=== PATIENT | female | born 1950 | race Caucasian/White ===

== ENCOUNTER → 2016-08-04 | Outpatient (CLI) | payer BC, MEDICARE ==
[~2016-08-04] MED LIST: AMIT100T2 PO; ASPI-808 PO; CLON0.1T PO; CLONIDINE; DILT240C9 PO; FURO40TA4 PO; GLYB5TAB6 PO; HYDR-3820 PO; INSU100I10 SC; LEVEMIR; LISI-552 PO; LOVA20TA2 PO; METF500T4 PO; METFORMIN; METO100T2 PO; METOPROLOL; PANT40SU PO; POTA10TA6 PO; RANI150T15 PO; TRIA10.8 NS
--- NOTE | 2016-08-04 09:30 | Diagnostic Imaging Report ---
CLINICAL INDICATION: Patient with right upper quadrant pain. Patient has unintentional weight loss. EXAM: Abdominal ultrasound. COMPARISON: None. FINDINGS: Pancreas has normal echogenicity and appearance with no significant abnormality. There is diffuse hyperechogenicity seen throughout the liver. There is no liver mass seen. The liver surface is smooth. The main portal vein demonstrates hepatopetal flow. The liver measures 17.0 cm. Both kidneys demonstrate normal echogenicity, size, shape and cortical thickness. No mass or hydronephrosis is seen. The right and left kidney measures 9.8 cm and 9.4 cm in craniocaudal dimensions, respectively. Common bile duct measures 4.8 mm with no stones or gross abnormality seen. The gallbladder is surgically resected. The area of the aorta and IVC is obscured by overlying bowel gas and patient body habitus. The spleen has normal echogenicity, configuration with no significant abnormality seen. The spleen measures 11.2 cm in craniocaudal dimension. There is no abdominal ascites. IMPRESSION: 1: There is no evidence of acute abdominal process seen on this exam. 2: Mild hepatomegaly and diffuse hyperechogenicity seen throughout the liver which may be related to diffuse fatty infiltration and/or chronic hepatocellular disease. 3: Gallbladder is surgically absent. 4: The aorta and IVC is obscured on this exam. Dictated by: Dictated on workstation # [id number]
== END ==
LOC: RAD 08:07
PROVIDERS: ATTEND Nurse Practitioner Family
DX: R10.11 Right upper quadrant pain (principal); R10.12 Left upper quadrant pain; R63.5 Abnormal weight gain; R06.02 Shortness of breath; R16.0 Hepatomegaly, not elsewhere classified
CPT/HCPCS: 76700

== ENCOUNTER → 2016-08-06 | Outpatient (CLI) | payer BC, MEDICARE ==
--- NOTE | 2016-08-06 15:30 | Diagnostic Imaging Report ---
PROCEDURE: CT abdomen and pelvis without contrast. TECHNIQUE: Multiple contiguous axial images were obtained through the abdomen and pelvis without the use of intravenous contrast. INDICATION: Right upper quadrant pain. FINDINGS: Liver is homogeneous in appearance. No evidence of hepatomegaly. The gallbladder is absent. Bile ducts are not dilated. The pancreas and spleen are normal. Adrenal glands are not enlarged. The kidneys show no evidence of obstruction or calculi. Renal outlines are smooth. Aorta and abdominal vessels appear normal with minimal atherosclerotic disease. The stomach and small bowel appear normal with no distention. The colon shows normal stool and gas pattern. There is diverticulosis of the sigmoid colon without evidence of diverticulitis. No intra-abdominal adenopathy. There is no free air or free fluid. IMPRESSION: 1. Liver appears normal with no bile duct dilatation. 2. The remainder of the abdomen appears normal. Dictated by: Dictated on workstation # [id number]
== END ==
LOC: RAD 13:41
DX: R10.11 Right upper quadrant pain (principal); R14.0 Abdominal distension (gaseous)
CPT/HCPCS: 74176

== ENCOUNTER 2016-08-10 11:46 | Observation (INO) | payer BC, MEDICARE ==
[~2016-08-10] VITALS: Ht 165.1 cm; Wt 90.7 kg
[2016-08-10] MEDS ORDERED: NS IV 1000 ML 1,000 ML IV ONE ×4 (11:59→16:14)
[2016-08-10] MEDS ORDERED: ASPIRIN 81 MG CHEW (CHILDREN'S ASA) PO ONE (12:00)
[2016-08-10] MEDS: RX-NITROGLYCERIN 0.4 MG TAB BTL 25'S SL PRN ×2 (12:05→12:19)
[2016-08-10] MEDS ORDERED: ACETAMINOPHEN 500 MG TAB (TYLENOL) PO ONE (12:15)
[2016-08-10] MEDS ORDERED: IBUPROFEN 800 MG (MOTRIN) TAB PO ONE (12:15)
--- NOTE | 2016-08-10 12:18 | ED Cardiac General ---
History of Present Illness General Chief Complaint: Chest Pain Stated Complaint: CHEST HEAVINESS/UPPER ABD PAIN Nursing Triage Note: AMBULATED TO ROOM 08 WITHOUT DIFFICULTY. STATES URGENT CARE SENT HER HERE. COMPLAINS OF CHEST HEAVINESS ET UPPER ABD PAIN X3 WEEKS THAT FEELS LIKE ACID REFLUX ET FEVER OF 101 STARTING TODAY. Source: patient History of Present Illness Time seen by provider: 11:55 Initial Comments PT ARRIVES VIA POV C/O CHEST PAIN /HEAVINESS SINCE WAKING THIS AM AT 0930 C/O SHORTNESS OF BREATH AND DISCOMFORT IN CHEST WITH BREATHING SINCE WAKING C/O HEART RACING THIS AM C/O NON-PRODUCTIVE COUGH SINCE THIS AM--STATES SHE HAS HAD COUGH OFF AND ON SINCE APRIL, STARTED AGAIN THIS AM ON WAKING C/O UPPER ABDOMINAL PAIN SINCE THIS AM--STATES SHE HAS HAD THIS OFF AND ON SINCE APRIL WELL. STARTED AGAIN THIS AM ON WAKING NO NAUSEA, BUT STATES IT FEELS LIKE ACID REFLUX NO SWELLING IN LEGS/FEET OR PAIN IN CALVES PT HAS TEMP OF 101 HERE--PT WAS UNAWARE THAT SHE HAD FEVER NO SWEATS NO DIZZINESS STATES SHE FELT FINE WHEN SHE WENT TO BED PT DENIES ANY HISTORY OF CARDIAC OR LUNG PROBLEMS PT IS HERE VISITING HER MOTHER, PT LIVES IN [place] Allergies and Home Medications Allergies Coded Allergies: No Known Drug Allergies (Unverified , 06/11/15) Home Medications Amitriptyline HCl 100 Mg Tablet 200 MG PO HS (Reported) TAKES 2 (100MG) TABLETS Clonidine HCl 0.1 Mg Tablet 0.1 MG PO HS (Reported) Diltiazem HCl 240 Mg Cap.er.deg 240 MG PO DAILY (Reported) Furosemide 40 Mg Tablet 40 MG PO DAILY (Reported) Glyburide 5 Mg Tablet 5 MG PO TID (Reported) Hydrocodone/Acetaminophen 1 Each Tablet 1 TAB PO TID (Reported) Insulin Glargine,Hum.rec.anlog 100 Unit/1 Ml Insuln.pen 20 UNITS SC DAILY ( Reported) Lisinopril 20 Mg Tablet 20 MG PO HS (Reported) Lovastatin 20 Mg Tablet 20 MG PO DAILY (Reported) Metoprolol Tartrate 100 Mg Tablet 100 MG PO BID (Reported) Pantoprazole Sodium 40 Mg #90 40 MG PO DAILY Prescribed by: DANYA GREEN on 06/12/15 1634 Potassium Chloride 10 Meq Tablet.er 10 MEQ PO DAILY (Reported) Ranitidine HCl 150 Mg Tablet 150 MG PO BID (Reported) Triamcinolone Acetonide 10.8 Ml [place] 2 SPRAYS NS DAILY PRN PRN CONGESTION ( Reported) Review of Systems Constitutional: see HPI EENTM: No Symptoms Reported Respiratory: See HPI Cough Shortness of Air Cardiovascular: See HPI Chest PainDenies Edema, Irregular Heart RateDenies Lightheadedness, PalpitationsDenies Syncope Gastrointestinal: See HPI Abdominal PainDenies Nausea, Denies Vomiting Genitourinary: No Symptoms Reported Musculoskeletal: no symptoms reported Skin: no symptoms reported Psychiatric/Neurological: No Symptoms Reported Endocrine: No Symptoms Reported Hematologic/Lymphatic: No Symptoms Reported Past Ioukpdq-Bzoymr-Hzsbwf Hx Patient Social History Alcohol Use: Past History (MODERATE USE IN PAST) Recreational Drug Use: No (DENIES) Smoking Status: Former Smoker (SMOKED 1 PPD QUIT 2003) Recent Foreign Travel: No Contact w/Someone Who Travel: No Recent Infectious Disease Expo: No Recent Hopitalizations: No Immunizations Up To Date Tetanus Booster (TDap): Unknown PED Vaccines UTD: No Date of Pneumonia Vaccine: Aug 31, 2012 Surgeries HX Surgeries: Yes (R wrist, L thumb; 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; HYST/ BSO) Surgeries: Appendectomy, Gallbladder, Hysterectomy, Oophorectomy, Orthopedic Respiratory Hx Respiratory Disorders: No Cardiovascular Hx Cardiac Disorders: Yes (RAPID HEART RATE; edema L leg) Cardiac Disorders: Hypertension Neurological Hx Neurological Disorders: Yes Neurological Disorders: Headaches /Migraines Reproductive System Hx 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, 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 Genitourinary Hx Genitourinary Disorders: Yes Genitourinary Disorders: Kidney Infection Gastrointestinal Hx Gastrointestinal Disorders: Yes Gastrointestinal Disorders: Gastroesophageal Reflux Musculoskeletal Hx Musculoskeletal Disorders: Yes (L thumb, R wrist, R Collar bone; 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) Musculoskeletal Disorders: Fractures Endocrine Hx Endocrine Disorders: Yes (LANTUS 20 UNITS DAILY) Endocrine Disorders: Diabetes, Insulin dep HEENT HX ENT Disorders: Yes HEENT Disorders: Glaucoma Loss of Vision: Denies Hearing Impairment: Denies Cancer Hx Cancer: No Psychosocial Hx Psychiatric Problems: No Integumentary HX Skin/Integumentary Disorder: No Family Medical History Family Medial History: Arthritis G8 BROTHER G8 BROTHER Cardiovascular disease 19 FATHER 19 MOTHER Dementia 19 FATHER Diabetes mellitus 19 FATHER 19 MOTHER G8 BROTHER FH: COPD (chronic obstructive pulmonary disease) G8 BROTHER FH: CVA (cerebrovascular accident) 19 FATHER FH: CVA (cerebrovascular accident) 19 FATHER FH: neuropathy G8 BROTHER Glaucoma 19 FATHER Hypertension G8 BROTHER Kidney disease G8 BROTHER Psychosocial problem G8 BROTHER TIAs 19 FATHER Vertigo G8 BROTHER Physical Exam Vital Signs Vital Sign - Last 12Hours 08/10/16 08/10/16 11:53 12:22 Temp 101.2 Pulse 143 Resp 16 B/P 140/64 Pulse Ox 95 O2 Delivery Nasal Cannula O2 Flow Rate 2 Capillary Refill : Less Than 3 Seconds General Appearance: No Apparent Distress WD/WN Other (CONSTANT MOVEMENTS) HEENT: PERRL/EOMI Other (EDENTULOUS) Neck: Full Range of Motion Normal Inspection Non Tender SuppleNo Carotid Bruit , No JVD Respiratory: Chest Non Tender Normal Breath Sounds No Accessory Muscle Use No Respiratory Distress Cardiovascular: No Edema No JVD No Murmur Normal Peripheral Pulses Tachycardia Gastrointestinal: Normal Bowel Sounds No Organomegaly No Pulsatile Mass Soft Tenderness (MODERATE EPIGASTRIC TENDERNESS) Extremity: Normal Capillary Refill Normal Inspection Normal Range of Motion Non Tender No Calf Tenderness No Pedal Edema Neurologic/Psychiatric: Alert Oriented x3 No Motor/Sensory Deficits Normal 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 Norm as Tested Skin: Normal Color Warm/DryNo Rash Progress/Results/Core Measures Results/Orders Lab Results Laboratory Tests Test 08/10/16 12:05 08/10/16 15:34 Range/Units Activated Partial Thromboplast Time 25 24-35 SEC Alanine Aminotransferase (ALT/SGPT) 19 0-55 U/L Albumin 4.1 3.2-4.5 G/DL Alkaline Phosphatase 79 40-136 U/L Amylase Level 94 25-125 U/L Anion Gap 13 5-14 MMOL/L Aspartate Amino Transf (AST/SGOT) 18 5-34 U/L B-Type Natriuretic Peptide < 10.0 <100.0 PG/ML BUN/Creatinine Ratio 24 Basophils # (Auto) 0.0 0.0-0.1 10^3/uL Basophils (%) (Auto) 0 0-10 % Blood Morphology Comment NORMAL Blood Urea Nitrogen 26 H 7-18 MG/DL Calcium Level 8.6 8.5-10.1 MG/DL Carbon Dioxide Level 21 21-32 MMOL/L Chloride Level 102 98-107 MMOL/L Creatine Kinase MB 0.3 <6.6 NG/ML Creatinine 1.10 0.60-1.30 MG/DL Eosinophils # (Auto) 0.1 0.0-0.3 10^3/uL Eosinophils (%) (Auto) 1 0-10 % Estimat Glomerular Filtration Rate 49 Free Thyroxine 1.00 0.70-1.48 NG/DL Glucose Level 198 H 70-105 MG/DL Hematocrit 36 35-52 % Hemoglobin 11.8 11.5-16.0 G/DL INR Comment 1.0 0.8-1.4 Lactic Acid Level 1.9 0.5-2.0 MMOL/L Lipase 36 8-78 U/L Lymphocytes # (Auto) 0.4 L 1.0-4.0 X 10^3 Lymphocytes % (Manual) 3 % Lymphocytes (%) (Auto) 4 L 12-44 % Magnesium Level 1.4 L 1.8-2.4 MG/DL Mean Corpuscular Hemoglobin 29 25-34 PG Mean Corpuscular Hemoglobin Concent 33 32-36 G/DL Mean Corpuscular Volume 89 80-99 FL Mean Platelet Volume 10.7 H 7.4-10.4 FL Monocytes # (Auto) 0.6 0.0-1.0 X 10^3 Monocytes % (Manual) 7 % Monocytes (%) (Auto) 6 0-12 % Neutrophils # (Auto) 8.3 H 1.8-7.8 X 10^3 Neutrophils % (Manual) 90 % Neutrophils (%) (Auto) 89 H 42-75 % Platelet Count 200 130-400 10^3/uL Potassium Level 4.4 3.6-5.0 MMOL/L Prothrombin Time 12.6 12.2-14.7 SEC Red Blood Count 4.06 L 4.35-5.85 10^6/uL Red Cell Distribution Width 14.2 10.0-14.5 % Sodium Level 136 135-145 MMOL/L TSH [place] Testing 0.27 L 0.35-4.94 UIU/ML Total Bilirubin 0.6 0.1-1.0 MG/DL Total Creatine Kinase 14 L 29-168 U/L Total Protein 6.7 6.4-8.2 G/DL Troponin I < 0.30 <0.30 NG/ML White Blood Count 9.3 4.3-11.0 10^3/uL Urine Bacteria NEGATIVE /HPF Urine Bilirubin NEGATIVE NEGATIVE Urine Casts NONE /LPF Urine Clarity CLEAR Urine Color YELLOW Urine Crystals NONE /LPF Urine Culture Indicated NO Urine Glucose (UA) NEGATIVE NEGATIVE Urine Ketones NEGATIVE NEGATIVE Urine Leukocyte Esterase 1+ H NEGATIVE Urine Mucus NEGATIVE /LPF Urine Nitrite NEGATIVE NEGATIVE Urine Protein 1+ H NEGATIVE Urine RBC NONE /HPF Urine RBC (Auto) NEGATIVE NEGATIVE Urine Specific [place] 1.010 L 1.016-1.022 Urine Squamous Epithelial Cells 0-2 /HPF Urine Urobilinogen NORMAL NORMAL MG/DL Urine WBC 2-5 /HPF Urine pH 5 5-9 Micro Results Microbiology 08/10/16 Influenza Types A,B Antigen (KEVAN) - Final, Complete My Orders Orders-VINNY LANDIS DO Amylase (08/10/16 11:56) Cbc With Automated Diff (08/10/16 11:56) Comprehensive Metabolic Panel (08/10/16 11:56) Creatine Kinase (08/10/16 11:56) Creatine Kinase Mb (08/10/16 11:56) Lipase (08/10/16 11:56) Partial Thromboplastin Time (08/10/16 11:56) Protime With Inr (08/10/16 11:56) Troponin I (08/10/16 11:56) Chest 1 View, Ap/Pa Only (08/10/16 11:56) O2 (08/10/16 11:56) Ekg Tracing (08/10/16 11:56) Aspirin Chewable Tablet (Baby Aspirin Ch (08/10/16 12:00) Rx-Nitroglycerin Sl Tabs (Rx-Nitrostat S (08/10/16 12:00) BNP (08/10/16 11:56) Monitor-Rhythm Ecg Trace Only (08/10/16 11:56) Saline Lock/Iv-Start (08/10/16 11:56) Magnesium (08/10/16 11:56) Lactic Acid Analyzer (08/10/16 11:59) Thyroid Analyzer (08/10/16 11:59) Blood Culture (08/10/16 11:59) Influenza A And B Antigens (08/10/16 11:59) Saline Lock/Iv-Start (08/10/16 11:59) Ns Iv 1000 Ml (Sodium Chloride 0.9%) (08/10/16 11:59) Acetaminophen Tablet (Tylenol Tablet) (08/10/16 12:15) Ibuprofen Tablet (Motrin Tablet) (08/10/16 12:15) Manual Differential (08/10/16 12:05) Saline Lock/Iv-Start (08/10/16 12:58) Ns Iv 1000 Ml (Sodium Chloride 0.9%) (08/10/16 12:58) Free T4 (Free Thyroxine) (08/10/16 12:05) Ct Angio Chest W (08/10/16 13:54) Saline Lock/Iv-Start (08/10/16 13:55) Ns Iv 1000 Ml (Sodium Chloride 0.9%) (08/10/16 13:55) Iohexol Injection (Omnipaque 350 Mg/Ml 1 (08/10/16 14:00) Sodium Chloride Flush (Catheter Flush Sy (08/10/16 14:00) Ns (Ivpb) (Sodium Chloride 0.9% Ivpb Bag (08/10/16 14:00) Saline Lock/Iv-Start (08/10/16 16:14) Saline Lock/Iv-Start (08/10/16 16:14) Ns Iv 1000 Ml (Sodium Chloride 0.9%) (08/10/16 16:14) Ua Culture If Indicated (08/10/16 16:18) Medications Given in ED Current Medications Medications Dose Ordered Sig/Love Route Start Time Stop Time Status Last Admin Dose Admin Acetaminophen 1,000 mg ONCE ONCE PO 08/10/16 12:15 08/10/16 12:16 DC 08/10/16 12:16 1,000 MG Aspirin 324 mg ONCE ONCE PO 08/10/16 12:00 08/10/16 12:01 DC 08/10/16 12:04 324 MG Ceftriaxone Sodium/Sodium Chloride 50 ml @ 100 mls/hr ONCE ONCE IV 08/10/16 16:30 08/10/16 16:59 DC 08/10/16 16:45 100 MLS/HR Ibuprofen 800 mg 800 mg ONCE ONCE PO 08/10/16 12:15 08/10/16 12:16 DC 08/10/16 12:16 800 MG Iohexol 150 ml ONCE ONCE IV 08/10/16 14:00 08/10/16 14:11 DC 08/10/16 14:48 125 ML Nitroglycerin 0.4 mg 0.4 mg UD PRN SL 08/10/16 12:00 08/10/16 12:19 0.4 MG Sodium Chloride 1,000 ml @ 0 mls/hr Q0M ONCE IV 08/10/16 11:59 08/10/16 12:00 DC 08/10/16 12:17 1,000 MLS/HR Sodium Chloride 1,000 ml @ 0 mls/hr Q0M ONCE IV 08/10/16 12:58 08/10/16 12:59 DC 08/10/16 13:00 1,000 MLS/HR Sodium Chloride 1,000 ml @ 0 mls/hr Q0M ONCE IV 08/10/16 13:55 08/10/16 13:56 DC 08/10/16 14:25 1,000 MLS/HR Sodium Chloride 1,000 ml @ 0 mls/hr Q0M ONCE IV 08/10/16 16:14 08/10/16 16:17 DC 08/10/16 16:44 1,000 MLS/HR Sodium Chloride 100 ml 100 ml ONCE ONCE IV 08/10/16 14:00 08/10/16 14:11 DC 08/10/16 14:48 80 ML Vital Signs/I&O Vital Sign - Last 12Hours 08/10/16 08/10/16 08/10/16 11:53 12:22 13:37 Temp 101.2 100.1 Pulse 143 114 Resp 16 B/P 140/64 Pulse Ox 95 O2 Delivery Nasal Cannula O2 Flow Rate 2 Blood Pressure Mean: 89 Progress Note : Progress Note PT HAD SEVERAL EPISODES OF HYPOTENSION WITH BP DROPS TO 70'S / 40'S BUT NO CHANGE IN HEART RATE AND PT COMPLETELY ASYMPTOMATIC. TEMPORARY IMPROVED WITH FLUID BOLUSES HEART RATE DOWN TO 110'S WITH FLUIDS AND TREATING FEVER. TEMP DOWN TO 99 AT TIME OF ADMIT. 1640--PT NOW STATES THAT SHE WAS TREATED 2 WEEKS AGO AT URGENT CARE FOR BRONCHITIS WITH UNKNOWN ANTIBIOTIC--WAS RUNNING FEVER OF 101-102 AT THAT TIME AND HAD A COUGH. THOSE SYMPTOMS GOT BETTER, THEN RETURNED AGAIN TODAY. ECG Initial ECG Impression Time: 11:55 Initial ECG Rate: 143 Initial ECG Rhythm: S.Tach Initial ECG Comparisson: No Previous ECG Available Diagnostic Imaging Comments CXR--NO ACUTE PROCESS, PER RADIOLOGIST REPORT CT CHEST ANGIOGRAM--NO P.E. OR OTHER ACUTE PROCESS--PER RADIOLOGIST REPORTS Reviewed: Reviewed by Me Departure Communication Progress Notes 1615--ATTEMPTING TO CONTACT DR. PEPPER VIA CELL PHONE AND HOSPITALIST OFFICE NUMBERS [id number]--SPOKE WITH DR. PEPPER ACCEPTS PT FOR ADMIT. Impression Impression: Primary Impression: Sepsis associated hypotension Additional Impressions: Bronchitis POSSIBLE PNEUMONIA Chest pain Dyspnea Dehydration IDDM (insulin dependent diabetes mellitus) Disposition: ADMITTED INPATIENT Condition: Stable Decision to Admit Reason: Admit from ER (General) Decision to Admit/Date: Aug 10, 2016 Time/Decision to Admit Time: 16:30 Departure-Patient Inst. Referrals: NO,LOCAL PHYSICIAN (PCP/Family) Primary Care Physician VINNY LANDIS DO Aug 10, 2016 12:18
[2016-08-10 12:29] LABS: BASOPHILS % (AUTO) 0 % (0-10); EOSINOPHILS # (AUTO) 0.1 10^3/uL (0.0-0.3); EOSINOPHILS % (AUTO) 1 % (0-10); LYMPHOCYTES # (AUTO) 0.4 X 10^3 (1.0-4.0); LYMPHOCYTES % (AUTO) 4 % (12-44); MEAN CORPUSCULAR HEMOGLOBIN 29 PG (25-34); MEAN CORPUSCULAR HGB CONC 33 G/DL (32-36); MEAN CORPUSCULAR VOLUME 89 FL (80-99); MEAN PLATELET VOLUME 10.7 FL (7.4-10.4); MONOCYTES # (AUTO) 0.6 X 10^3 (0.0-1.0); MONOCYTES % (AUTO) 6 % (0-12); NEUTROPHILS # (AUTO) 8.3 X 10^3 (1.8-7.8); NEUTROPHILS % (AUTO) 89 % (42-75); PLATELET COUNT 200 10^3/uL (130-400); RED BLOOD COUNT 4.06 10^6/uL (4.35-5.85); RED CELL DISTRIBUTION WIDTH 14.2 % (10.0-14.5); WHITE BLOOD COUNT 9.3 10^3/uL (4.3-11.0)
[2016-08-10 12:41] LABS: PROTHROMBIN TIME PATIENT 12.6 SEC (12.2-14.7)
--- NOTE | 2016-08-10 12:43 | Diagnostic Imaging Report ---
INDICATION: Chest heaviness and abdominal pain. Fever. COMPARISON: Comparison made with prior examination from 06/11/2015. FINDINGS: The heart size, mediastinal configuration, and pulmonary vascularity are within normal limits. There is no pleural effusion, pneumothorax, or pneumonia. The osseous structures are unremarkable. IMPRESSION: No acute cardiopulmonary abnormality. Dictated by: Dictated on workstation # [id number]
[2016-08-10 12:51] LABS: ALANINE AMINOTRANSFERASE 19 U/L (0-55); ALBUMIN 4.1 G/DL (3.2-4.5); AMYLASE 94 U/L (25-125); ANION GAP 13 MMOL/L (5-14); ASPARTATE AMINO TRANSFERASE 18 U/L (5-34); BILIRUBIN,TOTAL 0.6 MG/DL (0.1-1.0); BLOOD UREA NITROGEN 26 MG/DL (7-18); BUN/CREATININE RATIO 24; CALCIUM 8.6 MG/DL (8.5-10.1); CARBON DIOXIDE 21 MMOL/L (21-32); CHLORIDE 102 MMOL/L (98-107); CREATINE KINASE 14 U/L (29-168); GFR ESTIMATED 49; GLUCOSE 198 MG/DL (70-105); LIPASE 36 U/L (8-78); MAGNESIUM 1.4 MG/DL (1.8-2.4); POTASSIUM 4.4 MMOL/L (3.6-5.0); SODIUM 136 MMOL/L (135-145); TOTAL PROTEIN 6.7 G/DL (6.4-8.2)
[2016-08-10 13:10] LABS: TROPONIN I < 0.30 NG/ML (<0.30)
[2016-08-10 13:35] LABS: LYMPHOCYTES % (MANUAL) 3 %; NEUTROPHILS % (MANUAL) 90 %
[2016-08-10] MEDS ORDERED: CATHETER FLUSH 10 ML SYR IV PRN (14:00)
[2016-08-10] MEDS ORDERED: NS 100 ML (IVPB) BAG IV ONE (14:00)
[2016-08-10] MEDS ORDERED: IOHEXOL 350 MG/ML 150 ML (OMNIPAQUE 350) VIAL IV ONE (14:00)
--- NOTE | 2016-08-10 15:08 | Diagnostic Imaging Report ---
PROCEDURE: CT angiography of the chest with contrast. TECHNIQUE: Multiple contiguous axial images were obtained through the chest after uneventful bolus administration of intravenous contrast. Reconstructed CTA MIP acquisitions were also performed. INDICATION: Chest heaviness, tachycardia and pain with dizziness. FINDINGS: The thoracic aorta is normal in caliber and without evidence of dissection. There are no filling defects seen within the pulmonary arteries to suggest pulmonary embolism. There is minimal dependent atelectasis in the lung bases. There are a few benign calcified granulomas. No pneumothorax. There is no pathologically enlarged adenopathy in the chest. There are degenerative changes in the spine. The visualized intra-abdominal structures are unremarkable. IMPRESSION: 1. No evidence of pulmonary embolism or aortic dissection. 2. Dependent atelectasis in lung bases bilaterally as well as a few benign calcified granulomas. Dictated by: Dictated on workstation # [id number]
[2016-08-10 16:25] LABS: BILIRUBIN,URINE NEGATIVE (NEGATIVE); KETONES,URINE NEGATIVE (NEGATIVE); LEUKOCYTE ESTERASE ,URINE 1+ (NEGATIVE); NITRITE,URINE NEGATIVE (NEGATIVE); PH,URINE 5 (5-9); PROTEIN,URINE 1+ (NEGATIVE); UROBILINOGEN,URINE NORMAL (NORMAL)
[2016-08-10] MEDS ORDERED: cefTRIAXone INJECTION 1,000 MG in NS (IVPB) 50 ML IV ONE (16:30)
[2016-08-10 16:48] LABS: SQUAMOUS EPITHELIAL CELL,UR 0-2 /HPF
[2016-08-10 18:15] VITALS: BP 104/49
[2016-08-10] MEDS ORDERED: D5 1/2 NS 1000 ML IV SOLUTION 1,000 ML IV ONE (18:16)
[2016-08-10] MEDS ORDERED: LEVOFLOXACIN 750 MG/D5W 150 ML (PRE-MIX) IV SCH (18:30)
[2016-08-10] MEDS ORDERED: IBUPROFEN 800 MG (MOTRIN) TAB PO PRN (18:45)
[2016-08-10 19:00] VITALS: BP 104/49
[2016-08-10] MEDS: D5 1/2 NS 1000 ML IV SOLUTION 1,000 ML IV SCH (19:03)
[2016-08-10 20:00] VITALS: BP 101/55
[2016-08-10] MEDS: inSUlin (REGULAR) HUMAN 1 UNIT/0.01 ML (CHARGE PER UNIT) SC SCH (20:28)
[2016-08-10 21:00] VITALS: BP 101/60
[2016-08-10 22:00] VITALS: BP 118/50
[2016-08-10] MEDS ORDERED: RT-ALBUTEROL/IPRATROPIUM 3 ML (DUONEB) VIAL INH PRN (22:00)
[2016-08-10 23:00] VITALS: BP 120/66
[2016-08-11] VITALS (11 sets, daily range): BP systolic 100–151; BP diastolic 53–86
[2016-08-11] MEDS: ACETAMINOPHEN 500 MG TAB (TYLENOL) PO PRN ×2 (00:11→13:21)
[2016-08-11] MEDS: D5 1/2 NS 1000 ML IV SOLUTION 1,000 ML IV SCH (02:55)
[2016-08-11 04:30] LABS: BASOPHILS % (AUTO) 0 % (0-10); EOSINOPHILS # (AUTO) 0.1 10^3/uL (0.0-0.3); EOSINOPHILS % (AUTO) 3 % (0-10); LYMPHOCYTES # (AUTO) 0.6 X 10^3 (1.0-4.0); LYMPHOCYTES % (AUTO) 18 % (12-44); MEAN CORPUSCULAR HEMOGLOBIN 29 PG (25-34); MEAN CORPUSCULAR HGB CONC 32 G/DL (32-36); MEAN CORPUSCULAR VOLUME 91 FL (80-99); MONOCYTES # (AUTO) 0.3 X 10^3 (0.0-1.0); MONOCYTES % (AUTO) 11 % (0-12); NEUTROPHILS % (AUTO) 67 % (42-75); PLATELET COUNT 121 10^3/uL (130-400); RED BLOOD COUNT 3.13 10^6/uL (4.35-5.85); RED CELL DISTRIBUTION WIDTH 14.3 % (10.0-14.5)
[2016-08-11 05:01] LABS: ANION GAP 10 MMOL/L (5-14); BLOOD UREA NITROGEN 17 MG/DL (7-18); BUN/CREATININE RATIO 21; CALCIUM 7.2 MG/DL (8.5-10.1); CARBON DIOXIDE 18 MMOL/L (21-32); CHLORIDE 111 MMOL/L (98-107); GFR ESTIMATED > 60; GLUCOSE 119 MG/DL (70-105); MAGNESIUM 1.3 MG/DL (1.8-2.4); PHOSPHORUS 1.7 MG/DL (2.3-4.7); POTASSIUM 3.7 MMOL/L (3.6-5.0); SODIUM 139 MMOL/L (135-145)
[2016-08-11] MEDS ORDERED: POTASSIUM CL 10MEQ/50ML IVPB 50 ML IV SCH (06:00)
[2016-08-11] MEDS ORDERED: KCL 20 MEQ TAB (K-DUR) PO SCH (06:00)
[2016-08-11] MEDS: inSUlin (REGULAR) HUMAN 1 UNIT/0.01 ML (CHARGE PER UNIT) SC SCH (06:00)
[2016-08-11] MEDS ORDERED: MAGNESIUM 1 GM/100 ML IVPB 100 ML IV SCH ×2 (06:00→08:15)
[2016-08-11] MEDS: MAGNESIUM 1 GM/100 ML IVPB 100 ML IV SCH ×4 (06:26→11:19)
--- NOTE | 2016-08-11 08:08 | Consultation-Cardiology ---
HPI-Cardiology Cardiology Consultation Date of Consultation 08/11/16 Date of Admission Indication: Chest pain HPI 66-year-old lady with history of hypertension, diabetes mellitus, has been having wheezing dyspnea and cough. Reported episode of chest discomfort described as dull achiness in the retrosternal area, had abdominal pain and right upper quadrant pain. She was seen in the urgent care for the past few times. Came into the emergency room, has been having episodes of dizziness and lightheadedness. Orthostatic. No full syncope was reported. Patient was noted to be hypotensive. Diagnosed with bronchitis. Home Medications & Allergies Allergies: Coded Allergies: No Known Drug Allergies (Unverified , 06/11/15) Home Medication List Reviewed: Yes [id number]-Kqcicq Hx Patient Social History Alcohol Use: Past History Recreational Drug Use: No (DENIES) Smoking Status: Former Smoker Recent Foreign Travel: No Recent Infectious Disease Expo: No Recent Hopitalizations: No Physical Abuse Screen: No Sexual Abuse: No Immunizations Up To Date Tetanus Booster (TDap): Unknown Date of Pneumonia Vaccine: May 05, 2015 Past Medical History past medical history as discussed below Family Medical History Family History: 19 FATHER Diabetes mellitus Cardiovascular disease Dementia Glaucoma FH: CVA (cerebrovascular accident) TIAs 19 MOTHER Diabetes mellitus Cardiovascular disease G8 BROTHER Diabetes mellitus Arthritis FH: COPD (chronic obstructive pulmonary disease) FH: neuropathy Vertigo Hypertension Kidney disease Psychosocial problem G8 BROTHER Arthritis Relation not specified for: FH: CVA (cerebrovascular accident) Constitutional: see HPI fever weakness EENTM: no symptoms reported see HPI Respiratory: see HPI cough dyspnea on exertion short of breath Cardiovascular: see HPI chest pain Gastrointestinal: RUQ see HPI Genitourinary: no symptoms reported see HPI Musculoskeletal: no symptoms reported see HPI Skin: see HPI Psychiatric/Neurological: No Symptoms Reported See HPI Reviewed Test Results Reviewed Test Results Lab Laboratory Tests Test 08/10/16 12:05 08/10/16 15:34 08/10/16 20:25 08/11/16 03:25 Range/Units Activated Partial Thromboplast Time 25 24-35 SEC Alanine Aminotransferase (ALT/SGPT) 19 0-55 U/L Albumin 4.1 3.2-4.5 G/DL Alkaline Phosphatase 79 40-136 U/L Amylase Level 94 25-125 U/L Anion Gap 13 10 5-14 MMOL/L Aspartate Amino Transf (AST/SGOT) 18 5-34 U/L B-Type Natriuretic Peptide < 10.0 <100.0 PG/ML BUN/Creatinine Ratio 24 21 Basophils # (Auto) 0.0 0.0 0.0-0.1 10^3/uL Basophils (%) (Auto) 0 0 0-10 % Blood Morphology Comment NORMAL Blood Urea Nitrogen 26 H 17 7-18 MG/DL Calcium Level 8.6 7.2 L 8.5-10.1 MG/DL Carbon Dioxide Level 21 18 L 21-32 MMOL/L Chloride Level 102 111 H 98-107 MMOL/L Creatine Kinase MB 0.3 <6.6 NG/ML Creatinine 1.10 0.80 0.60-1.30 MG/DL Eosinophils # (Auto) 0.1 0.1 0.0-0.3 10^3/uL Eosinophils (%) (Auto) 1 3 0-10 % Estimat Glomerular Filtration Rate 49 > 60 Free Thyroxine 1.00 0.70-1.48 NG/DL Glucose Level 198 H 119 H 70-105 MG/DL Hematocrit 36 29 L 35-52 % Hemoglobin 11.8 9.1 #L 11.5-16.0 G/DL INR Comment 1.0 0.8-1.4 Lactic Acid Level 1.9 0.5-2.0 MMOL/L Lipase 36 8-78 U/L Lymphocytes # (Auto) 0.4 L 0.6 L 1.0-4.0 X 10^3 Lymphocytes % (Manual) 3 % Lymphocytes (%) (Auto) 4 L 18 12-44 % Magnesium Level 1.4 L 1.3 L 1.8-2.4 MG/DL Mean Corpuscular Hemoglobin 29 29 25-34 PG Mean Corpuscular Hemoglobin Concent 33 32 32-36 G/DL Mean Corpuscular Volume 89 91 80-99 FL Mean Platelet Volume 10.7 H 11.0 H 7.4-10.4 FL Monocytes # (Auto) 0.6 0.3 0.0-1.0 X 10^3 Monocytes % (Manual) 7 % Monocytes (%) (Auto) 6 11 0-12 % Neutrophils # (Auto) 8.3 H 2.0 1.8-7.8 X 10^3 Neutrophils % (Manual) 90 % Neutrophils (%) (Auto) 89 H 67 42-75 % Platelet Count 200 121 L 130-400 10^3/uL Potassium Level 4.4 3.7 3.6-5.0 MMOL/L Prothrombin Time 12.6 12.2-14.7 SEC Red Blood Count 4.06 L 3.13 L 4.35-5.85 10^6/uL Red Cell Distribution Width 14.2 14.3 10.0-14.5 % Sodium Level 136 139 135-145 MMOL/L TSH [place] Testing 0.27 L 0.35-4.94 UIU/ML Total Bilirubin 0.6 0.1-1.0 MG/DL Total Creatine Kinase 14 L 29-168 U/L Total Protein 6.7 6.4-8.2 G/DL Troponin I < 0.30 <0.30 NG/ML White Blood Count 9.3 3.0 L 4.3-11.0 10^3/uL Urine Bacteria NEGATIVE /HPF Urine Bilirubin NEGATIVE NEGATIVE Urine Casts NONE /LPF Urine Clarity CLEAR Urine Color YELLOW Urine Crystals NONE /LPF Urine Culture Indicated NO Urine Glucose (UA) NEGATIVE NEGATIVE Urine Ketones NEGATIVE NEGATIVE Urine Leukocyte Esterase 1+ H NEGATIVE Urine Mucus NEGATIVE /LPF Urine Nitrite NEGATIVE NEGATIVE Urine Protein 1+ H NEGATIVE Urine RBC NONE /HPF Urine RBC (Auto) NEGATIVE NEGATIVE Urine Specific [place] 1.010 L 1.016-1.022 Urine Squamous Epithelial Cells 0-2 /HPF Urine Urobilinogen NORMAL NORMAL MG/DL Urine WBC 2-5 /HPF Urine pH 5 5-9 Glucometer 168 H 70-110 MG/DL Phosphorus Level 1.7 L 2.3-4.7 MG/DL Physical Exam Vital Signs Vital Sign - Last 12Hours 08/10/16 08/10/16 11:53 12:22 Temp 101.2 Pulse 143 Resp 16 B/P 140/64 Pulse Ox 95 O2 Delivery Nasal Cannula O2 Flow Rate 2 Capillary Refill : Less Than 3 Seconds General Appearance: No Apparent Distress WD/WN Eyes: Bilateral Eye EOMI, Bilateral Eye Normal Inspection, Bilateral Eye PERRL HEENT: PERRL/EOMI TMs Normal Normal ENT Inspection Pharynx Normal Neck: Full Range of Motion Normal Inspection Non Tender Supple Carotid Bruit Respiratory: Chest Non Tender Lungs Clear Normal Breath Sounds No Accessory Muscle Use No Respiratory Distress Cardiovascular: Regular Rate, Rhythm No Edema No Gallop No JVD No Murmur Normal Peripheral Pulses Gastrointestinal: Normal Bowel Sounds No Organomegaly No Pulsatile Mass Non Tender Soft Back: Normal Inspection No CVA Tenderness No Vertebral Tenderness Extremity: Normal Capillary Refill Normal Inspection Normal Range of Motion Non Tender No Calf Tenderness No Pedal Edema Neurologic/Psychiatric: Alert Oriented x3 No Motor/Sensory Deficits Normal Mood/Affect Skin: Normal Color Warm/Dry Lymphatic: No Adenopathy A/P-Cardiology Admission Diagnosis Chest pain nonspecific etiology Hypotension Acute bronchitis Diabetes mellitus Assessment/Plan Chest pain nonspecific etiology, atypical in presentation, patient was in sinus tachycardia. She has been on Cardizem as an outpatient, currently on hold due to hypotension. Cardiac enzymes are normal. Patient had a stress test done in May 2015, had esophageal dilations done. I will continue monitoring at this time. Acute bronchitis. Receiving antibiotics, WBC are normal. Anemia, worse, monitor H&H Thrombocytopenia, no signs of bleeding, probably dilutional. Receiving antibiotic which could be the cause of her thrombocytopenia. Continue to monitor. Hypomagnesemia, continue to replace. Monitor. Hypotension, could be secondary to overaggressive medication, I am concerned about rebound hypertension especially that the patient has been on clonidine in addition to Cardizem, lisinopril and diuretics. I will restart Cardizem, add lisinopril if needed and try to wean her off clonidine if possible. Sinus tachycardia, has been on Cardizem and clonidine, probably rebound tachycardia in addition to bronchitis. Restarted on Cardizem and I will monitor her tolerance and response. Diabetes mellitus, followed and managed by primary care physician Hyperlipidemia, maintained on lovastatin Esophageal stricture, history of dilation Clinical Quality Measures AMI/AHF: ASA po Prior to arrival: No DVT/VTE Risk/Contraindication: Risk Factor Score Per Nursin RFS Level Per Nursing on Admit: 4+=Very High DANYA GREEN MD Aug 11, 2016 08:08
--- NOTE | 2016-08-11 08:10 | Diagnostic Imaging Report ---
Clinical indication: Patient with severe sepsis. Followup exam. Exam: Portable chest x-ray upright view. Comparisons: Chest x-ray dated 08/10/2016. CT angiogram of the chest dated 08/10/2016. Findings: Lungs/pleura: Small nodular areas throughout both lungs seen which may represent calcified granulomas. Otherwise, lungs are clear. There is no pneumothorax. There is no pleural effusion. Mediastinum: Unremarkable. Pulmonary vasculature: Unremarkable. Heart: Unremarkable. Bones/extrathoracic soft tissue: Unremarkable. Impression: Stable chest x-ray exam with no interval radiographic evidence of acute cardiopulmonary process. Dictated by: Dictated on workstation # [id number]
[2016-08-11] MEDS ORDERED: SODIUM PHOSPHATE INJ 30 MM in NS (IVPB) 250 ML IV NR (08:15)
--- NOTE | 2016-08-11 08:16 | Pulmonary Consultation ---
History of Present Illness History of Present Illness Date of Consultation 08/11/16 08:11 Date of Admission Reason for Visit: Chest pain History of Present Illness 66yo presented secondary to progressive wheezing, dyspnea, and coughing. Pt was initially hypotensive on admission however she responded IVF. Pt is feeling much improved now. No complications noted currently. Allergies and Home Medications Allergies Coded Allergies: No Known Drug Allergies (Unverified , 06/11/15) Home Medications Amitriptyline HCl 100 Mg Tablet 200 MG PO HS (Reported) TAKES 2 (100MG) TABLETS Clonidine HCl 0.1 Mg Tablet 0.1 MG PO HS (Reported) Diltiazem HCl 240 Mg Cap.er.deg 240 MG PO DAILY (Reported) Furosemide 40 Mg Tablet 40 MG PO DAILY (Reported) Glyburide 5 Mg Tablet 5 MG PO TID (Reported) Hydrocodone/Acetaminophen 1 Each Tablet 1 TAB PO TID (Reported) Insulin Glargine,Hum.rec.anlog 100 Unit/1 Ml Insuln.pen 20 UNITS SC DAILY ( Reported) Lisinopril 20 Mg Tablet 20 MG PO HS (Reported) Lovastatin 20 Mg Tablet 20 MG PO DAILY (Reported) Metoprolol Tartrate 100 Mg Tablet 100 MG PO BID (Reported) Pantoprazole Sodium 40 Mg #90 40 MG PO DAILY Prescribed by: DANYA GREEN on 06/12/15 1634 Potassium Chloride 10 Meq Tablet.er 10 MEQ PO DAILY (Reported) Ranitidine HCl 150 Mg Tablet 150 MG PO BID (Reported) Triamcinolone Acetonide 10.8 Ml Rover 2 SPRAYS NS DAILY PRN PRN CONGESTION ( Reported) Past Puvrvre-Mwowgw-Mumusl Hx Patient Social History Alcohol Use: Past History Recreational Drug Use: No (DENIES) Smoking Status: Former Smoker Recent Foreign Travel: No Contact w/Someone Who Travel: No Recent Infectious Disease Expo: No Recent Hopitalizations: No Physical Abuse Screen: No Sexual Abuse: No Immunizations Up To Date Tetanus Booster (TDap): Unknown PED Vaccines UTD: No Date of Pneumonia Vaccine: May 05, 2015 Seasonal Allergies Seasonal Allergies: No Surgeries HX Surgeries: Yes (R wrist, L thumb; 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; HYST/ BSO) Surgeries: Appendectomy, Gallbladder, Hysterectomy, Oophorectomy, Orthopedic Respiratory Hx Respiratory Disorders: No Cardiovascular Hx Cardiac Disorders: Yes (RAPID HEART RATE; edema L leg) Cardiac Disorders: Hypertension Neurological Hx Neurological Disorders: Yes Neurological Disorders: Headaches /Migraines Reproductive System Hx Reproductive Disorders: No 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, Menopausal Genitourinary Hx Genitourinary Disorders: Yes Genitourinary Disorders: Kidney Infection, UTI-Chronic Gastrointestinal Hx Gastrointestinal Disorders: Yes Gastrointestinal Disorders: Gastroesophageal Reflux, Gall Bladder Disease Musculoskeletal Hx Musculoskeletal Disorders: Yes (L thumb, R wrist, R Collar bone; 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) Musculoskeletal Disorders: Fractures Endocrine Hx Endocrine Disorders: Yes (LANTUS 20 UNITS DAILY) Endocrine Disorders: Diabetes, Insulin dep HEENT HX ENT Disorders: Yes HEENT Disorders: Glaucoma Loss of Vision: Denies Hearing Impairment: Denies Cancer Hx Cancer: No Psychosocial Hx Psychiatric Problems: No Integumentary HX Skin/Integumentary Disorder: No Family Medical History Family Medial History: Arthritis G8 BROTHER G8 BROTHER Cardiovascular disease 19 FATHER 19 MOTHER Dementia 19 FATHER Diabetes mellitus 19 FATHER 19 MOTHER G8 BROTHER FH: COPD (chronic obstructive pulmonary disease) G8 BROTHER FH: CVA (cerebrovascular accident) 19 FATHER FH: CVA (cerebrovascular accident) 19 FATHER FH: neuropathy G8 BROTHER Glaucoma 19 FATHER Hypertension G8 BROTHER Kidney disease G8 BROTHER Psychosocial problem G8 BROTHER TIAs 19 FATHER Vertigo G8 BROTHER Review of Systems Constitutional: : Chills: Fever: Malaise: Weakness Eyes: No: Conjunctivae inflammation, Eyelid inflammation, Other, Pain, Redness , Vision change Respiratory: : Cough: SOB with excertion: Shortness of breath: Wheezing Neurological: : Weakness Exam Exam Vital Signs Date Time Temp Pulse Resp B/P Pulse Ox O2 Delivery O2 Flow Rate FiO2 08/11/16 08:00 103 18 120/71 98 Room Air 08/11/16 07:16 98 08/11/16 07:00 98 08/11/16 07:00 103 16 100/77 97 Room Air 08/11/16 06:00 93 17 103/57 95 Room Air 08/11/16 05:00 95 12 143/56 93 Room Air 08/11/16 04:00 98.1 93 10 129/62 95 Room Air 08/11/16 04:00 100 08/11/16 03:00 100 17 107/53 97 Room Air 08/11/16 02:00 97 18 117/65 96 Room Air 08/11/16 01:00 101 17 116/65 96 Room Air 08/11/16 01:00 101 08/11/16 00:00 100 08/11/16 00:00 96.8 105 16 124/68 96 Room Air 08/10/16 23:00 104 17 120/66 Room Air 08/10/16 22:00 114 17 118/50 95 Room Air 08/10/16 21:46 98 08/10/16 21:42 98 08/10/16 21:00 101 16 101/60 98 Room Air 08/10/16 20:00 98.3 98 14 101/55 97 Room Air 08/10/16 20:00 100 08/10/16 19:00 100 16 104/49 97 Room Air 08/10/16 19:00 100 08/10/16 18:15 98.1 101 12 104/49 95 Room Air 08/10/16 18:10 99.0 104 16 98 2 08/10/16 16:32 99.0 08/10/16 13:37 100.1 114 08/10/16 12:22 Nasal Cannula 2 08/10/16 11:53 101.2 143 16 140/64 95 I & O 08/11/16 07:00 Intake Total 5550 ml Output Total 1250 ml Balance 4300 ml General Appearance: No Apparent Distress WD/WN HEENT: PERRL/EOMI TMs Normal Normal ENT Inspection Pharynx Normal Neck: Full Range of Motion Normal Inspection Non Tender Supple Carotid Bruit Respiratory: Chest Non Tender Lungs Clear Normal Breath Sounds No Accessory Muscle Use No Respiratory Distress Cardiovascular: Regular Rate, Rhythm No Edema No Gallop No JVD No Murmur Normal Peripheral Pulses Capillary Refill: Less Than 3 Seconds Extremity: Normal Capillary Refill Normal Inspection Normal Range of Motion Non Tender No Calf Tenderness No Pedal Edema Neurologic/Psychiatric: Alert Oriented x3 No Motor/Sensory Deficits Normal Mood/Affect Skin: Normal Color Warm/Dry Lymphatic: No Adenopathy Results Lab Laboratory Tests 08/10/16 12:05 08/11/16 03:25 Assessment/Plan Assessment/Plan CP probably secondary to acute bronchitis and probably viral -IVF, SVNS -Continue Abx for now Dehydration causing hypotension -resolved. Hx of tobacco use Pt is doing better and is on RA. Pt is ok for discharge from pulmonary standpoint with rescue INH and PO abx. Clinical Quality Measures AMI/AHF: ASA po Prior to arrival: No DVT/VTE Risk/Contraindication: Risk Factor Score Per Nursin RFS Level Per Nursing on Admit: 4+=Very High ARMAAN LIZARRAGA DO Aug 11, 2016 08:16
[2016-08-11] MEDS ORDERED: NS IV 1000 ML 1,000 ML ONE (08:52)
[2016-08-11] MEDS ORDERED: DILTIAZEM 240 MG (CARDIZEM CD) CAP PO SCH (09:00)
[2016-08-11] MEDS ORDERED: NS IV 1000 ML 1,000 ML IV ONE (09:10)
[2016-08-11] MEDS ORDERED: FLU TRIvalent (5 YOA+) 2016-17 (AFLURIA) 0.5 ML IM ONE (11:15)
[2016-08-11] MEDS ORDERED: LISI-552 PO (14:20)
--- NOTE | 2016-08-11 15:30 | Short Stay Summary-Hospitalist ---
HPI History of Present Illness: HPI/Chief Complaint Mrs. Escobar is a 66-year-old white female initially present to urgent care reporting epigastric and lower precordial chest discomfort that had been going on for the past day or 2. She became febrile this morning and felt quite weak. she is on multiple blood pressure medications which continued to take. Her temperature was 101 and she had a rather extensive orkup in the miky room includiing CT angiography of the chest which revealed no evidence for pulmonary embolism or pneumonia. Cardiac isoenzymes were negative. She did jose eduardo elevated white count but there was a mild left shift. She was admitted for observation and to rule out an acute coronary syndrome. She is a poor historian and it is difficult to keep her on task at answering question at hand. She is alert and there is no evidence for Inattention. She denies any current chest pain. She is concerned that her heart rate was in the low 100 range as that is unusual for her. She is on multiple blood pressure and heart rate lowering medications including diltiazem and clonidine and metoprolol which are being held. She reports a history of reflux and past need for esophageal dilatation several years ago. She has had intermittent mild dysphagia to solids the past several months.. She denies weight loss melena or bright red per rectum. She has not heard of Richey's esophagus and reports no family history of esophageal cancer or GI malignancies. She had a cardiac catheterization 5 years ago for chest pain and was told it was normal in [place] where she lives currently. She has been visiting her sister. She has been out of protonix. Date Seen 08/11/16 Attending Physician Wade Handley MD PCP No,Local Physician Referring Physician Date of Admission Aug 10, 2016 at 16:30 Home Medications & Allergies Home Medications Reviewed patient Home Medication Reconciliation Form Allergies Coded Allergies: No Known Drug Allergies (Unverified , 06/11/15) Past Sqnazqv-Jfymxg-Tdifuo Hx Patient Social History Alcohol Use: Past History Recreational Drug Use: No (DENIES) Smoking Status: Former Smoker Physical Abuse Screen: No Sexual Abuse: No Recent Foreign Travel: No Contact w/other who traveled: No Recent Hopitalizations: No Recent Infectious Disease Expo: No Immunizations Up To Date Tetanus Booster (TDap): Unknown Date of Pneumonia Vaccine: May 05, 2015 Seasonal Allergies Seasonal Allergies: No Surgeries HX Surgeries: Yes (R wrist, L thumb; 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; HYST/ BSO) Surgeries: Appendectomy, Gallbladder, Hysterectomy, Oophorectomy, Orthopedic Respiratory Hx Respiratory Disorders: No Cardiovascular Hx Cardiovascular Disorders: Yes (RAPID HEART RATE; edema L leg) Cardiac Disorders: Hypertension Neurological Hx Neurological Disorders: Yes Neurological Disorders: Headaches /Migraines Reproductive System Hx Reproductive Disorders: No Genitourinary Hx Genitourinary Disorders: Yes Genitourinary Disorders: Kidney Infection, UTI-Chronic Gastrointestinal Hx Gastrointestinal Disorders: Yes Gastrointestinal Disorders: Gastroesophageal Reflux, Gall Bladder Disease Musculoskeletal Hx Musculoskeletal Disorders: Yes (L thumb, R wrist, R Collar bone; 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) Musculoskeletal Disorders: Fractures Endocrine Hx Endocrine Disorders: Yes (LANTUS 20 UNITS DAILY) Endocrine Disorders: Diabetes, Insulin dep HEENT HX ENT Disorders: Yes HEENT Disorders: Glaucoma Loss of Vision: Denies Hearing Impairment: Denies Cancer Hx Cancer: No Psychosocial Hx Psychiatric Problems: No Integumentary HX Skin/Integumentary Disorder: No Family Medical History Family Hx: Arthritis G8 BROTHER G8 BROTHER Cardiovascular disease 19 FATHER 19 MOTHER Dementia 19 FATHER Diabetes mellitus 19 FATHER 19 MOTHER G8 BROTHER FH: COPD (chronic obstructive pulmonary disease) G8 BROTHER FH: CVA (cerebrovascular accident) 19 FATHER FH: CVA (cerebrovascular accident) 19 FATHER FH: neuropathy G8 BROTHER Glaucoma 19 FATHER Hypertension G8 BROTHER Kidney disease G8 BROTHER Psychosocial problem G8 BROTHER TIAs 19 FATHER Vertigo G8 BROTHER Review of Systems Constitutional: chills dizziness fever weakness Respiratory: cough short of breath Cardiovascular: see HPI chest painNo edema, Hx of InterventionNo palpitations , No syncope, No vascular heart diseas, No other Gastrointestinal: No see HPI, dysphagia heartburn Physical Exam Physical Exam Vital Signs Vital Sign - Last 12Hours 08/10/16 08/10/16 11:53 12:22 Temp 101.2 Pulse 143 Resp 16 B/P 140/64 Pulse Ox 95 O2 Delivery Nasal Cannula O2 Flow Rate 2 Capillary Refill : Less Than 3 Seconds General Appearance: Anxious Obese HEENT: Pharynx Normal Respiratory: Chest Non Tender Lungs Clear Normal Breath Sounds No Accessory Muscle Use No Respiratory Distress Cardiovascular: Regular Rate, Rhythm No Edema No Gallop No JVD No Murmur Normal Peripheral Pulses Gastrointestinal: Normal Bowel Sounds No Organomegaly No Pulsatile Mass Non Tender Soft Extremity: Normal Inspection Normal Range of Motion Non Tender No Pedal Edema Neurologic/Psychiatric: Alert Oriented x3 Skin: Normal Color Warm/Dry Results Results/Procedures Lab Laboratory Tests 08/10/16 12:05 08/11/16 03:25 Radiology Laboratory Tests 08/11/16 03:25 Short Stay Diagnosis Discharge Diagnosis-Short Stay Admission Diagnosis as per below Final Discharge Diagnosis 1. Febrile illness secondary to viral infection. 2. Hypotension secondary to combination of dehydration from viral illness and multiple blood pressure medications 3. Hypertension 4. Type II diabetes mellitus insulin requiring 5. Gastroesophageal reflux disease. Conclusion Plan patient was admitted and started on IV Her blood pressure medication was initially held. Diltiazem was reinitiated due to elevated heart rate. While her white count and platelet count did fall she was feeling much better and tolerating liquids and solids without nausea or dysphasia. She was to resume Protonix and will onlke furosemide if she develops fluid retention. She will hold clonidine and metoprolol.she will call my office in the morning to obtain an appointment for follow-up at which time we will repeat a CBC and BMP to ensure that her white count and platelet count have returned to normal. We will also discussed reflux issues further. Depending on her return to [facility] we will discuss follow-up endoscopy recommendations. Clinical Quality Measures AMI/AHF: ASA po Prior to arrival: No DVT/VTE Risk/Contraindication: Risk Factor Score Per Nursin RFS Level Per Nursing on Admit: 4+=Very High CONNIE MULLER MD Aug 11, 2016 15:30
[2016-08-11] MEDS ORDERED: MAGNESIUM OXIDE (MAG-OX)400 MG TAB PO SCH (18:00)
--- NOTE | 2016-08-12 09:59 | ECHOCARDIOGRAPHY REPORT ---
PROCEDURE PHYSICIAN: DANYA GREEN DATE OF PROCEDURE: 08/11/2016 TWO DIMENSIONAL ECHOCARDIOGRAM REPORT PRIMARY PHYSICIAN: OTHER PHYSICIAN: REFERRING PHYSICIAN: Dr. Handley ORDERING PHYSICIAN: INDICATION FOR THE PROCEDURE: Chest pain. MEASUREMENTS DERIVED VALUES LV DIAMETER (LAX) NORMALS NORMALS Diastolic 4.2 (3.6-5.2) Eject. Fract. 60% (60%+/-6%) Systolic (2.3-3.9) Diastolic Vol. % Shortening (0.22-0.42) Systolic Vol. Aortic Root IVS THICKNESS Diastolic 0.8 (0.6-1.1) LVPW THICKNESS Diastolic 0.9 (0.6-1.1) LA DIAMETER Systolic 2.9 (2.1-3.7) FINDINGS: 1. Technical quality is good. 2. The left ventricle is normal in size with normal contractility. Systolic function appeared to be normal. Estimated ejection fraction 60%. 3. The left atrium is normal in size. No clot or thrombus were seen within the left atrium. 4. The right atrium and right ventricle are normal in size. No clot or thrombus were seen within the right side. 5. Mitral valve is normal in morphology with mild mitral regurgitation noted by color Doppler flow. No mitral valve prolapse. No mitral valve stenosis. 6. Aortic valve is trileaflet with normal opening and closing pattern. No significant aortic stenosis or regurgitation was seen. 7. Tricuspid valve is normal in morphology with mild tricuspid regurgitation noted by color Doppler flow. Doppler across tricuspid valve estimated pulmonary artery pressure of 14+ right atrial pressure. 8. Pulmonic valve is functioning normally. 9. No pericardial effusion. CONCLUSION: 1. Normal left ventricular size and systolic function. Estimated ejection fraction 60%. 2. Mild mitral and tricuspid regurgitation. 3. Estimated pulmonary artery pressure of 20 mmHg. Job ID: [id number] Dictated Date: 08/12/2016 08:14:03 Supply Chain Design Manager Date: 08/12/2016 09:55:43 / ikra
== END 2016-08-11 14:12 | disposition home or self-care (01) ==
LOC: EDUNIT# 11:46 → ER 11:48 → ICU 16:30 → UNDOADMOB 16:30 → ICU 18:15 → UNDODISOB 08-11 15:05
PROVIDERS: ADMIT Internal Medicine; ATTEND Internal Medicine
DX: J20.8 Acute bronchitis due to other specified organisms (principal); E86.0 Dehydration; E83.42 Hypomagnesemia; D64.9 Anemia, unspecified; I10 Essential (primary) hypertension; E11.9 Type 2 diabetes mellitus without complications; K21.9 Gastro-esophageal reflux disease without esophagitis; Z79.4 Long term (current) use of insulin; Z79.899 Other long term (current) drug therapy; Z87.891 Personal history of nicotine dependence
CPT/HCPCS: 36415; 71010; 71275; 80048; 80053; 81000; 82150; 82550; 82553; 82962; 83605; 83690; 83735; 83880; 84100; 84439; 84443; 84484; 85007; 85025; 85027; 85610; 85730; 87040; 87081; 87804; 93005; 93041; 93306; 96360; 96361; G0378

== ENCOUNTER → 2017-03-01 | Outpatient (CLI) | payer MEDICARE ==
--- NOTE | 2017-03-01 13:44 | Diagnostic Imaging Report ---
INDICATION: Chest pain, diabetes, hypertension. Swelling in the left lower leg. TECHNIQUE: Multiple real-time grayscale sonographic images, color and duplex Doppler images were obtained of the urinary system. FINDINGS: The aortic velocity is 58.5 cm/sec. The RIGHT kidney measures 9.8 x 4.1 x 5.5 cm. No hydronephrosis or nephrolithiasis is identified. No tardus parvus wave forms are identified. Only the proximal aspect of the right renal artery is able to be visualized. The only visualized area demonstrates the right renal artery velocity is 37.8 cm/sec, renal artery/aortic ratio 0.65. The LEFT kidney measures 10.2 x 4.4 x 3.9 cm. No hydronephrosis or nephrolithiasis is identified. No tardus parvus wave forms are identified. The maximum left renal artery velocity is distally at 60.1 cm/sec, renal artery/aortic ratio 1.0. The urinary bladder is unremarkable. IMPRESSION: 1. The right renal artery is fairly limited in visualization with only the proximal aspect demonstrated. Given limitations, no significant velocity changes to suggest focal renal artery stenosis. Renal size and parenchyma appearing unremarkable. Dictated by: Dictated on workstation # [id number]
== END ==
LOC: RAD 07:57
PROVIDERS: ATTEND Physician Assistant
DX: R22.42 Localized swelling, mass and lump, left lower limb (principal); R07.9 Chest pain, unspecified; I10 Essential (primary) hypertension; E11.9 Type 2 diabetes mellitus without complications; E66.9 Obesity, unspecified
CPT/HCPCS: 93975

== ENCOUNTER 2017-10-02 15:20 | Inpatient (IN) | payer MEDICARE ==
[~2017-10-02] VITALS: Ht 167.6 cm; Wt 85.0 kg
[~2017-10-02 15:20] MED LIST changes: -INSU100I10 SC; +INSU100I10 SQ; -METF500T4 PO; +METF500T5 PO; +METO100T12 PO; -METO100T2 PO; -RANI150T15 PO; +RANI150T46 PO
[2017-10-02] MEDS ORDERED: ONDANSETRON 4 MG/2 ML (SDV) Z0FRAN ONE (15:25)
[2017-10-02 15:43] LABS: BASOPHILS # (AUTO) 0.1 10^3/uL (0.0-0.1); BASOPHILS % (AUTO) 0 % (0-10); EOSINOPHILS # (AUTO) 0.2 10^3/uL (0.0-0.3); EOSINOPHILS % (AUTO) 1 % (0-10); HEMATOCRIT 42 % (35-52); HEMOGLOBIN 13.4 G/DL (11.5-16.0); LYMPHOCYTES # (AUTO) 3.3 X 10^3 (1.0-4.0); LYMPHOCYTES % (AUTO) 17 % (12-44); MEAN CORPUSCULAR HEMOGLOBIN 28 PG (25-34); MEAN CORPUSCULAR HGB CONC 32 G/DL (32-36); MEAN CORPUSCULAR VOLUME 87 FL (80-99); MEAN PLATELET VOLUME 11.6 FL (7.4-10.4); MONOCYTES # (AUTO) 1.1 X 10^3 (0.0-1.0); MONOCYTES % (AUTO) 6 % (0-12); NEUTROPHILS # (AUTO) 14.8 X 10^3 (1.8-7.8); NEUTROPHILS % (AUTO) 76 % (42-75); PLATELET COUNT 378 10^3/uL (130-400); RED BLOOD COUNT 4.79 10^6/uL (4.35-5.85); RED CELL DISTRIBUTION WIDTH 15.6 % (10.0-14.5); WHITE BLOOD COUNT 19.4 10^3/uL (4.3-11.0)
[2017-10-02] MEDS ORDERED: diphenhydrAMINE 50 MG/ML INJ (BENADRYL) IVP ONE (15:45)
[2017-10-02] MEDS ORDERED: ONDANSETRON 4 MG/2 ML (SDV) Z0FRAN IVP ONE (15:45)
[2017-10-02] MEDS ORDERED: LACTATED RINGERS 1,000 ML IV SCH (15:45)
[2017-10-02 15:55] LABS: BILIRUBIN,URINE NEGATIVE (NEGATIVE); CLARITY,URINE CLEAR; COLOR,URINE YELLOW; GLUCOSE, URINE (UA) NEGATIVE (NEGATIVE); KETONES,URINE NEGATIVE (NEGATIVE); LEUKOCYTE ESTERASE ,URINE NEGATIVE (NEGATIVE); NITRITE,URINE NEGATIVE (NEGATIVE); PH,URINE 5 (5-9); PROTEIN,URINE NEGATIVE (NEGATIVE); UROBILINOGEN,URINE NORMAL (NORMAL)
--- NOTE | 2017-10-02 15:58 | ED Abdominal Pain ---
General Stated Complaint: N/V/D Source of Information: Patient, EMS Exam Limitations: No Limitations History of Present Illness Date Seen by Provider: Oct 02, 2017 Time Seen by Provider: 15:56 Initial Comments To ER per [facility] from her mother's house in [facility] with reports of abdominal pain nausea vomiting and diarrhea since this morning. Patient is visiting her mother who lives in [place], the patient herself lives in [place]. Patient states that she takes hydrocodone 10/325 3 times a day but completely ran out of these on Wednesday09/27/17. On arrival to ER blood pressure is 85/47. Timing/Duration: 4-6 Hours Severity/Quality: Moderate Location: Other (she complains of left-sided abdominal pain) Radiation: No Radiation Activities at Onset: None Associated Symptoms: Denies Symptoms Allergies and Home Medications Allergies Coded Allergies: No Known Drug Allergies (Unverified , 06/11/15) Home Medications Diltiazem HCl 240 Mg Cap.er.deg, 240 MG PO DAILY, (Reported) Furosemide 40 Mg Tablet, 40 MG PO DAILY, (Reported) Glyburide 5 Mg Tablet, 5 MG PO TID, (Reported) Hydrocodone/Acetaminophen 1 Each Tablet, 1 TAB PO TID, (Reported) Insulin Glargine,Hum.rec.anlog 100 Unit/1 Ml Insuln.pen, 20 UNITS SC DAILY, ( Reported) Lisinopril 20 Mg Tablet, 20 MG PO DAILY PRN for BLOOD PRESSURE Prescribed by: MIRA CUELLAR on 08/11/16 1420 Lovastatin 20 Mg Tablet, 20 MG PO DAILY, (Reported) Pantoprazole Sodium 40 Mg Granpkt.dr, 40 MG PO DAILY Prescribed by: DANYA GREEN on 06/12/15 1634 Potassium Chloride 10 Meq Tablet.er, 10 MEQ PO DAILY, (Reported) Ranitidine HCl 150 Mg Tablet, 150 MG PO BID, (Reported) Triamcinolone Acetonide 10.8 Ml [place], 2 SPRAYS NS DAILY PRN for CONGESTION, ( Reported) Patient Home Medication List Home Medication List Reviewed: Yes Review of Systems Constitutional: see HPI EENTM: No Symptoms Reported Respiratory: No Symptoms Reported Cardiovascular: No Symptoms Reported Gastrointestinal: See HPI, Diarrhea, Nausea, Vomiting Genitourinary: No Symptoms Reported Musculoskeletal: no symptoms reported Skin: no symptoms reported Psychiatric/Neurological: No Symptoms Reported Endocrine: No Symptoms Reported Past Ammehwt-Hwptol-Bbjpfw Hx Patient Social History Recent Hopitalizations: No Immunizations Up To Date Tetanus Booster (TDap): Unknown PED Vaccines UTD: No Date of Pneumonia Vaccine: May 05, 2015 Seasonal Allergies Seasonal Allergies: No Past Medical History Surgeries: Yes (R wrist with screw placement, L thumb; 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) Appendectomy, Gallbladder, Hysterectomy, Oophorectomy, Orthopedic Respiratory: No Currently Using CPAP: No Currently Using BIPAP: No Cardiac: Yes (RAPID HEART RATE; edema L leg) Hypertension Neurological: Yes Headaches /Migraines Reproductive Disorders: No 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, 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 Genitourinary: Yes (kidney disease) Kidney Infection, UTI-Chronic Gastrointestinal: Yes (Esophageal streching) Gastroesophageal Reflux, Gall Bladder Disease Musculoskeletal: Yes (L thumb, R wrist, R Collar bone; 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) Fractures Endocrine: Yes Diabetes, Insulin dep HEENT: Yes Glaucoma Loss of Vision: Denies Hearing Impairment: Denies Cancer: No Psychosocial: No Integumentary: No Family Medical History Arthritis G8 BROTHER G8 BROTHER Cardiovascular disease 19 FATHER 19 MOTHER Dementia 19 FATHER Diabetes mellitus 19 FATHER 19 MOTHER G8 BROTHER FH: COPD (chronic obstructive pulmonary disease) G8 BROTHER FH: CVA (cerebrovascular accident) 19 FATHER FH: CVA (cerebrovascular accident) 19 FATHER FH: neuropathy G8 BROTHER Glaucoma 19 FATHER Hypertension G8 BROTHER Kidney disease G8 BROTHER Psychosocial problem G8 BROTHER TIAs 19 FATHER Vertigo G8 BROTHER Physical Exam Vital Signs Vital Signs - First Documented 10/02/17 15:20 Temp 96.0 Pulse 106 Resp 16 B/P (MAP) 83/51 (62) Pulse Ox 97 Capillary Refill : General Appearance: WD/WN, no apparent distress HEENT: PERRL/EOMI, normal ENT inspection Neck: non-tender, full range of motion Respiratory: no respiratory distress, no accessory muscle use Cardiovascular: regular rate, rhythm, no murmur Gastrointestinal: normal bowel sounds, soft, tenderness (Left-sided tenderness to palpation, hypoactive bowel sounds, firm) Extremities: normal range of motion, non-tender Neurologic/Psychiatric: alert, normal mood/affect, oriented x 3 Skin: normal color, warm/dry Focused Exam Lactate Level 10/02/17 16:14: Lactic Acid Level 2.28*H Lactic Acid Level Laboratory Tests Test 10/02/17 16:14 Lactic Acid Level 2.28 MMOL/L (0.50-2.00) *H Progress/Results/Core Measures Lab Results Laboratory Tests Test 10/02/17 15:30 10/02/17 15:45 10/02/17 16:14 Range/Units White Blood Count 19.4 H 4.3-11.0 10^3/uL Red Blood Count 4.79 4.35-5.85 10^6/uL Hemoglobin 13.4 11.5-16.0 G/DL Hematocrit 42 35-52 % Mean Corpuscular Volume 87 80-99 FL Mean Corpuscular Hemoglobin 28 25-34 PG Mean Corpuscular Hemoglobin Concent 32 32-36 G/DL Red Cell Distribution Width 15.6 H 10.0-14.5 % Platelet Count 378 130-400 10^3/uL Mean Platelet Volume 11.6 H 7.4-10.4 FL Neutrophils (%) (Auto) 76 H 42-75 % Lymphocytes (%) (Auto) 17 12-44 % Monocytes (%) (Auto) 6 0-12 % Eosinophils (%) (Auto) 1 0-10 % Basophils (%) (Auto) 0 0-10 % Neutrophils # (Auto) 14.8 H 1.8-7.8 X 10^3 Lymphocytes # (Auto) 3.3 1.0-4.0 X 10^3 Monocytes # (Auto) 1.1 H 0.0-1.0 X 10^3 Eosinophils # (Auto) 0.2 0.0-0.3 10^3/uL Basophils # (Auto) 0.1 0.0-0.1 10^3/uL Neutrophils % (Manual) 66 % Lymphocytes % (Manual) 26 % Monocytes % (Manual) 3 % Eosinophils % (Manual) 0 % Basophils % (Manual) 0 % Band Neutrophils 5 % Blood Morphology Comment NORMAL Sodium Level 138 135-145 MMOL/L Potassium Level 5.2 H 3.6-5.0 MMOL/L Chloride Level 103 98-107 MMOL/L Carbon Dioxide Level 18 L 21-32 MMOL/L Anion Gap 17 H 5-14 MMOL/L Blood Urea Nitrogen 41 H 7-18 MG/DL Creatinine 2.03 H 0.60-1.30 MG/DL Estimat Glomerular Filtration Rate 24 BUN/Creatinine Ratio 20 Glucose Level 218 H 70-105 MG/DL Calcium Level 10.4 H 8.5-10.1 MG/DL Total Bilirubin 0.6 0.1-1.0 MG/DL Aspartate Amino Transf (AST/SGOT) 48 H 5-34 U/L Alanine Aminotransferase (ALT/SGPT) 28 0-55 U/L Alkaline Phosphatase 97 40-136 U/L Total Protein 8.7 H 6.4-8.2 GM/DL Albumin 5.0 H 3.2-4.5 GM/DL Lipase 23 8-78 U/L Urine Color YELLOW Urine Clarity CLEAR Urine pH 5 5-9 Urine Specific Strawberry 1.020 1.016-1.022 Urine Protein NEGATIVE NEGATIVE Urine Glucose (UA) NEGATIVE NEGATIVE Urine Ketones NEGATIVE NEGATIVE Urine Nitrite NEGATIVE NEGATIVE Urine Bilirubin NEGATIVE NEGATIVE Urine Urobilinogen NORMAL NORMAL MG/DL Urine Leukocyte Esterase NEGATIVE NEGATIVE Urine RBC (Auto) NEGATIVE NEGATIVE Urine RBC NONE /HPF Urine WBC NONE /HPF Urine Squamous Epithelial Cells NONE /HPF Urine Crystals NONE /LPF Urine Bacteria NEGATIVE /HPF Urine Casts NONE /LPF Urine Mucus NEGATIVE /LPF Urine Culture Indicated NO Lactic Acid Level 2.28 *H 0.50-2.00 MMOL/L My Orders Orders - SHAYE COOPER FACILITY ENGINEER Cbc With Automated Diff (10/02/17 15:32) Comprehensive Metabolic Panel (10/02/17 15:32) Ua Culture If Indicated (10/02/17 15:32) Lipase (10/02/17 15:32) Saline Lock/Iv-Start (10/02/17 15:32) Lactated Ringers (Lr 1000 Ml Iv Solution (10/02/17 15:45) Ondansetron Injection (Zofran Injectio (10/02/17 15:45) Diphenhydramine Injection (Benadryl Inje (10/02/17 15:45) Ct Abdomen/Pelvis Wo (10/02/17 15:32) Fentanyl Injection (Sublimaze Injection (10/02/17 16:00) Blood Culture (10/02/17 15:47) Lactic Acid Analyzer (10/02/17 15:47) Manual Differential (10/02/17 15:30) Ondansetron Injection (Zofran Injectio (10/02/17 15:25) Ns Iv 1000 Ml (Sodium Chloride 0.9%) (10/02/17 17:15) Piperacillin Sodium/Tazobactam (Zosyn Vi (10/02/17 17:15) Medications Given in ED Current Medications Medications Dose Ordered Sig/Love Route Start Time Stop Time Status Last Admin Dose Admin Diphenhydramine HCl 25 mg ONCE ONCE IVP 10/02/17 15:45 10/02/17 15:46 DC 10/02/17 16:17 25 MG Fentanyl Citrate 50 mcg ONCE ONCE IVP 10/02/17 16:00 10/02/17 16:01 DC 10/02/17 16:17 50 MCG Ondansetron HCl 8 mg ONCE ONCE IVP 10/02/17 15:45 10/02/17 15:46 DC 10/02/17 15:45 8 MG Vital Signs/I&O 10/02/17 15:20 Temp 96.0 Pulse 106 Resp 16 B/P (MAP) 83/51 (62) Pulse Ox 97 Diagonstic Imaging: CT Comments NAME: DAVIDSON FLOOD [facility] REC#: [id number] PT STATUS: REG ER : 1950 PHYSICIAN: SHAYE COOPER APRN ADMIT DATE: 10/02/17/ER Draft Date of Exam:10/02/17 CT ABDOMEN/PELVIS WO PROCEDURE: CT abdomen and pelvis without contrast. TECHNIQUE: Multiple contiguous axial images were obtained through the abdomen and pelvis without the use of intravenous contrast. INDICATION: Nausea, vomiting, diarrhea and abdominal pain. FINDINGS: Lung bases are clear. Liver appears normal. The gallbladder is surgically absent. Spleen is not enlarged. Pancreas appears normal. The adrenal glands are normal. Kidneys appear normal. There is a large volume of stool present throughout the colon. There are a few diverticula but no evidence of diverticulitis. Small bowel is not dilated. There is no intraperitoneal free air or free fluid. Urinary bladder is decompressed with Gallegos catheter. IMPRESSION: Fecal stasis in the colon. No other significant abnormalities. Dictated on workstation # [id number] Dict: 10/02/17 1714 Trans: 10/02/17 1722 KB [id number] Interpreted by: SHARRON FERGUSON MD Electronically signed by: Departure Communication (Admissions) Time/Spoke to Admitting Phy: 17:42 Discussed the case with Dr. Handley who agrees to admit the patient, IV fluids, nausea medication, soap suds enemas until clear, Zosyn until infectious causes of leukocytosis and meeting severe sepsis criteria have been disproven 1604-she has 2 L of IV fluids being infused currently. 1730- her initial blood pressure was 85/47. That corresponds with MAP of 59. Lactic 2.28. Meets severe sepsis criteria so she got 30ml/kg bolus. 1 liter of IV fluids from EMS, 2 liters from us. After 3 liters of crystalloid resuscitation BP now 110/72 with HR 79 sinus. BUN/cr elevated, WBC elevated. No fever for us. Impression Primary Impression: Severe sepsis Additional Impressions: Fecal retention Acute renal failure Disposition: ADMITTED INPATIENT Condition: Improved Admissions Decision to Admit Reason: Admit from ER (General) Decision to Admit/Date: Oct 02, 2017 Time/Decision to Admit Time: 17:36 Departure-Patient Inst. Referrals: NO,LOCAL PHYSICIAN (PCP/Family) Primary Care Physician SHAYE COOPER APRN Oct 02, 2017 15:58
[2017-10-02] MEDS ORDERED: fentaNYL INJECTION 100 MCG/2 ML AMP IVP ONE ×2 (16:00→17:45)
[2017-10-02 16:03] LABS: BILIRUBIN,TOTAL 0.6 MG/DL (0.1-1.0); CALCIUM 10.4 MG/DL (8.5-10.1); CREATININE SERUM 2.03 MG/DL (0.60-1.30); POTASSIUM 5.2 MMOL/L (3.6-5.0); TOTAL PROTEIN 8.7 GM/DL (6.4-8.2)
[2017-10-02 16:17] LABS: BACTERIA,URINE NEGATIVE /HPF
[2017-10-02 16:22] LABS: BAND NEUTROPHILS 5 %; BASOPHILS % (MANUAL) 0 %; EOSINOPHILS % (MANUAL) 0 %; LYMPHOCYTES % (MANUAL) 26 %; MONOCYTES % (MANUAL) 3 %; NEUTROPHILS % (MANUAL) 66 %; RBC MORPH NORMAL
[2017-10-02] MEDS ORDERED: PIPERACILLIN SODIUM/TAZOBACTAM 4.5 GM in NS (IVPB) 100 ML IV ONE (17:15)
[2017-10-02] MEDS ORDERED: NS IV 1000 ML 1,000 ML IV SCH ×3 (17:15→22:45)
--- NOTE | 2017-10-02 17:23 | Diagnostic Imaging Report ---
PROCEDURE: CT abdomen and pelvis without contrast. TECHNIQUE: Multiple contiguous axial images were obtained through the abdomen and pelvis without the use of intravenous contrast. INDICATION: Nausea, vomiting, diarrhea and abdominal pain. FINDINGS: Lung bases are clear. Liver appears normal. The gallbladder is surgically absent. Spleen is not enlarged. Pancreas appears normal. The adrenal glands are normal. Kidneys appear normal. There is a large volume of stool present throughout the colon. There are a few diverticula but no evidence of diverticulitis. Small bowel is not dilated. There is no intraperitoneal free air or free fluid. Urinary bladder is decompressed with Gallegos catheter. IMPRESSION: Fecal stasis in the colon. No other significant abnormalities. Dictated by: Dictated on workstation # [id number]
[2017-10-02 20:12] VITALS: BP 99/58
[2017-10-02] MEDS ORDERED: ONDANSETRON 4 MG/2 ML (SDV) Z0FRAN IV PRN (21:00)
[2017-10-02] MEDS ORDERED: CATHETER FLUSH 10 ML SYR IV PRN (21:00)
[2017-10-02] MEDS: CATHETER FLUSH 10 ML SYR IV SCH (22:00)
[2017-10-02] MEDS: NS IV 1000 ML 1,000 ML IV SCH (22:22)
[2017-10-02] MEDS: inSUlin (REGULAR) HUMAN 1 UNIT/0.01 ML (CHARGE PER UNIT) SC SCH (22:26)
[2017-10-02 22:30] VITALS: BP 141/76
[2017-10-02 23:14] VITALS: BP 144/84
[2017-10-03] MEDS: PIPERACILLIN SODIUM/TAZOBACTAM 4.5 GM in NS (IVPB) 100 ML IV SCH ×4 (01:17→23:24)
[2017-10-03] MEDS: NS IV 1000 ML 1,000 ML IV SCH ×4 (02:37→23:24)
[2017-10-03] MEDS: fentaNYL INJECTION 100 MCG/2 ML AMP IV PRN ×4 (03:04→22:15)
[2017-10-03 03:45] VITALS: BP 122/73
[2017-10-03] MEDS: CATHETER FLUSH 10 ML SYR IV SCH ×3 (04:15→21:51)
[2017-10-03 04:50] LABS: BASOPHILS % (AUTO) 0 % (0-10); EOSINOPHILS % (AUTO) 0 % (0-10); HEMATOCRIT 33 % (35-52); HEMOGLOBIN 10.6 G/DL (11.5-16.0); LYMPHOCYTES # (AUTO) 1.2 X 10^3 (1.0-4.0); LYMPHOCYTES % (AUTO) 8 % (12-44); MEAN CORPUSCULAR HEMOGLOBIN 28 PG (25-34); MEAN CORPUSCULAR HGB CONC 32 G/DL (32-36); MEAN CORPUSCULAR VOLUME 88 FL (80-99); MEAN PLATELET VOLUME 11.4 FL (7.4-10.4); MONOCYTES # (AUTO) 1.1 X 10^3 (0.0-1.0); MONOCYTES % (AUTO) 8 % (0-12); NEUTROPHILS # (AUTO) 12.1 X 10^3 (1.8-7.8); NEUTROPHILS % (AUTO) 84 % (42-75); PLATELET COUNT 207 10^3/uL (130-400); RED BLOOD COUNT 3.73 10^6/uL (4.35-5.85); RED CELL DISTRIBUTION WIDTH 15.2 % (10.0-14.5); WHITE BLOOD COUNT 14.3 10^3/uL (4.3-11.0)
[2017-10-03 05:01] LABS: ALBUMIN 3.6 GM/DL (3.2-4.5); BILIRUBIN,TOTAL 0.6 MG/DL (0.1-1.0); CALCIUM 7.9 MG/DL (8.5-10.1); CREATININE SERUM 1.61 MG/DL (0.60-1.30); POTASSIUM 5.2 MMOL/L (3.6-5.0); TOTAL PROTEIN 5.7 GM/DL (6.4-8.2)
[2017-10-03] MEDS: inSUlin (REGULAR) HUMAN 1 UNIT/0.01 ML (CHARGE PER UNIT) SC SCH ×4 (05:40→21:50)
[2017-10-03 08:00] VITALS: BP 139/64
--- OUTSIDE RECORDS SUMMARY | 2017-10-03 10:03 | XMS REPORT ---
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 Active 93503125 Problem Diabetic polyneuropathy associated with type 2 diabetes mellitus E11.42 Active 02749913 ALLERGIES No Known Allergies SOCIAL HISTORY Never Assessed PLAN OF CARE VITAL SIGNS Height 65 in 2016-10-30 Weight 196.4 lbs 2016-10-30 Temperature 98.5 degrees Fahrenheit 2016-10-30 Heart Rate 108 bpm 2016-10-30 Respiratory Rate 24 2016-10-30 BMI 32.68 kg/m2 2016-10-30 Blood pressure systolic 170 mmHg 2016-10-30 Blood pressure diastolic 97 mmHg 2016-10-30 MEDICATIONS Medication Instructions Dosage Frequency Start Date End Date Duration Status PredniSONE 20 MG Orally Once a day 2 tablets 24h October, October, 05 days Active Allopurinol 100 mg Orally 2 times a day 1 tablet 12h October, Dec, 30 day(s) Active [place] 10-325 MG Orally 3 times a day 1 tablet as needed 8h 30 Aug, 2016 Active RESULTS No Results PROCEDURES Procedure Date Ordered Result Body Site [facility] VISIT ESTABLISHED PATIENT October 30, 2016 THER/PROPH/DIAG INJ, SC/IM October 30, 2016 TORADOL (IM) 60 MG/2ML (UP TO 15 MG) October 30, 2016 IMMUNIZATIONS Vaccine Route Administration Date Status TORADOL (IM) 60 MG/2ML (UP TO 15 MG) IM Intramuscular October 30, 2016 Administered MEDICAL (GENERAL) HISTORY Type Description Date Medical History type II diabetes Medical History gout Medical History hypertension Medical History hyperlipidemia Surgical History esophagus stretch 2015 Surgical History right ring finger removed 1987 Surgical History two screws in right wrist 1992 Surgical History hysterectomy (complete) 1989 Surgical History right and left knee scope Surgical History gallbladder removed 1976 Surgical History left thumb, repair nerves Surgical History right big toe joint removed Hospitalization History surgeries Hospitalization History HR up and BP down at [facility]
--- OUTSIDE RECORDS SUMMARY | 2017-10-03 10:03 | XMS REPORT ---
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 Active 66382374 Problem Diabetic polyneuropathy associated with type 2 diabetes mellitus E11.42 Active 65165928 ALLERGIES No Information ENCOUNTERS Encounter Location Date Diagnosis [address] [address] Jul, [address] [address] Jul, Diabetic polyneuropathy associated with type 2 diabetes mellitus E11.42 and Primary insomnia F51.[address] [address] Jul, Diabetic polyneuropathy associated with type 2 diabetes mellitus E11.42 ; Viral URI J06.9 and Encounter for immunization Z23 [address] [address] Feb, SOB (shortness of breath) R06.02 and Diabetic polyneuropathy associated with type 2 diabetes mellitus E11.[address] [address] Jan, 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 [place] [address] [address] Jan, [place] [address] [address] [address] Jan, [place] [address] [address] [place] [id number] [place] [address] Jan, Diabetic polyneuropathy associated with type 2 diabetes mellitus E11.42 ; 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 ; Renal insufficiency N28.9 and Anemia due to other cause, not classified D64.89 [place] [address] [address] [place] [id number] [place] [address] Dec, SOB (shortness of breath) R06.02 ; Localized edema R60.0 and Controlled type 2 diabetes mellitus without complication, without long-term current use of insulin E11.9 [place] [address] [address] [place] [id number] [place] [address] Dec, SOB (shortness of breath) R06.02 ; Localized edema R60.0 and Controlled type 2 diabetes mellitus without complication, without long-term current use of insulin E11.9 [place] [address] [address] [place] [id number] [place] [address] Nov, Diabetic polyneuropathy associated with type 2 diabetes mellitus E11.42 [place] [address] [address] [place] [id number] [place] [address] Nov, 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 [place] [address] [address] [place] [id number] [place] [address] Nov, 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 [place] [id number] [place] [address] October, 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 [place] [address] [address] [place] [id number] [place] [address] Aug, Diabetic polyneuropathy associated with type 2 diabetes mellitus E11.42 IMMUNIZATIONS No Known Immunizations SOCIAL HISTORY Never Assessed REASON FOR VISIT Controlled Med Refill PLAN OF CARE VITAL SIGNS MEDICATIONS Medication Instructions Dosage Frequency Start Date End Date Duration Status [place] 10-325 MG Orally 3 times a day 1 tablet as needed 8h Nov, 28 days Active RESULTS No Results PROCEDURES No Known procedures INSTRUCTIONS MEDICATIONS ADMINISTERED No Known Medications MEDICAL (GENERAL) HISTORY Type Description Date Medical [...]
--- OUTSIDE RECORDS SUMMARY | 2017-10-03 10:04 | XMS REPORT ---
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 Active 64361422 Problem Diabetic polyneuropathy associated with type 2 diabetes mellitus E11.42 Active 30638981 ALLERGIES No Information ENCOUNTERS Encounter Location Date Diagnosis [address] [address] Jul, [address] [address] Jul, Diabetic polyneuropathy associated with type 2 diabetes mellitus E11.42 and Primary insomnia F51.[address] [address] Jul, Diabetic polyneuropathy associated with type 2 diabetes mellitus E11.42 ; Viral URI J06.9 and Encounter for immunization Z23 [address] [address] Feb, SOB (shortness of breath) R06.02 and Diabetic polyneuropathy associated with type 2 diabetes mellitus E11.[address] [address] Jan, 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 [place] [address] [address] Jan, [place] [address], [place] [address] Jan, [place] [address] [address] [place] [id number] [place] [address] Jan, Diabetic polyneuropathy associated with type 2 diabetes mellitus E11.42 ; 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 ; Renal insufficiency N28.9 and Anemia due to other cause, not classified D64.89 [place] [address] [place] [id number] [place] [address] Dec, SOB (shortness of breath) R06.02 ; Localized edema R60.0 and Controlled type 2 diabetes mellitus without complication, without long-term current use of insulin E11.9 [place] [address] [place] [id number] [place] [address] Dec, SOB (shortness of breath) R06.02 ; Localized edema R60.0 and Controlled type 2 diabetes mellitus without complication, without long-term current use of insulin E11.9 [place] [address] [place] [id number] [place] [address] Nov, Diabetic polyneuropathy associated with type 2 diabetes mellitus E11.42 [place] [address] [place] [id number] [place] [address] Nov, 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 [place] [address] [place] [id number] [place] [address] Nov, 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 [place] [id number] [place] [address] October, 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 [place] [address] [place] [id number] [place] [address] Aug, Diabetic polyneuropathy associated with type 2 diabetes mellitus E11.42 IMMUNIZATIONS Vaccine Route Administration Date Status TORADOL (IM) 60 MG/2ML (UP TO 15 MG) IM Intramuscular November 27, 2016 Administered SOCIAL HISTORY Never Assessed REASON FOR VISIT Injection CBrumbackRN PLAN OF CARE VITAL SIGNS MEDICATIONS Unknown Medications RESULTS No Results PROCEDURES Procedure Date Ordered Result Body Site TORADOL (IM) 60 MG/2ML (UP TO 15 MG) November 27, 2016 THER/PROPH/DIAG INJ, SC/IM November 27, 2016 INSTRUCTIONS MEDICATIONS ADMINISTERED No Known Medications MEDICAL [...]
--- OUTSIDE RECORDS SUMMARY | 2017-10-03 10:04 | XMS REPORT ---
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 51338272 Problem Diabetic polyneuropathy associated with type 2 diabetes mellitus E11.42 Active 57610535 ALLERGIES No Known Allergies ENCOUNTERS Encounter Location Date Diagnosis [address] [address] Jul, [address] [address] Jul, Diabetic polyneuropathy associated with type 2 diabetes mellitus E11.42 and Primary insomnia F51.[address] [address] Jul, Diabetic polyneuropathy associated with type 2 diabetes mellitus E11.42 ; Viral URI J06.9 and Encounter for immunization Z23 [address] [address] Feb, SOB (shortness of breath) R06.02 and Diabetic polyneuropathy associated with type 2 diabetes mellitus E11.[address] [address] Jan, 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 [address] Jan, [place] [id number] [address] Jan, [place] [address] [place] [id number] [place] [address] Jan, Diabetic polyneuropathy associated with type 2 diabetes mellitus E11.42 ; 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 ; Renal insufficiency N28.9 and Anemia due to other cause, not classified D64.89 [place] [address] [place] [id number] [place] [address] Dec, SOB (shortness of breath) R06.02 ; Localized edema R60.0 and Controlled type 2 diabetes mellitus without complication, without long-term current use of insulin E11.9 [place] [address] [place] [id number] [place] [address] Dec, SOB (shortness of breath) R06.02 ; Localized edema R60.0 and Controlled type 2 diabetes mellitus without complication, without long-term current use of insulin E11.9 [place] [id number] [place] [address] Nov, Diabetic polyneuropathy associated with type 2 diabetes mellitus E11.42 [place] [id number] [place] [address] Nov, 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 [place] [address] [place] [id number] [place] [address] Nov, 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 [place] [id number] [place] [address] October, 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 [place] [id number] [place] [address] Aug, Diabetic polyneuropathy associated with type 2 diabetes mellitus E11.42 IMMUNIZATIONS Vaccine Route Administration Date Status TORADOL (IM) 60 MG/2ML (UP TO 15 MG) IM Intramuscular December 24, 2016 Administered SOCIAL HISTORY Never Assessed REASON FOR VISIT left leg swelling/pain for 4-5 days- Bipin JJ PLAN OF CARE VITAL SIGNS Height 65 in 2016-12-24 Weight 199.4 lbs 2016-12-24 Temperature 98.0 degrees Fahrenheit 2016-12-24 Heart Rate 92 bpm 2016-12-24 Respiratory Rate 24 2016-12-24 BMI 33.18 kg/m2 2016-12-24 Blood pressure systolic 154 mmHg 2016-12-24 Blood pressure diastolic 82 mmHg 2016-12-24 MEDICATIONS Medication Instructions Dosage Frequency Start Date End Date Duration Status Klor-Con 20 MEQ Orally once in the AM 1/2 packet with food Active Peetz 10-325 MG Orally 3 times a day 1 tablet as needed 8h Nov, 28 days Active Allopurinol 100 MG Orally 2 times a day 1 tablet 12h October, 30 day(s) Active Lovastatin 20 MG Orally at bedtime 1 tablet Active glyburide 5 mg Oral 3 times a day 1 tablet 8h Active Lantus 20 24h Active CloNIDine HCl ER 0.1 MG Orally at bedtime 1 tablet Active Furosemide 40 MG Orally Once a day 1 tablet 24h Active Metoprolol Succinate 100 MG Orally 2 times a day 1 tablet 12h Active Amitriptyline HCl 100 MG Orally at bedtime 2 tablets Active Diltiazem HCl 240 MG Orally Once a day 1 capsule on an empty stomach in the morning 24h Active Furosemide 40 mg Orally Once a day 1 tablet 24h Dec, 30 day(s) Active Metformin HCl 500 MG Orally 3 times a day 1 tablet 8h Active Lisinopril 20 MG Orally at bedtime 1 tablet Active RESULTS No Results PROCEDURES Procedure Date Ordered Result Body Site [facility] VISIT ESTABLISHED PATIENT December 24, 2016 THER/PROPH/DIAG INJ, SC/IM December 24, 2016 TORADOL (IM) 60 MG/2ML (UP TO 15 MG) December 24, 2016 INSTRUCTIONS MEDICATIONS ADMINISTERED No Known Medications [...]
--- OUTSIDE RECORDS SUMMARY | 2017-10-03 10:04 | XMS REPORT | Continuity of Care Document ---
Author Author [facility] Organization [facility] Address Unknown Phone Unavailable Allergies Active Description Code Type Severity Reaction Onset Reported/Identified Relationship to Patient Clinical Status Yes No Known Drug Allergies [id number] Drug Allergy Unknown N/A 06/11/2015 Medications There is no data. Problems Date Dx Coded Attending Type Code Diagnosis Diagnosed By 06/12/2015 YAEL PEPPER MD, Ot E11.9 TYPE 2 DIABETES MELLITUS WITHOUT COMPLIC 06/12/2015 YAEL PEPPER MD Ot E66.9 OBESITY, UNSPECIFIED 06/12/2015 YAEL PEPPER MD Ot E78.5 HYPERLIPIDEMIA, UNSPECIFIED 06/12/2015 YAEL PEPPER MD Ot E83.42 HYPOMAGNESEMIA 06/12/2015 YAEL PEPPER MD Ot G89.0 CENTRAL PAIN SYNDROME 06/12/2015 YAEL PEPPER MD Ot I10 ESSENTIAL (PRIMARY) HYPERTENSION 06/12/2015 YAEL PEPPER MD Ot K21.9 GASTRO-ESOPHAGEAL REFLUX DISEASE WITHOUT 06/12/2015 YAEL PEPPER MD Ot Z23 ENCOUNTER FOR IMMUNIZATION 06/12/2015 YAEL PEPPER MD Ot Z68.32 BODY MASS INDEX (BMI) 32.0-32.9, ADULT 06/12/2015 YAEL PEPPER MD Ot Z79.4 PLASTICS AND COMPOSITES INSPECTOR (CURRENT) USE OF INSULIN 06/12/2015 YAEL PEPPER MD Ot Z87.891 PERSONAL HISTORY OF NICOTINE DEPENDENCE 08/10/2016 SYD SUAREZ APRN Ot R10.11 RIGHT UPPER QUADRANT PAIN 08/10/2016 SYD SUAREZ APRN Ot R14.0 ABDOMINAL DISTENSION (GASEOUS) 08/10/2016 MARK LUO APRN Ot R06.02 SHORTNESS OF BREATH 08/10/2016 MARK LUO APRN Ot R10.11 RIGHT UPPER QUADRANT PAIN 08/10/2016 MARK LUO APRN Ot R10.12 LEFT UPPER QUADRANT PAIN 08/10/2016 MARK LUO SENIOR GL ACCOUNTANT Ot R16.0 HEPATOMEGALY, NOT ELSEWHERE CLASSIFIED 08/10/2016 MARK LUO SENIOR GL ACCOUNTANT Ot R63.5 ABNORMAL WEIGHT GAIN 08/10/2016 EDUARDO SUAREZI L SENIOR GL ACCOUNTANT Ot R10.11 RIGHT UPPER QUADRANT PAIN 08/10/2016 SUAREZ, SYD L SENIOR GL ACCOUNTANT Ot R14.0 ABDOMINAL DISTENSION (GASEOUS) 08/10/2016 MARK LUO SENIOR GL ACCOUNTANT Ot R06.02 SHORTNESS OF BREATH 08/10/2016 MARK LUO SENIOR GL ACCOUNTANT Ot R10.11 RIGHT UPPER QUADRANT PAIN 08/10/2016 MARK LUO SENIOR GL ACCOUNTANT Ot R10.12 LEFT UPPER QUADRANT PAIN 08/10/2016 MARK LUO SENIOR GL ACCOUNTANT Ot R16.0 HEPATOMEGALY, NOT ELSEWHERE CLASSIFIED 08/10/2016 MARK LUO SENIOR GL ACCOUNTANT Ot R63.5 ABNORMAL WEIGHT GAIN 08/10/2016 SUAREZEDUARDO MARCELOI L SENIOR GL ACCOUNTANT Ot R10.11 RIGHT UPPER QUADRANT PAIN 08/10/2016 SUAREZ, SYD L SENIOR GL ACCOUNTANT Ot R14.0 ABDOMINAL DISTENSION (GASEOUS) 08/11/2016 YAEL PEPPER MD Ot D64.9 ANEMIA, UNSPECIFIED 08/11/2016 YAEL PEPPER MD Ot E11.9 TYPE 2 DIABETES MELLITUS WITHOUT COMPLIC 08/11/2016 YAEL PEPPER MD Ot E83.42 HYPOMAGNESEMIA 08/11/2016 YAEL PEPPER MD Ot E86.0 DEHYDRATION 08/11/2016 YAEL PEPPER MD Ot I10 ESSENTIAL (PRIMARY) HYPERTENSION 08/11/2016 YAEL PEPPER MD Ot J20.8 ACUTE BRONCHITIS DUE TO OTHER SPECIFIED 08/11/2016 YAEL PEPPER MD Ot K21.9 GASTRO-ESOPHAGEAL REFLUX DISEASE WITHOUT 08/11/2016 YAEL PEPPER MD Ot Z79.4 DETENTION (CURRENT) USE OF INSULIN 08/11/2016 YAEL PEPPER MD Ot Z79.899 OTHER PLASTICS AND COMPOSITES INSPECTOR (CURRENT) DRUG THERAPY 08/11/2016 YAEL PEPPER MD Ot Z87.891 PERSONAL HISTORY OF NICOTINE DEPENDENCE 08/11/2016 YAEL PEPPER MD Ot D64.9 ANEMIA, UNSPECIFIED 08/11/2016 YAEL PEPPER MD Ot E11.9 TYPE 2 DIABETES MELLITUS WITHOUT COMPLIC 08/11/2016 YAEL PEPPER MD Ot E83.42 HYPOMAGNESEMIA 08/11/2016 YAEL PEPPER MD Ot E86.0 DEHYDRATION 08/11/2016 YAEL PEPPER MD Ot I10 ESSENTIAL (PRIMARY) HYPERTENSION 08/11/2016 YAEL PEPPER MD Ot J20.8 ACUTE BRONCHITIS DUE TO OTHER SPECIFIED 08/11/2016 YAEL PEPPER MD Ot K21.9 GASTRO-ESOPHAGEAL REFLUX DISEASE WITHOUT 08/11/2016 YAEL PEPPER MD Ot Z79.4 DETENTION (CURRENT) USE OF INSULIN 08/11/2016 YAEL PEPPER MD Ot Z79.899 OTHER DETENTION (CURRENT) DRUG THERAPY 08/11/2016 YAEL PEPPER MD Ot Z87.891 PERSONAL HISTORY OF NICOTINE DEPENDENCE 08/11/2016 YAEL PEPPER MD Ot D64.9 ANEMIA, UNSPECIFIED 08/11/2016 YAEL PEPPER MD Ot E11.9 TYPE 2 DIABETES MELLITUS WITHOUT COMPLIC 08/11/2016 YAEL PEPPER MD Ot E83.42 HYPOMAGNESEMIA 08/11/2016 YAEL PEPPER MD Ot E86.0 DEHYDRATION 08/11/2016 YAEL PEPPER MD Ot I10 ESSENTIAL (PRIMARY) HYPERTENSION 08/11/2016 YAEL PEPPER MD Ot J20.8 ACUTE BRONCHITIS DUE TO OTHER SPECIFIED 08/11/2016 YAEL PEPPER MD Ot K21.9 GASTRO-ESOPHAGEAL REFLUX DISEASE WITHOUT 08/11/2016 YAEL PEPPER MD Ot Z79.4 PLASTICS AND COMPOSITES INSPECTOR (CURRENT) USE OF INSULIN 08/11/2016 YAEL PEPPER MD Ot Z79.899 OTHER DETENTION (CURRENT) DRUG THERAPY 08/11/2016 YAEL PEPPER MD Ot Z87.891 PERSONAL HISTORY OF NICOTINE DEPENDENCE 08/21/2016 MARK LUO SENIOR GL ACCOUNTANT Ot R06.02 SHORTNESS OF BREATH 08/21/2016 MARK LUO SENIOR GL ACCOUNTANT Ot R10.11 RIGHT UPPER QUADRANT PAIN 08/21/2016 MARK LUO SENIOR GL ACCOUNTANT Ot R10.12 LEFT UPPER QUADRANT PAIN 08/21/2016 MARK LUO SENIOR GL ACCOUNTANT Ot R16.0 HEPATOMEGALY, NOT ELSEWHERE CLASSIFIED 08/21/2016 MARK LUO M SENIOR GL ACCOUNTANT Ot R63.5 ABNORMAL WEIGHT GAIN 08/26/2016 SUAREZ, SYD L SENIOR GL ACCOUNTANT Ot R10.11 RIGHT UPPER QUADRANT PAIN 08/26/2016 SUAREZ, SYD L SENIOR GL ACCOUNTANT Ot R14.0 ABDOMINAL DISTENSION (GASEOUS) 09/07/2016 SUAREZ, SYD L SENIOR GL ACCOUNTANT Ot R10.11 RIGHT UPPER QUADRANT PAIN 09/07/2016 SUAREZ, SYD L SENIOR GL ACCOUNTANT Ot R14.0 ABDOMINAL DISTENSION (GASEOUS) 09/07/2016 PUJA MARK M SENIOR GL ACCOUNTANT Ot R06.02 SHORTNESS OF BREATH 09/07/2016 GUSTABO LUOA M SENIOR GL ACCOUNTANT Ot R10.11 RIGHT UPPER QUADRANT PAIN 09/07/2016 PUJA MARK M SENIOR GL ACCOUNTANT Ot R10.12 LEFT UPPER QUADRANT PAIN 09/07/2016 GUSTABO LUOA M SENIOR GL ACCOUNTANT Ot R16.0 HEPATOMEGALY, NOT ELSEWHERE CLASSIFIED 09/07/2016 PUJA MARK M SENIOR GL ACCOUNTANT Ot R63.5 ABNORMAL WEIGHT GAIN 09/07/2016 SUAREZ, SYD L SENIOR GL ACCOUNTANT Ot R10.11 RIGHT UPPER QUADRANT PAIN 09/07/2016 SUAREZ, SYD L SENIOR GL ACCOUNTANT Ot R14.0 ABDOMINAL DISTENSION (GASEOUS) 09/07/2016 PUJA MARK M SENIOR GL ACCOUNTANT Ot R06.02 SHORTNESS OF BREATH 09/07/2016 PUJA MARK M SENIOR GL ACCOUNTANT Ot R10.11 RIGHT UPPER QUADRANT PAIN 09/07/2016 GUSTABO LUOA M SENIOR GL ACCOUNTANT Ot R10.12 LEFT UPPER QUADRANT PAIN 09/07/2016 GUSTABO LUOA M SENIOR GL ACCOUNTANT Ot R16.0 HEPATOMEGALY, NOT ELSEWHERE CLASSIFIED 09/07/2016 GUSTABO LUOA M SENIOR GL ACCOUNTANT Ot R63.5 ABNORMAL WEIGHT GAIN 09/11/2016 GUSTABO LUOA M SENIOR GL ACCOUNTANT Ot R06.02 SHORTNESS OF BREATH 09/11/2016 GUSTABO LUOA M SENIOR GL ACCOUNTANT Ot R10.11 RIGHT UPPER QUADRANT PAIN 09/11/2016 PUJAGUSTABOA M SENIOR GL ACCOUNTANT Ot R10.12 LEFT UPPER QUADRANT PAIN 09/11/2016 GUSTABO LUOA M SENIOR GL ACCOUNTANT Ot R16.0 HEPATOMEGALY, NOT ELSEWHERE CLASSIFIED 09/11/2016 MARK LUO M SENIOR GL ACCOUNTANT Ot R63.5 ABNORMAL WEIGHT GAIN 09/11/2016 GUSTABO LUOA M SENIOR GL ACCOUNTANT Ot R06.02 SHORTNESS OF BREATH 09/11/2016 PUJA, MARK M SENIOR GL ACCOUNTANT Ot R10.11 RIGHT UPPER QUADRANT PAIN 09/11/2016 GUSTABO LUOA M SENIOR GL ACCOUNTANT Ot R10.12 LEFT UPPER QUADRANT PAIN 09/11/2016 MARK LUO M SENIOR GL ACCOUNTANT Ot R16.0 HEPATOMEGALY, NOT ELSEWHERE CLASSIFIED 09/11/2016 MARK LUO M SENIOR GL ACCOUNTANT Ot R63.5 ABNORMAL WEIGHT GAIN 09/11/2016 SUAREZ, SYD L SENIOR GL ACCOUNTANT Ot R10.11 RIGHT UPPER QUADRANT PAIN 09/11/2016 SUAREZ, SYD L SENIOR GL ACCOUNTANT Ot R14.0 ABDOMINAL DISTENSION (GASEOUS) 09/22/2016 MARK LUO M SENIOR GL ACCOUNTANT Ot R06.02 SHORTNESS OF BREATH 09/22/2016 MARK LUO M SENIOR GL ACCOUNTANT Ot R10.11 RIGHT UPPER QUADRANT PAIN 09/22/2016 MARK LUO M SENIOR GL ACCOUNTANT Ot R10.12 LEFT UPPER QUADRANT PAIN 09/22/2016 MARK LUO M SENIOR GL ACCOUNTANT Ot R16.0 HEPATOMEGALY, NOT ELSEWHERE CLASSIFIED 09/22/2016 MARK LUO M SENIOR GL ACCOUNTANT Ot R63.5 ABNORMAL WEIGHT GAIN 09/22/2016 SUAREZ, SYD L SENIOR GL ACCOUNTANT Ot R10.11 RIGHT UPPER QUADRANT PAIN 09/22/2016 SUAREZ, SYD L SENIOR GL ACCOUNTANT Ot R14.0 ABDOMINAL DISTENSION (GASEOUS) 01/12/2017 MARK LUO M SENIOR GL ACCOUNTANT Ot R06.02 SHORTNESS OF BREATH 01/12/2017 MARK LUO M SENIOR GL ACCOUNTANT Ot R10.11 RIGHT UPPER QUADRANT PAIN 01/12/2017 MARK LUO M SENIOR GL ACCOUNTANT Ot R10.12 LEFT UPPER QUADRANT PAIN 01/12/2017 MARK LUO M SENIOR GL ACCOUNTANT Ot R16.0 HEPATOMEGALY, NOT ELSEWHERE CLASSIFIED 01/12/2017 MARK LUO M SENIOR GL ACCOUNTANT Ot R63.5 ABNORMAL WEIGHT GAIN 01/12/2017 SUAREZ, SYD L SENIOR GL ACCOUNTANT Ot R10.11 RIGHT UPPER QUADRANT PAIN 01/12/2017 SUAREZ, SYD L SENIOR GL ACCOUNTANT Ot R14.0 ABDOMINAL DISTENSION (GASEOUS) 03/01/2017 NIKITA LEGGETT Ot I10 ESSENTIAL (PRIMARY) HYPERTENSION 03/01/2017 GUSTABO LUOLeanna Martinez SENIOR GL ACCOUNTANT Ot R06.02 SHORTNESS OF BREATH 03/01/2017 PUJA MARK M SENIOR GL ACCOUNTANT Ot R10.11 RIGHT UPPER QUADRANT PAIN 03/01/2017 PUJA, MARK M SENIOR GL ACCOUNTANT Ot R10.12 LEFT UPPER QUADRANT PAIN 03/01/2017 MARK LUO SENIOR GL ACCOUNTANT Ot R16.0 HEPATOMEGALY, NOT ELSEWHERE CLASSIFIED 03/01/2017 MARK LOU SENIOR GL ACCOUNTANT Ot R63.5 ABNORMAL WEIGHT GAIN 03/01/2017 SYD SUAREZ SENIOR GL ACCOUNTANT Ot R10.11 RIGHT UPPER QUADRANT PAIN 03/01/2017 SYD SUAREZ SENIOR GL ACCOUNTANT Ot R14.0 ABDOMINAL DISTENSION (GASEOUS) 03/01/2017 ROBERTO GARY, NIKITA K Ot I10 ESSENTIAL (PRIMARY) HYPERTENSION 03/02/2017 ROBERTO PA, NIKITA K Ot E11.9 TYPE 2 DIABETES MELLITUS WITHOUT COMPLIC 03/02/2017 ROBERTO GARY, NIKITA K Ot E66.9 OBESITY, UNSPECIFIED 03/02/2017 ROBERTO PA, NIKITA K Ot I10 ESSENTIAL (PRIMARY) HYPERTENSION 03/02/2017 ZHEN LEGGETTDITH K Ot R07.9 CHEST PAIN, UNSPECIFIED 03/02/2017 ROBERTO PA NIKITA K Ot R22.42 LOCALIZED SWELLING, MASS AND LUMP, LEFT 03/30/2017 ROBERTO PA, NIKITA K Ot E11.9 TYPE 2 DIABETES MELLITUS WITHOUT COMPLIC 03/30/2017 ROBERTO GARY, NIKITA K Ot E66.9 OBESITY, UNSPECIFIED 03/30/2017 ROBERTO PA, NIKITA K Ot I10 ESSENTIAL (PRIMARY) HYPERTENSION 03/30/2017 ROBERTO GARY, NIKITA K Ot R07.9 CHEST PAIN, UNSPECIFIED 03/30/2017 ROBERTO GARY NIKITA K Ot R22.42 LOCALIZED SWELLING, MASS AND LUMP, LEFT 04/20/2017 ROBERTO PA, NIKITA K Ot E11.9 TYPE 2 DIABETES MELLITUS WITHOUT COMPLIC 04/20/2017 ROBERTO GARY NIKITA K Ot E66.9 OBESITY, UNSPECIFIED 04/20/2017 ROBERTO PA, NIKITA K Ot I10 ESSENTIAL (PRIMARY) HYPERTENSION 04/20/2017 ROBERTO PA, NIKITA K Ot R07.9 CHEST PAIN, UNSPECIFIED 04/20/2017 ROBERTO PA, NIKITA K Ot R22.42 LOCALIZED SWELLING, MASS AND LUMP, LEFT 06/07/2017 MARK LUO SENIOR GL ACCOUNTANT Ot R06.02 SHORTNESS OF BREATH 06/07/2017 MARK LUO SENIOR GL ACCOUNTANT Ot R10.11 RIGHT UPPER QUADRANT PAIN 06/07/2017 MARK LUO SENIOR GL ACCOUNTANT Ot R10.12 LEFT UPPER QUADRANT PAIN 06/07/2017 MARK LUO SENIOR GL ACCOUNTANT Ot R16.0 HEPATOMEGALY, NOT ELSEWHERE CLASSIFIED 06/07/2017 MARK LUO SENIOR GL ACCOUNTANT Ot R63.5 ABNORMAL WEIGHT GAIN 06/07/2017 SYD SUAREZ SENIOR GL ACCOUNTANT Ot R10.11 RIGHT UPPER QUADRANT PAIN 06/07/2017 SYD SUAREZ SENIOR GL ACCOUNTANT Ot R14.0 ABDOMINAL DISTENSION (GASEOUS) 06/07/2017 NIKITA LEGGETT K Ot E11.9 TYPE 2 DIABETES MELLITUS WITHOUT COMPLIC 06/07/2017 NIKITA LEGGETT K Ot E66.9 OBESITY, UNSPECIFIED 06/07/2017 NIKITA LEGGETT K Ot I10 ESSENTIAL (PRIMARY) HYPERTENSION 06/07/2017 NIKITA LEGGETT K Ot R07.9 CHEST PAIN, UNSPECIFIED 06/07/2017 NIKITA LEGGETT K Ot R22.42 LOCALIZED SWELLING, MASS AND LUMP, LEFT 06/07/2017 NIKITA LEGGETT K Ot E11.9 TYPE 2 DIABETES MELLITUS WITHOUT COMPLIC 06/07/2017 NIKITA LEGGETT K Ot E66.9 OBESITY, UNSPECIFIED 06/07/2017 NIKITA LEGGETT K Ot I10 ESSENTIAL (PRIMARY) HYPERTENSION 06/07/2017 NIKITA LEGGETT K Ot R07.9 CHEST PAIN, UNSPECIFIED 06/07/2017 NIKITA LEGGETT K Ot R22.42 LOCALIZED SWELLING, MASS AND LUMP, LEFT Procedures There is no data. Results Test Result Range Complete blood count (CBC) with automated white blood cell (WBC) differential - 08/10/16 12:05 Blood leukocytes automated count (number/volume) 9.3 10*3/uL 4.3-11.0 Blood erythrocytes automated count (number/volume) 4.06 10*6/uL 4.35-5.85 Venous blood hemoglobin measurement (mass/volume) 11.8 g/dL 11.5-16.0 Blood hematocrit (volume fraction) 36 % 35-52 Automated erythrocyte mean corpuscular volume 89 [foz_us] 80-99 Automated erythrocyte mean corpuscular hemoglobin (mass per erythrocyte) 29 pg 25-34 Automated erythrocyte mean corpuscular hemoglobin concentration measurement ( mass/volume) 33 g/dL 32-36 Automated erythrocyte distribution width ratio 14.2 % 10.0-14.5 Automated blood platelet count (count/volume) 200 10*3/uL 130-400 Automated blood platelet mean volume measurement 10.7 [foz_us] 7.4-10.4 Automated blood neutrophils/100 leukocytes 89 % 42-75 Automated blood lymphocytes/100 leukocytes 4 % 12-44 Blood monocytes/100 leukocytes 6 % 0-12 Automated blood eosinophils/100 leukocytes 1 % 0-10 Automated blood basophils/100 leukocytes 0 % 0-10 Blood neutrophils automated count (number/volume) 8.3 10*3 1.8-7.8 Blood lymphocytes automated count (number/volume) 0.4 10*3 1.0-4.0 Blood monocytes automated count (number/volume) 0.6 10*3 0.0-1.0 Automated eosinophil count 0.1 10*3/uL 0.0-0.3 Automated blood basophil count (count/volume) 0.0 10*3/uL 0.0-0.1 Influenza virus A and B antigen detection - 08/10/16 12:05 FLU RESULT NEGATIVE FOR INFLUENZA A AND B ANTIGENS BY [facility] PT panel in platelet poor plasma by coagulation assay - 08/10/16 12:05 Prothrombin time (PT) in platelet poor plasma by coagulation assay 12.6 s 12.2-14.7 INR in platelet poor plasma or blood by coagulation assay 1.0 0.8-1.4 Activated partial thromboplastin time (aPTT) in platelet poor plasma bycoagulation assay - 08/10/16 12:05 Activated partial thromboplastin time (aPTT) in platelet poor plasma bycoagulation assay 25 s 24-35 Blood lactic acid measurement (moles/volume) - 08/10/16 12:05 Blood lactic acid measurement (moles/volume) 1.9 mmol/L 0.5-2.0 Comprehensive metabolic panel - 08/10/16 12:05 Serum or plasma sodium measurement (moles/volume) 136 mmol/L 135-145 Serum or plasma potassium measurement (moles/volume) 4.4 mmol/L 3.6-5.0 Serum or plasma chloride measurement (moles/volume) 102 mmol/L 98-107 Carbon dioxide 21 mmol/L 21-32 Serum or plasma anion gap determination (moles/volume) 13 mmol/L 5-14 Serum or plasma urea nitrogen measurement (mass/volume) 26 mg/dL 7-18 Serum or plasma creatinine measurement (mass/volume) 1.10 mg/dL 0.60-1.30 Serum or plasma urea nitrogen/creatinine mass ratio 24 NRG Serum or plasma creatinine measurement with calculation of estimated glomerular filtration rate 49 NRG Serum or plasma glucose measurement (mass/volume) 198 mg/dL 70-105 Serum or plasma calcium measurement (mass/volume) 8.6 mg/dL 8.5-10.1 Serum or plasma total bilirubin measurement (mass/volume) 0.6 mg/dL 0.1-1.0 Serum or plasma alkaline phosphatase measurement (enzymatic activity/volume) 79 U/L 40-136 Serum or plasma aspartate aminotransferase measurement (enzymatic activity/ volume) 18 U/L 5-34 Serum or plasma alanine aminotransferase measurement (enzymatic activity/volume ) 19 U/L 0-55 Serum or plasma protein measurement (mass/volume) 6.7 g/dL 6.4-8.2 Serum or plasma albumin measurement (mass/volume) 4.1 g/dL 3.2-4.5 Magnesium - 08/10/16 12:05 Magnesium 1.4 mg/dL 1.8-2.4 Serum or plasma creatine kinase measurement (enzymatic activity/volume) - 08/10 12:05 Serum or plasma creatine kinase measurement (enzymatic activity/volume) 14 U/L 29-168 Serum or plasma creatine kinase MB measurement (enzymatic activity/volume) - 12:05 Serum or plasma creatine kinase MB measurement (enzymatic activity/volume) 0.3 ng/mL <6.6 Serum or plasma troponin i.cardiac measurement (mass/volume) - 08/10/16 12:05 Serum or plasma troponin i.cardiac measurement (mass/volume) < ng/ mL <0.30 Serum or plasma lithium measurement (moles/volume) - 08/10/16 12:05 BNP level < pg/mL <100.0 Serum or plasma amylase measurement (enzymatic activity/volume) - 08/10/16 12: 05 Serum or plasma amylase measurement (enzymatic activity/volume) 94 U /L 25-125 Lipase - 08/10/16 12:05 Lipase 36 U/L 8-78 Serum or plasma thyroxine (T4) free measurement (mass/volume) - 08/10/16 12:05 Serum or plasma thyroxine (T4) free measurement (mass/volume) 1.00 ng/dL 0.70-1.48 Blood manual differential performed detection - 08/10/16 12:05 Blood monocytes/100 leukocytes 7 % NRG Manual blood segmented neutrophils/100 leukocytes 90 % NRG Manual blood lymphocytes/100 leukocytes 3 % NRG Blood erythrocyte morphology finding identification NORMAL NRG Serum or plasma thyrotropin measurement by detection limit <=0.05 miu/l (units/ volume) - 08/10/16 12:05 Serum or plasma thyrotropin measurement by detection limit <=0.05 miu/l (units/ volume) 0.27 u[iU]/mL 0.35-4.94 Bacterial blood culture - 08/10/16 12:05 Bacterial blood culture NG NRG Bacterial blood culture - 08/10/16 12:40 Bacterial blood culture NG NRG Complete urinalysis with reflex to culture - 08/10/16 15:34 Urine color determination YELLOW NRG Urine clarity determination CLEAR NRG Urine pH measurement by test strip 5 5-9 Specific gravity of urine by test strip 1.010 1.016- 1.022 Urine protein assay by test strip, semi-quantitative 1+ NEGATIVE Urine glucose detection by automated test strip NEGATIVE NEGATIVE Erythrocytes detection in urine sediment by light microscopy NEGATIVE NEGATIVE Urine ketones detection by automated test strip NEGATIVE NEGATIVE Urine nitrite detection by test strip NEGATIVE NEGATIVE Urine total bilirubin detection by test strip NEGATIVE NEGATIVE Urine urobilinogen measurement by automated test strip (mass/volume) NORMAL NORMAL Urine leukocyte esterase detection by dipstick 1+ NEGATIVE Automated urine sediment erythrocyte count by microscopy (number/high power field) NONE NRG Automated urine sediment leukocyte count by microscopy (number/high power field ) [HPF] NRG Bacteria detection in urine sediment by light microscopy NEGATIVE NRG Squamous epithelial cells detection in urine sediment by light microscopy 0-2 NRG Crystals detection in urine sediment by light microscopy NONE NRG Casts detection in urine sediment by light microscopy NONE NRG Mucus detection in urine sediment by light microscopy NEGATIVE NRG Complete urinalysis with reflex to culture NO NRG Methicillin resistant Staphylococcus aureus (MRSA) screening culture - 18:34 Methicillin resistant Staphylococcus aureus (MRSA) screening culture NEG NRG Capillary blood glucose measurement by glucometer (mass/volume) - 08/10/16 20: 25 Capillary blood glucose measurement by glucometer (mass/volume) 168 mg/dL 70-110 Complete blood count (CBC) with automated white blood cell (WBC) differential - 08/11/16 03:25 Blood leukocytes automated count (number/volume) 3.0 10*3/uL 4.3-11.0 Blood erythrocytes automated count (number/volume) 3.13 10*6/uL 4.35-5.85 Venous blood hemoglobin measurement (mass/volume) 9.1 g/dL 11.5-16.0 Blood hematocrit (volume fraction) 29 % 35-52 Automated erythrocyte mean corpuscular volume 91 [foz_us] 80-99 Automated erythrocyte mean corpuscular hemoglobin (mass per erythrocyte) 29 pg 25-34 Automated erythrocyte mean corpuscular hemoglobin concentration measurement ( mass/volume) 32 g/dL 32-36 Automated erythrocyte distribution width ratio 14.3 % 10.0-14.5 Automated blood platelet count (count/volume) 121 10*3/uL 130-400 Automated blood platelet mean volume measurement 11.0 [foz_us] 7.4-10.4 Automated blood neutrophils/100 leukocytes 67 % 42-75 Automated blood lymphocytes/100 leukocytes 18 % 12-44 Blood monocytes/100 leukocytes 11 % 0-12 Automated blood eosinophils/100 leukocytes 3 % 0-10 Automated blood basophils/100 leukocytes 0 % 0-10 Blood neutrophils automated count (number/volume) 2.0 10*3 1.8-7.8 Blood lymphocytes automated count (number/volume) 0.6 10*3 1.0-4.0 Blood monocytes automated count (number/volume) 0.3 10*3 0.0-1.0 Automated eosinophil count 0.1 10*3/uL 0.0-0.3 Automated blood basophil count (count/volume) 0.0 10*3/uL 0.0-0.1 Whole blood basic metabolic panel - 08/11/16 03:25 Serum or plasma sodium measurement (moles/volume) 139 mmol/L 135-145 Serum or plasma potassium measurement (moles/volume) 3.7 mmol/L 3.6-5.0 Serum or plasma chloride measurement (moles/volume) 111 mmol/L 98-107 Carbon dioxide 18 mmol/L 21-32 Serum or plasma anion gap determination (moles/volume) 10 mmol/L 5-14 Serum or plasma urea nitrogen measurement (mass/volume) 17 mg/dL 7-18 Serum or plasma creatinine measurement (mass/volume) 0.80 mg/dL 0.60-1.30 Serum or plasma urea nitrogen/creatinine mass ratio 21 NRG Serum or plasma creatinine measurement with calculation of estimated glomerular filtration rate > NRG Serum or plasma glucose measurement (mass/volume) 119 mg/dL 70-105 Serum or plasma calcium measurement (mass/volume) 7.2 mg/dL 8.5-10.1 Serum or plasma phosphate measurement (mass/volume) - 08/11/16 03:25 Serum or plasma phosphate measurement (mass/volume) 1.7 mg/dL 2.3-4.7 Magnesium - 08/11/16 03:25 Magnesium 1.3 mg/dL 1.8-2.4 CBC With Differential/Platelet - 12/25/16 08:06 WBC 7.2 x10E3/uL 3.4-10.8 RBC 3.84 x10E6/uL 3.77-5.28 Hemoglobin 10.5 g/dL 11.1-15.9 Hematocrit 33.4 % 34.0-46.6 MCV 87 fL 79-97 MCH 27.3 pg 26.6-33.0 MCHC 31.4 g/dL 31.5-35.7 RDW 15.2 % 12.3-15.4 Platelets 256 x10E3/uL 150-379 Neutrophils 52 % Lymphs 38 % Monocytes 8 % Eos 2 % Basos 0 % Neutrophils (Absolute) 3.8 x10E3/uL 1.4-7.0 Lymphs (Absolute) 2.8 x10E3/uL 0.7-3.1 Monocytes(Absolute) 0.5 x10E3/uL 0.1-0.9 Eos (Absolute) 0.1 x10E3/uL 0.0-0.4 Baso (Absolute) 0.0 x10E3/uL 0.0-0.2 Immature Granulocytes 0 % Immature Grans (Abs) 0.0 x10E3/uL 0.0-0.1 Comp. Metabolic Panel (14) - 12/25/16 08:06 Glucose, Serum 122 mg/dL 65-99 BUN 20 mg/dL 8-27 Creatinine, Serum 1.17 mg/dL 0.57-1.00 eGFR If NonAfricn Am 48 mL/min/1.73 >59 eGFR If Africn Am 55 mL/min/1.73 >59 BUN/Creatinine Ratio 17 12-28 Sodium, Serum 142 mmol/L 134-144 Potassium, Serum 4.4 mmol/L 3.5-5.2 Chloride, Serum 102 mmol/L 96-106 Carbon Dioxide, Total 22 mmol/L 18-29 Calcium, Serum 9.0 mg/dL 8.7-10.3 Protein, Total, Serum 6.4 g/dL 6.0-8.5 Albumin, Serum 4.2 g/dL 3.6-4.8 Globulin, Total 2.2 g/dL 1.5-4.5 A/G Ratio 1.9 1.2-2.2 Bilirubin, Total 0.2 mg/dL 0.0-1.2 Alkaline Phosphatase, S 91 IU/L 39-117 AST (SGOT) 13 IU/L 0-40 ALT (SGPT) 17 IU/L 0-32 Lipid Panel - 12/25/16 08:06 Cholesterol, Total 147 mg/dL 100-199 Triglycerides 200 mg/dL 0-149 HDL Cholesterol 39 mg/dL >39 VLDL Cholesterol Seun 40 mg/dL 5-40 LDL Cholesterol Calc 68 mg/dL 0-99 TSH - 12/25/16 08:06 TSH 1.440 uIU/mL 0.450-4.500 D-Dimer - 12/25/16 08:06 D-Dimer 2.31 mg/L FEU 0.00-0.49 B-Type Natriuretic Peptide - 12/25/16 08:06 B-Type Natriuretic Peptide 25.1 pg/mL 0.0-100.0 Basic Metabolic Panel (8) - 01/28/17 12:22 Glucose, Serum 286 mg/dL 65-99 BUN 23 mg/dL 8-27 Creatinine, Serum 0.97 mg/dL 0.57-1.00 eGFR If NonAfricn Am 60 mL/min/1.73 >59 eGFR If Africn Am 69 mL/min/1.73 >59 BUN/Creatinine Ratio 24 12-28 Sodium, Serum 139 mmol/L 134-144 Potassium, Serum 4.2 mmol/L 3.5-5.2 Chloride, Serum 97 mmol/L 96-106 Carbon Dioxide, Total 24 mmol/L 18-29 Calcium, Serum 9.7 mg/dL 8.7-10.3 MICROALBUMIN/CREATININE RATIO, URINE - 07/26/17 10:28 CREATININE, RANDOM URINE 287 mg/dL 20-320 MICROALBUMIN 3.7 mg/dL See Note: MICROALBUMIN/CREATININE RATIO, RANDOM URINE 13 mcg/mg creat <30 Encounters ACCT No. Visit Date/Time Discharge Status Pt. Type Provider Facility Loc./Unit Complaint [id number] 03/01/2017 07:57:00 03/01/2017 23:59:59 CLS Outpatient NIKITA LEGGETT [facility] RAD I10 [id number] 08/10/2016 16:30:00 08/11/2016 15:05:00 DIS Inpatient YAEL PEPPER MD [facility] ICU SEVERE SEPSIS,BRONCHITIS- POSSIBLE PNEUMONIA,CHEST [id number] 08/06/2016 13:41:00 08/06/2016 23:59:59 CLS Outpatient SYD SUAREZ APRN [facility] RAD RUQ PAIN,LIVER TENDERNESS ,ABD DISTENTION,BLOATING [id number] 08/04/2016 08:07:00 08/04/2016 23:59:59 CLS Outpatient MARK LUO APRN [facility] RAD SEVERE RUQ/LUQ PAIN, SOB,WEIGHT LOSS UNINTENTIONAL [id number] 06/11/2015 20:08:00 06/12/2015 17:41:00 DIS Inpatient YAEL PEPPER MD [facility] 4TH CHEST PAIN [id number] 01/29/2017 09:11:00 Document Registration [id number] 09/21/2017 13:30:00 09/21/2017 23:59:59 CLS Outpatient ARNEL MILES APRN [facility] [place] [id number] 07/26/2017 09:20:00 Document Registration [id number] 12/26/2016 08:36:00 Document Registration [id number] 12/26/2016 14:08:00 Document Registration
--- OUTSIDE RECORDS SUMMARY | 2017-10-03 10:04 | XMS REPORT ---
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 77321726 Problem Diabetic polyneuropathy associated with type 2 diabetes mellitus E11.42 Active [id number] ALLERGIES No Information ENCOUNTERS Encounter Location Date Diagnosis [address] [address] Jul, [address] [address] Jul, Diabetic polyneuropathy associated with type 2 diabetes mellitus E11.42 and Primary insomnia F51.[address] [address] Jul, Diabetic polyneuropathy associated with type 2 diabetes mellitus E11.42 ; Viral URI J06.9 and Encounter for immunization Z23 [address] [address] Feb, SOB (shortness of breath) R06.02 and Diabetic polyneuropathy associated with type 2 diabetes mellitus E11.[address] [address] Jan, 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 [place] [address] [address] Jan, [place] [address] [address] [address] Jan, [place] [address] [address] [place] [id number] [place] [address] Jan, Diabetic polyneuropathy associated with type 2 diabetes mellitus E11.42 ; 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 ; Renal insufficiency N28.9 and Anemia due to other cause, not classified D64.89 [place] [address] [address] [place] [id number] [place] [address] Dec, SOB (shortness of breath) R06.02 ; Localized edema R60.0 and Controlled type 2 diabetes mellitus without complication, without long-term current use of insulin E11.9 [place] [address] [address] [place] [id number] [place] [address] Dec, SOB (shortness of breath) R06.02 ; Localized edema R60.0 and Controlled type 2 diabetes mellitus without complication, without long-term current use of insulin E11.9 [place] [address] [place] [address] Nov, Diabetic polyneuropathy associated with type 2 diabetes mellitus E11.42 [place] [id number] [place] [address] Nov, 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 [place] [address] [place] [address] Nov, 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 [place] [address] [place] [address] October, 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 [place] [address] [place] [address] Aug, Diabetic polyneuropathy associated with type 2 diabetes mellitus E11.42 IMMUNIZATIONS No Known Immunizations SOCIAL HISTORY Never Assessed REASON FOR VISIT gout PLAN OF CARE VITAL SIGNS MEDICATIONS Medication Instructions Dosage Frequency Start Date End Date Duration Status Allopurinol 100 MG Orally 2 times a day 1 tablet 12h 12 Oct, 2016 30 day(s) Active RESULTS No Results PROCEDURES No Known [...]
--- OUTSIDE RECORDS SUMMARY | 2017-10-03 10:34 | XMS REPORT | Continuity of Care Document ---
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 06/12/2015 YAEL PEPPER [...] LEFT UPPER QUADRANT PAIN 08/10/2016 MARK LUO FLEXIBLE NANNY Ot R16.0 HEPATOMEGALY, NOT ELSEWHERE CLASSIFIED 08/10/2016 MARK LUO FLEXIBLE NANNY Ot R63.5 ABNORMAL WEIGHT GAIN 08/10/2016 EDUARDO SUAREZI L FLEXIBLE NANNY Ot R10.11 RIGHT UPPER QUADRANT PAIN 08/10/2016 SUAREZ, SYD L FLEXIBLE NANNY Ot R14.0 ABDOMINAL DISTENSION (GASEOUS) 08/10/2016 MARK LUO FLEXIBLE NANNY Ot R06.02 SHORTNESS OF BREATH 08/10/2016 MARK LUO FLEXIBLE NANNY Ot R10.11 RIGHT UPPER QUADRANT PAIN 08/10/2016 MARK LUO FLEXIBLE NANNY Ot R10.12 LEFT UPPER QUADRANT PAIN 08/10/2016 MARK LUO FLEXIBLE NANNY Ot R16.0 HEPATOMEGALY, NOT ELSEWHERE CLASSIFIED 08/10/2016 MARK LUO FLEXIBLE NANNY Ot R63.5 ABNORMAL WEIGHT GAIN 08/10/2016 SUAREZEDUARDO MARCELOI L FLEXIBLE NANNY Ot R10.11 RIGHT UPPER QUADRANT PAIN 08/10/2016 SUAREZ, SYD L FLEXIBLE NANNY Ot R14.0 ABDOMINAL DISTENSION (GASEOUS) 08/11/2016 YAEL [...] WITHOUT 08/11/2016 YAEL PEPPER MD Ot Z79.4 CUSTODIAL (CURRENT) USE OF INSULIN 08/11/2016 YAEL PEPPER MD Ot Z79.899 OTHER 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 (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) DRUG THERAPY 08/11/2016 YAEL PEPPER MD [...] WITHOUT 08/11/2016 YAEL PEPPER MD Ot Z79.4 CUSTODIAL (CURRENT) USE OF INSULIN 08/11/2016 YAEL PEPPER MD Ot Z79.899 OTHER CUSTODIAL (CURRENT) DRUG THERAPY 08/11/2016 YAEL PEPPER MD [...] WITHOUT 08/11/2016 YAEL PEPPER MD Ot 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 08/11/2016 YAEL PEPPER MD Ot Z79.899 OTHER CUSTODIAL (CURRENT) DRUG THERAPY 08/11/2016 YAEL PEPPER MD Ot Z87.891 PERSONAL HISTORY OF NICOTINE DEPENDENCE 08/21/2016 MARK LUO FLEXIBLE NANNY Ot R06.02 SHORTNESS OF BREATH 08/21/2016 MARK LUO FLEXIBLE NANNY Ot R10.11 RIGHT UPPER QUADRANT PAIN 08/21/2016 MARK LUO FLEXIBLE NANNY Ot R10.12 LEFT UPPER QUADRANT PAIN 08/21/2016 MARK LUO FLEXIBLE NANNY Ot R16.0 HEPATOMEGALY, NOT ELSEWHERE CLASSIFIED 08/21/2016 MARK LUO M FLEXIBLE NANNY Ot R63.5 ABNORMAL WEIGHT GAIN 08/26/2016 SUAREZ, SYD L FLEXIBLE NANNY Ot R10.11 RIGHT UPPER QUADRANT PAIN 08/26/2016 SUAREZ, SYD L FLEXIBLE NANNY Ot R14.0 ABDOMINAL DISTENSION (GASEOUS) 09/07/2016 SUAREZ, SYD L FLEXIBLE NANNY Ot R10.11 RIGHT UPPER QUADRANT PAIN 09/07/2016 SUAREZ, SYD L FLEXIBLE NANNY Ot R14.0 ABDOMINAL DISTENSION (GASEOUS) 09/07/2016 PUJA MARK M FLEXIBLE NANNY Ot R06.02 SHORTNESS OF BREATH 09/07/2016 GUSTABO LUOA M FLEXIBLE NANNY Ot R10.11 RIGHT UPPER QUADRANT PAIN 09/07/2016 PUJA MARK M FLEXIBLE NANNY Ot R10.12 LEFT UPPER QUADRANT PAIN 09/07/2016 GUSTABO LUOA M FLEXIBLE NANNY Ot R16.0 HEPATOMEGALY, NOT ELSEWHERE CLASSIFIED 09/07/2016 PUJA MARK M FLEXIBLE NANNY Ot R63.5 ABNORMAL WEIGHT GAIN 09/07/2016 SUAREZ, SYD L FLEXIBLE NANNY Ot R10.11 RIGHT UPPER QUADRANT PAIN 09/07/2016 SUAREZ, SYD L FLEXIBLE NANNY Ot R14.0 ABDOMINAL DISTENSION (GASEOUS) 09/07/2016 PUJA MARK M FLEXIBLE NANNY Ot R06.02 SHORTNESS OF BREATH 09/07/2016 PUJA MARK M FLEXIBLE NANNY Ot R10.11 RIGHT UPPER QUADRANT PAIN 09/07/2016 GUSTABO ULOA M FLEXIBLE NANNY Ot R10.12 LEFT UPPER QUADRANT PAIN 09/07/2016 GUSTABO LUOA M FLEXIBLE NANNY Ot R16.0 HEPATOMEGALY, NOT ELSEWHERE CLASSIFIED 09/07/2016 GUSTABO LUOA M FLEXIBLE NANNY Ot R63.5 ABNORMAL WEIGHT GAIN 09/11/2016 GUSTABO LUOA M FLEXIBLE NANNY Ot R06.02 SHORTNESS OF BREATH 09/11/2016 GUSTABO LUOA M FLEXIBLE NANNY Ot R10.11 RIGHT UPPER QUADRANT PAIN 09/11/2016 PUJAGUSTABOA M FLEXIBLE NANNY Ot R10.12 LEFT UPPER QUADRANT PAIN 09/11/2016 GUSTABO LUOA M FLEXIBLE NANNY Ot R16.0 HEPATOMEGALY, NOT ELSEWHERE CLASSIFIED 09/11/2016 MARK LUO M FLEXIBLE NANNY Ot R63.5 ABNORMAL WEIGHT GAIN 09/11/2016 GUSTABO LUOA M FLEXIBLE NANNY Ot R06.02 SHORTNESS OF BREATH 09/11/2016 PUJA, MARK M FLEXIBLE NANNY Ot R10.11 RIGHT UPPER QUADRANT PAIN 09/11/2016 GUSTABO LUOA M FLEXIBLE NANNY Ot R10.12 LEFT UPPER QUADRANT PAIN 09/11/2016 MARK LUO M FLEXIBLE NANNY Ot R16.0 HEPATOMEGALY, NOT ELSEWHERE CLASSIFIED 09/11/2016 MARK LUO M FLEXIBLE NANNY Ot R63.5 ABNORMAL WEIGHT GAIN 09/11/2016 SUAREZ, SYD L FLEXIBLE NANNY Ot R10.11 RIGHT UPPER QUADRANT PAIN 09/11/2016 SUAREZ, SYD L FLEXIBLE NANNY Ot R14.0 ABDOMINAL DISTENSION (GASEOUS) 09/22/2016 MARK LUO M FLEXIBLE NANNY Ot R06.02 SHORTNESS OF BREATH 09/22/2016 MARK LUO M FLEXIBLE NANNY Ot R10.11 RIGHT UPPER QUADRANT PAIN 09/22/2016 MARK LUO M FLEXIBLE NANNY Ot R10.12 LEFT UPPER QUADRANT PAIN 09/22/2016 MARK LUO M FLEXIBLE NANNY Ot R16.0 HEPATOMEGALY, NOT ELSEWHERE CLASSIFIED 09/22/2016 MARK LUO M FLEXIBLE NANNY Ot R63.5 ABNORMAL WEIGHT GAIN 09/22/2016 SUAREZ, SYD L FLEXIBLE NANNY Ot R10.11 RIGHT UPPER QUADRANT PAIN 09/22/2016 SUAREZ, SYD L FLEXIBLE NANNY Ot R14.0 ABDOMINAL DISTENSION (GASEOUS) 01/12/2017 MARK ULO M FLEXIBLE NANNY Ot R06.02 SHORTNESS OF BREATH 01/12/2017 MARK LUO M FLEXIBLE NANNY Ot R10.11 RIGHT UPPER QUADRANT PAIN 01/12/2017 MARK LUO M FLEXIBLE NANNY Ot R10.12 LEFT UPPER QUADRANT PAIN 01/12/2017 MARK LUO M FLEXIBLE NANNY Ot R16.0 HEPATOMEGALY, NOT ELSEWHERE CLASSIFIED 01/12/2017 MARK LUO M FLEXIBLE NANNY Ot R63.5 ABNORMAL WEIGHT GAIN 01/12/2017 SUAREZ, SYD L FLEXIBLE NANNY Ot R10.11 RIGHT UPPER QUADRANT PAIN 01/12/2017 SUAREZ, SYD L FLEXIBLE NANNY Ot R14.0 ABDOMINAL DISTENSION (GASEOUS) 03/01/2017 NIKITA LEGGETT Ot I10 ESSENTIAL (PRIMARY) HYPERTENSION 03/01/2017 GUSTABO LUOLeanna Martinez FLEXIBLE NANNY Ot R06.02 SHORTNESS OF BREATH 03/01/2017 PUJA MARK M FLEXIBLE NANNY Ot R10.11 RIGHT UPPER QUADRANT PAIN 03/01/2017 PUJA, MARK M FLEXIBLE NANNY Ot R10.12 LEFT UPPER QUADRANT PAIN 03/01/2017 MARK LUO FLEXIBLE NANNY Ot R16.0 HEPATOMEGALY, NOT ELSEWHERE CLASSIFIED 03/01/2017 MARK LUO FLEXIBLE NANNY Ot R63.5 ABNORMAL WEIGHT GAIN 03/01/2017 SYD SUAREZ FLEXIBLE NANNY Ot R10.11 RIGHT UPPER QUADRANT PAIN 03/01/2017 SYD SUAREZ FLEXIBLE NANNY Ot R14.0 ABDOMINAL DISTENSION (GASEOUS) 03/01/2017 ROBERTO [...] MASS AND LUMP, LEFT 06/07/2017 MARK LUO FLEXIBLE NANNY Ot R06.02 SHORTNESS OF BREATH 06/07/2017 MARK LUO FLEXIBLE NANNY Ot R10.11 RIGHT UPPER QUADRANT PAIN 06/07/2017 MARK LUO FLEXIBLE NANNY Ot R10.12 LEFT UPPER QUADRANT PAIN 06/07/2017 MARK LUO FLEXIBLE NANNY Ot R16.0 HEPATOMEGALY, NOT ELSEWHERE CLASSIFIED 06/07/2017 MARK LUO FLEXIBLE NANNY Ot R63.5 ABNORMAL WEIGHT GAIN 06/07/2017 SYD SUAREZ FLEXIBLE NANNY Ot R10.11 RIGHT UPPER QUADRANT PAIN 06/07/2017 SYD SUAREZ FLEXIBLE NANNY Ot R14.0 ABDOMINAL DISTENSION (GASEOUS) 06/07/2017 NIKITA [...] FOR INFLUENZA A AND B ANTIGENS BY [facility] PT panel in platelet poor plasma by [...] Status Pt. Type Provider Facility Loc./Unit Complaint [id number] 03/01/2017 07:57:00 03/01/2017 23:59:59 CLS Outpatient NIKITA LEGGETT [facility] RAD I10 [id number] 08/10/2016 16:30:00 08/11/2016 15:05:00 DIS Inpatient YAEL PEPPER MD [facility] ICU SEVERE SEPSIS,BRONCHITIS- POSSIBLE PNEUMONIA,CHEST [id number] 08/06/2016 13:41:00 08/06/2016 23:59:59 CLS Outpatient SYD SUAREZ APRN [facility] RAD RUQ PAIN,LIVER TENDERNESS ,ABD DISTENTION,BLOATING [id number] 08/04/2016 08:07:00 08/04/2016 23:59:59 CLS Outpatient MARK LUO APRN [facility] RAD SEVERE RUQ/LUQ PAIN, SOB,WEIGHT LOSS UNINTENTIONAL [id number] 06/11/2015 20:08:00 06/12/2015 17:41:00 DIS Inpatient YAEL PEPPER MD [facility] 4TH CHEST PAIN [id number] 01/29/2017 09:11:00 Document Registration [id number] 09/21/2017 13:30:00 09/21/2017 23:59:59 CLS Outpatient ARNEL MILES APRN [facility] [id number] 07/26/2017 09:20:00 Document Registration [id number] 12/26/2016 08:36:00 Document Registration [id number] 12/26/2016 14:08:00 Document Registration
[2017-10-03 12:00] VITALS: BP 140/63
[2017-10-03] MEDS ORDERED: ALLO100T PO (12:21)
[2017-10-03] MEDS ORDERED: CLON0.1T PO (12:21)
[2017-10-03] MEDS ORDERED: ASPI-983 PO (12:21)
[2017-10-03] MEDS ORDERED: METO-333 PO (12:21)
--- NOTE | 2017-10-03 12:42 | Progress Note-Hospitalist ---
Progress Note Progress Notes/Assess & Plan Date Seen 10/03/17 Time Seen by Provider: 12:33 Assessment & Plan The patient is a 67-year-old white female who was admitted from the emergency room yesterday after having a syncopal episode in the bathroom at her mother's home in [place]. 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 She takes hydrocodone for peripheral neuropathy (feet). She ran out on Wednesday. Workup in the emergency room showed an elevated the lactic acid in the 2 range. An elevated white count without fever. And also an amazing stool collection in the colon by CT scan. In addition to hydration efforts were focused at relieving her constipation. She reports that she had a very busy night and was amazed at how much show stool she produced. She feels much better today. It Is also revealed that she has been seeing [facility] and saw Frederick Romero nurse practitioner in August. Physical exam: We had a white female who appeared her stated age she was alert and oriented. Lungs were clear to auscultation. CV is regular without murmur. Abdomen was modestly tender to palpation. Extremities show no pedal edema. Impression: Sirs. 2.severe constipation likely due to narcotic use. 3.narcotic withdrawal. 4.peripheral neuropathy Plan: Continue Zyvox until final culture reports are available. 2.offer solid food. 3.discussed with Dr. Marrero from [facility] and she will assume care tomorrow. Focused Exam Lactate Level 10/02/17 20:10: Lactic Acid Level 3.41*H 10/02/17 22:02: Lactic Acid Level 2.83*H 10/03/17 00:20: Lactic Acid Level 2.38*H YAEL PEPPER MD Oct 03, 2017 12:42
[2017-10-03 15:58] VITALS: BP 146/69
[2017-10-03 16:16] LABS: HEMOGLOBIN 10.6 G/DL (11.5-16.0); MEAN PLATELET VOLUME 10.9 FL (7.4-10.4); RED BLOOD COUNT 3.74 10^6/uL (4.35-5.85); RED CELL DISTRIBUTION WIDTH 15.4 % (10.0-14.5); WHITE BLOOD COUNT 10.2 10^3/uL (4.3-11.0)
[2017-10-03 19:19] VITALS: BP 131/62
[2017-10-04] VITALS: BP 144/66
[2017-10-04] MEDS: fentaNYL INJECTION 100 MCG/2 ML AMP IV PRN ×3 (02:17→20:11)
[2017-10-04 04:00] VITALS: BP 139/67
[2017-10-04] MEDS: CATHETER FLUSH 10 ML SYR IV SCH ×3 (04:54→20:56)
[2017-10-04] MEDS: inSUlin (REGULAR) HUMAN 1 UNIT/0.01 ML (CHARGE PER UNIT) SC SCH ×4 (05:43→20:56)
[2017-10-04 06:00] LABS: BASOPHILS % (AUTO) 0 % (0-10); EOSINOPHILS # (AUTO) 0.1 10^3/uL (0.0-0.3); EOSINOPHILS % (AUTO) 1 % (0-10); HEMATOCRIT 28 % (35-52); HEMOGLOBIN 8.8 G/DL (11.5-16.0); LYMPHOCYTES # (AUTO) 1.7 X 10^3 (1.0-4.0); LYMPHOCYTES % (AUTO) 20 % (12-44); MEAN CORPUSCULAR HEMOGLOBIN 28 PG (25-34); MEAN CORPUSCULAR HGB CONC 32 G/DL (32-36); MEAN CORPUSCULAR VOLUME 88 FL (80-99); MEAN PLATELET VOLUME 10.8 FL (7.4-10.4); MONOCYTES # (AUTO) 0.6 X 10^3 (0.0-1.0); MONOCYTES % (AUTO) 7 % (0-12); NEUTROPHILS # (AUTO) 5.8 X 10^3 (1.8-7.8); NEUTROPHILS % (AUTO) 72 % (42-75); PLATELET COUNT 145 10^3/uL (130-400); RED BLOOD COUNT 3.12 10^6/uL (4.35-5.85); RED CELL DISTRIBUTION WIDTH 15.1 % (10.0-14.5); WHITE BLOOD COUNT 8.1 10^3/uL (4.3-11.0)
[2017-10-04 06:17] LABS: ALANINE AMINOTRANSFERASE 15 U/L (0-55); ALBUMIN 3.3 GM/DL (3.2-4.5); ALKALINE PHOSPHATASE 63 U/L (40-136); BILIRUBIN,TOTAL 0.5 MG/DL (0.1-1.0); BUN/CREATININE RATIO 15; CALCIUM 8.5 MG/DL (8.5-10.1); CARBON DIOXIDE 18 MMOL/L (21-32); CHLORIDE 113 MMOL/L (98-107); CREATININE SERUM 0.78 MG/DL (0.60-1.30); GFR ESTIMATED > 60; GLUCOSE 130 MG/DL (70-105); POTASSIUM 4.3 MMOL/L (3.6-5.0); SODIUM 137 MMOL/L (135-145); TOTAL PROTEIN 5.2 GM/DL (6.4-8.2)
[2017-10-04] MEDS: PIPERACILLIN SODIUM/TAZOBACTAM 4.5 GM in NS (IVPB) 100 ML IV SCH (06:46)
[2017-10-04] MEDS: NS IV 1000 ML 1,000 ML IV SCH ×3 (06:47→20:12)
[2017-10-04 08:00] VITALS: BP 138/62
--- NOTE | 2017-10-04 09:38 | History & Physicial (CHS) ---
HPI History of Present Illness: 67 yo female admitted after she had a syncopal episode at home- she states she went to go to the bathroom, felt like things were going black, she was clammy and she fell to the ground and believes she was unconscious briefly. She denies chest pain or palpitations prior. She did vomit afterwards a few times. She had no fever or illness before this. She does state she has peripheral neuropathy from diabetes and takes hydrocodone for it, tries to only take it if she has to and has been out for a few days. She doesn't always take it every day or more than once per day. She has not been on any other meds for neuropathy. She is still having abdominal pain, but she is hungry. Since admission, she has been receiving zosyn and her WBC has normalized and her blood pressure is improved, but she remains tachycardic. She was noted on CT of abdomen to have a large amount of stool and she has had good results with treatments so far. She has not been out of bed farther than to the bedside commode yet. Source: patient Date seen by provider: Oct 04, 2017 Time Seen by Provider: 09:38 Attending Physician Candelaria Marrero MD PCP No,Local Physician Consult Date of Admission Oct 02, 2017 at 17:40 Home Medications Home Medications Reviewed patient Home Medication Reconciliation performed by pharmacy medication reconciliations manufacturing maintenance technician and/or nursing. Patients Allergies have been reviewed. Allergies Coded Allergies: No Known Drug Allergies (Unverified , 06/11/15) [id number] Hx Patient Social History Alcohol Use: Denies Use Recreational Drug Use: No Smoking Status: Never a Smoker Recent Foreign Travel: No Contact w/other who traveled: No Recent Hopitalizations: No Recent Infectious Disease Expo: No Physical Abuse Screen: No Sexual Abuse: No Immunizations Up To Date Tetanus Booster (TDap): Unknown Date of Pneumonia Vaccine: May 05, 2015 Past Medical History PMHx: DMII Diabetic peripheral neuropathy HTN Family Medical History Significant Family History: Heart Disease, Diabetes, Hypertension, Renal Disease, Vascular Disease Family History: Arthritis G8 BROTHER G8 BROTHER Cardiovascular disease 19 FATHER 19 MOTHER Dementia 19 FATHER Diabetes mellitus 19 FATHER 19 MOTHER G8 BROTHER FH: COPD (chronic obstructive pulmonary disease) G8 BROTHER FH: CVA (cerebrovascular accident) 19 FATHER FH: CVA (cerebrovascular accident) 19 FATHER FH: neuropathy G8 BROTHER Glaucoma 19 FATHER Hypertension G8 BROTHER Kidney disease G8 BROTHER Psychosocial problem G8 BROTHER TIAs 19 FATHER Vertigo G8 BROTHER Review of Systems ([facility]C) Constitutional: No fever EENTM: no symptoms reported Respiratory: No cough, No short of breath Cardiovascular: No chest pain, No palpitations Gastrointestinal: abdominal pain, constipation, nausea, vomiting (prior to admission) Genitourinary: no symptoms reported Musculoskeletal: other (pins and needles in feet/legs) Skin: no symptoms reported Psychiatric/Neurological: No Symptoms Reported Reviewed Test Results Reviewed Test Results Lab Laboratory Tests Test 10/02/17 15:30 10/02/17 15:45 10/02/17 16:14 10/02/17 20:10 Range/Units White Blood Count 19.4 H 4.3-11.0 10^3/uL Red Blood Count 4.79 4.35-5.85 10^6/uL Hemoglobin 13.4 11.5-16.0 G/DL Hematocrit 42 35-52 % Mean Corpuscular Volume 87 80-99 FL Mean Corpuscular Hemoglobin 28 25-34 PG Mean Corpuscular Hemoglobin Concent 32 32-36 G/DL Red Cell Distribution Width 15.6 H 10.0-14.5 % Platelet Count 378 130-400 10^3/uL Mean Platelet Volume 11.6 H 7.4-10.4 FL Neutrophils (%) (Auto) 76 H 42-75 % Lymphocytes (%) (Auto) 17 12-44 % Monocytes (%) (Auto) 6 0-12 % Eosinophils (%) (Auto) 1 0-10 % Basophils (%) (Auto) 0 0-10 % Neutrophils # (Auto) 14.8 H 1.8-7.8 X 10^3 Lymphocytes # (Auto) 3.3 1.0-4.0 X 10^3 Monocytes # (Auto) 1.1 H 0.0-1.0 X 10^3 Eosinophils # (Auto) 0.2 0.0-0.3 10^3/uL Basophils # (Auto) 0.1 0.0-0.1 10^3/uL Neutrophils % (Manual) 66 % Lymphocytes % (Manual) 26 % Monocytes % (Manual) 3 % Eosinophils % (Manual) 0 % Basophils % (Manual) 0 % Band Neutrophils 5 % Blood Morphology Comment NORMAL Sodium Level 138 135-145 MMOL/L Potassium Level 5.2 H 3.6-5.0 MMOL/L Chloride Level 103 98-107 MMOL/L Carbon Dioxide Level 18 L 21-32 MMOL/L Anion Gap 17 H 5-14 MMOL/L Blood Urea Nitrogen 41 H 7-18 MG/DL Creatinine 2.03 H 0.60-1.30 MG/DL Estimat Glomerular Filtration Rate 24 BUN/Creatinine Ratio 20 Glucose Level 218 H 70-105 MG/DL Calcium Level 10.4 H 8.5-10.1 MG/DL Total Bilirubin 0.6 0.1-1.0 MG/DL Aspartate Amino Transf (AST/SGOT) 48 H 5-34 U/L Alanine Aminotransferase (ALT/SGPT) 28 0-55 U/L Alkaline Phosphatase 97 40-136 U/L Total Protein 8.7 H 6.4-8.2 GM/DL Albumin 5.0 H 3.2-4.5 GM/DL Lipase 23 8-78 U/L Urine Color YELLOW Urine Clarity CLEAR Urine pH 5 5-9 Urine Specific [place] 1.020 1.016-1.022 Urine Protein NEGATIVE NEGATIVE Urine Glucose (UA) NEGATIVE NEGATIVE Urine Ketones NEGATIVE NEGATIVE Urine Nitrite NEGATIVE NEGATIVE Urine Bilirubin NEGATIVE NEGATIVE Urine Urobilinogen NORMAL NORMAL MG/DL Urine Leukocyte Esterase NEGATIVE NEGATIVE Urine RBC (Auto) NEGATIVE NEGATIVE Urine RBC NONE /HPF Urine WBC NONE /HPF Urine Squamous Epithelial Cells NONE /HPF Urine Crystals NONE /LPF Urine Bacteria NEGATIVE /HPF Urine Casts NONE /LPF Urine Mucus NEGATIVE /LPF Urine Culture Indicated NO Lactic Acid Level 2.28 *H 3.41 *H 0.50-2.00 MMOL/L Test 10/02/17 21:40 10/02/17 22:02 10/03/17 00:20 10/03/17 04:15 Range/Units Glucometer 266 H 70-110 MG/DL Lactic Acid Level 2.83 *H 2.38 *H 0.50-2.00 MMOL/L White Blood Count 14.3 H 4.3-11.0 10^3/uL Red Blood Count 3.73 L 4.35-5.85 10^6/uL Hemoglobin 10.6 #L 11.5-16.0 G/DL Hematocrit 33 L 35-52 % Mean Corpuscular Volume 88 80-99 FL Mean Corpuscular Hemoglobin 28 25-34 PG Mean Corpuscular Hemoglobin Concent 32 32-36 G/DL Red Cell Distribution Width 15.2 H 10.0-14.5 % Platelet Count 207 130-400 10^3/uL Mean Platelet Volume 11.4 H 7.4-10.4 FL Neutrophils (%) (Auto) 84 H 42-75 % Lymphocytes (%) (Auto) 8 L 12-44 % Monocytes (%) (Auto) 8 0-12 % Eosinophils (%) (Auto) 0 0-10 % Basophils (%) (Auto) 0 0-10 % Neutrophils # (Auto) 12.1 H 1.8-7.8 X 10^3 Lymphocytes # (Auto) 1.2 1.0-4.0 X 10^3 Monocytes # (Auto) 1.1 H 0.0-1.0 X 10^3 Eosinophils # (Auto) 0.0 0.0-0.3 10^3/uL Basophils # (Auto) 0.0 0.0-0.1 10^3/uL Sodium Level 136 135-145 MMOL/L Potassium Level 5.2 H 3.6-5.0 MMOL/L Chloride Level 109 H 98-107 MMOL/L Carbon Dioxide Level 16 L 21-32 MMOL/L Anion Gap 11 5-14 MMOL/L Blood Urea Nitrogen 40 H 7-18 MG/DL Creatinine 1.61 H 0.60-1.30 MG/DL Estimat Glomerular Filtration Rate 32 BUN/Creatinine Ratio 25 Glucose Level 202 H 70-105 MG/DL Calcium Level 7.9 L 8.5-10.1 MG/DL Total Bilirubin 0.6 0.1-1.0 MG/DL Aspartate Amino Transf (AST/SGOT) 26 5-34 U/L Alanine Aminotransferase (ALT/SGPT) 18 0-55 U/L Alkaline Phosphatase 71 40-136 U/L Total Protein 5.7 L 6.4-8.2 GM/DL Albumin 3.6 3.2-4.5 GM/DL Test 10/03/17 05:19 10/03/17 10:58 10/03/17 16:01 10/03/17 16:08 Range/Units Glucometer 174 H 143 H 155 H 70-110 MG/DL White Blood Count 10.2 4.3-11.0 10^3/uL Red Blood Count 3.74 L 4.35-5.85 10^6/uL Hemoglobin 10.6 L 11.5-16.0 G/DL Hematocrit 33 L 35-52 % Mean Corpuscular Volume 88 80-99 FL Mean Corpuscular Hemoglobin 28 25-34 PG Mean Corpuscular Hemoglobin Concent 32 32-36 G/DL Red Cell Distribution Width 15.4 H 10.0-14.5 % Platelet Count 168 130-400 10^3/uL Mean Platelet Volume 10.9 H 7.4-10.4 FL Test 10/03/17 20:27 10/04/17 05:40 10/04/17 05:41 Range/Units Glucometer 161 H 126 H 70-110 MG/DL White Blood Count 8.1 4.3-11.0 10^3/uL Red Blood Count 3.12 L 4.35-5.85 10^6/uL Hemoglobin 8.8 L 11.5-16.0 G/DL Hematocrit 28 L 35-52 % Mean Corpuscular Volume 88 80-99 FL Mean Corpuscular Hemoglobin 28 25-34 PG Mean Corpuscular Hemoglobin Concent 32 32-36 G/DL Red Cell Distribution Width 15.1 H 10.0-14.5 % Platelet Count 145 130-400 10^3/uL Mean Platelet Volume 10.8 H 7.4-10.4 FL Neutrophils (%) (Auto) 72 42-75 % Lymphocytes (%) (Auto) 20 12-44 % Monocytes (%) (Auto) 7 0-12 % Eosinophils (%) (Auto) 1 0-10 % Basophils (%) (Auto) 0 0-10 % Neutrophils # (Auto) 5.8 1.8-7.8 X 10^3 Lymphocytes # (Auto) 1.7 1.0-4.0 X 10^3 Monocytes # (Auto) 0.6 0.0-1.0 X 10^3 Eosinophils # (Auto) 0.1 0.0-0.3 10^3/uL Basophils # (Auto) 0.0 0.0-0.1 10^3/uL Sodium Level 137 135-145 MMOL/L Potassium Level 4.3 3.6-5.0 MMOL/L Chloride Level 113 H 98-107 MMOL/L Carbon Dioxide Level 18 L 21-32 MMOL/L Anion Gap 6 5-14 MMOL/L Blood Urea Nitrogen 12 7-18 MG/DL Creatinine 0.78 0.60-1.30 MG/DL Estimat Glomerular Filtration Rate > 60 BUN/Creatinine Ratio 15 Glucose Level 130 H 70-105 MG/DL Calcium Level 8.5 8.5-10.1 MG/DL Total Bilirubin 0.5 0.1-1.0 MG/DL Aspartate Amino Transf (AST/SGOT) 21 5-34 U/L Alanine Aminotransferase (ALT/SGPT) 15 0-55 U/L Alkaline Phosphatase 63 40-136 U/L Total Protein 5.2 L 6.4-8.2 GM/DL Albumin 3.3 3.2-4.5 GM/DL Physical Exam-([facility]) Physical Exam Vital Signs VS - Last 72 Hours, by Label 10/02/17 10/02/17 10/02/17 10/02/17 15:20 18:36 20:00 20:12 Temp 96.0 99.4 Pulse 106 101 114 Resp 16 16 18 B/P (MAP) 83/51 (62) 106/55 (62) 99/58 (72) Pulse Ox 97 92 97 95 O2 Delivery Room Air Room Air 10/02/17 10/02/17 10/02/17 10/03/17 22:06 22:30 23:14 01:00 Temp 99.1 99.2 Pulse 108 108 118 118 Resp 20 20 B/P (MAP) 141/76 (97) 144/84 (104) Pulse Ox 97 98 O2 Delivery Room Air Room Air 10/03/17 10/03/17 10/03/17 10/03/17 03:45 07:00 08:00 09:00 Temp 99.0 97.1 Pulse 119 124 119 Resp 20 18 B/P (MAP) 122/73 (89) 139/64 (89) Pulse Ox 97 98 O2 Delivery Room Air Room Air Room Air 10/03/17 10/03/17 10/03/17 10/03/17 12:00 13:00 15:58 19:00 Temp 98.0 98.4 Pulse 111 114 114 118 Resp 22 22 B/P (MAP) 140/63 (88) 146/69 (94) Pulse Ox 97 99 O2 Delivery Room Air Room Air 10/03/17 10/03/17 10/04/1716/18 19:19 21:00 00:00 01:00 Temp 98.4 98.7 Pulse 114 115 118 Resp 20 18 B/P (MAP) 131/62 (85) 144/66 (92) Pulse Ox 99 99 O2 Delivery Room Air Room Air Room Air 10/04/17 10/04/17 10/04/17 04:00 07:00 08:00 Temp 99.3 98.9 Pulse 114 110 109 Resp 18 18 B/P (MAP) 139/67 (91) 138/62 (87) Pulse Ox 99 96 O2 Delivery Room Air Room Air Capillary Refill : Less Than 3 Seconds General Appearance: WD/WN, no apparent distress Respiratory: lungs clear, normal breath sounds Cardiovascular: regular rate, rhythm, no murmur Gastrointestinal: normal bowel sounds, soft; No distended; tenderness (diffuse , with small amount of involuntary guarding) Neurologic/Psychiatric: alert, normal mood/affect Skin: normal color, warm/dry Assessment/Plan Assessment/Plan Admission Dx Severe Sepsis with JASMINA Admission Status: Inpatient Order (span 2 midnights) Reason for Inpatient Admission: Admitted with sepsis with underlying diabetes at high risk for serious complications. (1) Severe sepsis Status: Acute Assessment & Plan: On admission had leukocytosis, tachycardia and acute renal insufficiency. Unclear source of infection however, with unremarkable UA and CT abdomen/pelvis only significant for stool throughout. No respiratory symptoms. 10/04 Leukocytosis resolved, JASMINA resolved, remains slightly tachycardic, but is normally on clonidine and metoprolol at home, will resume. Hypotension on admission resolved with IVF. Unclear etiology, treated with Zosyn since admission, will d/c with negative blood cultures and no clear source and monitor closely. (2) JASMINA (acute kidney injury) Status: Resolved Assessment & Plan: Secondary to sepsis vs vomiting, resolved with IVF (3) Nausea & vomiting Status: Resolved Assessment & Plan: Resolved, advance diet to ADA diet (4) Constipation Status: Chronic Assessment & Plan: Markedly improved with treatments already received, will minimize opiates- decrease fentanyl to 25 mcg q2 prn and start neuropathic pain medication Qualifiers: Qualified Codes: K59.03 - Drug induced constipation (5) IDDM (insulin dependent diabetes mellitus) Status: Chronic Assessment & Plan: Resume home long-acting insulin, continue sliding scale (6) Hypertension Status: Chronic (7) Diabetic neuropathy Status: Chronic Assessment & Plan: Will start Lyrica today and try to wean off of opiate therapy Qualifiers: Qualified Codes: E11.42 - Type 2 diabetes mellitus with diabetic polyneuropathy (8) Opiate use Status: Chronic Assessment & Plan: Wean as noted above (9) Syncope Status: Acute Assessment & Plan: Patient reports prior presyncope but no true syncope. Sinus tachycardia on telemetry. No episodes inpatient. Try walking today. Suggest further cardiac work-up outpatient given underlying medical conditions. Qualifiers: Qualified Codes: R55 - Syncope and collapse (10) DVT prophylaxis Status: Acute Assessment & Plan: Enoxaparin Clinical Quality Measures DVT/VTE Risk/Contraindication: Risk Factor Score Per Nursin RFS Level Per Nursing on Admit: 2=Moderate SITA GOMEZ MD Oct 04, 2017 9:38 am
[2017-10-04] MEDS: ENOXAPARIN 40 MG/0.4 ML (LOVENOX) SYR SC SCH (10:10)
[2017-10-04] MEDS: PREGABALIN 50 MG (LYRICA) CAP PO SCH ×3 (10:10→20:11)
[2017-10-04 12:00] VITALS: BP 136/58
--- NOTE | 2017-10-04 13:26 | Physical Therapy Progress Note ---
Therapy Progress Note Patient is up independently in room and reports she ambulates independently in hallway. This PT did observe patient up independently and navigating IV pole in and out of restroom. No skilled PT indicated. KRIS WILSON PT Oct 04, 2017 13:26
[2017-10-04 16:25] VITALS: BP 141/65
[2017-10-04] MEDS: cloNIDine 0.1 MG (CATAPRES) TAB PO SCH (20:11)
[2017-10-04] MEDS: inSUlin DETERMIR 1 UNIT/0.01 ML (LEVEMIR) CHARGE PER UNIT SQ SCH (20:11)
[2017-10-04] MEDS: ALLOPURINOL 100 MG (ZYLOPRIM) TAB PO SCH (20:11)
[2017-10-04] MEDS: meTOprolol TARTRATE 25 MG (LOPRESSOR) TABLET PO SCH (20:12)
[2017-10-04 20:40] VITALS: BP 154/84
[2017-10-05 00:20] VITALS: BP 135/64
[2017-10-05] MEDS: NS IV 1000 ML 1,000 ML IV SCH ×4 (02:47→20:16)
[2017-10-05] MEDS: fentaNYL INJECTION 100 MCG/2 ML AMP IV PRN ×2 (02:51→08:39)
[2017-10-05 04:00] VITALS: BP 132/62
[2017-10-05] MEDS: inSUlin (REGULAR) HUMAN 1 UNIT/0.01 ML (CHARGE PER UNIT) SC SCH ×4 (05:47→21:20)
[2017-10-05] MEDS: CATHETER FLUSH 10 ML SYR IV SCH ×3 (05:47→20:16)
[2017-10-05 06:49] LABS: HEMOGLOBIN 8.7 G/DL (11.5-16.0); MEAN PLATELET VOLUME 11.3 FL (7.4-10.4); RED BLOOD COUNT 3.11 10^6/uL (4.35-5.85); RED CELL DISTRIBUTION WIDTH 14.9 % (10.0-14.5); WHITE BLOOD COUNT 8.7 10^3/uL (4.3-11.0)
[2017-10-05 07:30] LABS: BUN/CREATININE RATIO 13; CALCIUM 8.3 MG/DL (8.5-10.1); CARBON DIOXIDE 17 MMOL/L (21-32); CHLORIDE 113 MMOL/L (98-107); CREATININE SERUM 0.72 MG/DL (0.60-1.30); GFR ESTIMATED > 60; GLUCOSE 75 MG/DL (70-105); POTASSIUM 4.2 MMOL/L (3.6-5.0); SODIUM 137 MMOL/L (135-145)
[2017-10-05 08:00] VITALS: BP 152/68
[2017-10-05] MEDS: ASPIRIN E.C. 81 MG (ECOTRIN) TAB PO SCH (08:38)
[2017-10-05] MEDS: ALLOPURINOL 100 MG (ZYLOPRIM) TAB PO SCH ×2 (08:38→20:15)
[2017-10-05] MEDS: PREGABALIN 50 MG (LYRICA) CAP PO SCH ×3 (08:38→20:15)
[2017-10-05] MEDS: meTOprolol TARTRATE 25 MG (LOPRESSOR) TABLET PO SCH ×2 (08:38→20:15)
[2017-10-05] MEDS: FUROSEMIDE 40 MG (LASIX) TAB PO SCH (08:38)
[2017-10-05] MEDS: ENOXAPARIN 40 MG/0.4 ML (LOVENOX) SYR SC SCH (08:39)
--- NOTE | 2017-10-05 09:55 | Progress Note (SOAP) ---
Subjective Subjective/Events-last exam Febrile to 100.8 around midnight. She states she continues to have good bowel movements, but also has persistent abdominal pain. She feels like her legs up to her knees are very swollen. She has been up and walking more now and is getting around independently. Review of Systems Date Seen by Provider: Oct 05, 2017 Time Seen by Provider: 09:33 Focused Exam Lactate Level 10/02/17 20:10: Lactic Acid Level 3.41*H 10/02/17 22:02: Lactic Acid Level 2.83*H 10/03/17 00:20: Lactic Acid Level 2.38*H Objective Exam Last Set of Vital Signs Vital Signs Date Time Temp Pulse Resp B/P (MAP) Pulse Ox O2 Delivery O2 Flow Rate FiO2 10/05/17 08:00 97.5 94 20 152/68 (96) 96 Room Air Capillary Refill : Less Than 3 Seconds I&O Intake and Output 10/04/17 23:59 Intake Total 3070 ml Output Total 1450 ml Balance 1620 ml Intake Oral 1770 ml IV Total 1300 ml Output Urine Total 1450 ml # Voids 5 # Bowel Movements 3 General: Alert, No Acute Distress Lungs: Clear to Auscultation, Normal Air Movement Heart: Regular Rate, No Murmurs Abdomen: Normal Bowel Sounds, Soft, Other (diffuse mild ttp) Extremities: Other (small amount of pitting edema to calves) Psych/Mental Status: Mental Status NL Results/Procedures Lab Laboratory Tests 10/04/17 10:12: Glucometer 118H 10/04/17 11:42: Glucometer 199H 10/04/17 16:27: Glucometer 141H 10/04/17 20:50: Glucometer 122H 10/05/17 05:22: Glucometer 87 10/05/17 06:00: White Blood Count 8.7, Red Blood Count 3.11L, Hemoglobin 8.7L, Hematocrit 28L, Mean Corpuscular Volume 88, Mean Corpuscular Hemoglobin 28, Mean Corpuscular Hemoglobin Concent 32, Red Cell Distribution Width 14.9H, Platelet Count 153, Mean Platelet Volume 11.3H, Sodium Level 137, Potassium Level 4.2, Chloride Level 113H, Carbon Dioxide Level 17L, Anion Gap 7, Blood Urea Nitrogen 9, Creatinine 0.72, Estimat Glomerular Filtration Rate > 60, BUN/Creatinine Ratio 13, Glucose Level 75, Calcium Level 8.3L Microbiology 10/02/17 Blood Culture - Preliminary, Resulted No growth Assessment/Plan Assessment/Plan (1) Severe sepsis Status: Acute Assessment & Plan: On admission had leukocytosis, tachycardia and acute renal insufficiency. Unclear source of infection however, with unremarkable UA and CT abdomen/pelvis only significant for stool throughout. No respiratory symptoms. 10/04 Leukocytosis resolved, JASMINA resolved, remains slightly tachycardic, but is normally on clonidine and metoprolol at home, will resume. Hypotension on admission resolved with IVF. Unclear etiology, treated with Zosyn since admission, will d/c with negative blood cultures and no clear source and monitor closely. 10/05 Febrile to 100.8 overnight after stopping Zosyn, will start cipro for possible abdominal infection, check chest x-ray (2) JASMINA (acute kidney injury) Status: Resolved Assessment & Plan: Secondary to sepsis vs vomiting, resolved with IVF (3) Nausea & vomiting Status: Resolved Assessment & Plan: Resolved, advance diet to ADA diet (4) Constipation Status: Chronic Assessment & Plan: Markedly improved with treatments already received, will minimize opiates- decrease fentanyl to 25 mcg q2 prn and start neuropathic pain medication 10/05 d/c fentanyl Qualifiers: Qualified Codes: K59.03 - Drug induced constipation (5) IDDM (insulin dependent diabetes mellitus) Status: Chronic Assessment & Plan: Resume home long-acting insulin, continue sliding scale (6) Hypertension Status: Chronic Assessment & Plan: Resume home meds Qualifiers: Qualified Codes: I10 - Essential (primary) hypertension (7) Diabetic neuropathy Status: Chronic Assessment & Plan: 10/04 started Lyrica and she does state she does not want to resume hydrocodone Qualifiers: Qualified Codes: E11.42 - Type 2 diabetes mellitus with diabetic polyneuropathy (8) Opiate use Status: Chronic Assessment & Plan: Wean as noted above (9) Syncope Status: Acute Assessment & Plan: Patient reports prior presyncope but no true syncope. Sinus tachycardia on telemetry. No episodes inpatient. Try walking today. Suggest further cardiac work-up outpatient given underlying medical conditions. Qualifiers: Qualified Codes: R55 - Syncope and collapse (10) DVT prophylaxis Status: Acute Assessment & Plan: Enoxaparin Clinical Quality Measures DVT/VTE Risk/Contraindication: Risk Factor Score Per Nursin RFS Level Per Nursing on Admit: 2=Moderate SITA GOMEZ MD Oct 05, 2017 9:55 am
[2017-10-05] MEDS: CIPROFLOXACIN 500 MG (CIPRO) TABLET PO SCH ×2 (10:10→20:15)
--- NOTE | 2017-10-05 10:10 | Diagnostic Imaging Report ---
INDICATION: Fever. TECHNIQUE: Two view chest 9:20 AM CORRELATION STUDY: 08/11/2016 FINDINGS: Heart size, mediastinum and vasculature stable. Minimal discoid atelectasis left costophrenic angle. Old healed displaced right mid clavicle fracture. Presumably cholecystectomy clips in the right upper quadrant. IMPRESSION: 1. Minimal left basilar atelectasis. No significant consolidating infiltrate. Dictated by: Dictated on workstation # [id number]
[2017-10-05 16:18] VITALS: BP 127/60
[2017-10-05] MEDS: cloNIDine 0.1 MG (CATAPRES) TAB PO SCH (20:15)
[2017-10-05] MEDS: inSUlin DETERMIR 1 UNIT/0.01 ML (LEVEMIR) CHARGE PER UNIT SQ SCH (20:15)
[2017-10-06] VITALS: BP 135/66
[2017-10-06] MEDS: NS IV 1000 ML 1,000 ML IV SCH (05:03)
[2017-10-06 06:11] LABS: HEMOGLOBIN 8.7 G/DL (11.5-16.0); RED BLOOD COUNT 3.13 10^6/uL (4.35-5.85); RED CELL DISTRIBUTION WIDTH 14.8 % (10.0-14.5); WHITE BLOOD COUNT 5.6 10^3/uL (4.3-11.0)
[2017-10-06] MEDS: CATHETER FLUSH 10 ML SYR IV SCH ×2 (06:22→14:33)
[2017-10-06] MEDS: inSUlin (REGULAR) HUMAN 1 UNIT/0.01 ML (CHARGE PER UNIT) SC SCH ×2 (06:22→11:56)
[2017-10-06 06:34] LABS: BUN/CREATININE RATIO 14; CALCIUM 8.9 MG/DL (8.5-10.1); CARBON DIOXIDE 21 MMOL/L (21-32); CHLORIDE 111 MMOL/L (98-107); CREATININE SERUM 0.73 MG/DL (0.60-1.30); GFR ESTIMATED > 60; GLUCOSE 104 MG/DL (70-105); SODIUM 139 MMOL/L (135-145)
[2017-10-06 07:54] VITALS: BP 145/67
[2017-10-06] MEDS: meTOprolol TARTRATE 25 MG (LOPRESSOR) TABLET PO SCH (09:24)
[2017-10-06] MEDS: ALLOPURINOL 100 MG (ZYLOPRIM) TAB PO SCH (09:24)
[2017-10-06] MEDS: ASPIRIN E.C. 81 MG (ECOTRIN) TAB PO SCH (09:24)
[2017-10-06] MEDS: ENOXAPARIN 40 MG/0.4 ML (LOVENOX) SYR SC SCH (09:24)
[2017-10-06] MEDS: CIPROFLOXACIN 500 MG (CIPRO) TABLET PO SCH (09:24)
[2017-10-06] MEDS: FUROSEMIDE 40 MG (LASIX) TAB PO SCH (09:24)
[2017-10-06] MEDS: PREGABALIN 50 MG (LYRICA) CAP PO SCH ×2 (09:24→14:33)
[2017-10-06] MEDS ORDERED: AMIT100T2 PO (11:38)
[2017-10-06] MEDS ORDERED: ALBU2.5V4 NEB (11:38)
[2017-10-06] MEDS ORDERED: POTA20TA15 PO (11:41)
[2017-10-06] MEDS ORDERED: METF500T5 PO (12:09)
[2017-10-06] MEDS ORDERED: GLYB5TAB6 PO (12:09)
[2017-10-06] MEDS ORDERED: LOVA20TA2 PO (12:09)
[2017-10-06] MEDS ORDERED: LISI-552 PO (12:09)
[2017-10-06] MEDS ORDERED: DILT240C PO (12:09)
[2017-10-06] MEDS ORDERED: HYDR-3820 PO (12:09)
[2017-10-06] MEDS ORDERED: CIPR500T4 PO (13:14)
[2017-10-06] MEDS ORDERED: PREG50CA2 PO (13:14)
--- NOTE | 2017-10-06 13:17 | Discharge Instructions ---
Discharge [facility] Discharge Medications New, Converted or Re-Newed RX: Other (Cipro transmitted, Lyrica needs called) New Medications: Ciprofloxacin HCl (Ciprofloxacin HCl) 500 Mg Tablet 500 MG PO BID for 5 Days, #10 TAB 0 Refills Pregabalin (Lyrica) 50 Mg Capsule 50 MG PO TID, #90 CAP 0 Refills Continued Medications: Albuterol Sulfate (Albuterol Sulfate) 2.5 Mg/3 Ml Vial.neb 2.5 MG NEB Q4H PRN for SHORTNESS OF BREATH, EA Allopurinol (Allopurinol) 100 Mg Tablet 100 MG PO BID Aspirin (Aspirin EC) 81 Mg Tablet.dr 81 MG PO DAILY, TAB Clonidine HCl (Clonidine HCl) 0.1 Mg Tablet 0.1 MG PO BID, TAB LAST FILLED #180 06-10-17 Diltiazem HCl (Diltiazem 24Hr ER) 240 Mg Cap.er.24h 240 MG PO HS, CAP UNKNOWN LAST FILL DATE Furosemide (Furosemide) 40 Mg Tablet 40 MG PO DAILY Insulin Glargine,Hum.rec.anlog (Lantus Solostar) 100 Unit/1 Ml Insuln.pen 20 UNITS SQ HS LAST FILLED 06/03/17 #15ML FOR A 75 DAY SUPPLY Lisinopril (Lisinopril) 20 Mg Tablet 20 MG PO HS, TAB UNKNOWN LAST FILL DATE Lovastatin (Lovastatin) 20 Mg Tablet 20 MG PO HS, TAB UNKNOWN LAST FILL DATE Metformin HCl (Metformin HCl) 500 Mg Tablet 500 MG PO TID, TAB UNKNOWN LAST FILL DATE Metoprolol Tartrate (Metoprolol Tartrate) 25 Mg Tablet 25 MG PO BID Potassium Chloride (Potassium Chloride) 20 Meq Tab.er.prt 20 MEQ PO DAILY, TAB LAST FILLED #30 06-10-17 Discontinued Medications: Amitriptyline HCl (Amitriptyline HCl) 100 Mg Tablet 200 MG PO HS, TAB LAST FILLED #60 08-17-17 TAKES 2 (100MG) TABLETS Glyburide (Glyburide) 5 Mg Tablet 5 MG PO TID, TAB UNKNOWN LAST FILL DATE Hydrocodone/Acetaminophen (Hydrocodon-Acetaminophn 10-325) 1 Each Tablet 1 TAB PO BID PRN for PAIN-MODERATE, TAB LAST FILLED #56 07-26-17 Patient Instructions Goal/Follow Up Appt: Follow up with Frederick Romero on 10/11 at 1240 pm. Return to The [facility] For: Fever, inability to keep down medications Activity & Diet Discharge Diet: ADA Diet Activity as Tolerated: Yes Copy Copies To 1: SHASTA Spivey BETHANY N MD Oct 06, 2017 1:17 pm
--- NOTE | 2017-10-06 13:27 | Discharge Summary ---
Diagnosis/Chief Complaint Date of Admission Oct 02, 2017 at 5:40 pm Date of Discharge October 06, 2017 Admission Diagnosis Admission Diagnosis (1) Severe sepsis (2) JASMINA (acute kidney injury) (3) Nausea & vomiting (4) Constipation (5) IDDM (insulin dependent diabetes mellitus) (6) Hypertension (7) Diabetic neuropathy Qualifiers: Qualified Codes: E11.42 - Type 2 diabetes mellitus with diabetic polyneuropathy (8) Opiate use (9) Syncope Qualifiers: Qualified Codes: R55 - Syncope and collapse Discharge Diagnosis (1) Severe sepsis Assessment & Plan: On admission had leukocytosis, tachycardia and acute renal insufficiency. Unclear source of infection however, with unremarkable UA and CT abdomen/pelvis only significant for stool throughout. No respiratory symptoms. 10/04 Leukocytosis resolved, JASMINA resolved, remains slightly tachycardic, but is normally on clonidine and metoprolol at home, will resume. Hypotension on admission resolved with IVF. Unclear etiology, treated with Zosyn since admission, will d/c with negative blood cultures and no clear source and monitor closely. 10/05 Febrile to 100.8 overnight after stopping Zosyn, will start cipro for possible abdominal infection, check chest x-ray 10/06 Afebrile last 24 hours, will continue cipro outpatient for 5 day course, unclear etiology. (2) JASMINA (acute kidney injury) Assessment & Plan: Secondary to sepsis vs vomiting, resolved with IVF (3) Nausea & vomiting Status: Resolved Assessment & Plan: Resolved, advance diet to ADA diet (4) Constipation Assessment & Plan: Markedly improved with treatments already received, will minimize opiates- decrease fentanyl to 25 mcg q2 prn and start neuropathic pain medication 10/05 d/c fentanyl (5) IDDM (insulin dependent diabetes mellitus) Assessment & Plan: Resume home long-acting insulin, continue sliding scale 10/06- on d/c, patient brought written med list, doctor of pharmacy called pharmacies and patient stated she had not [place] meds out of state (lives in [place]) in over a year, so in spite of reporting she was on several medications ( glyburide, metformin, lisinopril, diltiazem and lovastatin) it does not seem that she would have any of these meds. So, while d/c notes to continue metformin , she may need a script, will notify her PCP. Discontinue glyburide as she is already on insulin and metformin. (6) Hypertension Assessment & Plan: Resumed home clonidine and metoprolol, but on d/c noted med discrepancies as above- patient written list reports additional BP meds- lisinopril and diltiazem, but she should not have them based on pharmacy fill dates- recommended continue on discharge, but she may need scripts, PCP notified. (7) Diabetic neuropathy Assessment & Plan: 10/04 started Lyrica and she does state she does not want to resume hydrocodone. On discharge, patient noted she was taking amitriptyline which was not initially reported. She filled one month supply more than a month ago. Discontinue on discharge and script sent for Lyrica. (8) Opiate use Assessment & Plan: did not continue on d/c given she was doing okay with Lyrica and without hydrocodone and she also wanted to avoid restarting which is very reasonable. (9) Syncope Assessment & Plan: Patient reports prior presyncope but no true syncope. Sinus tachycardia on telemetry. No episodes inpatient. Ambulated with no difficulty. Suggest further cardiac work-up outpatient given underlying medical conditions. Chief Complaint/HPI Chief Complaint/HPI 67 yo female admitted after she had a syncopal episode at home- she states she went to go to the bathroom, felt like things were going black, she was clammy and she fell to the ground and believes she was unconscious briefly. She denies chest pain or palpitations prior. She did vomit afterwards a few times. She had no fever or illness before this. She does state she has peripheral neuropathy from diabetes and takes hydrocodone for it, tries to only take it if she has to and has been out for a few days. She doesn't always take it every day or more than once per day. She has not been on any other meds for neuropathy. She is still having abdominal pain, but she is hungry. Since admission, she has been receiving zosyn and her WBC has normalized and her blood pressure is improved, but she remains tachycardic. She was noted on CT of abdomen to have a large amount of stool and she has had good results with treatments so far. She has not been out of bed farther than to the bedside commode yet. Discharge Summary-Simple/Stand Consultations Discharge Physical Examination Allergies: Coded Allergies: No Known Drug Allergies (Unverified , 06/11/15) Vitals & I&Os Vital Sign - Last 12Hours Date Time Temp Pulse Resp B/P (MAP) Pulse Ox O2 Delivery O2 Flow Rate FiO2 10/06/17 07:54 97.4 86 20 145/67 (93) 97 Room Air Intake and Output 10/06/17 00:00 Intake Total 1900 ml Balance 1900 ml General Appearance: Alert, No Acute Distress Respiratory: Clear to Auscultation, Normal Air Movement Cardiovascular: Regular Rate, No Murmurs Abdominal: Normal Bowel Sounds, Soft, No Tenderness Psych/Mental Status: Mental Status NL Hospital Course See final discharge diagnosis. Labs Laboratory Tests Test 10/04/17 16:27 10/04/17 20:50 10/05/17 05:22 10/05/17 06:00 Range/Units Glucometer 141 H 122 H 87 70-110 MG/DL White Blood Count 8.7 4.3-11.0 10^3/uL Red Blood Count 3.11 L 4.35-5.85 10^6/uL Hemoglobin 8.7 L 11.5-16.0 G/DL Hematocrit 28 L 35-52 % Mean Corpuscular Volume 88 80-99 FL Mean Corpuscular Hemoglobin 28 25-34 PG Mean Corpuscular Hemoglobin Concent 32 32-36 G/DL Red Cell Distribution Width 14.9 H 10.0-14.5 % Platelet Count 153 130-400 10^3/uL Mean Platelet Volume 11.3 H 7.4-10.4 FL Sodium Level 137 135-145 MMOL/L Potassium Level 4.2 3.6-5.0 MMOL/L Chloride Level 113 H 98-107 MMOL/L Carbon Dioxide Level 17 L 21-32 MMOL/L Anion Gap 7 5-14 MMOL/L Blood Urea Nitrogen 9 7-18 MG/DL Creatinine 0.72 0.60-1.30 MG/DL Estimat Glomerular Filtration Rate > 60 BUN/Creatinine Ratio 13 Glucose Level 75 70-105 MG/DL Calcium Level 8.3 L 8.5-10.1 MG/DL Test 10/05/17 10:57 10/05/17 16:20 10/05/17 20:56 10/06/17 05:28 Range/Units Glucometer 124 H 149 H 184 H 70-110 MG/DL White Blood Count 5.6 4.3-11.0 10^3/uL Red Blood Count 3.13 L 4.35-5.85 10^6/uL Hemoglobin 8.7 L 11.5-16.0 G/DL Hematocrit 28 L 35-52 % Mean Corpuscular Volume 88 80-99 FL Mean Corpuscular Hemoglobin 28 25-34 PG Mean Corpuscular Hemoglobin Concent 32 32-36 G/DL Red Cell Distribution Width 14.8 H 10.0-14.5 % Platelet Count 159 130-400 10^3/uL Mean Platelet Volume 11.0 H 7.4-10.4 FL Sodium Level 139 135-145 MMOL/L Potassium Level 4.0 3.6-5.0 MMOL/L Chloride Level 111 H 98-107 MMOL/L Carbon Dioxide Level 21 21-32 MMOL/L Anion Gap 7 5-14 MMOL/L Blood Urea Nitrogen 10 7-18 MG/DL Creatinine 0.73 0.60-1.30 MG/DL Estimat Glomerular Filtration Rate > 60 BUN/Creatinine Ratio 14 Glucose Level 104 70-105 MG/DL Calcium Level 8.9 8.5-10.1 MG/DL Test 10/06/17 05:55 10/06/17 10:58 Range/Units Glucometer 98 176 H 70-110 MG/DL Discharge Instructions to patient/family Please see electronic discharge instructions given to patient. Discharge Medications Reviewed and agree with Discharge Medication list on patient's Discharge Instruction sheet Clinical Quality Measures DVT/VTE Risk/Contraindication: Risk Factor Score Per Nursin RFS Level Per Nursing on Admit: 2=Moderate Copy Copies To 1: SHASTA Spivey BETHANY N MD Oct 06, 2017 1:27 pm
[2017-10-06 15:10] VITALS: BP 145/67
== END 2017-10-06 15:10 | disposition home or self-care (01) | DRG 872 ==
LOC: EDUNIT# 15:20 → ER 15:21 → 4TH 17:40
PROVIDERS: ADMIT Family Medicine; ATTEND Family Medicine
DX: A41.9 Sepsis, unspecified organism (principal); R65.20 Severe sepsis without septic shock; N17.9 Acute kidney failure, unspecified; F11.23 Opioid dependence with withdrawal; K59.03 Drug induced constipation; R11.2 Nausea with vomiting, unspecified; E11.42 Type 2 diabetes mellitus with diabetic polyneuropathy; I10 Essential (primary) hypertension; R55 Syncope and collapse; G43.909 Migraine, unspecified, not intractable, without status migrainosus; K21.9 Gastro-esophageal reflux disease without esophagitis; H40.9 Unspecified glaucoma; Z79.4 Long term (current) use of insulin; Z89.021 Acquired absence of right finger(s)
CPT/HCPCS: 36415; 51702; 71046; 74176; 80048; 80053; 81000; 82962; 83605; 83690; 85007; 85025; 85027; 87040; 96361; 96365; 96375; 96376

== ENCOUNTER 2018-04-24 08:22 | Emergency (ER) | payer MEDICARE, OTHER ==
[~2018-04-24] VITALS: Ht 160 cm; Wt 74.8 kg
[~2018-04-24 08:22] MED LIST changes: +ALBU2.5V4 NEB; +ALLO100T PO; +ASPI-983 PO; +CIPR500T4 PO; +DILT240C PO; +METF-397 PO; -METF500T5 PO; +METO-333 PO; +POTA20TA15 PO; +PREG50CA2 PO
--- OUTSIDE RECORDS SUMMARY | 2018-04-24 08:26 | XMS REPORT ---
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 Active 35587345 Problem Diabetic polyneuropathy associated with type 2 diabetes mellitus E11.42 Active 20901066 Problem Uncontrolled type 2 diabetes mellitus with hyperglycemia E11.65 Active 213349439 Problem Seasonal allergic rhinitis due to other allergic trigger J30.89 Active 861325044 Problem Primary insomnia F51.01 Active 9154136 Problem Controlled type 2 diabetes mellitus without complication, without long -term current use of insulin E11.9 Active 473700344 Problem Hypertension, benign I10 Active 43033053 Problem Type 2 diabetes mellitus with diabetic neuropathy, without long-term current use of insulin E11.40 Active 64032262 ALLERGIES No Information ENCOUNTERS Encounter Location Date Diagnosis [place] [address] [place] [id number] [place] [address] 83061- 2539 Mar, Uncontrolled type 2 diabetes mellitus with hyperglycemia E11.65 [place] [address] [place] [id number] [place] [address] 18701- 0361 Mar, SOB (shortness of breath) R06.02 [place] [address] [place] [id number] [place] [address] 59692- 3109 Mar, [place] [address] [address] Feb, Type 2 diabetes mellitus with diabetic neuropathy, without long-term current use of insulin E11.40 and Diabetic polyneuropathy associated with type 2 diabetes mellitus E11.42 [place] [address] [place] [id number] [place] [address] 98761- 6255 Feb, Seborrheic keratoses L82.1 [place] [address] [place] [id number] [place] [address] 37229- 6006 Jan, Dysuria R30.0 [place] [address] [place] [id number] [place] [address] 72832- 0992 Jan, Bilious vomiting with nausea R11.14 [place] [address] [address]- [address]80 Jan, [place] [address] [place] [id number] [place] [address] 24351- 8180 Jan, Bilious vomiting with nausea R11.14 ; Chronic pruritic rash in adult L29.8 and Seborrheic keratoses L82.1 [place] [address] [place] [id number] [place] [address] 33266- 5895 Nov, Type 2 diabetes mellitus with diabetic neuropathy, without long-term current use of insulin E11.40 [place] [address] [place] [id number] [place] [address] 71740- 2718 Nov, 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 [place] [address] 77[address]- [address]27 October, Type 2 diabetes mellitus with diabetic neuropathy, without long-term current use of insulin E11.40 ; Seasonal allergic rhinitis due to other allergic trigger J30.89 and Hypertension, benign I10 [place] [address] [place] [id number] [place] [address] 00912- 2013 October, Diabetic polyneuropathy associated with type 2 diabetes mellitus E11.42 [place] [address] [place] [id number] [place] [address] 95306- 0811 October, Diabetic polyneuropathy associated with type 2 diabetes mellitus E11.42 [place] [address] [place] [id number] [place] [address] 75115- 8467 Sep, Type 2 diabetes mellitus with diabetic neuropathy, without long-term current use of insulin E11.40 [place] [address] [place] [address] [place] [address] Sep, [place] [address] [place] [id number] [place] [address] 08885- 2335 Sep, [place] [address] [place] [id number] [place] [address] 35918- 4517 Sep, 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 [place] [address] 89494- 4703 Jul, [place] [address] [place] [id number] [place] [address] 19597- 1204 Jul, Diabetic polyneuropathy associated with type 2 diabetes mellitus E11.42 and Primary insomnia F51.01 [place] [address] 65186- 9468 Jul, Diabetic polyneuropathy associated with type 2 diabetes mellitus E11.42 ; Viral URI J06.9 and Encounter for immunization Z23 [place] [address] [place] [id number] [place] [address] 28409- 7144 Feb, SOB (shortness of breath) R06.02 and Diabetic polyneuropathy associated with type 2 diabetes mellitus E11.42 [place] [address] [place] [id number] [place] [address] 61703- 9040 Jan, 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 [place] [address] [place] [id number] [place] [address] 88971- 9237 Jan, [place] [address] [place] [id number] [place] [address] 56795- 4091 Jan, [place] [address] 14745- 9881 Jan, Diabetic polyneuropathy associated with type 2 diabetes mellitus E11.42 ; 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 ; Renal insufficiency N28.9 and Anemia due to other cause, not classified D64.89 [place] [address] [place] [id number] [place] [address] 85877709- 9181 Dec, SOB (shortness of breath) R06.02 ; Localized edema R60.0 and Controlled type 2 diabetes mellitus without complication, without long-term current use of insulin E11.9 [place] [address] [place] [address] 25916218- 9401 Dec, SOB (shortness of breath) R06.02 ; Localized edema R60.0 and Controlled type 2 diabetes mellitus without complication, without long-term current use of insulin E11.9 [place] [address] [place] [address] 99092- 1577 Nov, Diabetic polyneuropathy associated with type 2 diabetes mellitus E11.42 [place] [address] [place] [id number] [place] [address] 08017- 4972 Nov, 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 [place] [address] [place] [id number] [place] [address] 58792- 4546 Nov, 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 [place] [address] [place] [id number] [place] [address] 76925- 2990 October, 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 [place] [address] [place] [id number] [place] [address] 93202- 0129 Aug, Diabetic polyneuropathy associated with type 2 diabetes mellitus E11.42 IMMUNIZATIONS No Known Immunizations SOCIAL HISTORY Never Assessed REASON FOR VISIT Refill request PLAN OF CARE VITAL SIGNS MEDICATIONS Medication Instructions Dosage Frequency Start Date End Date Duration Status Flovent HFA 44 MCG/ACT Inhalation Twice a day 1 puff 12h Mar, 30 days Active RESULTS No Results PROCEDURES No Known procedures INSTRUCTIONS MEDICATIONS ADMINISTERED No Known Medications MEDICAL (GENERAL) HISTORY Type Description Date Medical History type II diabetes Medical History gout Medical History hypertension Medical History hyperlipidemia Surgical History esophagus stretch 2016 Surgical History right ring finger removed 1987 Surgical History two screws in right wrist 1992 Surgical History hysterectomy (complete) 1989 Surgical History right and left knee scope Surgical History gallbladder removed 1976 Surgical History left thumb, repair nerves Surgical History right big toe joint removed Hospitalization History surgeries Hospitalization History HR up and BP down at [facility] Hospitalization History sepsis 10/02/2017
--- OUTSIDE RECORDS SUMMARY | 2018-04-24 08:27 | XMS REPORT ---
Author Author ARNEL MILES Organization [facility] Address [address] [place] [address] Care Team Providers Care Taste Tester Name Role Phone ARNEL MILES Unavailable PROBLEMS Type Condition ICD9-CM Code HDF91-PV Code Onset Dates Condition Status SNOMED Code Problem Diabetic polyneuropathy associated with type 2 diabetes mellitus E11.42 Active 02266701 Problem Hypertension, benign I10 Active 82012585 Problem Seasonal allergic rhinitis due to other allergic trigger J30.89 Active 240239278 Problem Controlled type 2 diabetes mellitus without complication, without long -term current use of insulin E11.9 Active 303798209 Problem 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 Active 92852145 Problem Type 2 diabetes mellitus with diabetic neuropathy, without long-term current use of insulin E11.40 Active 81518794 Problem Primary insomnia F51.01 Active 6418395 ALLERGIES No Known Allergies ENCOUNTERS Encounter Location Date Diagnosis [place] [address] [address]305 Mar, [address] [address]- [address] 13 Feb, 2018 Type 2 diabetes mellitus with diabetic neuropathy, without long-term current use of insulin E11.40 and Diabetic polyneuropathy associated with type 2 diabetes mellitus E11.42 [place] [address] [place] [id number] [place] [address] 48616- 8633 Feb, Seborrheic keratoses L82.1 [place] [address] 43860- 9551 Jan, Dysuria R30.0 [place] [address] 6[address]16- 0421 Jan, Bilious vomiting with nausea R11.14 [place] [address] [place] [address] [place] [address]- 3[address] Jan, [facility] [address] [place] [id number] [place] [address] 37285- 8404 Jan, Bilious vomiting with nausea R11.14 ; Chronic pruritic rash in adult L29.8 and Seborrheic keratoses L82.1 [facility] [address] [place] [id number] [place] [address] 84702- 9329 Nov, Type 2 diabetes mellitus with diabetic neuropathy, without long-term current use of insulin E11.40 [facility] [address] [place] [id number] [place] [address] 57920- 3088 Nov, 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 [facility] [address] [place] [id number] [place] [address] 08403- 4280 October, Type 2 diabetes mellitus with diabetic neuropathy, without long-term current use of insulin E11.40 ; Seasonal allergic rhinitis due to other allergic trigger J30.89 and Hypertension, benign I10 [facility] [address] [place] [id number] [place] [address] 06649- 0511 October, Diabetic polyneuropathy associated with type 2 diabetes mellitus E11.42 [facility] [address] [place] [address] 41851- 4350 October, Diabetic polyneuropathy associated with type 2 diabetes mellitus E11.42 [place] [address] [place] [id number] [place] [address] 49559- 3188 Sep, Type 2 diabetes mellitus with diabetic neuropathy, without long-term current use of insulin E11.40 [facility] [address] [place] [id number] [place] [address] 87830- 3754 Sep, [facility] [address] [place] [id number] [place] [address] 49098- 0753 Sep, [facility] [address] [place] [address] 50588- 5827 Sep, 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 [place] [address] [address]- 6261 Jul, [place] [address] [place] [id number] [place] [address] 58691- 0094 Jul, Diabetic polyneuropathy associated with type 2 diabetes mellitus E11.42 and Primary insomnia F51.01 [place] [address] [place] [id number] [place] [address] 85149- 3132 Jul, Diabetic polyneuropathy associated with type 2 diabetes mellitus E11.42 ; Viral URI J06.9 and Encounter for immunization Z23 [place] [address] [place] [id number] [place] [address] 72871- 8722 Feb, SOB (shortness of breath) R06.02 and Diabetic polyneuropathy associated with type 2 diabetes mellitus E11.42 [place] [address] [place] [id number] [place] [address] 04648- 1789 Jan, 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 [place] [address] [place] [id number] [place] [address] 20882- 4033 Jan, [place] [address] [place] [id number] [place] [address] 36005- 0911 Jan, [place] [address] [place] [id number] [place] [address] 24124- 9115 Jan, Diabetic polyneuropathy associated with type 2 diabetes mellitus E11.42 ; 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 ; Renal insufficiency N28.9 and Anemia due to other cause, not classified D64.89 [place] [address] [address]- 2667 Dec, SOB (shortness of breath) R06.02 ; Localized edema R60.0 and Controlled type 2 diabetes mellitus without complication, without long-term current use of insulin E11.9 [place] [address] [address]- 4169 Dec, SOB (shortness of breath) R06.02 ; Localized edema R60.0 and Controlled type 2 diabetes mellitus without complication, without long-term current use of insulin E11.9 [place] [address] [place] [address] 22508- 1133 Nov, Diabetic polyneuropathy associated with type 2 diabetes mellitus E11.42 [place] [address] [address]- 3403 Nov, 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 [place] [address] [place] [id number] [place] [address] 22233- 6348 Nov, 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 [place] [address] [place] [id number] [place] [address] October, 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 [place] [address] [place] [address] 82563- 5111 Aug, Diabetic polyneuropathy associated with type 2 diabetes mellitus E11.42 IMMUNIZATIONS No Known Immunizations SOCIAL HISTORY Never Assessed REASON FOR VISIT Diabetes -Ricardo JJ , PT needs cream for her rash under her breasts-Ricardo JJ PLAN OF CARE Activity Details Follow Up 4 Weeks Reason:dm2 uncontrolled VITAL SIGNS Height 65 in 2018-03-03 Weight 184.5 lbs 2018-03-03 Temperature 99.2 degrees Fahrenheit 2018-03-03 Heart Rate 61 bpm 2018-03-03 Respiratory Rate 20 2018-03-03 Oximetry 97 % 2018-03-03 BMI 30.70 kg/m2 2018-03-03 Blood pressure systolic 140 mmHg 2018-03-03 Blood pressure diastolic 78 mmHg 2018-03-03 MEDICATIONS Medication Instructions Dosage Frequency Start Date End Date Duration Status Metformin HCl 850 MG Orally 2 times a day 1 tablet 12h Active CloNIDine HCl ER 0.1 MG Orally 2 times a day 1 tablet 12h Active Nystatin 056699 UNIT/GM Externally Once a day 1 application to affected area 24h Feb, Active Aspirin EC 81 MG Orally Once a day 1 tablet 24h Active Lovastatin 20 mg Orally Once a day, at bed time 1 tablet Active Allopurinol 100 mg Orally 2 times a day 1 tablet 12h October, 30 day(s) Active Tessalon Perles 100 mg Orally Three times a day 1 capsule as needed 8h 24 Oct, 2017 Active Qvar 40 MCG/ACT Inhalation Twice a day 1 puff 12h October, Active Furosemide 40 mg 1 tablet 24h 30 Active Lisinopril 20 mg Orally at bedtime 1 tablet Active Diltiazem HCl 240 mg/24 hours Orally Once a day 1 capsule 24h Active Metoprolol Tartrate 25 MG Orally Twice a day 1 tablet with food 12h Active Albuterol Sulfate (2.5 MG/3ML) 0.083% Inhalation every 4 hrs 3 ml as needed 4h Active Levemir 100 UNIT/ML Subcutaneous 2 times a day Inject 45 units 12h 13 Feb, 2018 Active Dicyclomine HCl 20 mg Orally Four times a day 1 tablet 6h Feb, May, 30 day(s) Active Klor-Con M20 20 meq Orally Once a day 1 tablet with food 24h Active Lyrica 150 MG Orally 3 times a day 1 capsule 8h Active BD Insulin Syringe 31G X 5/16 as directed Jan, Active RESULTS No Results PROCEDURES Procedure Date Ordered Result Body Site GLYCATED HEMOGLOBIN TEST Mar 03, 2018 09 PANEL (PROFILE 1) Mar 03, 2018 INSTRUCTIONS MEDICATIONS ADMINISTERED No Known Medications MEDICAL [...]
--- OUTSIDE RECORDS SUMMARY | 2018-04-24 08:27 | XMS REPORT ---
Author Author ARNEL MILES Organization [facility] Address [address] [place] [address] Care Team Providers Care Research Kennel Supervisor Name Role Phone ARNEL MILES Unavailable PROBLEMS Type Condition ICD9-CM Code AAC50-EE Code Onset Dates Condition Status SNOMED Code Problem Diabetic polyneuropathy associated with type 2 diabetes mellitus E11.42 Active 66095119 Problem Hypertension, benign I10 Active 38749419 Problem Seasonal allergic rhinitis due to other allergic trigger J30.89 Active 980215336 Problem Controlled type 2 diabetes mellitus without complication, without long -term current use of insulin E11.9 Active 430352694 Problem 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 Active 80406322 Problem Type 2 diabetes mellitus with diabetic neuropathy, without long-term current use of insulin E11.40 Active 05103445 Problem Primary insomnia F51.01 Active 3094235 ALLERGIES No Information ENCOUNTERS Encounter Location Date Diagnosis [place] [address] [address] Jan, [address] [address] Jan, Bilious vomiting with nausea R11.14 ; Chronic pruritic rash in adult L29.8 and Seborrheic keratoses L82.1 [place] [id number] [place] [address]47- [address]64 Nov, Type 2 diabetes mellitus with diabetic neuropathy, without long-term current use of insulin E11.40 [place] [address] [address] Nov, 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 [place] [address] [place] [id number] [place] [address] 08292- 9854 October, Type 2 diabetes mellitus with diabetic neuropathy, without long-term current use of insulin E11.40 ; Seasonal allergic rhinitis due to other allergic trigger J30.89 and Hypertension, benign I10 [place] [address] [address]- [address] October, Diabetic polyneuropathy associated with type 2 diabetes mellitus E11.42 [place] [address] [address]- [address] October, Diabetic polyneuropathy associated with type 2 diabetes mellitus E11.42 [place] [address] [address]- [address] Sep, Type 2 diabetes mellitus with diabetic neuropathy, without long-term current use of insulin E11.40 [place] [address] [address] Sep, [place] [address] 250[address] Sep, [place] [address] [address]45- 5778 Sep, 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 [place] [address] [address] Jul, [place] [address] 0[address] 3[address] Jul, Diabetic polyneuropathy associated with type 2 diabetes mellitus E11.42 and Primary insomnia F51.01 [place] [address] [address]- [address] Jul, Diabetic polyneuropathy associated with type 2 diabetes mellitus E11.42 ; Viral URI J06.9 and Encounter for immunization Z23 [address] [address] Feb, SOB (shortness of breath) R06.02 and Diabetic polyneuropathy associated with type 2 diabetes mellitus E11.[address] [address]- [address] Jan, 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 [place] [address] [place] [address]8086- [address] Jan, [place] [address] [place] [id number] [place] [address] 82493- 4169 Jan, [place] [address] [place] [id number] [place] [address] 16998- 2573 Jan, Diabetic polyneuropathy associated with type 2 diabetes mellitus E11.42 ; 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 ; Renal insufficiency N28.9 and Anemia due to other cause, not classified D64.89 [place] [address] [place] [id number] [place] [address] 33073- 8997 Dec, SOB (shortness of breath) R06.02 ; Localized edema R60.0 and Controlled type 2 diabetes mellitus without complication, without long-term current use of insulin E11.9 [place] [address] [place] [address] 22170- 3519 Dec, SOB (shortness of breath) R06.02 ; Localized edema R60.0 and Controlled type 2 diabetes mellitus without complication, without long-term current use of insulin E11.9 [place] [address] [place] [address] 56409- 5672 Nov, Diabetic polyneuropathy associated with type 2 diabetes mellitus E11.42 [place] [address] [address] Nov, 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 [place] [address] [address] Nov, 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 [place] [address] [place] [address] 37566- 5105 October, 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 [place] [address] [place] [id number] [place] [address] 62861- 3727 Aug, Diabetic polyneuropathy associated with type 2 diabetes mellitus E11.42 IMMUNIZATIONS Vaccine Route Administration Date Status TORADOL (IM) 60 MG/2ML (UP TO 15 MG) IM Intramuscular December 07, 2017 Administered SOCIAL HISTORY Never Assessed REASON FOR VISIT Injection WB-MA PLAN OF CARE Activity Details Follow Up prn Reason:Injection VITAL SIGNS MEDICATIONS Unknown Medications RESULTS No Results PROCEDURES Procedure Date Ordered Result Body Site TORADOL (IM) 60 MG/2ML (UP TO 15 MG) December 07, 2017 THER/PROPH/DIAG INJ, SC/IM December 07, 2017 INSTRUCTIONS MEDICATIONS ADMINISTERED No Known Medications MEDICAL [...]
--- OUTSIDE RECORDS SUMMARY | 2018-04-24 08:27 | XMS REPORT ---
Author Author ARNEL MILES Organization [facility] Address [address] [place] [address] Care Team Providers Care Coil Winder Hand Name Role Phone ARNEL MILES Unavailable PROBLEMS Type Condition ICD9-CM Code IIP45-XI Code Onset Dates Condition Status SNOMED Code Problem Diabetic polyneuropathy associated with type 2 diabetes mellitus E11.42 Active 03434583 Problem Hypertension, benign I10 Active 54573575 Problem Seasonal allergic rhinitis due to other allergic trigger J30.89 Active 678983431 Problem Controlled type 2 diabetes mellitus without complication, without long -term current use of insulin E11.9 Active 111727231 Problem 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 Active 33736251 Problem Type 2 diabetes mellitus with diabetic neuropathy, without long-term current use of insulin E11.40 Active 44627981 Problem Primary insomnia F51.01 Active 3989289 ALLERGIES No Information ENCOUNTERS Encounter Location Date Diagnosis [place] [address] [address] Mar, [place] [address] [address]- [address] 13 Feb, 2018 Type 2 diabetes mellitus with diabetic neuropathy, without long-term current use of insulin E11.40 and Diabetic polyneuropathy associated with type 2 diabetes mellitus E11.42 [place] [address] [address] [place] [id number] [place] [address]75- [address] 11 Feb, 2018 Seborrheic keratoses L82.1 [place] [address] [address]- [address] Jan, Dysuria R30.0 [place] [address] [address]- 8259 Jan, Bilious vomiting with nausea R11.14 [place] [address] [place] [address] Jan, [facility] [address] [place] [id number] [place] [address] 46656- 4018 Jan, Bilious vomiting with nausea R11.14 ; Chronic pruritic rash in adult L29.8 and Seborrheic keratoses L82.1 [facility] [address] [place] [id number] [place] [address] 34665- 2826 Nov, Type 2 diabetes mellitus with diabetic neuropathy, without long-term current use of insulin E11.40 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 [address] [place] [id number] [place] [address] 24127- 2360 October, Type 2 diabetes mellitus with diabetic neuropathy, without long-term current use of insulin E11.40 ; Seasonal allergic rhinitis due to other allergic trigger J30.89 and Hypertension, benign I10 [facility] [address] [place] [id number] [place] [address] 60470- 4880 October, Diabetic polyneuropathy associated with type [address] [facility] [address] [place] [id number] [place] [address] 92795- 7453 October, Diabetic polyneuropathy associated with type [address] [facility] [address] [place] [id number] [place] [address] 37873- 4505 Sep, Type 2 diabetes mellitus with diabetic neuropathy, without long-term current use of insulin E11.40 [facility] [address] [place] [id number] [place] [address] 30118- 4657 Sep, [facility] [address] [place] [id number] [place] [address] 48385- [address]139 Sep, 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 [place] [address] [place] [address] Jul, [place] [address] [place] [id number] [place] [address] 85567- 4905 Jul, Diabetic polyneuropathy associated with type 2 diabetes mellitus E11.42 and Primary insomnia F51.01 [place] [address] [place] [id number] [place] [address] 58720- 9923 Jul, Diabetic polyneuropathy associated with type 2 diabetes mellitus E11.42 ; Viral URI J06.9 and Encounter for immunization Z23 [place] [address] [place] [id number] [place] [address] 62486- 2634 Feb, SOB (shortness of breath) R06.02 and Diabetic polyneuropathy associated with type 2 diabetes mellitus E11.42 [place] [address] [place] [id number] [place] [address] 88368- 4769 Jan, 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 [place] [address] [place] [id number] [place] [address] 16972- 0692 Jan, [place] [address] [place] [id number] [place] [address] 81244- 2129 Jan, [place] [address] [place] [id number] [place] [address] 54453- 6016 Jan, Diabetic polyneuropathy associated with type 2 diabetes mellitus E11.42 ; 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 [address] [place] [address]- 8999 Nov, Diabetic polyneuropathy associated with type [address] 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
--- OUTSIDE RECORDS SUMMARY | 2018-04-24 08:27 | XMS REPORT ---
Author Author ARNEL MILES Organization [facility] Address [address] [place] [address] Care Team Providers Care Pig Handler Name Role Phone ARNEL MILES Unavailable PROBLEMS Type Condition ICD9-CM Code YRE45-XH Code Onset Dates Condition Status SNOMED Code Problem Diabetic polyneuropathy associated with type 2 diabetes mellitus E11.42 Active 80825610 Problem Hypertension, benign I10 Active 28485762 Problem Seasonal allergic rhinitis due to other allergic trigger J30.89 Active 859957141 Problem Controlled type 2 diabetes mellitus without complication, without long -term current use of insulin E11.9 Active 950048342 Problem 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 Active 73737846 Problem Type 2 diabetes mellitus with diabetic neuropathy, without long-term current use of insulin E11.40 Active 29569084 Problem Primary insomnia F51.01 Active 7555749 ALLERGIES No Known Allergies ENCOUNTERS Encounter Location Date Diagnosis [place] [address] [address] Mar, [address] [address] 13 Feb, 2018 Type 2 diabetes mellitus with diabetic neuropathy, without long-term current use of insulin E11.40 and Diabetic polyneuropathy associated with type 2 diabetes mellitus E11.42 [place] [address] [place] [id number] [place] [address] 15369- 5093 Feb, Seborrheic keratoses L82.1 [place] [address] 35175- 8633 Jan, Dysuria R30.0 [place] [address] 6[address]11- 6454 Jan, Bilious vomiting with nausea R11.14 [place] [address] [place] [address] [place] [address]- 48[address] Jan, [facility] [address] [place] [id number] [place] [address] 93984- 2128 Jan, Bilious vomiting with nausea R11.14 ; Chronic pruritic rash in adult L29.8 and Seborrheic keratoses L82.1 [facility] [address] [place] [id number] [place] [address] 60752- 8333 Nov, Type 2 diabetes mellitus with diabetic neuropathy, without long-term current use of insulin E11.40 [facility] [address] [place] [id number] [place] [address] 67747- 3989 Nov, 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 [facility] [address] [place] [id number] [place] [address] 36434- 9892 October, Type 2 diabetes mellitus with diabetic neuropathy, without long-term current use of insulin E11.40 ; Seasonal allergic rhinitis due to other allergic trigger J30.89 and Hypertension, benign I10 [facility] [address] [place] [id number] [place] [address] 98644- 5545 October, Diabetic polyneuropathy associated with type 2 diabetes mellitus E11.42 [facility] [address] [place] [address] 87177- 6388 October, Diabetic polyneuropathy associated with type 2 diabetes mellitus E11.42 [place] [address] [place] [id number] [place] [address] 54810- 1370 Sep, Type 2 diabetes mellitus with diabetic neuropathy, without long-term current use of insulin E11.40 [facility] [address] [place] [id number] [place] [address] 60532- 6581 Sep, [facility] [address] [place] [id number] [place] [address] 39762- 0374 Sep, [facility] [address] [place] [address] 87186- 6029 Sep, 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 [place] [address] [address]- 4586 Jul, [place] [address] [place] [id number] [place] [address] 58724- 9430 Jul, Diabetic polyneuropathy associated with type 2 diabetes mellitus E11.42 and Primary insomnia F51.01 [place] [address] [place] [id number] [place] [address] 64199- 7227 Jul, Diabetic polyneuropathy associated with type 2 diabetes mellitus E11.42 ; Viral URI J06.9 and Encounter for immunization Z23 [place] [address] [place] [address] [place] [address] 80727- 1698 Feb, SOB (shortness of breath) R06.02 and Diabetic polyneuropathy associated with type 2 diabetes mellitus E11.42 [place] [address] [place] [address] [place] [address] 06698- 6193 Jan, 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 [place] [address] [place] [id number] [place] [address] 68777- 6963 Jan, [place] [address] [place] [id number] [place] [address] 15861- 1273 Jan, [place] [address] [place] [id number] [place] [address] 26509- 5561 Jan, Diabetic polyneuropathy associated with type 2 diabetes mellitus E11.42 ; 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 ; Renal insufficiency N28.9 and Anemia due to other cause, not classified D64.89 [place] [address] [address]- 4693 Dec, SOB (shortness of breath) R06.02 ; Localized edema R60.0 and Controlled type 2 diabetes mellitus without complication, without long-term current use of insulin E11.9 [place] [address] [address]- 3787 Dec, SOB (shortness of breath) R06.02 ; Localized edema R60.0 and Controlled type 2 diabetes mellitus without complication, without long-term current use of insulin E11.9 [place] [address] [place] [address] 27766- 9216 Nov, Diabetic polyneuropathy associated with type 2 diabetes mellitus E11.42 [place] [address] [place] [address] 17694- 3345 Nov, 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 Has had blood sugar over 300' s without eating. Currently on metformin and levemir insulin daily, Has a spot on her right arm that came up 2 weeks ago wants to have looked at. Also has spots on her legs.CBrumbackRN PLAN OF CARE VITAL SIGNS Height 65 in 2018-02-02 Weight 181.7 lbs 2018-02-02 Temperature 98.7 degrees Fahrenheit 2018-02-02 Heart Rate 92 bpm 2018-02-02 Respiratory Rate 18 2018-02-02 Oximetry on room air:95 % 2018-02-02 BMI 30.23 kg/m2 2018-02-02 Blood pressure systolic 172 mmHg 2018-02-02 Blood pressure diastolic 76 mmHg 2018-02-02 MEDICATIONS Medication Instructions Dosage Frequency Start Date End Date Duration Status Metoprolol Tartrate 25 MG Orally Twice a day 1 tablet with food 12h Active Aspirin EC 81 MG Orally Once a day 1 tablet 24h Active Albuterol Sulfate (2.5 MG/3ML) 0.083% Inhalation every 4 hrs 3 ml as needed 4h Active Qvar 40 MCG/ACT Inhalation Twice a day 1 puff 12h 24 October, 2018 Active Insulin Detemir 100 UNIT/ML Subcutaneous Once a day Inject 25 units 24h October, 30 days Active Lisinopril 20 mg Orally at bedtime 1 tablet Active Metformin HCl 850 MG Orally 2 times a day 1 tablet 12h Active Lyrica 100 MG Orally 3 times a day 1 capsule 8h Active Tessalon Perles 100 mg Orally Three times a day 1 capsule as needed 8h October, Active Allopurinol 100 mg Orally 2 times a day 1 tablet 12h October, 30 day(s) Active CloNIDine HCl ER 0.1 MG Orally 2 times a day 1 tablet 12h Active BD Insulin Syringe 31G X 5/16" 0.3 ML as directed Jan, Active Klor-Con M20 20 meq Orally Once a day 1 tablet with food 24h Active Furosemide 40 mg 1 tablet 24h 30 Active PredniSONE 20 mg Orally Once a day 2 tablets 24h Jan, Jan, 05 days Active Lovastatin 20 mg Orally Once a day, at bed time 1 tablet Active Diltiazem HCl 240 mg/24 hours Orally Once a day 1 capsule 24h Active RESULTS No Results PROCEDURES No Known [...]
--- OUTSIDE RECORDS SUMMARY | 2018-04-24 08:27 | XMS REPORT ---
Author Author ARNEL MILES Organization [facility] Address [address] [place] [address] Care Team Providers Care Beer Coil Cleaner Name Role Phone ARNEL MILES Unavailable PROBLEMS Type Condition ICD9-CM Code [id number] Code Onset Dates Condition Status SNOMED Code Problem Diabetic polyneuropathy associated with type 2 diabetes mellitus E11.42 Active 58024146 Problem Hypertension, benign I10 Active 29458840 Problem Seasonal allergic rhinitis due to other allergic trigger J30.89 Active 975160040 Problem Controlled type 2 diabetes mellitus without complication, without long -term current use of insulin E11.9 Active 223031708 Problem 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 Active 41543954 Problem Type 2 diabetes mellitus with diabetic neuropathy, without long-term current use of insulin E11.40 Active 68281523 Problem Primary insomnia F51.01 Active 5601633 ALLERGIES No Known Allergies ENCOUNTERS Encounter Location Date Diagnosis [place] [address] [address] Mar, [address] [address] 13 Feb, 2018 Type 2 diabetes mellitus with diabetic neuropathy, without long-term current use of insulin E11.40 and Diabetic polyneuropathy associated with type 2 diabetes mellitus E11.42 [place] [address] [place] [id number] [place] [address] 79773- 3356 Feb, Seborrheic keratoses L82.1 [place] [address] [address] Jan, Dysuria R30.0 [place] [address] [address]- [address] Jan, Bilious vomiting with nausea R11.14 [place] [address] [place] [address] [place] [address] Jan, [facility] [address] [place] [id number] [place] [address] 91857- 4638 Jan, Bilious vomiting with nausea R11.14 ; Chronic pruritic rash in adult L29.8 and Seborrheic keratoses L82.1 [facility] [address] [place] [id number] [place] [address] 03415- 9924 Nov, Type 2 diabetes mellitus with diabetic neuropathy, without long-term current use of insulin E11.40 [facility] [address] [place] [id number] [place] [address] 01247- 8081 Nov, 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 [facility] [address] [place] [id number] [place] [address] 16479- 1647 October, Type 2 diabetes mellitus with diabetic neuropathy, without long-term current use of insulin E11.40 ; Seasonal allergic rhinitis due to other allergic trigger J30.89 and Hypertension, benign I10 [facility] [address] [place] [id number] [place] [address] 66753- 1327 October, Diabetic polyneuropathy associated with type 2 diabetes mellitus E11.42 [facility] [address] [place] [address] 02719- 2734 October, Diabetic polyneuropathy associated with type 2 diabetes mellitus E11.42 [place] [address] [place] [id number] [place] [address] 12539- 1359 Sep, Type 2 diabetes mellitus with diabetic neuropathy, without long-term current use of insulin E11.40 [facility] [address] [place] [id number] [place] [address] 10506- 2169 Sep, [facility] [address] [place] [id number] [place] [address] 22264- 5453 Sep, [facility] [address] [place] [address] 91454- 4548 Sep, 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 [place] [address] [address] Jul, [place] [address] [place] [id number] [place] [address] 71151- 4145 Jul, Diabetic polyneuropathy associated with type 2 diabetes mellitus E11.42 and Primary insomnia F51.01 [place] [address] [place] [address] [place] [address] 74984- 7785 Jul, Diabetic polyneuropathy associated with type 2 diabetes mellitus E11.42 ; Viral URI J06.9 and Encounter for immunization Z23 [place] [address] [place] [id number] [place] [address] 91007- 3711 Feb, SOB (shortness of breath) R06.02 and Diabetic polyneuropathy associated with type 2 diabetes mellitus E11.42 [place] [address] [place] [address] [place] [address] 43621- 2848 Jan, 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 [place] [address] [place] [address] [place] [address] 54860- 5683 Jan, [place] [address] [place] [address] [place] [address] 71238- 4249 Jan, [place] [address] [place] [address] [place] [address] 85192- 7927 Jan, Diabetic polyneuropathy associated with type 2 diabetes mellitus E11.42 ; 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 ; Renal insufficiency N28.9 and Anemia due to other cause, not classified D64.89 [place] [address] [address] 0[address] Dec, SOB (shortness of breath) R06.02 ; Localized edema R60.0 and Controlled type 2 diabetes mellitus without complication, without long-term current use of insulin E11.9 [place] [address] [address] Dec, SOB (shortness of breath) R06.02 ; Localized edema R60.0 and Controlled type 2 diabetes mellitus without complication, without long-term current use of insulin E11.9 [place] [address] [address] Nov, Diabetic polyneuropathy associated with type 2 diabetes mellitus E11.42 [place] [address] [address] Nov, 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 [place] [address] [place] [address] 61250- 6698 Nov, 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 [place] [address] [place] [address] 26354- 2041 October, 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 [place] [address] [place] [address] 90210- 0309 Aug, Diabetic polyneuropathy associated with type 2 diabetes mellitus E11.42 IMMUNIZATIONS No Known Immunizations SOCIAL HISTORY Never Assessed REASON FOR VISIT medication request PLAN OF CARE VITAL SIGNS MEDICATIONS Medication Instructions Dosage Frequency Start Date End Date Duration Status Insulin Detemir 100 UNIT/ML Subcutaneous twice a day Inject 25 units 12h October, 30 days Active Bactrim DS 800-160 MG Orally Twice a day 1 tablet 12h Jan, Feb, 10 day(s) Active RESULTS No Results PROCEDURES No [...]
--- OUTSIDE RECORDS SUMMARY | 2018-04-24 08:27 | XMS REPORT ---
Author Author ARNEL MILES Organization [facility] Address [address] [place] [address] Care Team Providers Care Roll Mechanic Name Role Phone ARNEL MILES Unavailable PROBLEMS Type Condition ICD9-CM Code YVV27-VB Code Onset Dates Condition Status SNOMED Code Problem Diabetic polyneuropathy associated with type 2 diabetes mellitus E11.42 Active 78579002 Problem Hypertension, benign I10 Active 23594294 Problem Seasonal allergic rhinitis due to other allergic trigger J30.89 Active 294235635 Problem Controlled type 2 diabetes mellitus without complication, without long -term current use of insulin E11.9 Active 415485211 Problem 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 Active 79854872 Problem Type 2 diabetes mellitus with diabetic neuropathy, without long-term current use of insulin E11.40 Active 94841495 Problem Primary insomnia F51.01 Active 9411021 ALLERGIES No Information ENCOUNTERS Encounter Location Date Diagnosis [place] [address] [address] Feb, [place] [address] [address]- 7227 Feb, [place] [address] [place] [id number] [place] [address] 55952- 1523 Jan, Dysuria R30.0 [place] [address] [place] [id number] [place] [address] 12225- 3798 Jan, Bilious vomiting with nausea R11.14 [place] [address] [address]- 3428 Jan, [place] [address] [place] [id number] [place] [address] 78481- 7520 15 Jan, 2018 Bilious vomiting with nausea R11.14 ; Chronic pruritic rash in adult L29.8 and Seborrheic keratoses L82.1 [facility] [address] [place] [address] 40289- 6285 Nov, Type 2 diabetes mellitus with diabetic neuropathy, without long-term current use of insulin E11.40 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 [address] [place] [id number] [place] [address] 17091- 3207 October, Type 2 diabetes mellitus with diabetic neuropathy, without long-term current use of insulin E11.40 ; Seasonal allergic rhinitis due to other allergic trigger J30.89 and Hypertension, benign I10 [facility] [address] [place] [id number] [place] [address] 69597- 2516 October, Diabetic polyneuropathy associated with type [address] [facility] [address] [place] [id number] [place] [address] 62123- 8703 October, Diabetic polyneuropathy associated with type [address] [facility] [address] [place] [id number] [place] [address] 99250- 5783 Sep, Type 2 diabetes mellitus with diabetic neuropathy, without long-term current use of insulin E11.40 [facility] [address] [place] [id number] [place] [address] 20723- 4209 Sep, [facility] [address] [place] [id number] [place] [address] 75310- 8981 Sep, 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 [address] [place] [id number] [place] [address] 80167- 5424 Jul, [facility] [address] [place] [id number] [place] [address] 77245- 6578 Jul, Diabetic polyneuropathy associated with type 2 diabetes mellitus E11.42 and Primary insomnia F51.01 [place] [address] [place] [address] 20257- 3400 2017 Diabetic polyneuropathy associated with type 2 diabetes mellitus E11.42 ; Viral URI J06.9 and Encounter for immunization Z23 [place] [address] [place] [id number] [place] [address] 74713- 7290 18 Feb, 2017 SOB (shortness of breath) R06.02 and Diabetic polyneuropathy associated with type 2 diabetes mellitus E11.42 [place] [address] [place] [id number] [place] [address] 36399- 6963 Jan, 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02 ; Localized edema R60.0 and Controlled type 2 diabetes mellitus without complication, without long-term current use of insulin E11.9 [place] [address] [place] [address] 83913- 0626 Dec, SOB (shortness of breath) R06.02 ; Localized edema R60.0 and Controlled type 2 diabetes mellitus without complication, without long-term current use of insulin E11.9 [place] [address] [place] [address] 63986- 6258 Nov, Diabetic polyneuropathy associated with type 2 diabetes mellitus E11.42 [place] [address] [address]- 2546 Nov, 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 [address] 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 [id number] [address] 1616 Aug, Diabetic polyneuropathy associated with type 2 diabetes mellitus E11.42 IMMUNIZATIONS No Known Immunizations SOCIAL HISTORY Never Assessed REASON FOR VISIT Controlled Med Refill PLAN OF CARE VITAL SIGNS MEDICATIONS Medication Instructions Dosage Frequency Start Date End Date Duration Status Lyrica 100 MG Orally 3 times a day 1 capsule 8h Active RESULTS No Results PROCEDURES No Known [...] History HR up and BP down at Hospitalization History sepsis 10/02/2017
--- OUTSIDE RECORDS SUMMARY | 2018-04-24 08:27 | XMS REPORT ---
Author Author ARNEL MILES Organization [facility] Address [address] [place] [address] Care Team Providers Care Solution Analyst Name Role Phone ARNEL MILES Unavailable PROBLEMS Type Condition ICD9-CM Code TSH63-NZ Code Onset Dates Condition Status SNOMED Code Problem Diabetic polyneuropathy associated with type 2 diabetes mellitus E11.42 Active 19091706 Problem Hypertension, benign I10 Active 76077567 Problem Seasonal allergic rhinitis due to other allergic trigger J30.89 Active 175273269 Problem Controlled type 2 diabetes mellitus without complication, without long -term current use of insulin E11.9 Active 180195192 Problem 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 Active 49682709 Problem Type 2 diabetes mellitus with diabetic neuropathy, without long-term current use of insulin E11.40 Active 57842713 Problem Primary insomnia F51.01 Active 0021397 ALLERGIES No Known Allergies ENCOUNTERS Encounter Location Date Diagnosis [place] [address] [address]- 9054 Mar, [address] [address]- 5883 13 Feb, 2018 Type 2 diabetes mellitus with diabetic neuropathy, without long-term current use of insulin E11.40 and Diabetic polyneuropathy associated with type 2 diabetes mellitus E11.42 [place] [address] [place] [id number] [place] [address] 80118- 5933 Feb, Seborrheic keratoses L82.1 [place] [address] 15958- 3944 Jan, Dysuria R30.0 [place] [address] 66302- 2854 Jan, Bilious vomiting with nausea R11.14 [place] [address] [place] [address] [place] [address]- 4015 Jan, [facility] [address] [place] [id number] [place] [address] 32431- 5013 Jan, Bilious vomiting with nausea R11.14 ; Chronic pruritic rash in adult L29.8 and Seborrheic keratoses L82.1 [facility] [address] [place] [id number] [place] [address] 39744- 4307 Nov, Type 2 diabetes mellitus with diabetic neuropathy, without long-term current use of insulin E11.40 [facility] [address] [place] [id number] [place] [address] 25091- 7823 Nov, 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 [facility] [address] [place] [id number] [place] [address] 50511- 2651 October, Type 2 diabetes mellitus with diabetic neuropathy, without long-term current use of insulin E11.40 ; Seasonal allergic rhinitis due to other allergic trigger J30.89 and Hypertension, benign I10 [facility] [address] [place] [id number] [place] [address] 39154- 2254 October, Diabetic polyneuropathy associated with type 2 diabetes mellitus E11.42 [facility] [address] [place] [address] 25908- 6124 October, Diabetic polyneuropathy associated with type 2 diabetes mellitus E11.42 [place] [address] [place] [id number] [place] [address] 38330- 8544 Sep, Type 2 diabetes mellitus with diabetic neuropathy, without long-term current use of insulin E11.40 [facility] [address] [place] [id number] [place] [address] 69644- 0989 Sep, [facility] [address] [place] [id number] [place] [address] 46335- 2241 Sep, [facility] [address] [place] [address] 94628- 6310 Sep, 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 [place] [address], [place] [address]- 1658 Jul, [place] [address] [place] [id number] [place] [address] 37412- 9247 Jul, Diabetic polyneuropathy associated with type 2 diabetes mellitus E11.42 and Primary insomnia F51.01 [place] [address] [place] [id number] [place] [address] 01328- 7639 Jul, Diabetic polyneuropathy associated with type 2 diabetes mellitus E11.42 ; Viral URI J06.9 and Encounter for immunization Z23 [place] [address] [place] [id number] [place] [address] 55218- 9063 Feb, SOB (shortness of breath) R06.02 and Diabetic polyneuropathy associated with type 2 diabetes mellitus E11.42 [place] [address] [place] [id number] [place] [address] 33323- 6234 Jan, 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 [place] [address] [place] [id number] [place] [address] 47904- 9322 Jan, [place] [address] [place] [id number] [place] [address] 37313- 6410 Jan, [place] [address] [place] [id number] [place] [address] 61922- 0392 Jan, Diabetic polyneuropathy associated with type 2 diabetes mellitus E11.42 ; 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 ; Renal insufficiency N28.9 and Anemia due to other cause, not classified D64.89 [place] [address] [address]- 7613 Dec, SOB (shortness of breath) R06.02 ; Localized edema R60.0 and Controlled type 2 diabetes mellitus without complication, without long-term current use of insulin E11.9 [place] [address], [place] [address]- 8286 Dec, SOB (shortness of breath) R06.02 ; Localized edema R60.0 and Controlled type 2 diabetes mellitus without complication, without long-term current use of insulin E11.9 [facility] [address] [address]- 4429 Nov, Diabetic polyneuropathy associated with type 2 diabetes mellitus E11.42 [facility] [address] [address]- 6869 Nov, 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 BS have been 300-over 500 for last week. Thinks has UTI. CBrumbackRN PLAN OF CARE VITAL SIGNS MEDICATIONS Unknown Medications RESULTS Name Result Date Reference Range UA LONG DIP (IN HOUSE) 2018-02-14 Lot # [id number] Exp date 09/2018 Clarity clear Color yellow Odor mild GLU 2 HIRO negative KET negative SG 1.010 BLO 1 pH 5.5 Protein negative URO 0.2 NIT negative JULIANO 1 Lot # Exp date PROCEDURES Procedure Date Ordered Result Body Site URINALYSIS, AUTO, W/O SCOPE Feb 14, 2018 INSTRUCTIONS MEDICATIONS ADMINISTERED No Known Medications [...]
--- OUTSIDE RECORDS SUMMARY | 2018-04-24 08:27 | XMS REPORT ---
Author Author ARNEL MILES Organization [facility] Address [address] [place] [address] Care Team Providers Care Vb Developer Name Role Phone ARNEL MILES Unavailable PROBLEMS Type Condition ICD9-CM Code [id number] Code Onset Dates Condition Status SNOMED Code Problem Diabetic polyneuropathy associated with type 2 diabetes mellitus E11.42 Active 77526130 Problem Hypertension, benign I10 Active 62659903 Problem Seasonal allergic rhinitis due to other allergic trigger J30.89 Active 077143185 Problem Controlled type 2 diabetes mellitus without complication, without long -term current use of insulin E11.9 Active 248537407 Problem 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 Active 96423036 Problem Type 2 diabetes mellitus with diabetic neuropathy, without long-term current use of insulin E11.40 Active 50337273 Problem Primary insomnia F51.01 Active 6570529 ALLERGIES No Known Allergies ENCOUNTERS Encounter Location Date Diagnosis [place] [address] [address] Mar, [address] [address] 13 Feb, 2018 Type 2 diabetes mellitus with diabetic neuropathy, without long-term current use of insulin E11.40 and Diabetic polyneuropathy associated with type 2 diabetes mellitus E11.42 [place] [address] [place] [id number] [place] [address] 14044- 5996 Feb, Seborrheic keratoses L82.1 [place] [address] [address] Jan, Dysuria R30.0 [place] [address] [address]- 9[address] Jan, Bilious vomiting with nausea R11.14 [place] [address] [place] [address] [place] [address] Jan, [facility] [address] [place] [id number] [place] [address] 30372- 1363 Jan, Bilious vomiting with nausea R11.14 ; Chronic pruritic rash in adult L29.8 and Seborrheic keratoses L82.1 [facility] [address] [place] [id number] [place] [address] 56149- 3801 Nov, Type 2 diabetes mellitus with diabetic neuropathy, without long-term current use of insulin E11.40 [facility] [address] [place] [id number] [place] [address] 08735- 2066 Nov, 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 [facility] [address] [place] [id number] [place] [address] 57194- 9064 October, Type 2 diabetes mellitus with diabetic neuropathy, without long-term current use of insulin E11.40 ; Seasonal allergic rhinitis due to other allergic trigger J30.89 and Hypertension, benign I10 [facility] [address] [place] [id number] [place] [address] 62988- 4905 October, Diabetic polyneuropathy associated with type 2 diabetes mellitus E11.42 [facility] [address] [place] [address] 83128- 2752 October, Diabetic polyneuropathy associated with type 2 diabetes mellitus E11.42 [place] [address] [place] [id number] [place] [address] 07669- 3382 Sep, Type 2 diabetes mellitus with diabetic neuropathy, without long-term current use of insulin E11.40 [facility] [address] [place] [id number] [place] [address] 58417- 3481 Sep, [facility] [address] [place] [id number] [place] [address] 57817- 5984 Sep, [facility] [address] [place] [address] 20741- 6814 Sep, 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 [place] [address] [address] Jul, [place] [address] [place] [id number] [place] [address] 05123- 0326 Jul, Diabetic polyneuropathy associated with type 2 diabetes mellitus E11.42 and Primary insomnia F51.01 [place] [address] [place] [id number] [place] [address] 48801- 2543 Jul, Diabetic polyneuropathy associated with type 2 diabetes mellitus E11.42 ; Viral URI J06.9 and Encounter for immunization Z23 [place] [address] [place] [id number] [place] [address] 77013- 5702 Feb, SOB (shortness of breath) R06.02 and Diabetic polyneuropathy associated with type 2 diabetes mellitus E11.42 [place] [address] [place] [id number] [place] [address] 12217- 6429 Jan, 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02 ; Localized edema R60.0 and Controlled type 2 diabetes mellitus without complication, without long-term current use of insulin E11.9 [place] [address] [address] Dec, SOB (shortness of breath) R06.02 ; Localized edema R60.0 and Controlled type 2 diabetes mellitus without complication, without long-term current use of insulin E11.9 [place] [address] [place] [address] 10245- 2280 Nov, Diabetic polyneuropathy associated with type 2 diabetes mellitus E11.42 [place] [address] [address] Nov, 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 [place] [address] [place] [id number] [place] [address] 63985- 4901 Nov, 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 [place] [address] [place] [id number] [place] [address] 88419- 1461 October, 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 [place] [address] [place] [address] 02384- 2832 Aug, Diabetic polyneuropathy associated with type 2 diabetes mellitus E11.42 IMMUNIZATIONS No Known Immunizations SOCIAL HISTORY Never Assessed REASON FOR VISIT seborrheic keratosis/ cryo, on her right arm -Ricardo JJ PLAN OF CARE Activity Details Future/Pending Procedure CRYOTHERAPY OF SKIN VITAL SIGNS Height 65 in 2018-03-01 Weight 184.9 lbs 2018-03-01 Temperature 98.0 degrees Fahrenheit 2018-03-01 Heart Rate 87 bpm 2018-03-01 Respiratory Rate 20 2018-03-01 Oximetry 98 % 2018-03-01 BMI 30.77 kg/m2 2018-03-01 Blood pressure systolic 142 mmHg 2018-03-01 Blood pressure diastolic 72 mmHg 2018-03-01 MEDICATIONS Medication Instructions Dosage Frequency Start Date End Date Duration Status Lyrica 150 MG Orally 3 times a day 1 capsule 8h Active Lovastatin 20 mg Orally Once a day, at bed time 1 tablet Active BD Insulin Syringe 31G X 16 as directed Jan, Active Aspirin EC 81 MG Orally Once a day 1 tablet 24h Active Lisinopril 20 mg Orally at bedtime 1 tablet Active Klor-Con M20 20 meq Orally Once a day 1 tablet with food 24h Active Qvar 40 MCG/ACT Inhalation Twice a day 1 puff 12h October, Active Metformin HCl 850 MG Orally 2 times a day 1 tablet 12h Active Diltiazem HCl 240 mg/24 hours Orally Once a day 1 capsule 24h Active CloNIDine HCl ER 0.1 MG Orally 2 times a day 1 tablet 12h Active Metoprolol Tartrate 25 MG Orally Twice a day 1 tablet with food 12h Active Allopurinol 100 mg Orally 2 times a day 1 tablet 12h October, 30 day(s) Active Insulin Detemir 100 UNIT/ML Subcutaneous twice a day Inject 25 units 12h October, 30 days Active Dicyclomine HCl 20 mg Orally Four times a day 1 tablet 6h Feb, May, 30 day(s) Active Albuterol Sulfate (2.5 MG/3ML) 0.083% Inhalation every 4 hrs 3 ml as needed 4h Active Tessalon Perles 100 mg Orally Three times a day 1 capsule as needed 8h October, Active Furosemide 40 mg 1 tablet 24h 30 Active RESULTS No Results PROCEDURES Procedure Date Ordered Result Body Site CRYOTHERAPY OF SKIN Mar 01, 2018 INSTRUCTIONS MEDICATIONS ADMINISTERED No Known Medications [...]
--- OUTSIDE RECORDS SUMMARY | 2018-04-24 08:28 | XMS REPORT ---
Author Author ARNEL MILES Organization [facility] Address [address] [place] [address] Care Team Providers Care Superintendent Sales Name Role Phone ARNEL MILES Unavailable PROBLEMS Type Condition ICD9-CM Code SXE94-XP Code Onset Dates Condition Status SNOMED Code Problem Diabetic polyneuropathy associated with type 2 diabetes mellitus E11.42 Active 93498309 Problem Hypertension, benign I10 Active 85742864 Problem Seasonal allergic rhinitis due to other allergic trigger J30.89 Active 706319510 Problem Controlled type 2 diabetes mellitus without complication, without long -term current use of insulin E11.9 Active 930253964 Problem 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 Active 11712542 Problem Type 2 diabetes mellitus with diabetic neuropathy, without long-term current use of insulin E11.40 Active 52728236 Problem Primary insomnia F51.01 Active 7188196 ALLERGIES No Information ENCOUNTERS Encounter Location Date Diagnosis [place] [address] [address] Nov, Type 2 diabetes mellitus with diabetic neuropathy, without long-term current use of insulin E11.40 [facility] [address] [place] [id number] [place] [address] 84938- 2721 Nov, 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 [facility] [address] [address]- [address] October, Type 2 diabetes mellitus with diabetic neuropathy, without long-term current use of insulin E11.40 ; Seasonal allergic rhinitis due to other allergic trigger J30.89 and Hypertension, benign I10 [facility] [address] [place] [id number] [place] [address] 65640- 1606 October, Diabetic polyneuropathy associated with type 2 diabetes mellitus E11.42 [facility] [address] [address]- 6388 October, Diabetic polyneuropathy associated with type 2 diabetes mellitus E11.42 [place] [address] [place] [id number] [place] [address] 92423- 2007 Sep, Type 2 diabetes mellitus with diabetic neuropathy, without long-term current use of insulin E11.40 [facility] [address] [place] [id number] [place] [address] 69019- 3138 Sep, [facility] [address] [place] [id number] [place] [address] 45079- 3027 Sep, [facility] [address] [place] [id number] [place] [address] 00466- 4308 Sep, 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 [place] [address] [place] [id number] [place] [address] 32503- 0212 Jul, [place] [address] [place] [id number] [place] [address] 30421- 8131 Jul, Diabetic polyneuropathy associated with type 2 diabetes mellitus E11.42 and Primary insomnia F51.01 [place] [address] [place] [id number] [place] [address] 48545- 5604 Jul, Diabetic polyneuropathy associated with type 2 diabetes mellitus E11.42 ; Viral URI J06.9 and Encounter for immunization Z23 [place] [address] [place] [id number] [place] [address] 44112- 2090 Feb, SOB (shortness of breath) R06.02 and Diabetic polyneuropathy associated with type 2 diabetes mellitus E11.42 [facility] [address] [place] [id number] [place] [address] 91785- 1052 Jan, 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 [facility] [address] [place] [id number] [place] [address] 58337- 2463 Jan, [facility] [address] [place] [id number] [place] [address] 79096- 4348 Jan, [place] [address] [place] [address] 71727- 3983 Jan, Diabetic polyneuropathy associated with type 2 diabetes mellitus E11.42 ; 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 ; Renal insufficiency N28.9 and Anemia due to other cause, not classified D64.89 [place] [address] [place] [address] 76322- 9461 Dec, SOB (shortness of breath) R06.02 ; Localized edema R60.0 and Controlled type 2 diabetes mellitus without complication, without long-term current use of insulin E11.9 [place] [address] [place] [id number] [place] [address] 61505- 3389 Dec, SOB (shortness of breath) R06.02 ; Localized edema R60.0 and Controlled type 2 diabetes mellitus without complication, without long-term current use of insulin E11.9 [place] [address] [place] [address] 02737- 6631 Nov, Diabetic polyneuropathy associated with type 2 diabetes mellitus E11.42 [place] [address] [place] [id number] [place] [address] 20733- 8744 Nov, 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 [place] [address] [place] [id number] [place] [address] 05083- 3047 Nov, 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
--- OUTSIDE RECORDS SUMMARY | 2018-04-24 08:28 | XMS REPORT ---
Author Author ARNEL MILES Organization [facility] Address [address] [place] [address] Care Team Providers Care Industrial Technology Teacher Name Role Phone ARNEL MILES Unavailable PROBLEMS Type Condition ICD9-CM Code UDI48-KK Code Onset Dates Condition Status SNOMED Code Problem Diabetic polyneuropathy associated with type 2 diabetes mellitus E11.42 Active 00673706 Problem Hypertension, benign I10 Active 51961057 Problem Seasonal allergic rhinitis due to other allergic trigger J30.89 Active 827722137 Problem Controlled type 2 diabetes mellitus without complication, without long -term current use of insulin E11.9 Active 283987141 Problem 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 Active 35355688 Problem Type 2 diabetes mellitus with diabetic neuropathy, without long-term current use of insulin E11.40 Active 19872944 Problem Primary insomnia F51.01 Active 6074937 ALLERGIES No Information ENCOUNTERS Encounter Location Date Diagnosis [place] [address] [address] Nov, Type 2 diabetes mellitus with diabetic neuropathy, without long-term current use of insulin E11.40 [facility] [address] [place] [id number] [place] [address] 01135- 1828 Nov, 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 [facility] [address] 21951- 2080 October, Type 2 diabetes mellitus with diabetic neuropathy, without long-term current use of insulin E11.40 ; Seasonal allergic rhinitis due to other allergic trigger J30.89 and Hypertension, benign I10 [facility] [address] [place] [id number] [place] [address] 13049- 8358 October, Diabetic polyneuropathy associated with type 2 diabetes mellitus E11.42 [facility] [address] 34162- 3408 October, Diabetic polyneuropathy associated with type 2 diabetes mellitus E11.42 [place] [place] [id number] [place] [address] 23283- 7014 Sep, Type 2 diabetes mellitus with diabetic neuropathy, without long-term current use of insulin E11.40 [facility] [address] [place] [id number] [place] [address] 39553- 4943 Sep, [facility] [address] [place] [id number] [place] [address] 86071- 5786 Sep, [facility] [address] [place] [id number] [place] [address] 90769- 9399 Sep, 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 [place] [address] [place] [id number] [place] [address] 09130- 4306 Jul, [place] [address] [place] [id number] [place] [address] 68417- 6090 Jul, Diabetic polyneuropathy associated with type 2 diabetes mellitus E11.42 and Primary insomnia F51.01 [place] [address] [place] [id number] [place] [address] 04189- 8645 Jul, Diabetic polyneuropathy associated with type 2 diabetes mellitus E11.42 ; Viral URI J06.9 and Encounter for immunization Z23 [place] [address] [place] [id number] [place] [address] 12809- 8579 Feb, SOB (shortness of breath) R06.02 and Diabetic polyneuropathy associated with type 2 diabetes mellitus E11.42 [facility] [address] [place] [id number] [place] [address] 78495- 5477 Jan, 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 [facility] [address] [place] [id number] [place] [address] 38887- 4192 Jan, [facility] [address] [place] [id number] [place] [address] 10839- 7573 Jan, [place] [address] [place] [address] 55700- 5737 Jan, Diabetic polyneuropathy associated with type 2 diabetes mellitus E11.42 ; 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 ; Renal insufficiency N28.9 and Anemia due to other cause, not classified D64.89 [place] [address] [place] [address] 40553- 0745 Dec, SOB (shortness of breath) R06.02 ; Localized edema R60.0 and Controlled type 2 diabetes mellitus without complication, without long-term current use of insulin E11.9 [place] [address] [place] [id number] [place] [address] 19642- 9843 Dec, SOB (shortness of breath) R06.02 ; Localized edema R60.0 and Controlled type 2 diabetes mellitus without complication, without long-term current use of insulin E11.9 [place] [address] [place] [address] 16580- 6065 Nov, Diabetic polyneuropathy associated with type 2 diabetes mellitus E11.42 [place] [address] [place] [id number] [place] [address] 05431- 4549 Nov, 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 [place] [address] [place] [id number] [place] [address] 48893- 3267 Nov, 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 [place] [address] [place] [id number] [place] [address] 68816- 4351 October, 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
--- OUTSIDE RECORDS SUMMARY | 2018-04-24 08:28 | XMS REPORT ---
Author Author ARNEL MILES Organization [facility] Address [address] [place] [address] Care Team Providers Care Furnace Unloader Name Role Phone ARNEL MILES Unavailable PROBLEMS Type Condition ICD9-CM Code [id number] Code Onset Dates Condition Status SNOMED Code Problem Diabetic polyneuropathy associated with type 2 diabetes mellitus E11.42 Active 50357069 Problem Hypertension, benign I10 Active 52626693 Problem Seasonal allergic rhinitis due to other allergic trigger J30.89 Active 767653708 Problem Controlled type 2 diabetes mellitus without complication, without long -term current use of insulin E11.9 Active 792616580 Problem 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 Active 67492021 Problem Type 2 diabetes mellitus with diabetic neuropathy, without long-term current use of insulin E11.40 Active 60829429 Problem Primary insomnia F51.01 Active 2862743 ALLERGIES No Information ENCOUNTERS Encounter Location Date Diagnosis [place] [address] [address] Nov, Type 2 diabetes mellitus with diabetic neuropathy, without long-term current use of insulin E11.40 [facility] [address] [place] [id number] [place] [address] 93812- 7993 Nov, 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 [facility] [address] [address] October, Type 2 diabetes mellitus with diabetic neuropathy, without long-term current use of insulin E11.40 ; Seasonal allergic rhinitis due to other allergic trigger J30.89 and Hypertension, benign I10 [facility] [address] [place] [id number] [place] [address] 75788- 5375 October, Diabetic polyneuropathy associated with type 2 diabetes mellitus E11.42 [facility] [address] [address] October, Diabetic polyneuropathy associated with type 2 diabetes mellitus E11.42 [place] [address] [place] [id number] [place] [address] 27186- 4548 Sep, Type 2 diabetes mellitus with diabetic neuropathy, without long-term current use of insulin E11.40 [facility] [address] [place] [id number] [place] [address] 90827- 8151 Sep, [facility] [id number] [place] [address] 13386- 8973 Sep, [facility] [address] [place] [id number] [place] [address] 43743- 1432 Sep, 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 [place] [address] [place] [id number] [place] [address] 32360- 0635 Jul, [place] [address] [place] [id number] [place] [address] 30032- 7913 Jul, Diabetic polyneuropathy associated with type 2 diabetes mellitus E11.42 and Primary insomnia F51.01 [place] [address] [place] [id number] [place] [address] 32330- 8195 Jul, Diabetic polyneuropathy associated with type 2 diabetes mellitus E11.42 ; Viral URI J06.9 and Encounter for immunization Z23 [place] [address] [place] [id number] [place] [address] 97278- 2724 Feb, SOB (shortness of breath) R06.02 and Diabetic polyneuropathy associated with type 2 diabetes mellitus E11.42 [facility] [address] [place] [id number] [place] [address] 44365- 7825 Jan, 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 [facility] [address] [place] [id number] [place] [address] 03372- 6467 Jan, [facility] [address] [place] [id number] [place] [address] 23983- 4879 Jan, [place] [address] [place] [address] 34246- 7963 Jan, Diabetic polyneuropathy associated with type 2 diabetes mellitus E11.42 ; 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 ; Renal insufficiency N28.9 and Anemia due to other cause, not classified D64.89 [place] [address] [place] [address] 88044- 9027 Dec, SOB (shortness of breath) R06.02 ; Localized edema R60.0 and Controlled type 2 diabetes mellitus without complication, without long-term current use of insulin E11.9 [place] [address] [place] [id number] [place] [address] 21513- 9539 Dec, SOB (shortness of breath) R06.02 ; Localized edema R60.0 and Controlled type 2 diabetes mellitus without complication, without long-term current use of insulin E11.9 [place] [address] [place] [address] 70852- 3383 Nov, Diabetic polyneuropathy associated with type 2 diabetes mellitus E11.42 [place] [address] [place] [id number] [place] [address] 10601- 5950 Nov, 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 [place] [address] [place] [id number] [place] [address] 04089- 1749 Nov, 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 [place] [address] [place] [id number] [place] [address] 76027- 9189 October, 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
--- OUTSIDE RECORDS SUMMARY | 2018-04-24 08:28 | XMS REPORT ---
Author Author ARNEL MILES Organization [facility] Address [address] [place] [address] Care Team Providers Care Acid Tank Liner Name Role Phone ARNEL MILES Unavailable PROBLEMS Type Condition ICD9-CM Code TIB37-AV Code Onset Dates Condition Status SNOMED Code Problem Diabetic polyneuropathy associated with type 2 diabetes mellitus E11.42 Active 64770832 Problem Hypertension, benign I10 Active 43469226 Problem Seasonal allergic rhinitis due to other allergic trigger J30.89 Active 705869654 Problem Controlled type 2 diabetes mellitus without complication, without long -term current use of insulin E11.9 Active 991994691 Problem 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 Active 24198035 Problem Type 2 diabetes mellitus with diabetic neuropathy, without long-term current use of insulin E11.40 Active 11335310 Problem Primary insomnia F51.01 Active 8602689 ALLERGIES No Known Allergies ENCOUNTERS Encounter Location Date Diagnosis [place] [address] [address] Nov, Type 2 diabetes mellitus with diabetic neuropathy, without long-term current use of insulin E11.40 [facility] [address] [place] [id number] [place] [address] 66312- 8673 Nov, 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 [facility] [address] [place] [id number] [place] [address] 34246- 1499 October, Type 2 diabetes mellitus with diabetic neuropathy, without long-term current use of insulin E11.40 ; Seasonal allergic rhinitis due to other allergic trigger J30.89 and Hypertension, benign I10 [facility] [address] [place] [id number] [place] [address] 05009- 2011 October, Diabetic polyneuropathy associated with type 2 diabetes mellitus E11.42 [facility] [address] [place] [id number] [place] [address] 68965- 1599 October, Diabetic polyneuropathy associated with type 2 diabetes mellitus E11.42 [place] [address] [place] [id number] [place] [address] 55780- 3110 Sep, Type 2 diabetes mellitus with diabetic neuropathy, without long-term current use of insulin E11.40 [facility] [address] [place] [id number] [place] [address] 54061- 4949 Sep, [facility] [address] [place] [id number] [place] [address] 26110- 3674 Sep, [facility] [address] [place] [id number] [place] [address] 91501- 3866 Sep, 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 [place] [address] [place] [id number] [place] [address] 84300- 7408 Jul, [place] [address] [place] [id number] [place] [address] 43612- 9946 Jul, Diabetic polyneuropathy associated with type 2 diabetes mellitus E11.42 and Primary insomnia F51.01 [place] [address] [place] [id number] [place] [address] 63865- 2325 Jul, Diabetic polyneuropathy associated with type 2 diabetes mellitus E11.42 ; Viral URI J06.9 and Encounter for immunization Z23 [place] [address] [place] [id number] [place] [address] 55178- 4215 Feb, SOB (shortness of breath) R06.02 and Diabetic polyneuropathy associated with type 2 diabetes mellitus E11.42 [facility] [address] [place] [id number] [place] [address] 86659- 4278 Jan, 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 [facility] [address] [place] [id number] [place] [address] 87195- 2075 Jan, [facility] [address] [place] [id number] [place] [address] 80899- 8743 Jan, [place] [address] [place] [address] 28846- 3450 Jan, Diabetic polyneuropathy associated with type 2 diabetes mellitus E11.42 ; 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9 [place] [address] [place] [id number] [place] [address] 84255- 7084 Nov, Diabetic polyneuropathy associated with type 2 diabetes mellitus E11.42 [place] [address] [place] [id number] [place] [address] 88891- 6110 Nov, 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 [place] [address] [place] [id number] [place] [address] 49173- 6218 Nov, 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 [place] [address] [place] [id number] [place] [address] 30643- 5878 October, 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 [place] [address] [place] [address] 96373- 8917 Aug, Diabetic polyneuropathy associated with type 2 diabetes mellitus E11.42 IMMUNIZATIONS No Known Immunizations SOCIAL HISTORY Never Assessed REASON FOR VISIT [facility] follow up [facility] PLAN OF CARE Activity Details Follow Up 4 Weeks Reason:anemia VITAL SIGNS Height 65 in 2017-10-11 Weight 182 lbs 2017-10-11 Temperature 98 degrees Fahrenheit 2017-10-11 Heart Rate 90 bpm 2017-10-11 Respiratory Rate 20 2017-10-11 BMI 30.28 kg/m2 2017-10-11 Blood pressure systolic 130 mmHg 2017-10-11 Blood pressure diastolic 74 mmHg 2017-10-11 MEDICATIONS Medication Instructions Dosage Frequency Start Date End Date Duration Status Lisinopril 20 MG Orally at bedtime 1 tablet Active Ciprofloxacin HCl 500 mg Orally twice a day 2 tablets 12h 18 Sep, 2017 Sep, Active Lovastatin 20 MG Orally at bedtime 1 tablet Active CloNIDine HCl ER 0.1 MG Orally 2 times a day 1 tablet 12h Active Furosemide 40 mg 1 tablet 24h 30 Active Aspirin EC 81 MG Orally Once a day 1 tablet 24h Active Metoprolol Tartrate 25 MG Orally Twice a day 1 tablet with food 12h Active Lyrica 75 MG Orally 3 times a day 1 capsule 8h Active Allopurinol 100 mg Orally 2 times a day 1 tablet 12h October, 30 day(s) Active Klor-Con M20 20 meq Orally Once a day 1 tablet with food 24h Active Diltiazem HCl 240 mg Orally Once a day 1 capsule 24h Active Lantus 100 unit/ml 20 units 24h Active Metformin HCl 500 MG Orally 3 times a day 1 tablet 8h Active Albuterol Sulfate (2.5 MG/3ML) 0.083% Inhalation every 4 hrs 3 ml as needed 4h Active RESULTS No Results PROCEDURES No Known [...]
--- OUTSIDE RECORDS SUMMARY | 2018-04-24 08:28 | XMS REPORT ---
Author Author PATRICIASITA [facility] Address [address] [place] [address] Care Team Providers Care Animal Attendant Name Role Phone SITA GOMEZ Unavailable PROBLEMS Type Condition ICD9-CM Code CMA56-TK Code Onset Dates Condition Status SNOMED Code Problem Diabetic polyneuropathy associated with type 2 diabetes mellitus E11.42 Active 12343489 Problem Hypertension, benign I10 Active 18061109 Problem Seasonal allergic rhinitis due to other allergic trigger J30.89 Active 184542223 Problem Controlled type 2 diabetes mellitus without complication, without long -term current use of insulin E11.9 Active 667809807 Problem 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 Active 68035492 Problem Type 2 diabetes mellitus with diabetic neuropathy, without long-term current use of insulin E11.40 Active 83771383 Problem Primary insomnia F51.01 Active 1820399 ALLERGIES No Information ENCOUNTERS Encounter Location Date Diagnosis [place] [address] [address] Nov, Type 2 diabetes mellitus with diabetic neuropathy, without long-term current use of insulin E11.40 [facility] [address] [place] [id number] [place] [address] 02180- 8921 Nov, 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 [facility] [address] [place] [id number] [place] [address] 86500- 7990 October, Type 2 diabetes mellitus with diabetic neuropathy, without long-term current use of insulin E11.40 ; Seasonal allergic rhinitis due to other allergic trigger J30.89 and Hypertension, benign I10 [facility] [address] [place] [id number] [place] [address] 08152- 7502 October, Diabetic polyneuropathy associated with type 2 diabetes mellitus E11.42 [facility] [address] [place] [id number] [place] [address] 63135- 6649 October, Diabetic polyneuropathy associated with type 2 diabetes mellitus E11.42 [facility] [address] [place] [id number] [place] [address] 06659- 5098 Sep, Type 2 diabetes mellitus with diabetic neuropathy, without long-term current use of insulin E11.40 [facility] [address] [place] [id number] [place] [address] 31383- 8740 Sep, [facility] [address] 49963- 7320 Sep, [facility] [address] 84858- 1772 Sep, 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 [place] [address] 34498- 7821 Jul, [facility] [address] 11116- 7805 Jul, Diabetic polyneuropathy associated with type 2 diabetes mellitus E11.42 and Primary insomnia F51.01 [place] [address] 41982- 2311 Jul, Diabetic polyneuropathy associated with type 2 diabetes mellitus E11.42 ; Viral URI J06.9 and Encounter for immunization Z23 [place] [address] [place] [id number] [place] [address] 29609- 2394 Feb, SOB (shortness of breath) R06.02 and Diabetic polyneuropathy associated with type 2 diabetes mellitus E11.42 [facility] [address] [place] [id number] [place] [address] 33722- 5624 Jan, 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 [facility] [address] [place] [id number] [place] [address] 92553- 1943 Jan, [facility] [address] [place] [id number] [place] [address] 11517- 6314 Jan, [place] [address] [address] 59[address] Jan, Diabetic polyneuropathy associated with type 2 diabetes mellitus E11.42 ; 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 ; Renal insufficiency N28.9 and Anemia due to other cause, not classified D64.89 [place] [address] [place] [id number] [place] [address] 78253- 6844 Dec, SOB (shortness of breath) R06.02 ; Localized edema R60.0 and Controlled type 2 diabetes mellitus without complication, without long-term current use of insulin E11.9 [place] [address] [place] [id number] [place] [address] 57259- 4337 Dec, SOB (shortness of breath) R06.02 ; Localized edema R60.0 and Controlled type 2 diabetes mellitus without complication, without long-term current use of insulin E11.9 [place] [address] [place] [id number] [place] [address] 84010- 1471 Nov, Diabetic polyneuropathy associated with type 2 diabetes mellitus E11.42 [place] [address] [place] [id number] [place] [address] 02775- 2436 Nov, 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 [place] [address] [place] [id number] [place] [address] 72666- 8105 Nov, 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 [place] [address] [place] [id number] [place] [address] 02687- 3084 October, 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 [place] [address] [place] [id number] [place] [address] 75428- 7977 Aug, Diabetic polyneuropathy associated with type 2 diabetes mellitus E11.42 IMMUNIZATIONS No Known Immunizations SOCIAL HISTORY Never Assessed REASON FOR VISIT Hospital admit/DC PLAN OF CARE VITAL SIGNS MEDICATIONS Medication Instructions Dosage Frequency Start Date End Date Duration Status Lisinopril 20 MG Orally at bedtime 1 tablet Active Furosemide 40 mg 1 tablet 24h 30 Active Lovastatin 20 MG Orally at bedtime 1 tablet Active CloNIDine HCl ER 0.1 MG Orally 2 times a day 1 tablet 12h Active Allopurinol 100 mg Orally 2 times a day 1 tablet 12h October, 30 day(s) Active Lyrica 50 mg Orally Three times a day 1 capsule 8h Active Metoprolol Tartrate 25 MG Orally Twice a day 1 tablet with food 12h Active Klor-Con M20 20 meq Orally Once a day 1 tablet with food 24h Active Aspirin EC 81 MG Orally Once a day 1 tablet 24h Active Albuterol Sulfate (2.5 MG/3ML) 0.083% Inhalation every 4 hrs 3 ml as needed 4h Active Metformin HCl 500 MG Orally 3 times a day 1 tablet 8h Active Lantus 100 unit/ml 20 units 24h Active Ciprofloxacin HCl 500 mg Orally twice a day 2 tablets 12h Sep, Sep, Active Diltiazem HCl 240 MG Orally at bedtime 1 capsule Active RESULTS No Results PROCEDURES No Known [...]
--- OUTSIDE RECORDS SUMMARY | 2018-04-24 08:28 | XMS REPORT ---
Author Author ARNEL MILES Organization [facility] Address [address] [place] [address] Care Team Providers Care Online Content Editor Name Role Phone ARNEL MILES Unavailable PROBLEMS Type Condition ICD9-CM Code KKA43-IN Code Onset Dates Condition Status SNOMED Code Problem Diabetic polyneuropathy associated with type 2 diabetes mellitus E11.42 Active 00020096 Problem Hypertension, benign I10 Active 68375473 Problem Seasonal allergic rhinitis due to other allergic trigger J30.89 Active 896238605 Problem Controlled type 2 diabetes mellitus without complication, without long -term current use of insulin E11.9 Active 896120018 Problem 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 Active 99382565 Problem Type 2 diabetes mellitus with diabetic neuropathy, without long-term current use of insulin E11.40 Active 46083466 Problem Primary insomnia F51.01 Active 2301527 ALLERGIES No Known Allergies ENCOUNTERS Encounter Location Date Diagnosis [place] [id number] [place] [id number] [place] [address] 41341- 6872 Jan, Bilious vomiting with nausea R11.14 ; Chronic pruritic rash in adult L29.8 and Seborrheic keratoses L82.1 [place] [id number] [place] [address] 79884- 0830 Nov, Type 2 diabetes mellitus with diabetic neuropathy, without long-term current use of insulin E11.40 [facility] [address] [place] [address] 55647- 3240 Nov, 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 [facility] [address] [address] [id number] [place] [address] 54382- 7439 October, Type 2 diabetes mellitus with diabetic neuropathy, without long-term current use of insulin E11.40 ; Seasonal allergic rhinitis due to other allergic trigger J30.89 and Hypertension, benign I10 [place] [address] [place] [address] 50726- 2251 October, Diabetic polyneuropathy associated with type 2 diabetes mellitus E11.42 [facility] [id number] [place] [address] 96306- 8236 October, Diabetic polyneuropathy associated with type 2 diabetes mellitus E11.42 [facility] [address] [place] [address] [id number] [place] [address] 08383- 5606 Sep, Type 2 diabetes mellitus with diabetic neuropathy, without long-term current use of insulin E11.40 [facility] [id number] [place] [address] 63008- 9450 Sep, [facility] [id number] [place] [address] 90343- 1864 Sep, [facility] [address] [id number] [place] [address] 97814- 9678 Sep, 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 [facility] [id number] [place] [address] 29921- 0462 Jul, [facility] [address] [place] [address] [id number] [place] [address] 75642- 6797 Jul, Diabetic polyneuropathy associated with type 2 diabetes mellitus E11.42 and Primary insomnia F51.01 [facility] [id number] [place] [address] 06374- 9039 Jul, Diabetic polyneuropathy associated with type 2 diabetes mellitus E11.42 ; Viral URI J06.9 and Encounter for immunization Z23 [facility] [id number] [place] [address] 15221- 3749 Feb, SOB (shortness of breath) R06.02 and Diabetic polyneuropathy associated with type 2 diabetes mellitus E11.42 [facility] [id number] [place] [address] 59549- 8702 Jan, 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 [facility] [address] [address] 8[address] Jan, [place] [address] [place] [id number] [place] [address] 29577- 1789 Jan, [place] [address] [place] [id number] [place] [address] 33237- 4603 Jan, Diabetic polyneuropathy associated with type 2 diabetes mellitus E11.42 ; 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 ; Renal insufficiency N28.9 and Anemia due to other cause, not classified D64.89 [place] [address] [address] Dec, SOB (shortness of breath) R06.02 ; Localized edema R60.0 and Controlled type 2 diabetes mellitus without complication, without long-term current use of insulin E11.9 [place] [address] [place] [address] 79739- 1479 Dec, SOB (shortness of breath) R06.02 ; Localized edema R60.0 and Controlled type 2 diabetes mellitus without complication, without long-term current use of insulin E11.9 [place] [id number] [place] [address] 90649- 5013 Nov, Diabetic polyneuropathy associated with type 2 diabetes mellitus E11.42 [place] [address] [address] 6315 Nov, 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 [place] [address] [place] [address] 95413- 9926 Nov, 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 [place] [address] [place] [address] 45831- 8126 October, 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 [place] [address] [place] [address] 39920- 9602 Aug, Diabetic polyneuropathy associated with type 2 diabetes mellitus E11.42 IMMUNIZATIONS No Known Immunizations SOCIAL HISTORY Never Assessed REASON FOR VISIT anemia, PT says she is her due to a cough and lyrica no longer works-Bipin JJ PLAN OF CARE Activity Details Follow Up 2 Months Reason:dm2 VITAL SIGNS Height 65 in 2017-11-11 Weight 182.6 lbs 2017-11-11 Temperature 98.0 degrees Fahrenheit 2017-11-11 Heart Rate 80 bpm 2017-11-11 Respiratory Rate 18 2017-11-11 BMI 30.38 kg/m2 2017-11-11 Blood pressure systolic 116 mmHg 2017-11-11 Blood pressure diastolic 58 mmHg 2017-11-11 MEDICATIONS Medication Instructions Dosage Frequency Start Date End Date Duration Status Furosemide 40 mg 1 tablet 24h 30 Active Tessalon Perles 100 mg Orally Three times a day 1 capsule as needed 8h October, Active Diltiazem HCl 240 mg/24 hours Orally Once a day 1 capsule 24h Active CloNIDine HCl ER 0.1 MG Orally 2 times a day 1 tablet 12h Active Metoprolol Tartrate 25 MG Orally Twice a day 1 tablet with food 12h Active Metformin HCl 850 MG Orally 2 times a day 1 tablet 12h Active Lyrica 100 MG Orally 3 times a day 1 capsule 8h Active Albuterol Sulfate (2.5 MG/3ML) 0.083% Inhalation every 4 hrs 3 ml as needed 4h Active Qvar 40 MCG/ACT Inhalation Twice a day 1 puff 12h October, Active Klor-Con M20 20 meq Orally Once a day 1 tablet with food 24h Active Allopurinol 100 mg Orally 2 times a day 1 tablet 12h October, 30 day(s) Active Lisinopril 20 mg Orally at bedtime 1 tablet Active Lovastatin 20 mg Orally Once a day, at bed time 1 tablet Active Insulin Detemir 100 UNIT/ML Subcutaneous Once a day Inject 20 units 24h October, 30 days Active Aspirin EC 81 MG Orally Once a day 1 tablet 24h Active RESULTS Name Result Date Reference Range A1C (IN HOUSE) 2017-11-11 A1C IN HOUSE 6.9 4.3 - 5.6 % Previous A1c 7.3 Lot 856 Exp date 08/3029 PROCEDURES Procedure Date Ordered Result Body Site GLYCATED HEMOGLOBIN TEST November 11, 2017 INSTRUCTIONS MEDICATIONS ADMINISTERED No Known Medications [...]
--- OUTSIDE RECORDS SUMMARY | 2018-04-24 08:28 | XMS REPORT ---
Author Author ARNEL MILES Organization [facility] Address [address] [place] [address] Care Team Providers Care Braid Cutter Name Role Phone ARNEL MILES Unavailable PROBLEMS Type Condition ICD9-CM Code [id number]-[id number] Code Onset Dates Condition Status SNOMED Code Problem Diabetic polyneuropathy associated with type 2 diabetes mellitus E11.42 Active 41413471 Problem Hypertension, benign I10 Active 71823321 Problem Seasonal allergic rhinitis due to other allergic trigger J30.89 Active 750044357 Problem Controlled type 2 diabetes mellitus without complication, without long -term current use of insulin E11.9 Active 095953681 Problem 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 Active 50891456 Problem Type 2 diabetes mellitus with diabetic neuropathy, without long-term current use of insulin E11.40 Active 33623259 Problem Primary insomnia F51.01 Active 8232672 ALLERGIES No Information ENCOUNTERS Encounter Location Date Diagnosis [place] [id number] [address]- [address]248 Nov, Type 2 diabetes mellitus with diabetic neuropathy, without long-term current use of insulin E11.40 [facility] [address] [place] [id number] [place] [address] 07365- 8372 Nov, 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42 [place] [address] [place] [id number] [place] [address] 15315- 7652 Sep, Type 2 diabetes mellitus with diabetic neuropathy, without long-term current use of insulin E11.40 [facility] [address] [place] [id number] [place] [address] 73131- 5529 Sep, [facility] [address] [place] [id number] [place] [address] 37231- 4799 Sep, [facility] [address] [place] [id number] [place] [address] 92056- 3795 Sep, 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 [place] [address] [place] [id number] [place] [address] 62981- 8174 Jul, [place] [address] [place] [id number] [place] [address] 02628- 9906 Jul, Diabetic polyneuropathy associated with type 2 diabetes mellitus E11.42 and Primary insomnia F51.01 [place] [address] [place] [id number] [place] [address] 44264- 3223 Jul, Diabetic polyneuropathy associated with type 2 diabetes mellitus E11.42 ; Viral URI J06.9 and Encounter for immunization Z23 [place] [address] [place] [id number] [place] [address] 30811- 6500 Feb, SOB (shortness of breath) R06.02 and Diabetic polyneuropathy associated with type 2 diabetes mellitus E11.42 [facility] [address] [place] [id number] [place] [address] 52304- 4169 Jan, 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 [facility] [address] [place] [id number] [place] [address] 09774- 7092 Jan, [facility] [address] [place] [id number] [place] [address] 24184- 3355 Jan, [place] [address] [place] [address] 27845- 4136 Jan, Diabetic polyneuropathy associated with type 2 diabetes mellitus E11.42 ; 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 ; Renal insufficiency N28.9 and Anemia due to other cause, not classified D64.89 [place] [address] [place] [id number] [place] [address] 33679- 9000 Dec, SOB (shortness of breath) R06.02 ; Localized edema R60.0 and Controlled type 2 diabetes mellitus without complication, without long-term current use of insulin E11.9 [place] [address] [place] [id number] [place] [address] 95595- 4959 Dec, SOB (shortness of breath) R06.02 ; Localized edema R60.0 and Controlled type 2 diabetes mellitus without complication, without long-term current use of insulin E11.9 [place] [address] [place] [id number] [place] [address] 54132- 5171 Nov, Diabetic polyneuropathy associated with type 2 diabetes mellitus E11.42 [place] [address] [place] [id number] [place] [address] 78925- 1068 Nov, 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 [place] [address] [place] [id number] [place] [address] 88814- 1275 Nov, 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 [place] [address] [place] [id number] [place] [address] 05116- 4244 October, 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
--- OUTSIDE RECORDS SUMMARY | 2018-04-24 08:28 | XMS REPORT ---
Author Author ARNEL MILES Organization [facility] Address [address] [place] [address] Care Team Providers Care Traffic Signal Supervisor Maintenance Name Role Phone ARNEL MILES Unavailable PROBLEMS Type Condition ICD9-CM Code ZUD37-DB Code Onset Dates Condition Status SNOMED Code Problem Diabetic polyneuropathy associated with type 2 diabetes mellitus E11.42 Active 00499501 Problem Hypertension, benign I10 Active 81797879 Problem Seasonal allergic rhinitis due to other allergic trigger J30.89 Active 892970278 Problem Controlled type 2 diabetes mellitus without complication, without long -term current use of insulin E11.9 Active 996648241 Problem 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 Active 07749250 Problem Type 2 diabetes mellitus with diabetic neuropathy, without long-term current use of insulin E11.40 Active 17440853 Problem Primary insomnia F51.01 Active 2634759 ALLERGIES No Information ENCOUNTERS Encounter Location Date Diagnosis [place] [address] 6[address]- 9969 Nov, Type 2 diabetes mellitus with diabetic neuropathy, without long-term current use of insulin E11.40 [facility] [address] [place] [id number] [place] [address] 55194- 7345 Nov, 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 [facility] [address] 47310- 4620 October, Type 2 diabetes mellitus with diabetic neuropathy, without long-term current use of insulin E11.40 ; Seasonal allergic rhinitis due to other allergic trigger J30.89 and Hypertension, benign I10 [facility] [address] [place] [id number] [place] [address] 75279- 5553 October, Diabetic polyneuropathy associated with type 2 diabetes mellitus E11.42 [facility] [address] 72657- 3968 October, Diabetic polyneuropathy associated with type 2 diabetes mellitus E11.42 [place] [address] [place] [id number] [place] [address] 24432- 9563 Sep, Type 2 diabetes mellitus with diabetic neuropathy, without long-term current use of insulin E11.40 [facility] [address] [place] [id number] [place] [address] 51395- 5147 Sep, [facility] [address] [place] [id number] [place] [address] 66264- 9658 Sep, [facility] [address] [place] [id number] [place] [address] 65714- 3868 Sep, 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 [place] [address] [place] [id number] [place] [address] 46040- 7502 Jul, [place] [address] [place] [id number] [place] [address] 99855- 3828 Jul, Diabetic polyneuropathy associated with type 2 diabetes mellitus E11.42 and Primary insomnia F51.01 [place] [address] [place] [id number] [place] [address] 13636- 8280 Jul, Diabetic polyneuropathy associated with type 2 diabetes mellitus E11.42 ; Viral URI J06.9 and Encounter for immunization Z23 [place] [address] [place] [id number] [place] [address] 60467- 9686 Feb, SOB (shortness of breath) R06.02 and Diabetic polyneuropathy associated with type 2 diabetes mellitus E11.42 [facility] [address] [place] [id number] [place] [address] 53045- 1279 Jan, 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 [facility] [address] [place] [id number] [place] [address] 83272- 1526 Jan, [facility] [address] [place] [id number] [place] [address] 07044- 4283 Jan, [place] [address] [place] [address] 96116- 5634 Jan, Diabetic polyneuropathy associated with type 2 diabetes mellitus E11.42 ; 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 ; Renal insufficiency N28.9 and Anemia due to other cause, not classified D64.89 [place] [address] [place] [id number] [place] [address] 64025- 4640 Dec, SOB (shortness of breath) R06.02 ; Localized edema R60.0 and Controlled type 2 diabetes mellitus without complication, without long-term current use of insulin E11.9 [place] [address] [place] [id number] [place] [address] 33505- 0575 Dec, SOB (shortness of breath) R06.02 ; Localized edema R60.0 and Controlled type 2 diabetes mellitus without complication, without long-term current use of insulin E11.9 [place] [address] [place] [id number] [place] [address] 35635- 3957 Nov, Diabetic polyneuropathy associated with type 2 diabetes mellitus E11.42 [place] [address] [place] [id number] [place] [address] 00851- 5721 Nov, 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 [place] [address] [place] [id number] [place] [address] 57638- 0275 Nov, 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 [place] [address] [place] [id number] [place] [address] 14783- 1792 October, 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 [place] [address] [place] [id number] [place] [address] 24438- 9253 Aug, Diabetic polyneuropathy associated with type 2 diabetes mellitus E11.42 IMMUNIZATIONS Vaccine Route Administration Date Status TORADOL (IM) 60 MG/2ML (UP TO 15 MG) IM Intramuscular September 21, 2017 Administered SOCIAL HISTORY Never Assessed REASON FOR VISIT Injection- LINN Newsome, Requesting shot for her gout, Per Ralph - Toradol 60mg IM PLAN OF CARE Activity Details Follow Up prn Reason: VITAL SIGNS MEDICATIONS Unknown Medications RESULTS No Results PROCEDURES Procedure Date Ordered Result Body Site TORADOL (IM) 60 MG/2ML (UP TO 15 MG) September 21, 2017 THER/PROPH/DIAG INJ, SC/IM September 21, 2017 INSTRUCTIONS MEDICATIONS ADMINISTERED No Known Medications [...]
[2018-04-24] MEDS ORDERED: RT-ALBUTEROL/IPRATROPIUM 3 ML (DUONEB) VIAL ONE (08:29)
--- OUTSIDE RECORDS SUMMARY | 2018-04-24 08:29 | XMS REPORT ---
Author Author ARNEL MILES Organization [facility] Address [address] [place] [address] Care Team Providers Care Carpenter Railcar Name Role Phone ARNEL MILES Unavailable PROBLEMS Type Condition ICD9-CM Code AMK37-ML Code Onset Dates Condition Status SNOMED Code Problem Diabetic polyneuropathy associated with type 2 diabetes mellitus E11.42 Active 13444810 Problem Hypertension, benign I10 Active 12065995 Problem Seasonal allergic rhinitis due to other allergic trigger J30.89 Active 478697051 Problem Controlled type 2 diabetes mellitus without complication, without long -term current use of insulin E11.9 Active 765436050 Problem 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 Active 79468140 Problem Type 2 diabetes mellitus with diabetic neuropathy, without long-term current use of insulin E11.40 Active 91302100 Problem Primary insomnia F51.01 Active 1389163 ALLERGIES No Known Allergies ENCOUNTERS Encounter Location Date Diagnosis [place] [id number] [address] Nov, Type 2 diabetes mellitus with diabetic neuropathy, without long-term current use of insulin E11.40 [facility] [address] [place] [id number] [place] [address] 29896- 5547 Nov, 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 [facility] [address] [place] [id number] [place] [address] 10255- 5599 October, Type 2 diabetes mellitus with diabetic neuropathy, without long-term current use of insulin E11.40 ; Seasonal allergic rhinitis due to other allergic trigger J30.89 and Hypertension, benign I10 [facility] [address] [place] [id number] [place] [address] 22694- 8498 October, Diabetic polyneuropathy associated with type 2 diabetes mellitus E11.42 [facility] [address] [place] [id number] [place] [address] 42842- 1105 October, Diabetic polyneuropathy associated with type 2 diabetes mellitus E11.42 [place] [address] [place] [id number] [place] [address] 11740- 4002 Sep, Type 2 diabetes mellitus with diabetic neuropathy, without long-term current use of insulin E11.40 [facility] [address] [place] [id number] [place] [address] 85089- 0295 Sep, [facility] [address] [place] [id number] [place] [address] 63458- 9552 Sep, [facility] [address] [place] [id number] [place] [address] 13570- 3586 Sep, 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 [place] [address] [place] [id number] [place] [address] 95618- 8269 Jul, [place] [address] [place] [id number] [place] [address] 91634- 4012 Jul, Diabetic polyneuropathy associated with type 2 diabetes mellitus E11.42 and Primary insomnia F51.01 [place] [address] [place] [id number] [place] [address] 67174- 0680 Jul, Diabetic polyneuropathy associated with type 2 diabetes mellitus E11.42 ; Viral URI J06.9 and Encounter for immunization Z23 [place] [address] [place] [id number] [place] [address] 83758- 4507 Feb, SOB (shortness of breath) R06.02 and Diabetic polyneuropathy associated with type 2 diabetes mellitus E11.42 [facility] [address] [place] [id number] [place] [address] 43180- 3013 Jan, 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 [facility] [address] [place] [id number] [place] [address] 46681- 7512 Jan, [facility] [address] [place] [id number] [place] [address] 93313- 7265 Jan, [place] [id number] [place] [address] 23539- 6838 Jan, Diabetic polyneuropathy associated with type 2 diabetes mellitus E11.42 ; 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 ; Renal insufficiency N28.9 and Anemia due to other cause, not classified D64.89 [place] [address] [place] [id number] [place] [address] 34846- 4894 Dec, SOB (shortness of breath) R06.02 ; Localized edema R60.0 and Controlled type 2 diabetes mellitus without complication, without long-term current use of insulin E11.9 [place] [address] [place] [id number] [place] [address] 93250- 1793 Dec, SOB (shortness of breath) R06.02 ; Localized edema R60.0 and Controlled type 2 diabetes mellitus without complication, without long-term current use of insulin E11.9 [place] [address] [place] [id number] [place] [address] 24343- 9681 Nov, Diabetic polyneuropathy associated with type 2 diabetes mellitus E11.42 [place] [address] [place] [id number] [place] [address] 97506- 3924 Nov, 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 [place] [address] [place] [id number] [place] [address] 38663- 0248 Nov, 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 [place] [address] [place] [id number] [place] [address] 81817- 4868 October, 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 [place] [address] [place] [address] 54220- 1774 Aug, Diabetic polyneuropathy associated with type 2 diabetes mellitus E11.42 IMMUNIZATIONS Vaccine Route Administration Date Status FLUARIX QUAD (3 AND UP) 2017 IM Intramuscular Jul 26, 2017 Administered SOCIAL HISTORY Never Assessed REASON FOR VISIT Diabetes, PT has had a cough since wednesday-Bipin JJ, PT was seen at the urgent care for a knot in her right hip PLAN OF CARE VITAL SIGNS Height 65 in 2017-07-26 Weight 183.8 lbs 2017-07-26 Temperature 98.3 degrees Fahrenheit 2017-07-26 Heart Rate 88 bpm 2017-07-26 Respiratory Rate 20 2017-07-26 BMI 30.58 kg/m2 2017-07-26 Blood pressure systolic 148 mmHg 2017-07-26 Blood pressure diastolic 82 mmHg 2017-07-26 MEDICATIONS Medication Instructions Dosage Frequency Start Date End Date Duration Status [place] 10-325 MG Orally 2 times a day 1 tablet as needed 12h Jul, Aug, 28 days Active Amitriptyline HCl 100 mg Orally at bedtime 2 tablets Active glyburide 5 mg Oral 3 times a day 1 tablet 8h Active Metoprolol Succinate 100 MG Orally 2 times a day 1 tablet 12h Active Lisinopril 20 MG Orally at bedtime 1 tablet Active Lantus 100 unit/ml 20 units 24h Active Furosemide 40 mg 1 tablet 24h 30 Active CloNIDine HCl ER 0.1 MG Orally at bedtime 1 tablet Active Allopurinol 100 mg Orally 2 times a day 1 tablet 12h October, 30 day(s) Active Metformin HCl 500 MG Orally 3 times a day 1 tablet 8h Active Amoxicillin Active Diltiazem HCl 240 MG Orally Once a day 1 capsule on an empty stomach in the morning 24h Active Lovastatin 20 MG Orally at bedtime 1 tablet Active Klor-Con M20 20 meq Orally Once a day 1 tablet with food 24h Active RESULTS No Results PROCEDURES Procedure Date Ordered Result Body Site GLYCATED HEMOGLOBIN TEST Jul 26, 2017 [facility] VISIT ESTABLISHED PATIENT Jul 26, 2017 SINGLE IMMUNIZATION ADMIN Jul 26, 2017 MICROALBUMIN, SEMIQUANT Jul 26, 2017 FLUARIX QUAD (3 AND UP) 2017 Jul 26, 2017 LAB NOT BILLED BY [facility] Jul 26, 2017 INSTRUCTIONS MEDICATIONS ADMINISTERED No Known Medications [...]
--- OUTSIDE RECORDS SUMMARY | 2018-04-24 08:29 | XMS REPORT ---
Author Author ARNEL MILES Organization [facility] Address [address] [place] [address] Care Team Providers Care Accounts Executive Name Role Phone ARNEL MILES Unavailable PROBLEMS Type Condition ICD9-CM Code EDR35-SF Code Onset Dates Condition Status SNOMED Code Problem Diabetic polyneuropathy associated with type 2 diabetes mellitus E11.42 Active 09178783 Problem Hypertension, benign I10 Active 03785831 Problem Seasonal allergic rhinitis due to other allergic trigger J30.89 Active 172753657 Problem Controlled type 2 diabetes mellitus without complication, without long -term current use of insulin E11.9 Active 421076429 Problem 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 Active 77320026 Problem Type 2 diabetes mellitus with diabetic neuropathy, without long-term current use of insulin E11.40 Active 72837736 Problem Primary insomnia F51.01 Active 5902811 ALLERGIES No Information ENCOUNTERS Encounter Location Date Diagnosis [place] [id number] [address] Nov, Type 2 diabetes mellitus with diabetic neuropathy, without long-term current use of insulin E11.40 [facility] [address] [place] [id number] [place] [address] 82008- 4637 Nov, 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 [facility] [address] 10873- 0976 October, Type 2 diabetes mellitus with diabetic neuropathy, without long-term current use of insulin E11.40 ; Seasonal allergic rhinitis due to other allergic trigger J30.89 and Hypertension, benign I10 [facility] [address] [place] [id number] [place] [address] 10580- 1462 October, Diabetic polyneuropathy associated with type 2 diabetes mellitus E11.42 [facility] [address] [address]- 5[address] October, Diabetic polyneuropathy associated with type 2 diabetes mellitus E11.42 [place] [address] [place] [id number] [place] [address] 46316- 1966 Sep, Type 2 diabetes mellitus with diabetic neuropathy, without long-term current use of insulin E11.40 [facility] [address] [place] [id number] [place] [address] 76303- 1467 Sep, [facility] [address] [place] [id number] [place] [address] 12333- 0826 Sep, [facility] [address] [place] [id number] [place] [address] 35561- 8299 Sep, 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 [place] [address] [place] [id number] [place] [address] 84566- 2351 Jul, [place] [address] [place] [id number] [place] [address] 64630- 8274 Jul, Diabetic polyneuropathy associated with type 2 diabetes mellitus E11.42 and Primary insomnia F51.01 [place] [address] [place] [id number] [place] [address] 84537- 9504 Jul, Diabetic polyneuropathy associated with type 2 diabetes mellitus E11.42 ; Viral URI J06.9 and Encounter for immunization Z23 [place] [address] [place] [id number] [place] [address] 49815- 2541 Feb, SOB (shortness of breath) R06.02 and Diabetic polyneuropathy associated with type 2 diabetes mellitus E11.42 [facility] [address] [place] [id number] [place] [address] 66290- 3183 Jan, 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 [facility] [address] [place] [id number] [place] [address] 44023- 4153 Jan, [facility] [address] [place] [id number] [place] [address] 63120- 2125 Jan, [place] [address] [place] [address] 08893- 3695 Jan, Diabetic polyneuropathy associated with type 2 diabetes mellitus E11.42 ; 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 ; Renal insufficiency N28.9 and Anemia due to other cause, not classified D64.89 [place] [address] [place] [address] 31554- 6300 Dec, SOB (shortness of breath) R06.02 ; Localized edema R60.0 and Controlled type 2 diabetes mellitus without complication, without long-term current use of insulin E11.9 [place] [address] [place] [id number] [place] [address] 78227- 0839 Dec, SOB (shortness of breath) R06.02 ; Localized edema R60.0 and Controlled type 2 diabetes mellitus without complication, without long-term current use of insulin E11.9 [place] [address] [place] [address] 40122- 5811 Nov, Diabetic polyneuropathy associated with type 2 diabetes mellitus E11.42 [place] [address] [place] [id number] [place] [address] 17962- 3844 Nov, 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 [place] [address] [place] [id number] [place] [address] 84506- 9792 Nov, 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 [place] [address] [place] [id number] [place] [address] 04534- 1442 October, 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
--- OUTSIDE RECORDS SUMMARY | 2018-04-24 08:29 | XMS REPORT ---
Author Author ARNEL MILES Organization [facility] Address [address] [place] [address] Care Team Providers Care Pediatric Genetic Counselor Name Role Phone ARNEL MILES Unavailable PROBLEMS Type Condition ICD9-CM Code BID72-TS Code Onset Dates Condition Status SNOMED Code Problem Type 2 diabetes mellitus with diabetic neuropathy, without long-term current use of insulin E11.40 Active 34340567 Problem Primary insomnia F51.01 Active 4258907 Problem Diabetic polyneuropathy associated with type 2 diabetes mellitus E11.42 Active 95626418 Problem Controlled type 2 diabetes mellitus without complication, without long -term current use of insulin E11.9 Active 355263827 Problem 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 Active 04556605 ALLERGIES No Information ENCOUNTERS Encounter Location Date Diagnosis [facility] [address] [place] [id number] [place] [address] 52228- 0710 October, [facility] [address] [place] [id number] [place] [address] 36997- 1162 Sep, Type 2 diabetes mellitus with diabetic neuropathy, without long-term current use of insulin E11.40 [facility] [address] [place] [id number] [place] [address] 97546- 2998 Sep, [facility] [address] [place] [id number] [place] [address] 90830- 4735 Sep, [facility] [address] [place] [id number] [place] [address] 79990- 6497 Sep, 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 [facility] [address] [place] [id number] [place] [address] 58834- 6119 Jul, [facility] [address] [place] [id number] [place] [address] 65015- 1519 Jul, Diabetic polyneuropathy associated with type 2 diabetes mellitus E11.42 and Primary insomnia F51.01 [place] [address] [place] [id number] [place] [address] 69219- 4436 Jul, Diabetic polyneuropathy associated with type 2 diabetes mellitus E11.42 ; Viral URI J06.9 and Encounter for immunization Z23 [place] [address] [place] [id number] [place] [address] 15385- 3912 Feb, SOB (shortness of breath) R06.02 and Diabetic polyneuropathy associated with type 2 diabetes mellitus E11.42 [place] [address] [place] [id number] [place] [address] 45443- 3613 Jan, 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 [place] [address] [place] [id number] [place] [address] 62292- 6398 Jan, [place] [address] 47174- 4837 Jan, [place] [address] [place] [id number] [place] [address] 16465- 4486 Jan, Diabetic polyneuropathy associated with type 2 diabetes mellitus E11.42 ; 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9 [place] [address] [place] [id number] [place] [address] 88952- 4380 Nov, Diabetic polyneuropathy associated with type 2 diabetes mellitus E11.42 [facility] [address] [facility] [id number] [id number]- 5711 Nov, 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 [facility] [address] [facility] [id number] [address]- 6076 Nov, 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 [facility] [address] [facility] [id number] [address]- 8977 October, 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
--- OUTSIDE RECORDS SUMMARY | 2018-04-24 08:31 | XMS REPORT | Continuity of Care Document ---
Author Author [facility] Organization [facility] Address Unknown Phone Unavailable Allergies Active Description Code Type Severity Reaction Onset Reported/Identified Relationship to Patient Clinical Status Yes No Known Drug Allergies [id number] Drug Allergy Unknown N/A 06/11/2015 Medications There [...] ADULT 06/12/2015 YAEL PEPPER MD Ot Z79.4 TONGUE CARRIER (CURRENT) USE OF INSULIN 06/12/2015 YAEL PEPPER [...] Ot R10.12 LEFT UPPER QUADRANT PAIN 08/10/2016 MAKR LUO QUALITY ASSURANCE SUPERVISOR FINAL Ot R16.0 HEPATOMEGALY, NOT ELSEWHERE CLASSIFIED 08/10/2016 MARK LUO QUALITY ASSURANCE SUPERVISOR FINAL Ot R63.5 ABNORMAL WEIGHT GAIN 08/10/2016 EDUARDO SUAREZI L QUALITY ASSURANCE SUPERVISOR FINAL Ot R10.11 RIGHT UPPER QUADRANT PAIN 08/10/2016 SUAREZ, SYD L QUALITY ASSURANCE SUPERVISOR FINAL Ot R14.0 ABDOMINAL DISTENSION (GASEOUS) 08/10/2016 MARK LUO QUALITY ASSURANCE SUPERVISOR FINAL Ot R06.02 SHORTNESS OF BREATH 08/10/2016 MARK LUO QUALITY ASSURANCE SUPERVISOR FINAL Ot R10.11 RIGHT UPPER QUADRANT PAIN 08/10/2016 MARK LUO QUALITY ASSURANCE SUPERVISOR FINAL Ot R10.12 LEFT UPPER QUADRANT PAIN 08/10/2016 MARK LUO QUALITY ASSURANCE SUPERVISOR FINAL Ot R16.0 HEPATOMEGALY, NOT ELSEWHERE CLASSIFIED 08/10/2016 MARK LUO QUALITY ASSURANCE SUPERVISOR FINAL Ot R63.5 ABNORMAL WEIGHT GAIN 08/10/2016 SUAREZEDUARDO MARCELOI L QUALITY ASSURANCE SUPERVISOR FINAL Ot R10.11 RIGHT UPPER QUADRANT PAIN 08/10/2016 SUAREZ, SYD L QUALITY ASSURANCE SUPERVISOR FINAL Ot R14.0 ABDOMINAL DISTENSION (GASEOUS) 08/11/2016 YAEL [...] WITHOUT 08/11/2016 YAEL PEPPER MD Ot Z79.4 PENITENTIARY (CURRENT) USE OF INSULIN 08/11/2016 YAEL PEPPER MD Ot Z79.899 OTHER TONGUE CARRIER (CURRENT) DRUG THERAPY 08/11/2016 YAEL PEPPER MD [...] WITHOUT 08/11/2016 YAEL PEPPER MD Ot Z79.4 PENITENTIARY (CURRENT) USE OF INSULIN 08/11/2016 YAEL PEPPER MD Ot Z79.899 OTHER PENITENTIARY (CURRENT) DRUG THERAPY 08/11/2016 YAEL PEPPER MD [...] WITHOUT 08/11/2016 YAEL PEPPER MD Ot Z79.4 TONGUE CARRIER (CURRENT) USE OF INSULIN 08/11/2016 YAEL PEPPER MD Ot Z79.899 OTHER PENITENTIARY (CURRENT) DRUG THERAPY 08/11/2016 YAEL PEPPER MD Ot Z87.891 PERSONAL HISTORY OF NICOTINE DEPENDENCE 08/21/2016 MARK LUO QUALITY ASSURANCE SUPERVISOR FINAL Ot R06.02 SHORTNESS OF BREATH 08/21/2016 MARK LUO QUALITY ASSURANCE SUPERVISOR FINAL Ot R10.11 RIGHT UPPER QUADRANT PAIN 08/21/2016 MARK LUO QUALITY ASSURANCE SUPERVISOR FINAL Ot R10.12 LEFT UPPER QUADRANT PAIN 08/21/2016 MARK LUO QUALITY ASSURANCE SUPERVISOR FINAL Ot R16.0 HEPATOMEGALY, NOT ELSEWHERE CLASSIFIED 08/21/2016 MARK LUO M QUALITY ASSURANCE SUPERVISOR FINAL Ot R63.5 ABNORMAL WEIGHT GAIN 08/26/2016 SUAREZ, SYD L QUALITY ASSURANCE SUPERVISOR FINAL Ot R10.11 RIGHT UPPER QUADRANT PAIN 08/26/2016 SUAREZ, SYD L QUALITY ASSURANCE SUPERVISOR FINAL Ot R14.0 ABDOMINAL DISTENSION (GASEOUS) 09/07/2016 SUAREZ, SYD L QUALITY ASSURANCE SUPERVISOR FINAL Ot R10.11 RIGHT UPPER QUADRANT PAIN 09/07/2016 SUAREZ, SYD L QUALITY ASSURANCE SUPERVISOR FINAL Ot R14.0 ABDOMINAL DISTENSION (GASEOUS) 09/07/2016 PUJA MARK M QUALITY ASSURANCE SUPERVISOR FINAL Ot R06.02 SHORTNESS OF BREATH 09/07/2016 GUSTABO LUOA M QUALITY ASSURANCE SUPERVISOR FINAL Ot R10.11 RIGHT UPPER QUADRANT PAIN 09/07/2016 PUJA MARK M QUALITY ASSURANCE SUPERVISOR FINAL Ot R10.12 LEFT UPPER QUADRANT PAIN 09/07/2016 GUSTABO LUOA M QUALITY ASSURANCE SUPERVISOR FINAL Ot R16.0 HEPATOMEGALY, NOT ELSEWHERE CLASSIFIED 09/07/2016 PUJA MARK M QUALITY ASSURANCE SUPERVISOR FINAL Ot R63.5 ABNORMAL WEIGHT GAIN 09/07/2016 SUAREZ, SYD L QUALITY ASSURANCE SUPERVISOR FINAL Ot R10.11 RIGHT UPPER QUADRANT PAIN 09/07/2016 SUAREZ, SYD L QUALITY ASSURANCE SUPERVISOR FINAL Ot R14.0 ABDOMINAL DISTENSION (GASEOUS) 09/07/2016 PUJA MARK M QUALITY ASSURANCE SUPERVISOR FINAL Ot R06.02 SHORTNESS OF BREATH 09/07/2016 PUJA MARK M QUALITY ASSURANCE SUPERVISOR FINAL Ot R10.11 RIGHT UPPER QUADRANT PAIN 09/07/2016 GUSTABO LUOA M QUALITY ASSURANCE SUPERVISOR FINAL Ot R10.12 LEFT UPPER QUADRANT PAIN 09/07/2016 GUSTABO LUOA M QUALITY ASSURANCE SUPERVISOR FINAL Ot R16.0 HEPATOMEGALY, NOT ELSEWHERE CLASSIFIED 09/07/2016 GUSTABO LUOA M QUALITY ASSURANCE SUPERVISOR FINAL Ot R63.5 ABNORMAL WEIGHT GAIN 09/11/2016 GUSTABO LUOA M QUALITY ASSURANCE SUPERVISOR FINAL Ot R06.02 SHORTNESS OF BREATH 09/11/2016 GUSTABO LUOA M QUALITY ASSURANCE SUPERVISOR FINAL Ot R10.11 RIGHT UPPER QUADRANT PAIN 09/11/2016 PUJAGUSTABOA M QUALITY ASSURANCE SUPERVISOR FINAL Ot R10.12 LEFT UPPER QUADRANT PAIN 09/11/2016 GUSTABO LUOA M QUALITY ASSURANCE SUPERVISOR FINAL Ot R16.0 HEPATOMEGALY, NOT ELSEWHERE CLASSIFIED 09/11/2016 MARK LUO M QUALITY ASSURANCE SUPERVISOR FINAL Ot R63.5 ABNORMAL WEIGHT GAIN 09/11/2016 GUSTABO LUOA M QUALITY ASSURANCE SUPERVISOR FINAL Ot R06.02 SHORTNESS OF BREATH 09/11/2016 PUJA, MARK M QUALITY ASSURANCE SUPERVISOR FINAL Ot R10.11 RIGHT UPPER QUADRANT PAIN 09/11/2016 GUSTABO LUOA M QUALITY ASSURANCE SUPERVISOR FINAL Ot R10.12 LEFT UPPER QUADRANT PAIN 09/11/2016 MARK LUO M QUALITY ASSURANCE SUPERVISOR FINAL Ot R16.0 HEPATOMEGALY, NOT ELSEWHERE CLASSIFIED 09/11/2016 MARK LUO M QUALITY ASSURANCE SUPERVISOR FINAL Ot R63.5 ABNORMAL WEIGHT GAIN 09/11/2016 SUAREZ, SYD L QUALITY ASSURANCE SUPERVISOR FINAL Ot R10.11 RIGHT UPPER QUADRANT PAIN 09/11/2016 SUAREZ, SYD L QUALITY ASSURANCE SUPERVISOR FINAL Ot R14.0 ABDOMINAL DISTENSION (GASEOUS) 09/22/2016 MARK LUO M QUALITY ASSURANCE SUPERVISOR FINAL Ot R06.02 SHORTNESS OF BREATH 09/22/2016 MARK LUO M QUALITY ASSURANCE SUPERVISOR FINAL Ot R10.11 RIGHT UPPER QUADRANT PAIN 09/22/2016 MARK LUO M QUALITY ASSURANCE SUPERVISOR FINAL Ot R10.12 LEFT UPPER QUADRANT PAIN 09/22/2016 MARK LUO M QUALITY ASSURANCE SUPERVISOR FINAL Ot R16.0 HEPATOMEGALY, NOT ELSEWHERE CLASSIFIED 09/22/2016 MARK LUO M QUALITY ASSURANCE SUPERVISOR FINAL Ot R63.5 ABNORMAL WEIGHT GAIN 09/22/2016 SUAREZ, SYD L QUALITY ASSURANCE SUPERVISOR FINAL Ot R10.11 RIGHT UPPER QUADRANT PAIN 09/22/2016 SUAREZ, SYD L QUALITY ASSURANCE SUPERVISOR FINAL Ot R14.0 ABDOMINAL DISTENSION (GASEOUS) 01/12/2017 MARK LUO M QUALITY ASSURANCE SUPERVISOR FINAL Ot R06.02 SHORTNESS OF BREATH 01/12/2017 MARK LUO M QUALITY ASSURANCE SUPERVISOR FINAL Ot R10.11 RIGHT UPPER QUADRANT PAIN 01/12/2017 MARK LUO M QUALITY ASSURANCE SUPERVISOR FINAL Ot R10.12 LEFT UPPER QUADRANT PAIN 01/12/2017 MARK LUO M QUALITY ASSURANCE SUPERVISOR FINAL Ot R16.0 HEPATOMEGALY, NOT ELSEWHERE CLASSIFIED 01/12/2017 MARK LUO M QUALITY ASSURANCE SUPERVISOR FINAL Ot R63.5 ABNORMAL WEIGHT GAIN 01/12/2017 SUAREZ, SYD L QUALITY ASSURANCE SUPERVISOR FINAL Ot R10.11 RIGHT UPPER QUADRANT PAIN 01/12/2017 SUAREZ, SYD L QUALITY ASSURANCE SUPERVISOR FINAL Ot R14.0 ABDOMINAL DISTENSION (GASEOUS) 03/01/2017 NIKITA LEGGETT Ot I10 ESSENTIAL (PRIMARY) HYPERTENSION 03/01/2017 GUSTABO LUOLeanna Martinez QUALITY ASSURANCE SUPERVISOR FINAL Ot R06.02 SHORTNESS OF BREATH 03/01/2017 PUJA MARK M QUALITY ASSURANCE SUPERVISOR FINAL Ot R10.11 RIGHT UPPER QUADRANT PAIN 03/01/2017 PUJA, MARK M QUALITY ASSURANCE SUPERVISOR FINAL Ot R10.12 LEFT UPPER QUADRANT PAIN 03/01/2017 MARK LUO QUALITY ASSURANCE SUPERVISOR FINAL Ot R16.0 HEPATOMEGALY, NOT ELSEWHERE CLASSIFIED 03/01/2017 MARK LUO QUALITY ASSURANCE SUPERVISOR FINAL Ot R63.5 ABNORMAL WEIGHT GAIN 03/01/2017 SYD SUAREZ QUALITY ASSURANCE SUPERVISOR FINAL Ot R10.11 RIGHT UPPER QUADRANT PAIN 03/01/2017 SYD SUAREZ QUALITY ASSURANCE SUPERVISOR FINAL Ot R14.0 ABDOMINAL DISTENSION (GASEOUS) 03/01/2017 ROBERTO [...] MASS AND LUMP, LEFT 06/07/2017 MARK LUO QUALITY ASSURANCE SUPERVISOR FINAL Ot R06.02 SHORTNESS OF BREATH 06/07/2017 MARK LUO QUALITY ASSURANCE SUPERVISOR FINAL Ot R10.11 RIGHT UPPER QUADRANT PAIN 06/07/2017 MARK LUO QUALITY ASSURANCE SUPERVISOR FINAL Ot R10.12 LEFT UPPER QUADRANT PAIN 06/07/2017 MARK LUO QUALITY ASSURANCE SUPERVISOR FINAL Ot R16.0 HEPATOMEGALY, NOT ELSEWHERE CLASSIFIED 06/07/2017 MARK LUO QUALITY ASSURANCE SUPERVISOR FINAL Ot R63.5 ABNORMAL WEIGHT GAIN 06/07/2017 SYD SUAREZ QUALITY ASSURANCE SUPERVISOR FINAL Ot R10.11 RIGHT UPPER QUADRANT PAIN 06/07/2017 SYD SUAREZ QUALITY ASSURANCE SUPERVISOR FINAL Ot R14.0 ABDOMINAL DISTENSION (GASEOUS) 06/07/2017 NIKITA [...] R22.42 LOCALIZED SWELLING, MASS AND LUMP, LEFT 10/04/2017 JOSE HAWK, CK Carranza Ot A41.9 SEPSIS, UNSPECIFIED ORGANISM 10/04/2017 CK GARCIA MD Ot E11.42 TYPE 2 DIABETES MELLITUS WITH DIABETIC P 10/04/2017 CK GARCIA MD Ot 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 10/04/2017 CK GARCIA MD Ot G43.909 MIGRAINE, UNSP, NOT INTRACTABLE, WITHOUT 10/04/2017 CK GARCIA MD Ot H40.9 UNSPECIFIED GLAUCOMA 10/04/2017 CK GARCIA MD Ot I10 ESSENTIAL (PRIMARY) HYPERTENSION 10/04/2017 CK GARCIA MD Ot K21.9 GASTRO-ESOPHAGEAL REFLUX DISEASE WITHOUT 10/04/2017 CK GARCIA MD Ot K59.03 DRUG INDUCED CONSTIPATION 10/04/2017 CK GARCIA MD Ot N17.9 ACUTE KIDNEY FAILURE, UNSPECIFIED 10/04/2017 CK GARCIA MD R Ot R11.2 NAUSEA WITH VOMITING, UNSPECIFIED 10/04/2017 CK GARCIA MD Ot R55 SYNCOPE AND COLLAPSE 10/04/2017 CK GARCIA MD Ot R65.20 SEVERE SEPSIS WITHOUT SEPTIC SHOCK 10/04/2017 CK GARCIA MD Ot Z79.4 TONGUE CARRIER (CURRENT) USE OF INSULIN 10/04/2017 CK GARCIA MD Ot Z89.021 ACQUIRED ABSENCE OF RIGHT FINGER(S) 10/05/2017 CK GARCIA MD Ot A41.9 SEPSIS, UNSPECIFIED ORGANISM 10/05/2017 CK GARCIA MD Ot E11.42 TYPE 2 DIABETES MELLITUS WITH DIABETIC P 10/05/2017 CK GARCIA MD Ot 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 10/05/2017 CK GARCIA MD Ot G43.909 MIGRAINE, UNSP, NOT INTRACTABLE, WITHOUT 10/05/2017 CK GARCIA MD Ot H40.9 UNSPECIFIED GLAUCOMA 10/05/2017 CK GARCIA MD Ot I10 ESSENTIAL (PRIMARY) HYPERTENSION 10/05/2017 CK GARCIA MD Ot K21.9 GASTRO-ESOPHAGEAL REFLUX DISEASE WITHOUT 10/05/2017 CK GARCIA MD Ot K59.03 DRUG INDUCED CONSTIPATION 10/05/2017 CK GARCIA MD Ot N17.9 ACUTE KIDNEY FAILURE, UNSPECIFIED 10/05/2017 CK GARCIA MD Ot R11.2 NAUSEA WITH VOMITING, UNSPECIFIED 10/05/2017 CK GARCIA MD Ot R55 SYNCOPE AND COLLAPSE 10/05/2017 CK GARCIA MD Ot R65.20 SEVERE SEPSIS WITHOUT SEPTIC SHOCK 10/05/2017 CK GARCIA MD Ot Z79.4 TONGUE CARRIER (CURRENT) USE OF INSULIN 10/05/2017 CK GARCIA MD, Ot Z89.021 ACQUIRED ABSENCE OF RIGHT FINGER(S) 10/06/2017 CK GARCIA MD, Ot A41.9 SEPSIS, UNSPECIFIED ORGANISM 10/06/2017 CK GARCIA MD Ot E11.42 TYPE 2 DIABETES MELLITUS WITH DIABETIC P 10/06/2017 CK GARCIA MD Ot 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 10/06/2017 CK GARCIA MD, Ot G43.909 MIGRAINE, UNSP, NOT INTRACTABLE, WITHOUT 10/06/2017 CK GARCIA MD, Ot H40.9 UNSPECIFIED GLAUCOMA 10/06/2017 CK GARCIA MD, Ot I10 ESSENTIAL (PRIMARY) HYPERTENSION 10/06/2017 CK GARCIA MD, Ot K21.9 GASTRO-ESOPHAGEAL REFLUX DISEASE WITHOUT 10/06/2017 CK GARCIA MD, Ot K59.03 DRUG INDUCED CONSTIPATION 10/06/2017 CK GARCIA MD, Ot N17.9 ACUTE KIDNEY FAILURE, UNSPECIFIED 10/06/2017 CK GARCIA MD, Ot R11.2 NAUSEA WITH VOMITING, UNSPECIFIED 10/06/2017 CK GARCIA MD, Ot R55 SYNCOPE AND COLLAPSE 10/06/2017 CK GARCIA MD, Ot R65.20 SEVERE SEPSIS WITHOUT SEPTIC SHOCK 10/06/2017 CK GARCIA MD, Ot Z79.4 PENITENTIARY (CURRENT) USE OF INSULIN 10/06/2017 CK GARCIA MD, Ot Z89.021 ACQUIRED ABSENCE OF RIGHT FINGER(S) Procedures There is no data. Results Test [...] INFLUENZA A AND B ANTIGENS BY [facility] PT panel in platelet poor [...] Am 55 mL/min/1.73 >59 BUN/Creatinine Ratio 17 06-17 Sodium, Serum 142 mmol/L 134-144 Potassium, Serum [...] Am 69 mL/min/1.73 >59 BUN/Creatinine Ratio 24 06-17 Sodium, Serum 139 mmol/L 134-144 Potassium, Serum 4.2 mmol/L 3.5-5.2 Chloride, Serum 97 mmol/L 96-106 Carbon Dioxide, Total 24 mmol/L 18-29 Calcium, Serum 9.7 mg/dL 8.7-10.3 MICROALBUMIN/CREATININE RATIO, URINE - 07/26/17 10:28 CREATININE, RANDOM URINE 287 mg/dL 20-320 MICROALBUMIN 3.7 mg/dL See Note: MICROALBUMIN/CREATININE RATIO, RANDOM URINE 13 mcg/mg creat <30 Complete blood count (CBC) with automated white blood cell (WBC) differential - 10/02/17 15:30 Blood leukocytes automated count (number/volume) 19.4 10*3/uL 4.3-11.0 Blood erythrocytes automated count (number/volume) 4.79 10*6/uL 4.35-5.85 Venous blood hemoglobin measurement (mass/volume) 13.4 g/dL 11.5-16.0 Blood hematocrit (volume fraction) 42 % 35-52 Automated erythrocyte mean corpuscular volume 87 [foz_us] 80-99 Automated erythrocyte mean corpuscular hemoglobin (mass per erythrocyte) 28 pg 25-34 Automated erythrocyte mean corpuscular hemoglobin concentration measurement ( mass/volume) 32 g/dL 32-36 Automated erythrocyte distribution width ratio 15.6 % 10.0-14.5 Automated blood platelet count (count/volume) 378 10*3/uL 130-400 Automated blood platelet mean volume measurement 11.6 [foz_us] 7.4-10.4 Automated blood neutrophils/100 leukocytes 76 % 42-75 Automated blood lymphocytes/100 leukocytes 17 % 12-44 Blood monocytes/100 leukocytes 6 % 0-12 Automated blood eosinophils/100 leukocytes 1 % 0-10 Automated blood basophils/100 leukocytes 0 % 0-10 Blood neutrophils automated count (number/volume) 14.8 10*3 1.8-7.8 Blood lymphocytes automated count (number/volume) 3.3 10*3 1.0-4.0 Blood monocytes automated count (number/volume) 1.1 10*3 0.0-1.0 Automated eosinophil count 0.2 10*3/uL 0.0-0.3 Automated blood basophil count (count/volume) 0.1 10*3/uL 0.0-0.1 Comprehensive metabolic panel - 10/02/17 15:30 Serum or plasma sodium measurement (moles/volume) 138 mmol/L 135-145 Serum or plasma potassium measurement (moles/volume) 5.2 mmol/L 3.6-5.0 Serum or plasma chloride measurement (moles/volume) 103 mmol/L 98-107 Carbon dioxide 18 mmol/L 21-32 Serum or plasma anion gap determination (moles/volume) 17 mmol/L 5-14 Serum or plasma urea nitrogen measurement (mass/volume) 41 mg/dL 7-18 Serum or plasma creatinine measurement (mass/volume) 2.03 mg/dL 0.60-1.30 Serum or plasma urea nitrogen/creatinine mass ratio 20 NRG Serum or plasma creatinine measurement with calculation of estimated glomerular filtration rate 24 NRG Serum or plasma glucose measurement (mass/volume) 218 mg/dL 70-105 Serum or plasma calcium measurement (mass/volume) 10.4 mg/dL 8.5-10.1 Serum or plasma total bilirubin measurement (mass/volume) 0.6 mg/dL 0.1-1.0 Serum or plasma alkaline phosphatase measurement (enzymatic activity/volume) 97 U/L 40-136 Serum or plasma aspartate aminotransferase measurement (enzymatic activity/ volume) 48 U/L 5-34 Serum or plasma alanine aminotransferase measurement (enzymatic activity/volume ) 28 U/L 0-55 Serum or plasma protein measurement (mass/volume) 8.7 g/dL 6.4-8.2 Serum or plasma albumin measurement (mass/volume) 5.0 g/dL 3.2-4.5 Lipase - 10/02/17 15:30 Lipase 23 U/L 8-78 Blood manual differential performed detection - 10/02/17 15:30 Blood monocytes/100 leukocytes 3 % NRG Manual blood segmented neutrophils/100 leukocytes 66 % NRG Blood band neutrophils/100 leukocytes 5 % NRG Manual blood lymphocytes/100 leukocytes 26 % NRG Manual eosinophils/100 leukocytes in nose 0 % NRG Manual blood basophils/100 leukocytes 0 % NRG Blood erythrocyte morphology finding identification NORMAL NRG Bacterial blood culture - 10/02/17 15:30 Bacterial blood culture NG NRG Complete urinalysis with reflex to culture - 10/02/17 15:45 Urine color determination YELLOW NRG Urine clarity determination CLEAR NRG Urine pH measurement by test strip 5 5-9 Specific gravity of urine by test strip 1.020 1.016- 1.022 Urine protein assay by test strip, semi-quantitative NEGATIVE NEGATIVE Urine glucose detection by automated test strip NEGATIVE NEGATIVE Erythrocytes detection in urine sediment by light microscopy NEGATIVE NEGATIVE Urine ketones detection by automated test strip NEGATIVE NEGATIVE Urine nitrite detection by test strip NEGATIVE NEGATIVE Urine total bilirubin detection by test strip NEGATIVE NEGATIVE Urine urobilinogen measurement by automated test strip (mass/volume) NORMAL NORMAL Urine leukocyte esterase detection by dipstick NEGATIVE NEGATIVE Automated urine sediment erythrocyte count by microscopy (number/high power field) NONE NRG Automated urine sediment leukocyte count by microscopy (number/high power field ) NONE NRG Bacteria detection in urine sediment by light microscopy NEGATIVE NRG Squamous epithelial cells detection in urine sediment by light microscopy NONE NRG Crystals detection in urine sediment by light microscopy NONE NRG Casts detection in urine sediment by light microscopy NONE NRG Mucus detection in urine sediment by light microscopy NEGATIVE NRG Complete urinalysis with reflex to culture NO NRG Blood lactic acid measurement (moles/volume) - 10/02/17 16:14 Blood lactic acid measurement (moles/volume) 2.28 mmol/L 0.50-2.00 Bacterial blood culture - 10/02/17 16:14 Bacterial blood culture NG NRG Serum or plasma lactate measurement (moles/volume) - 10/02/17 20:10 Serum or plasma lactate measurement (moles/volume) 3.41 mmol/L 0.50-2.00 Capillary blood glucose measurement by glucometer (mass/volume) - 10/02/17 21: 40 Capillary blood glucose measurement by glucometer (mass/volume) 266 mg/dL 70-110 Blood lactic acid measurement (moles/volume) - 10/02/17 22:02 Blood lactic acid measurement (moles/volume) 2.83 mmol/L 0.50-2.00 Serum or plasma lactate measurement (moles/volume) - 10/03/17 00:20 Serum or plasma lactate measurement (moles/volume) 2.38 mmol/L 0.50-2.00 Complete blood count (CBC) with automated white blood cell (WBC) differential - 10/03/17 04:15 Blood leukocytes automated count (number/volume) 14.3 10*3/uL 4.3-11.0 Blood erythrocytes automated count (number/volume) 3.73 10*6/uL 4.35-5.85 Venous blood hemoglobin measurement (mass/volume) 10.6 g/dL 11.5-16.0 Blood hematocrit (volume fraction) 33 % 35-52 Automated erythrocyte mean corpuscular volume 88 [foz_us] 80-99 Automated erythrocyte mean corpuscular hemoglobin (mass per erythrocyte) 28 pg 25-34 Automated erythrocyte mean corpuscular hemoglobin concentration measurement ( mass/volume) 32 g/dL 32-36 Automated erythrocyte distribution width ratio 15.2 % 10.0-14.5 Automated blood platelet count (count/volume) 207 10*3/uL 130-400 Automated blood platelet mean volume measurement 11.4 [foz_us] 7.4-10.4 Automated blood neutrophils/100 leukocytes 84 % 42-75 Automated blood lymphocytes/100 leukocytes 8 % 12-44 Blood monocytes/100 leukocytes 8 % 0-12 Automated blood eosinophils/100 leukocytes 0 % 0-10 Automated blood basophils/100 leukocytes 0 % 0-10 Blood neutrophils automated count (number/volume) 12.1 10*3 1.8-7.8 Blood lymphocytes automated count (number/volume) 1.2 10*3 1.0-4.0 Blood monocytes automated count (number/volume) 1.1 10*3 0.0-1.0 Automated eosinophil count 0.0 10*3/uL 0.0-0.3 Automated blood basophil count (count/volume) 0.0 10*3/uL 0.0-0.1 Comprehensive metabolic panel - 10/03/17 04:15 Serum or plasma sodium measurement (moles/volume) 136 mmol/L 135-145 Serum or plasma potassium measurement (moles/volume) 5.2 mmol/L 3.6-5.0 Serum or plasma chloride measurement (moles/volume) 109 mmol/L 98-107 Carbon dioxide 16 mmol/L 21-32 Serum or plasma anion gap determination (moles/volume) 11 mmol/L 5-14 Serum or plasma urea nitrogen measurement (mass/volume) 40 mg/dL 7-18 Serum or plasma creatinine measurement (mass/volume) 1.61 mg/dL 0.60-1.30 Serum or plasma urea nitrogen/creatinine mass ratio 25 NRG Serum or plasma creatinine measurement with calculation of estimated glomerular filtration rate 32 NRG Serum or plasma glucose measurement (mass/volume) 202 mg/dL 70-105 Serum or plasma calcium measurement (mass/volume) 7.9 mg/dL 8.5-10.1 Serum or plasma total bilirubin measurement (mass/volume) 0.6 mg/dL 0.1-1.0 Serum or plasma alkaline phosphatase measurement (enzymatic activity/volume) 71 U/L 40-136 Serum or plasma aspartate aminotransferase measurement (enzymatic activity/ volume) 26 U/L 5-34 Serum or plasma alanine aminotransferase measurement (enzymatic activity/volume ) 18 U/L 0-55 Serum or plasma protein measurement (mass/volume) 5.7 g/dL 6.4-8.2 Serum or plasma albumin measurement (mass/volume) 3.6 g/dL 3.2-4.5 Capillary blood glucose measurement by glucometer (mass/volume) - 10/03/17 05: 19 Capillary blood glucose measurement by glucometer (mass/volume) 174 mg/dL 70-110 Capillary blood glucose measurement by glucometer (mass/volume) - 10/03/17 10: 58 Capillary blood glucose measurement by glucometer (mass/volume) 143 mg/dL 70-110 Capillary blood glucose measurement by glucometer (mass/volume) - 10/03/17 16: 01 Capillary blood glucose measurement by glucometer (mass/volume) 155 mg/dL 70-110 Automated blood complete blood count (hemogram) panel - 10/03/17 16:08 Blood leukocytes automated count (number/volume) 10.2 10*3/uL 4.3-11.0 Blood erythrocytes automated count (number/volume) 3.74 10*6/uL 4.35-5.85 Venous blood hemoglobin measurement (mass/volume) 10.6 g/dL 11.5-16.0 Blood hematocrit (volume fraction) 33 % 35-52 Automated erythrocyte mean corpuscular volume 88 [foz_us] 80-99 Automated erythrocyte mean corpuscular hemoglobin (mass per erythrocyte) 28 pg 25-34 Automated erythrocyte mean corpuscular hemoglobin concentration measurement ( mass/volume) 32 g/dL 32-36 Automated erythrocyte distribution width ratio 15.4 % 10.0-14.5 Automated blood platelet count (count/volume) 168 10*3/uL 130-400 Automated blood platelet mean volume measurement 10.9 [foz_us] 7.4-10.4 Capillary blood glucose measurement by glucometer (mass/volume) - 10/03/17 20: 27 Capillary blood glucose measurement by glucometer (mass/volume) 161 mg/dL 70-110 Capillary blood glucose measurement by glucometer (mass/volume) - 10/04/17 05: 40 Capillary blood glucose measurement by glucometer (mass/volume) 126 mg/dL 70-110 Complete blood count (CBC) with automated white blood cell (WBC) differential - 10/04/17 05:41 Blood leukocytes automated count (number/volume) 8.1 10*3/uL 4.3-11.0 Blood erythrocytes automated count (number/volume) 3.12 10*6/uL 4.35-5.85 Venous blood hemoglobin measurement (mass/volume) 8.8 g/dL 11.5-16.0 Blood hematocrit (volume fraction) 28 % 35-52 Automated erythrocyte mean corpuscular volume 88 [foz_us] 80-99 Automated erythrocyte mean corpuscular hemoglobin (mass per erythrocyte) 28 pg 25-34 Automated erythrocyte mean corpuscular hemoglobin concentration measurement ( mass/volume) 32 g/dL 32-36 Automated erythrocyte distribution width ratio 15.1 % 10.0-14.5 Automated blood platelet count (count/volume) 145 10*3/uL 130-400 Automated blood platelet mean volume measurement 10.8 [foz_us] 7.4-10.4 Automated blood neutrophils/100 leukocytes 72 % 42-75 Automated blood lymphocytes/100 leukocytes 20 % 12-44 Blood monocytes/100 leukocytes 7 % 0-12 Automated blood eosinophils/100 leukocytes 1 % 0-10 Automated blood basophils/100 leukocytes 0 % 0-10 Blood neutrophils automated count (number/volume) 5.8 10*3 1.8-7.8 Blood lymphocytes automated count (number/volume) 1.7 10*3 1.0-4.0 Blood monocytes automated count (number/volume) 0.6 10*3 0.0-1.0 Automated eosinophil count 0.1 10*3/uL 0.0-0.3 Automated blood basophil count (count/volume) 0.0 10*3/uL 0.0-0.1 Comprehensive metabolic panel - 10/04/17 05:41 Serum or plasma sodium measurement (moles/volume) 137 mmol/L 135-145 Serum or plasma potassium measurement (moles/volume) 4.3 mmol/L 3.6-5.0 Serum or plasma chloride measurement (moles/volume) 113 mmol/L 98-107 Carbon dioxide 18 mmol/L 21-32 Serum or plasma anion gap determination (moles/volume) 6 mmol/L 5-14 Serum or plasma urea nitrogen measurement (mass/volume) 12 mg/dL 7-18 Serum or plasma creatinine measurement (mass/volume) 0.78 mg/dL 0.60-1.30 Serum or plasma urea nitrogen/creatinine mass ratio 15 NRG Serum or plasma creatinine measurement with calculation of estimated glomerular filtration rate > NRG Serum or plasma glucose measurement (mass/volume) 130 mg/dL 70-105 Serum or plasma calcium measurement (mass/volume) 8.5 mg/dL 8.5-10.1 Serum or plasma total bilirubin measurement (mass/volume) 0.5 mg/dL 0.1-1.0 Serum or plasma alkaline phosphatase measurement (enzymatic activity/volume) 63 U/L 40-136 Serum or plasma aspartate aminotransferase measurement (enzymatic activity/ volume) 21 U/L 5-34 Serum or plasma alanine aminotransferase measurement (enzymatic activity/volume ) 15 U/L 0-55 Serum or plasma protein measurement (mass/volume) 5.2 g/dL 6.4-8.2 Serum or plasma albumin measurement (mass/volume) 3.3 g/dL 3.2-4.5 Capillary blood glucose measurement by glucometer (mass/volume) - 10/04/17 10: 12 Capillary blood glucose measurement by glucometer (mass/volume) 118 mg/dL 70-110 Capillary blood glucose measurement by glucometer (mass/volume) - 10/04/17 11: 42 Capillary blood glucose measurement by glucometer (mass/volume) 199 mg/dL 70-110 Capillary blood glucose measurement by glucometer (mass/volume) - 10/04/17 16: 27 Capillary blood glucose measurement by glucometer (mass/volume) 141 mg/dL 70-110 Capillary blood glucose measurement by glucometer (mass/volume) - 10/04/17 20: 50 Capillary blood glucose measurement by glucometer (mass/volume) 122 mg/dL 70-110 Capillary blood glucose measurement by glucometer (mass/volume) - 10/05/17 05: 22 Capillary blood glucose measurement by glucometer (mass/volume) 87 mg/dL 70-110 Automated blood complete blood count (hemogram) panel - 10/05/17 06:00 Blood leukocytes automated count (number/volume) 8.7 10*3/uL 4.3-11.0 Blood erythrocytes automated count (number/volume) 3.11 10*6/uL 4.35-5.85 Venous blood hemoglobin measurement (mass/volume) 8.7 g/dL 11.5-16.0 Blood hematocrit (volume fraction) 28 % 35-52 Automated erythrocyte mean corpuscular volume 88 [foz_us] 80-99 Automated erythrocyte mean corpuscular hemoglobin (mass per erythrocyte) 28 pg 25-34 Automated erythrocyte mean corpuscular hemoglobin concentration measurement ( mass/volume) 32 g/dL 32-36 Automated erythrocyte distribution width ratio 14.9 % 10.0-14.5 Automated blood platelet count (count/volume) 153 10*3/uL 130-400 Automated blood platelet mean volume measurement 11.3 [foz_us] 7.4-10.4 Whole blood basic metabolic panel - 10/05/17 06:00 Serum or plasma sodium measurement (moles/volume) 137 mmol/L 135-145 Serum or plasma potassium measurement (moles/volume) 4.2 mmol/L 3.6-5.0 Serum or plasma chloride measurement (moles/volume) 113 mmol/L 98-107 Carbon dioxide 17 mmol/L 21-32 Serum or plasma anion gap determination (moles/volume) 7 mmol/L 5-14 Serum or plasma urea nitrogen measurement (mass/volume) 9 mg/dL 7-18 Serum or plasma creatinine measurement (mass/volume) 0.72 mg/dL 0.60-1.30 Serum or plasma urea nitrogen/creatinine mass ratio 13 NRG Serum or plasma creatinine measurement with calculation of estimated glomerular filtration rate > NRG Serum or plasma glucose measurement (mass/volume) 75 mg/dL 70-105 Serum or plasma calcium measurement (mass/volume) 8.3 mg/dL 8.5-10.1 Capillary blood glucose measurement by glucometer (mass/volume) - 10/05/17 10: 57 Capillary blood glucose measurement by glucometer (mass/volume) 124 mg/dL 70-110 Capillary blood glucose measurement by glucometer (mass/volume) - 10/05/17 16: 20 Capillary blood glucose measurement by glucometer (mass/volume) 149 mg/dL 70-110 Capillary blood glucose measurement by glucometer (mass/volume) - 10/05/17 20: 56 Capillary blood glucose measurement by glucometer (mass/volume) 184 mg/dL 70-110 Automated blood complete blood count (hemogram) panel - 10/06/17 05:28 Blood leukocytes automated count (number/volume) 5.6 10*3/uL 4.3-11.0 Blood erythrocytes automated count (number/volume) 3.13 10*6/uL 4.35-5.85 Venous blood hemoglobin measurement (mass/volume) 8.7 g/dL 11.5-16.0 Blood hematocrit (volume fraction) 28 % 35-52 Automated erythrocyte mean corpuscular volume 88 [foz_us] 80-99 Automated erythrocyte mean corpuscular hemoglobin (mass per erythrocyte) 28 pg 25-34 Automated erythrocyte mean corpuscular hemoglobin concentration measurement ( mass/volume) 32 g/dL 32-36 Automated erythrocyte distribution width ratio 14.8 % 10.0-14.5 Automated blood platelet count (count/volume) 159 10*3/uL 130-400 Automated blood platelet mean volume measurement 11.0 [foz_us] 7.4-10.4 Whole blood basic metabolic panel - 10/06/17 05:28 Serum or plasma sodium measurement (moles/volume) 139 mmol/L 135-145 Serum or plasma potassium measurement (moles/volume) 4.0 mmol/L 3.6-5.0 Serum or plasma chloride measurement (moles/volume) 111 mmol/L 98-107 Carbon dioxide 21 mmol/L 21-32 Serum or plasma anion gap determination (moles/volume) 7 mmol/L 5-14 Serum or plasma urea nitrogen measurement (mass/volume) 10 mg/dL 7-18 Serum or plasma creatinine measurement (mass/volume) 0.73 mg/dL 0.60-1.30 Serum or plasma urea nitrogen/creatinine mass ratio 14 NRG Serum or plasma creatinine measurement with calculation of estimated glomerular filtration rate > NRG Serum or plasma glucose measurement (mass/volume) 104 mg/dL 70-105 Serum or plasma calcium measurement (mass/volume) 8.9 mg/dL 8.5-10.1 Capillary blood glucose measurement by glucometer (mass/volume) - 10/06/17 05: 55 Capillary blood glucose measurement by glucometer (mass/volume) 98 mg/dL 70-110 Capillary blood glucose measurement by glucometer (mass/volume) - 10/06/17 10: 58 Capillary blood glucose measurement by glucometer (mass/volume) 176 mg/dL 70-110 PDM - 09 PANEL (PROFILE 1) - 03/03/18 11:37 Prescribed Drug 1 Lyrica(TM) NRG Creatinine 214.1 mg/dL > or=20.0 pH 5.50 4.5 - 9.0 Oxidant NEGATIVE mcg/mL <200 Amphetamines NEGATIVE ng/mL <500 medMATCH Amphetamines CONSISTENT NRG Benzodiazepines NEGATIVE ng/mL <100 medMATCH Benzodiazepines INCONSISTENT NRG Marijuana Metabolite NEGATIVE ng/mL <20 medMATCH Marijuana Metab CONSISTENT NRG Cocaine Metabolite NEGATIVE ng/mL <150 medMATCH Cocaine Metab CONSISTENT NRG Opiates NEGATIVE CONFIRMED ng/mL <100 Oxycodone POSITIVE ng/mL <100 COMMENT NRG Codeine NEGATIVE ng/mL <50 medMATCH Codeine CONSISTENT NRG Hydrocodone NEGATIVE ng/mL <50 medMATCH Hydrocodone CONSISTENT NRG Hydromorphone NEGATIVE ng/mL <50 medMATCH Hydromorphone CONSISTENT NRG Morphine NEGATIVE ng/mL <50 medMATCH Morphine CONSISTENT NRG Norhydrocodone NEGATIVE ng/mL <50 medMATCH Norhydrocodone CONSISTENT NRG Prescribed Drug 2 Diazepam NRG Noroxycodone 352 ng/mL <50 medMATCH Noroxycodone INCONSISTENT NRG Oxycodone 98 ng/mL <50 medMATCH Oxycodone INCONSISTENT NRG Oxymorphone 384 ng/mL <50 medMATCH Oxymorphone INCONSISTENT NRG Barbiturates NEGATIVE ng/mL <300 medMATCH Barbiturates CONSISTENT NRG Methadone Metabolite NEGATIVE ng/mL <100 medMATCH Methadone Metab CONSISTENT NRG Phencyclidine NEGATIVE ng/mL <25 medMATCH Phencyclidine CONSISTENT NRG Encounters ACCT No. Visit Date/Time Discharge Status Pt. Type Provider Facility Loc./Unit Complaint [id number] 10/02/2017 17:40:00 10/06/2017 15:10:00 DIS Inpatient CK GARCIA MD [facility] 4TH SEVERE SEPSIS, CONSTIPATION,N/V. [id number] 03/01/2017 07:57:00 03/01/2017 23:59:59 CLS Outpatient NIKITA LEGGETT [facility] RAD I10 [id number] 08/10/2016 16:30:00 08/11/2016 15:05:00 DIS Inpatient YAEL PEPPER MD [facility] ICU SEVERE SEPSIS,BRONCHITIS- POSSIBLE PNEUMONIA,CHEST [id number] 08/06/2016 13:41:00 08/06/2016 23:59:59 CLS Outpatient SUAREZ SYDYanet Frazier APRN [facility] RAD RUQ PAIN,LIVER TENDERNESS ,ABD DISTENTION,BLOATING [id number] 08/04/2016 08:07:00 08/04/2016 23:59:59 CLS Outpatient MARK LUO APRN [facility] RAD SEVERE RUQ/LUQ PAIN, SOB,WEIGHT LOSS UNINTENTIONAL [id number] 06/11/2015 20:08:00 06/12/2015 17:41:00 DIS Inpatient SHANTELLE HAWK, YAEL Hernandez [facility] 4TH CHEST PAIN [id number] 01/29/2017 09:11:00 Document Registration [id number] 12/07/2017 14:40:00 12/07/2017 23:59:59 CLS Outpatient ARNEL MILES APRN [facility] [id number] 03/03/2018 11:00:00 Document Registration [id number] 07/26/2017 09:20:00 Document Registration [id number] 12/26/2016 08:36:00 Document Registration [id number] 12/26/2016 14:08:00 Document Registration
[2018-04-24] MEDS ORDERED: RT-ALBUTEROL SULF 2.5 MG/3 ML PRE-MIX VIAL ONE (08:42)
[2018-04-24] MEDS ORDERED: RT-ALBUTEROL/IPRATROPIUM 3 ML (DUONEB) VIAL INH ONE (08:45)
[2018-04-24] MEDS ORDERED: LORazepam INJ 2 MG/ML (ATIVAN) VIAL IVP ONE (08:45)
[2018-04-24 08:47] LABS: BASOPHILS % (AUTO) 1 % (0-10); EOSINOPHILS # (AUTO) 0.2 10^3/uL (0.0-0.3); EOSINOPHILS % (AUTO) 3 % (0-10); HEMATOCRIT 37 % (35-52); HEMOGLOBIN 11.3 G/DL (11.5-16.0); LYMPHOCYTES # (AUTO) 2.3 X 10^3 (1.0-4.0); LYMPHOCYTES % (AUTO) 41 % (12-44); MEAN CORPUSCULAR HEMOGLOBIN 27 PG (25-34); MEAN CORPUSCULAR HGB CONC 31 G/DL (32-36); MEAN CORPUSCULAR VOLUME 88 FL (80-99); MEAN PLATELET VOLUME 11.9 FL (7.4-10.4); MONOCYTES # (AUTO) 0.5 X 10^3 (0.0-1.0); MONOCYTES % (AUTO) 10 % (0-12); NEUTROPHILS # (AUTO) 2.6 X 10^3 (1.8-7.8); NEUTROPHILS % (AUTO) 46 % (42-75); PLATELET COUNT 146 10^3/uL (130-400); RED BLOOD COUNT 4.14 10^6/uL (4.35-5.85); WHITE BLOOD COUNT 5.6 10^3/uL (4.3-11.0)
[2018-04-24 09:01] LABS: ALANINE AMINOTRANSFERASE 16 U/L (0-55); ALBUMIN 4.4 GM/DL (3.2-4.5); ALKALINE PHOSPHATASE 108 U/L (40-136); BILIRUBIN,TOTAL 0.3 MG/DL (0.1-1.0); BUN/CREATININE RATIO 24; CALCIUM 9.6 MG/DL (8.5-10.1); CARBON DIOXIDE 21 MMOL/L (21-32); CHLORIDE 110 MMOL/L (98-107); CREATININE SERUM 1.33 MG/DL (0.60-1.30); GFR ESTIMATED 40; GLUCOSE 115 MG/DL (70-105); POTASSIUM 4.2 MMOL/L (3.6-5.0); SODIUM 144 MMOL/L (135-145)
--- NOTE | 2018-04-24 09:05 | Diagnostic Imaging Report ---
Indication: Dyspnea. Comparison: 10/05/2017. Discussion: Single portable upright view of the chest was obtained. Antecedent granulomatous disease is noted, benign. Normal heart size. No focal consolidation, pleural fluid, or pneumothorax. No osseous abnormality. Impression: 1. Negative chest. Dictated by: Dictated on workstation # [id number]
--- NOTE | 2018-04-24 09:55 | ED Respiratory ---
General Chief Complaint: Respiratory Problems Stated Complaint: SOA Nursing Triage Note: ASSISTED FROM WAITING ROOM IN RESP DISTRESS. STATES SHE WOKE UP WITH THIS WAY. DENIES CHEST PAIN. Source: patient, family Exam Limitations: no limitations History of Present Illness Date Seen by Provider: Apr 24, 2018 Time Seen by Provider: 09:50 Initial Comments The patient had presented this morning with complaints of being unable to breathe. She states that she awakened this way this morning. She denied chest pain initially. She was unaware of fever. She denied any sputum. She smoked for many years and stopped about 5 years ago. She smoked at the rate of one and a half packs of cigarettes per day. She does not use any medications at home for respiratory problems and no inhalers. She appears anxious. Her SaO2 on room air was 98 percent. Timing/Duration: this morning Prior Episodes/Possible Cause: occasional episodes Modifying Factors: Improves With Activity Allergies and Home Medications Allergies Coded Allergies: No Known Drug Allergies (Unverified , 06/11/15) Home Medications Albuterol Sulfate 2.5 Mg/3 Ml Vial.neb, 2.5 MG NEB Q4H PRN for SHORTNESS OF BREATH, (Reported) Allopurinol 100 Mg Tablet, 100 MG PO BID, (Reported) Aspirin 81 Mg Tablet.dr, 81 MG PO DAILY, (Reported) Ciprofloxacin HCl 500 Mg Tablet, 500 MG PO BID Prescribed by: SITA GOMEZ on 10/06/17 1314 Clonidine HCl 0.1 Mg Tablet, 0.1 MG PO BID, (Reported) LAST FILLED #180 06-10-17 Diltiazem HCl 240 Mg Cap.er.24h, 240 MG PO HS, (Reported) UNKNOWN LAST FILL DATE Furosemide 40 Mg Tablet, 40 MG PO DAILY, (Reported) Insulin Glargine,Hum.rec.anlog 100 Unit/1 Ml Insuln.pen, 20 UNITS SQ HS, ( Reported) LAST FILLED 06/03/17 #15ML FOR A 75 DAY SUPPLY Lisinopril 20 Mg Tablet, 20 MG PO HS, (Reported) UNKNOWN LAST FILL DATE Lovastatin 20 Mg Tablet, 20 MG PO HS, (Reported) UNKNOWN LAST FILL DATE Metformin HCl 500 Mg Tablet, 500 MG PO TID, (Reported) UNKNOWN LAST FILL DATE Metoprolol Tartrate 25 Mg Tablet, 25 MG PO BID, (Reported) Potassium Chloride 20 Meq Tab.er.prt, 20 MEQ PO DAILY, (Reported) LAST FILLED #30 06-10-17 Pregabalin 50 Mg Capsule, 50 MG PO TID Prescribed by: SITA GOMEZ on 10/06/17 9804 Patient Home Medication List Home Medication List Reviewed: Yes Review of Systems Review of Systems Constitutional: see HPI EENTM: no symptoms reported Respiratory: see HPI, cough, dyspnea on exertion, short of breath Cardiovascular: no symptoms reported Gastrointestinal: no symptoms reported Genitourinary: no symptoms reported Musculoskeletal: no symptoms reported Skin: no symptoms reported Psychiatric/Neurological: No Symptoms Reported Hematologic/Lymphatic: No Symptoms Reported Immunological/Allergic: no symptoms reported Past Fnlazjg-Lsabeu-Eiocwt Hx Patient Social History Recent Foreign Travel: No Contact w/Someone Who Travel: No Recent Infectious Disease Expo: No Recent Hopitalizations: No Immunizations Up To Date Tetanus Booster (TDap): Unknown PED Vaccines UTD: No Date of Pneumonia Vaccine: May 05, 2015 Seasonal Allergies Seasonal Allergies: No Past Medical History Surgeries: Yes (R wrist with screw placement, L thumb; 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) Appendectomy, Gallbladder, Hysterectomy, Oophorectomy, Orthopedic Respiratory: No Currently Using CPAP: No Currently Using BIPAP: No Cardiac: Yes (RAPID HEART RATE; edema L leg) Hypertension Neurological: Yes Headaches /Migraines Reproductive Disorders: No 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, Menopausal Sexually Transmitted Disease: No HIV/AIDS: No Genitourinary: Yes (kidney disease) Kidney Infection, UTI-Chronic Gastrointestinal: Yes (Esophageal streching) Gastroesophageal Reflux, Hiatal Hernia, Gall Bladder Disease Musculoskeletal: Yes (L thumb, R wrist, R Collar bone; 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) Fractures Endocrine: Yes Diabetes, Insulin dep HEENT: Yes Glaucoma Loss of Vision: Denies Hearing Impairment: Denies Cancer: No Psychosocial: No Integumentary: No Blood Disorders: No Adverse Reaction/Blood Tranf: No Family Medical History Arthritis G8 BROTHER G8 BROTHER Cardiovascular disease 19 FATHER 19 MOTHER Dementia 19 FATHER Diabetes mellitus 19 FATHER 19 MOTHER G8 BROTHER FH: COPD (chronic obstructive pulmonary disease) G8 BROTHER FH: CVA (cerebrovascular accident) 19 FATHER FH: CVA (cerebrovascular accident) 19 FATHER FH: neuropathy G8 BROTHER Glaucoma 19 FATHER Hypertension G8 BROTHER Kidney disease G8 BROTHER Psychosocial problem G8 BROTHER TIAs 19 FATHER Vertigo G8 BROTHER Heart Disease, Diabetes, Hypertension, Renal Disease, Vascular Disease Physical Exam Vital Signs - First Documented 04/24/18 08:23 Temp 97.1 Pulse 86 Resp 22 B/P (MAP) 137/105 (116) Pulse Ox 94 O2 Delivery Room Air O2 Flow Rate 2.00 Capillary Refill : Less Than 3 Seconds Height: 5'3.00" Weight: 165lbs. 8.0oz. [id number]; 30.3 BMI Method:Estimated General Appearance: mild distress Eyes: Bilateral Eye Normal Inspection HEENT: normal ENT inspection Neck: full range of motion Respiratory: other (stridorous sound on inspiration which seems to come from the level of the cords.) Cardiovascular: regular rate, rhythm Gastrointestinal: normal bowel sounds, other (obese) Extremities: normal range of motion, non-tender, normal inspection, no pedal edema, no calf tenderness, normal capillary refill, pelvis stable Neurologic/Psychiatric: irrigationist II-XII nml as tested, no motor/sensory deficits, alert, normal mood/affect, oriented x 3 Skin: normal color, warm/dry, cyanosis, cool, diaphoresis, damp Lymphatic: no adenopathy Progress/Results/Core Measures Suspected Sepsis Recent Fever Within 48 Hours: No Infection Criteria Present: Suspected New Infection New/Unexplained Altered Menta: No Sepsis Screen: No Definite Risk SIRS Temperature:97.1 Pulse: 86 Respiratory Rate: 22 Laboratory Tests 04/24/18 08:30: White Blood Count 5.6 Blood Pressure 137 /105 Mean: 116 Laboratory Tests 04/24/18 08:30: Creatinine 1.33H, Platelet Count 146, Total Bilirubin 0.3 Results/Orders Lab Results Laboratory Tests Test 04/24/18 08:30 Range/Units White Blood Count 5.6 4.3-11.0 10^3/uL Red Blood Count 4.14 L 4.35-5.85 10^6/uL Hemoglobin 11.3 L 11.5-16.0 G/DL Hematocrit 37 35-52 % Mean Corpuscular Volume 88 80-99 FL Mean Corpuscular Hemoglobin 27 25-34 PG Mean Corpuscular Hemoglobin Concent 31 L 32-36 G/DL Red Cell Distribution Width 16.0 H 10.0-14.5 % Platelet Count 146 130-400 10^3/uL Mean Platelet Volume 11.9 H 7.4-10.4 FL Neutrophils (%) (Auto) 46 42-75 % Lymphocytes (%) (Auto) 41 12-44 % Monocytes (%) (Auto) 10 0-12 % Eosinophils (%) (Auto) 3 0-10 % Basophils (%) (Auto) 1 0-10 % Neutrophils # (Auto) 2.6 1.8-7.8 X 10^3 Lymphocytes # (Auto) 2.3 1.0-4.0 X 10^3 Monocytes # (Auto) 0.5 0.0-1.0 X 10^3 Eosinophils # (Auto) 0.2 0.0-0.3 10^3/uL Basophils # (Auto) 0.0 0.0-0.1 10^3/uL Sodium Level 144 135-145 MMOL/L Potassium Level 4.2 3.6-5.0 MMOL/L Chloride Level 110 H 98-107 MMOL/L Carbon Dioxide Level 21 21-32 MMOL/L Anion Gap 13 5-14 MMOL/L Blood Urea Nitrogen 32 H 7-18 MG/DL Creatinine 1.33 H 0.60-1.30 MG/DL Estimat Glomerular Filtration Rate 40 BUN/Creatinine Ratio 24 Glucose Level 115 H 70-105 MG/DL Calcium Level 9.6 8.5-10.1 MG/DL Corrected Calcium 9.3 8.5-10.1 MG/DL Total Bilirubin 0.3 0.1-1.0 MG/DL Aspartate Amino Transf (AST/SGOT) 17 5-34 U/L Alanine Aminotransferase (ALT/SGPT) 16 0-55 U/L Alkaline Phosphatase 108 40-136 U/L Troponin I < 0.30 <0.30 NG/ML Total Protein 7.0 6.4-8.2 GM/DL Albumin 4.4 3.2-4.5 GM/DL My Orders Orders - YAEL PEPPER MD Albuterol/Ipra Inhalation Soln (Duoneb I (04/24/18 08:29) Chest 1 View, Ap/Pa Only (04/24/18 08:31) Cbc With Automated Diff (04/24/18 08:31) Comprehensive Metabolic Panel (04/24/18 08:31) Troponin I (04/24/18 08:31) Albuterol/Ipra Inhalation Soln (Duoneb I (04/24/18 08:45) Svn Small Volume Nebulizer (04/24/18 08:31) Albuterol Pre-Mix Nebs (Rt) (Proventil (04/24/18 08:42) Lorazepam Injection (Ativan Injection) (04/24/18 08:45) Medications Given in ED Current Medications Medications Dose Ordered Sig/Love Route Start Time Stop Time Status Last Admin Dose Admin Albuterol Sulfate 2.5 mg STK-MED ONCE .ROUTE 04/24/18 08:42 04/24/18 08:43 DC 04/24/18 08:49 2.5 MG Albuterol/ Ipratropium 3 ml ONCE ONCE INH 04/24/18 08:45 04/24/18 08:46 DC 04/24/18 08:36 3 ML Lorazepam 1 mg ONCE ONCE IVP 04/24/18 08:45 04/24/18 08:46 DC 04/24/18 08:50 1 MG Vital Signs/I&O 04/24/18 04/24/18 04/24/18 04/24/18 08:23 08:23 08:46 08:47 Temp 97.1 Pulse 86 Resp 22 B/P (MAP) 137/105 (116) Pulse Ox 94 97 98 O2 Delivery Room Air Nasal Cannula Nasal Cannula O2 Flow Rate 2.00 2.00 2.00 Capillary Refill : Less Than 3 Seconds Blood Pressure Mean: 116 Departure Communication (Admissions) Family Conversation Laboratory and chest x-ray are normal. The SaO2 has been consistently above 95 on room air. Impression Primary Impression: dyspnea Disposition: 01 HOME, SELF-CARE Condition: Stable/Unchanged Departure-Patient Inst. Decision time for Depature: 12:00 Referrals: [facility] (PCP) Primary Care Physician ARNEL ROMERO (Family) Primary Care Physician Add. Discharge Instructions: All discharge instructions reviewed with patient and/or family. Voiced understanding. I spoke to Dr. Baltazar at [facility] and appointment has been made for you tomorrow with Frederick Romero at 1240. YAEL PEPPER MD Apr 24, 2018 09:55
[2018-04-24 12:31] VITALS: BP 137/77
[2018-04-24] MEDS ORDERED: ALBU1.25 IH (12:37)
== END 2018-04-24 12:31 | disposition home or self-care (01) ==
LOC: ER 08:22 → EDUNIT# 08:22 → ER 12:31
DX: R06.00 Dyspnea, unspecified (principal); I10 Essential (primary) hypertension; G43.909 Migraine, unspecified, not intractable, without status migrainosus; F17.210 Nicotine dependence, cigarettes, uncomplicated; K21.9 Gastro-esophageal reflux disease without esophagitis; E11.9 Type 2 diabetes mellitus without complications; Z89.021 Acquired absence of right finger(s); Z87.440 Personal history of urinary (tract) infections; Z79.82 Long term (current) use of aspirin; Z79.4 Long term (current) use of insulin; Z90.49 Acquired absence of other specified parts of digestive tract; Z90.710 Acquired absence of both cervix and uterus
CPT/HCPCS: 36415; 71045; 80053; 82962; 84484; 85025; 93005; 94640; 96374

== ENCOUNTER 2018-06-12 15:39 | Inpatient (IN) | payer MEDICARE, OTHER ==
[~2018-06-12] VITALS: Ht 165.1 cm; Wt 84.5 kg
[2018-06-12] VITALS (8 sets, daily range): BP systolic 92–141; BP diastolic 66–98
[~2018-06-12 15:39] MED LIST changes: +ALBU1.25 IH
[2018-06-12] MEDS ORDERED: NS IV 1000 ML 1,000 ML IV ONE ×2 (15:50→16:19)
[2018-06-12 15:58] LABS: BASOPHILS # (AUTO) 0.1 10^3/uL (0.0-0.1); BASOPHILS % (AUTO) 1 % (0-10); EOSINOPHILS # (AUTO) 0.4 10^3/uL (0.0-0.3); EOSINOPHILS % (AUTO) 2 % (0-10); HEMATOCRIT 43 % (35-52); HEMOGLOBIN 13.8 G/DL (11.5-16.0); LYMPHOCYTES # (AUTO) 5.7 X 10^3 (1.0-4.0); LYMPHOCYTES % (AUTO) 34 % (12-44); MEAN CORPUSCULAR HEMOGLOBIN 27 PG (25-34); MEAN CORPUSCULAR HGB CONC 32 G/DL (32-36); MEAN CORPUSCULAR VOLUME 85 FL (80-99); MEAN PLATELET VOLUME 12.1 FL (7.4-10.4); MONOCYTES # (AUTO) 1.2 X 10^3 (0.0-1.0); MONOCYTES % (AUTO) 7 % (0-12); NEUTROPHILS # (AUTO) 9.4 X 10^3 (1.8-7.8); NEUTROPHILS % (AUTO) 56 % (42-75); PLATELET COUNT 359 10^3/uL (130-400); RED BLOOD COUNT 5.06 10^6/uL (4.35-5.85); RED CELL DISTRIBUTION WIDTH 16.3 % (10.0-14.5); WHITE BLOOD COUNT 16.8 10^3/uL (4.3-11.0)
--- NOTE | 2018-06-12 16:06 | Diagnostic Imaging Report ---
INDICATION: Dizziness, diaphoresis. EXAMINATION: Single view of the chest was obtained. FINDINGS: The heart size and vascularity are normal. The lungs are clear. No failure, effusion or pneumothorax. 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 IMPRESSION: No acute abnormality. Dictated by: Dictated on workstation # [id number]
--- NOTE | 2018-06-12 16:19 | ED General ---
General Chief Complaint: General Problems/Pain Stated Complaint: WEAKNESS Nursing Triage Note: PT REPORTS BEING AT [facility] AND GOING INTO RESTROOM TO HAVE BM. PT STATED SHE BECAME DIAPHORETIC AND DIZZY. PT REPORTS SHE WAS IN RESTROOM FOR 45 MINUTES BEFORE SOMEONE CAME TO CHECK ON HER. Nursing Sepsis Screen: No Definite Risk Source of Information: Patient Exam Limitations: No Limitations (SHARRON SALMON MD) History of Present Illness Date Seen by Provider: Jun 12, 2018 Time Seen by Provider: 15:45 Initial Comments Here with family who brought her here after she was found in the bathroom at [facility] where she had been for approximately 45 minutes. She went to the bathroom and while there became dizzy and diaphoretic bed quite weak. After 45 minutes her family came and checked on her. They found her in that state. Patient did have a bowel movement during that time. She is diabetic and usually gets hypoglycemic. She reports that her blood sugars up and higher than normal recently. She is not currently hypoglycemic. She does report continued weakness and she is cool and clammy currently. Denies chest pain. Does have some nausea but no vomiting. Timing/Duration: 1 Hour Severity: Moderate, Severe Associated Systoms: No Chest Pain; Diaphoresis; No Fever/Chills, No Nausea/ Vomiting, No Shortness of Air; Weakness (SHARRON SALMON MD) Allergies and Home Medications Allergies Coded Allergies: No Known Drug Allergies (Unverified , 06/11/15) Home Medications Albuterol Sulfate 2.5 Mg/3 Ml Vial.neb, 2.5 MG NEB Q4H PRN for SHORTNESS OF BREATH, (Reported) Albuterol Sulfate 1.25 Mg/3 Ml Vial.neb, 1 MG IH 4 times a day Prescribed by: YAEL PEPPER on 04/24/18 1237 Allopurinol 100 Mg Tablet, 100 MG PO BID, (Reported) Aspirin 81 Mg Tablet.dr, 81 MG PO DAILY, (Reported) Ciprofloxacin HCl 500 Mg Tablet, 500 MG PO BID Prescribed by: SITA GOMEZ on 10/06/17 1314 Clonidine HCl 0.1 Mg Tablet, 0.1 MG PO BID, (Reported) LAST FILLED #180 06-10-17 Diltiazem HCl 240 Mg Cap.er.24h, 240 MG PO HS, (Reported) UNKNOWN LAST FILL DATE Furosemide 40 Mg Tablet, 40 MG PO DAILY, (Reported) Insulin Glargine,Hum.rec.anlog 100 Unit/1 Ml Insuln.pen, 20 UNITS SQ HS, ( Reported) LAST FILLED 06/03/17 #15ML FOR A 75 DAY SUPPLY Lisinopril 20 Mg Tablet, 20 MG PO HS, (Reported) UNKNOWN LAST FILL DATE Lovastatin 20 Mg Tablet, 20 MG PO HS, (Reported) UNKNOWN LAST FILL DATE Metformin HCl 500 Mg Tablet, 500 MG PO TID, (Reported) UNKNOWN LAST FILL DATE Metoprolol Tartrate 25 Mg Tablet, 25 MG PO BID, (Reported) Potassium Chloride 20 Meq Tab.er.prt, 20 MEQ PO DAILY, (Reported) LAST FILLED #30 06-10-17 Pregabalin 50 Mg Capsule, 50 MG PO TID Prescribed by: SITA GOMEZ on 10/06/17 1314 Patient Home Medication List Home Medication List Reviewed: Yes (SHARRON SALMON MD) Review of Systems Review of Systems Constitutional: see HPI, chills, diaphoresis; No fever EENTM: no symptoms reported; No nose congestion, No throat pain Respiratory: No cough, No short of breath Cardiovascular: No chest pain, No edema; palpitations Gastrointestinal: No abdominal pain; nausea; No vomiting Genitourinary: No dysuria, No frequency Musculoskeletal: no symptoms reported Skin: change in color; No lesions Psychiatric/Neurological: Denies Headache; Weakness Hematologic/Lymphatic: No Symptoms Reported (SHARRON SALMON MD) All Other Systems Reviewed Negative Unless Noted: Yes (SHARRON SALMON MD) Past Ccxrlcx-Vutgqi-Qskszo Hx Past Med/Social Hx: Reviewed Nursing Past Med/Soc Hx (SHARRON SALMON MD) Patient Social History Alcohol Use: Denies Use Recreational Drug Use: No Smoking Status: Never a Smoker Recent Foreign Travel: No Contact w/Someone Who Travel: No Recent Infectious Disease Expo: No Recent Hopitalizations: No Physical Abuse: No Sexual Abuse: No (SHARRON SALMON MD) Immunizations Up To Date Tetanus Booster (TDap): Unknown PED Vaccines UTD: No Date of Pneumonia Vaccine: May 05, 2015 (SHARRON SALMON MD) Seasonal Allergies Seasonal Allergies: No (SHARRON SALMON MD) Past Medical History Surgeries: Yes (R wrist with screw placement, L thumb; 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) Appendectomy, Gallbladder, Hysterectomy, Oophorectomy, Orthopedic Respiratory: No Currently Using CPAP: No Currently Using BIPAP: No Cardiac: Yes (RAPID HEART RATE; edema L leg) Hypertension Neurological: Yes Headaches /Migraines Reproductive Disorders: No [employer]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[employer] History: Hysterectomy, Menopausal Sexually Transmitted Disease: No HIV/AIDS: No Genitourinary: Yes (kidney disease) Kidney Infection, UTI-Chronic Gastrointestinal: Yes (Esophageal streching) Gastroesophageal Reflux, Hiatal Hernia, Gall Bladder Disease Musculoskeletal: Yes (L thumb, R wrist, R Collar bone; 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) Fractures Endocrine: Yes Diabetes, Insulin dep HEENT: Yes Glaucoma Loss of Vision: Denies Hearing Impairment: Denies Cancer: No Psychosocial: No Integumentary: No Blood Disorders: No Adverse Reaction/Blood Tranf: No (SHARRON SALMON MD) Family Medical History Reviewed Nursing Family Hx (SHARRON SALMON MD) Arthritis G8 BROTHER G8 BROTHER Cardiovascular disease 19 FATHER 19 MOTHER Dementia 19 FATHER Diabetes mellitus 19 FATHER 19 MOTHER G8 BROTHER FH: COPD (chronic obstructive pulmonary disease) G8 BROTHER FH: CVA (cerebrovascular accident) 19 FATHER FH: CVA (cerebrovascular accident) 19 FATHER FH: neuropathy G8 BROTHER Glaucoma 19 FATHER Hypertension G8 BROTHER Kidney disease G8 BROTHER Psychosocial problem G8 BROTHER TIAs 19 FATHER Vertigo G8 BROTHER Heart Disease, Diabetes, Hypertension, Renal Disease, Vascular Disease (SHARRON SALMON MD) Physical Exam-Suspected Sepsis Physical Exam Vital Signs Vital Signs - First Documented (CLAYTON SALINAS) Vital Signs Capillary Refill : Less Than 3 Seconds (SHARRON SALMON MD) Blood Pressure Mean: 102 Height, Weight, BMI Height: 5'5.00" Weight: 182lbs. 8.0oz. 82.887636fl; 30.3 BMI Method:Stated General Appearance: WD/WN, Mild Distress HEENT: PERRL/EOMI, Pharynx Normal Neck: Non Tender, Supple Respiratory: Lungs Clear, Normal Breath Sounds Cardiovascular: No Murmur, Tachycardia Gastrointestinal: Non Tender, Soft Genital/Rectal: Normal Genital Exam, Normal Rectal Exam Back: Normal Inspection, No CVA Tenderness, No Vertebral Tenderness Extremity: Normal Range of Motion, Non Tender Neurologic/Psychiatric: Alert, Oriented x3 Skin: cool, pallor; No ulcerations (SHARRON SALMON MD) Focused Exam Lactate Level 06/12/18 15:50: Lactic Acid Level 3.23*H 06/12/18 18:05: Lactic Acid Level 2.78*H (CLAYTON SALINAS) Lactic Acid Level Laboratory Tests Test 06/12/18 15:50 06/12/18 18:05 Lactic Acid Level 3.23 MMOL/L (0.50-2.00) *H 2.78 MMOL/L (0.50-2.00) *H (CLAYTON SALINAS) Progress/Results/Core Measures Suspected Sepsis Recent Fever Within 48 Hours: No Infection Criteria Present: None New/Unexplained Altered Menta: No Sepsis Screen: No Definite Risk SIRS Temperature:95.4 Pulse: 98 Respiratory Rate: 21 Laboratory Tests 06/12/18 15:50: White Blood Count 16.8H Blood Pressure 111 /98 Mean: 102 06/12/18 15:50: Lactic Acid Level 3.23*H 06/12/18 18:05: Laboratory Tests 06/12/18 15:50: Creatinine 1.73H, INR Comment 1.0, Platelet Count 359, Total Bilirubin 0.5 (SHARRON SALMON MD) Results/Orders Lab Results Laboratory Tests Test 06/12/18 15:06 06/12/18 15:50 06/12/18 18:05 Range/Units Urine Color YELLOW Urine Clarity SLIGHTLY CLOUDY Urine pH 5 5-9 Urine Specific [place] 1.020 1.016-1.022 Urine Protein 3+ H NEGATIVE Urine Glucose (UA) NEGATIVE NEGATIVE Urine Ketones NEGATIVE NEGATIVE Urine Nitrite NEGATIVE NEGATIVE Urine Bilirubin NEGATIVE NEGATIVE Urine Urobilinogen NORMAL NORMAL MG/DL Urine Leukocyte Esterase 1+ H NEGATIVE Urine RBC (Auto) NEGATIVE NEGATIVE Urine RBC NONE /HPF Urine WBC NONE /HPF Urine Squamous Epithelial Cells 0-5 /HPF Urine Crystals PRESENT H /LPF Urine Amorphous Sediment MOD [place] URATES H /LPF Urine Bacteria NEGATIVE /HPF Urine Casts NONE /LPF Urine Mucus NEGATIVE /LPF Urine Culture Indicated NO White Blood Count 16.8 H 4.3-11.0 10^3/uL Red Blood Count 5.06 4.35-5.85 10^6/uL Hemoglobin 13.8 11.5-16.0 G/DL Hematocrit 43 35-52 % Mean Corpuscular Volume 85 80-99 FL Mean Corpuscular Hemoglobin 27 25-34 PG Mean Corpuscular Hemoglobin Concent 32 32-36 G/DL Red Cell Distribution Width 16.3 H 10.0-14.5 % Platelet Count 359 130-400 10^3/uL Mean Platelet Volume 12.1 H 7.4-10.4 FL Neutrophils (%) (Auto) 56 42-75 % Lymphocytes (%) (Auto) 34 12-44 % Monocytes (%) (Auto) 7 0-12 % Eosinophils (%) (Auto) 2 0-10 % Basophils (%) (Auto) 1 0-10 % Neutrophils # (Auto) 9.4 H 1.8-7.8 X 10^3 Lymphocytes # (Auto) 5.7 H 1.0-4.0 X 10^3 Monocytes # (Auto) 1.2 H 0.0-1.0 X 10^3 Eosinophils # (Auto) 0.4 H 0.0-0.3 10^3/uL Basophils # (Auto) 0.1 0.0-0.1 10^3/uL Neutrophils % (Manual) 57 % Lymphocytes % (Manual) 33 % Monocytes % (Manual) 8 % Eosinophils % (Manual) 2 % Blood Morphology Comment NORMAL Prothrombin Time 12.7 12.2-14.7 SEC INR Comment 1.0 0.8-1.4 Activated Partial Thromboplast Time 22 L 24-35 SEC Sodium Level 140 135-145 MMOL/L Potassium Level 4.6 3.6-5.0 MMOL/L Chloride Level 105 98-107 MMOL/L Carbon Dioxide Level 17 L 21-32 MMOL/L Anion Gap 18 H 5-14 MMOL/L Blood Urea Nitrogen 34 H 7-18 MG/DL Creatinine 1.73 H 0.60-1.30 MG/DL Estimat Glomerular Filtration Rate 29 BUN/Creatinine Ratio 20 Glucose Level 210 H 70-105 MG/DL Lactic Acid Level 3.23 *H 2.78 *H 0.50-2.00 MMOL/L Calcium Level 10.3 H 8.5-10.1 MG/DL Corrected Calcium 8.5-10.1 MG/DL Total Bilirubin 0.5 0.1-1.0 MG/DL Aspartate Amino Transf (AST/SGOT) 36 H 5-34 U/L Alanine Aminotransferase (ALT/SGPT) 29 0-55 U/L Alkaline Phosphatase 142 H 40-136 U/L Troponin I < 0.30 <0.30 NG/ML Total Protein 8.4 H 6.4-8.2 GM/DL Albumin 5.0 H 3.2-4.5 GM/DL (CLAYTON SALINAS) Medications Given in ED Current Medications Medications Dose Ordered Sig/Love Route Start Time Stop Time Status Last Admin Dose Admin Piperacillin Sod/ Tazobactam Sod 4.5 gm/Sodium Chloride 100 ml @ 200 mls/hr ONCE ONCE IV 06/12/18 17:15 06/12/18 17:44 DC 06/12/18 17:49 200 MLS/HR Sodium Chloride 500 ml @ 0 mls/hr Q0M ONCE IV 06/12/18 16:20 06/12/18 16:21 DC 06/12/18 17:31 500 MLS/HR Sodium Chloride 1,000 ml @ 0 mls/hr Q0M ONCE IV 06/12/18 15:50 06/12/18 15:52 DC 06/12/18 15:57 1,000 MLS/HR Sodium Chloride 1,000 ml @ 0 mls/hr Q0M ONCE IV 06/12/18 16:19 06/12/18 16:21 DC 06/12/18 16:39 1,000 MLS/HR (CLAYTON SALINAS) Vital Signs/I&O 06/12/18 06/12/18 15:39 15:39 Temp 95.4 95.4 Pulse 98 98 Resp 21 21 B/P (MAP) 111/98 (102) 111/98 (102) Pulse Ox 98 98 (CLAYTON SALINAS) Vital Signs/I&O Capillary Refill : Less Than 3 Seconds (SHARRON SALMON MD) Blood Pressure Mean: 102 Progress Note : Progress Note Seen and evaluated. IV, labs, UA, chest x-ray and EKG ordered. Blood cultures and lactic acid ordered. Normal saline 1 L bolus. Monitor patient. 1620: Lactic acid is elevated at greater than 3. We will go ahead and give another 1500 mL of normal saline to complete 30 mL/kg bolus. Patient does not require that currently as her blood pressure is normal but there is concerns given her recent history and blood pressure is at the lower end of normal and a normally hypertensive patient. 1715: Zosyn 4.5 g IV ordered. Pending UA. 1740: Patient has had 3 large bowel movements. Concerns about abdominal pathology is UA is negative and chest x-ray does not show any findings consistent with pneumonia. Patient does have elevated white count and elevated lactic acid. We will get CT abdomen and pelvis but without contrast due to elevated creatinine. We will continue fluids afterwards. 182: Patient back from CT with blood pressure 95/50. Care transferred to Dr. Salinas pending CT results. Patient will require admission pending CT results. (SHARRON SALMON MD) ECG Initial ECG Impression Date: Jun 12, 2018 Initial ECG Impression Time: 15:43 Initial ECG Rate: 96 Initial ECG Rhythm: Normal Sinus Initial ECG Comparisson: Unchanged Comment Sinus rhythm, tachycardia rate, normal axis. No evidence of ST elevation NV. Similar to previous. Interpreted by me. (SHARRON SALMON MD) Diagnostic Imaging Diagonstic Imaging: Xray Plain Films/CT/US/NM/MRI: chest Comments [facility] [place] NAME: REMIGIODAVIDSON [employer] REC#: [id number] PT STATUS: REG ER : 1950 PHYSICIAN: SHARRON SALMON MD ADMIT DATE: 06/12/18/ER Draft Date of Exam:06/12/18 CHEST 1 VIEW, AP/PA ONLY INDICATION: Dizziness, diaphoresis. EXAMINATION: Single view of the chest was obtained. FINDINGS: The heart size and vascularity are normal. The lungs are clear. No failure, effusion or pneumothorax. 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 IMPRESSION: No acute abnormality. Dictated on workstation # [id number] Dict: 06/12/18 1603 Trans: 06/12/18 1606 [facility] [id number] Interpreted by: MIMA JAVIER Electronically signed by: (SHARRON SALMON MD) Diagonstic Imaging: CT (noncontrast) Plain Films/CT/US/NM/MRI: abdomen, pelvis Comments [facility]On[facility]CH[place] NAME: REMIGIODAVIDSON [facility] REC#: [id number] PT STATUS: REG ER : 1950 PHYSICIAN: SHARRON SALMON MD ADMIT DATE: 06/12/18/ER Draft Date of Exam:06/12/18 CT ABDOMEN/PELVIS WO PROCEDURE: CT abdomen and pelvis without contrast. TECHNIQUE: Multiple contiguous axial images were obtained through the abdomen and pelvis without the use of intravenous contrast. INDICATION: Explosive diarrhea COMPARISON: 10/02/2017. FINDINGS: Multiple calcified granuloma are noted throughout the bilateral lung bases. Cholecystectomy. The unenhanced liver, spleen, adrenal glands, pancreas, and kidneys are unremarkable. Mild scattered vascular calcifications. No aneurysmal dilatation of the abdominal aorta. The urinary bladder is unremarkable. The uterus is not visualized, likely surgically absent. No abnormal adnexal mass lesions. Fluid is identified throughout the colon with mild mural thickening of the colon. No dilated loops of large or small bowel. No pneumatosis. No evidence of acute appendicitis. No significant adenopathy, free air, or free fluid within the abdomen or pelvis. No acute osseous abnormality. IMPRESSION: Fluid throughout the colon, likely related to diarrhea. Mild mural thickening of the colon is also present, favored to relate to mild colitis. There is, however, no evidence of bowel obstruction or pneumatosis. Evidence of chronic granulomatous disease. Cholecystectomy. Additional findings as above. Dictated on workstation # [id number] Dict: 06/12/18 1825 Trans: 06/12/18 1834 [facility] [id number] Interpreted by: CATE WU MD Electronically signed by: Reviewed: Reviewed by Me (CLAYTON SALINAS) Departure Communication (Admissions) Time/Spoke to Admitting Phy: 19:25 Discussed case lab imaging findings and plan with Dr. Gomez and she agrees with ICU admission. (CLAYTON SALINAS) Impression Primary Impression: Colitis Additional Impressions: Septic shock Acute kidney injury (nontraumatic) Disposition: ADMITTED INPATIENT Condition: Improved Admissions Decision to Admit Reason: Admit from ER (General) Decision to Admit/Date: Jun 12, 2018 Time/Decision to Admit Time: 18:55 (CLAYTON SALINAS) Departure-Patient Inst. Referrals: [facility] (PCP) Primary Care Physician ARNEL MILES (Family) Primary Care Physician SHARRON SALMON MD Jun 12, 2018 16:19 C[place]TON ASLINAS Jun 12, 2018 18:58
[2018-06-12] MEDS ORDERED: NS IV 500 ML 500 ML IV ONE (16:20)
[2018-06-12 16:21] LABS: PROTHROMBIN TIME PATIENT 12.7 SEC (12.2-14.7)
[2018-06-12 16:26] LABS: ALANINE AMINOTRANSFERASE 29 U/L (0-55); ALKALINE PHOSPHATASE 142 U/L (40-136); BILIRUBIN,TOTAL 0.5 MG/DL (0.1-1.0); BUN/CREATININE RATIO 20; CALCIUM 10.3 MG/DL (8.5-10.1); CARBON DIOXIDE 17 MMOL/L (21-32); CHLORIDE 105 MMOL/L (98-107); CREATININE SERUM 1.73 MG/DL (0.60-1.30); GFR ESTIMATED 29; GLUCOSE 210 MG/DL (70-105); POTASSIUM 4.6 MMOL/L (3.6-5.0); SODIUM 140 MMOL/L (135-145); TOTAL PROTEIN 8.4 GM/DL (6.4-8.2)
[2018-06-12 16:39] LABS: EOSINOPHILS % (MANUAL) 2 %; LYMPHOCYTES % (MANUAL) 33 %; MONOCYTES % (MANUAL) 8 %; NEUTROPHILS % (MANUAL) 57 %; RBC MORPH NORMAL
[2018-06-12 17:14] LABS: BILIRUBIN,URINE NEGATIVE (NEGATIVE); CLARITY,URINE SLIGHTLY CLOUDY; COLOR,URINE YELLOW; GLUCOSE, URINE (UA) NEGATIVE (NEGATIVE); KETONES,URINE NEGATIVE (NEGATIVE); LEUKOCYTE ESTERASE ,URINE 1+ (NEGATIVE); NITRITE,URINE NEGATIVE (NEGATIVE); PH,URINE 5 (5-9); PROTEIN,URINE 3+ (NEGATIVE); UROBILINOGEN,URINE NORMAL (NORMAL)
[2018-06-12] MEDS ORDERED: PIPERACILLIN SODIUM/TAZOBACTAM 4.5 GM in NS (IVPB) 100 ML IV ONE (17:15)
[2018-06-12 17:31] LABS: AMORPHOUS SEDIMENT,UR MOD AMOR URATES /LPF; BACTERIA,URINE NEGATIVE /HPF; SQUAMOUS EPITHELIAL CELL,UR 0-5 /HPF
--- NOTE | 2018-06-12 18:34 | Diagnostic Imaging Report ---
PROCEDURE: CT abdomen and pelvis without contrast. TECHNIQUE: Multiple contiguous axial images were obtained through the abdomen and pelvis without the use of intravenous contrast. INDICATION: Explosive diarrhea COMPARISON: 10/02/2017. FINDINGS: Multiple calcified granuloma are noted throughout the bilateral lung bases. Cholecystectomy. The unenhanced liver, spleen, adrenal glands, pancreas, and kidneys are unremarkable. Mild scattered vascular calcifications. No aneurysmal dilatation of the abdominal aorta. The urinary bladder is unremarkable. The uterus is not visualized, likely surgically absent. No abnormal adnexal mass lesions. Fluid is identified throughout the colon with mild mural thickening of the colon. No dilated loops of large or small bowel. No pneumatosis. No evidence of acute appendicitis. No significant adenopathy, free air, or free fluid within the abdomen or pelvis. No acute osseous abnormality. IMPRESSION: Fluid throughout the colon, likely related to diarrhea. Mild mural thickening of the colon is also present, favored to relate to mild colitis. There is, however, no evidence of bowel obstruction or pneumatosis. Evidence of chronic granulomatous disease. Cholecystectomy. Additional findings as above. Dictated by: Dictated on workstation # [id number]
--- OUTSIDE RECORDS SUMMARY | 2018-06-12 19:37 | XMS REPORT ---
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 Active 23544579 Problem Primary insomnia F51.01 Active 5474704 Problem Controlled type 2 diabetes mellitus without complication, without long -term current use of insulin E11.9 Active 093073449 Problem Diabetic polyneuropathy associated with type 2 diabetes mellitus E11.42 Active 05214639 Problem Anxiety F41.9 Active 95423845 Problem Gastroesophageal reflux disease with esophagitis K21.0 Active 124599697 Problem Seasonal allergic rhinitis due to other allergic trigger J30.89 Active 379255205 Problem Type 2 diabetes mellitus with diabetic neuropathy, without long-term current use of insulin E11.40 Active 14888027 Problem Uncontrolled type 2 diabetes mellitus with hyperglycemia E11.65 Active 665269915 Problem Hypertension, benign I10 Active 27291009 ALLERGIES No Information ENCOUNTERS Encounter Location Date Diagnosis [place] [id number] [place] [address] Apr, [place] [id number] [place] [address] Apr, [place] [id number] [place] [address] 06[address]- 2866 Apr, Diabetic polyneuropathy associated with type 2 diabetes mellitus E11.42 [facility] [id number] [place] [address]- 355[address] Apr, [place] [id number] [place] [address]- 74[address] 05 Apr, 2018 Encounter for immunization Z23 ; Gastroesophageal reflux disease with esophagitis K21.0 and Anxiety F41.9 [place] [id number] [place] [address] 40968- 6[address] 11 Mar, 2018 Uncontrolled type 2 diabetes mellitus with hyperglycemia E11.65 [place] [address] [address] 08 Mar, 2018 SOB (shortness of breath) R06.02 [place] [address] [place] [address]- [address] Mar, [place] [address] [address] 13 Feb, 2018 Type 2 diabetes mellitus with diabetic neuropathy, without long-term current use of insulin E11.40 and Diabetic polyneuropathy associated with type 2 diabetes mellitus E11.42 [place] [address] [address] Feb, Seborrheic keratoses L82.1 [place] [address] [address] Jan, Dysuria R30.0 [place] [address] [address]- [address] Jan, Bilious vomiting with nausea R11.14 [place] [id number] [place] [address]- [address] Jan, [place] [address] [address] Jan, Bilious vomiting with nausea R11.14 ; Chronic pruritic rash in adult L29.8 and Seborrheic keratoses L82.1 [place] [address] [address]- [address] Nov, Type 2 diabetes mellitus with diabetic neuropathy, without long-term current use of insulin E11.40 [place] [address] [address]- [address] 19 Nov, 2017 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 [place] [id number] [place] [address] 36[address]- [address] October, Type 2 diabetes mellitus with diabetic neuropathy, without long-term current use of insulin E11.40 ; Seasonal allergic rhinitis due to other allergic trigger J30.89 and Hypertension, benign I10 [place] [id number] [place] [address] 43724- 7647 October, Diabetic polyneuropathy associated with type 2 diabetes mellitus E11.42 [place] [address] [address] October, Diabetic polyneuropathy associated with type 2 diabetes mellitus E11.42 [place] [address] [address]- [address] Sep, Type 2 diabetes mellitus with diabetic neuropathy, without long-term current use of insulin E11.40 [place] [address] [address]- [address] Sep, [place] [address] 6[address]- [address] Sep, [place] [address] [address]- [address] Sep, 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 [place] [id number] [place] [address]11- [address] Jul, [place] [address] [address]- [address] Jul, Diabetic polyneuropathy associated with type 2 diabetes mellitus E11.42 and Primary insomnia F51.01 [place] [address] [address]- [address] Jul, Diabetic polyneuropathy associated with type 2 diabetes mellitus E11.42 ; Viral URI J06.9 and Encounter for immunization Z23 [place] [id number] [place] [address] 56751- 279[address] 18 Feb, 2017 SOB (shortness of breath) R06.02 and Diabetic polyneuropathy associated with type 2 diabetes mellitus E11.42 [place] [address] [address] Jan, 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 [facility] [address] [place] [address] 17274- 8267 Jan, [facility] [id number] [place] [address] 65382- [address] Jan, [place] [id number] [place] [address] 95708- 17[address] Jan, Diabetic polyneuropathy associated with type 2 diabetes mellitus E11.42 ; 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 ; Renal insufficiency N28.9 and Anemia due to other cause, not classified D64.89 [place] [id number] [place] [address]01- [address] Dec, SOB (shortness of breath) R06.02 ; Localized edema R60.0 and Controlled type 2 diabetes mellitus without complication, without long-term current use of insulin E11.9 [place] [id number] [place] [address] 90[address]- 57[address] Dec, SOB (shortness of breath) R06.02 ; Localized edema R60.0 and Controlled type 2 diabetes mellitus without complication, without long-term current use of insulin E11.9 [place] [address] [place] [address]- [address] Nov, Diabetic polyneuropathy associated with type 2 diabetes mellitus E11.42 [place] [address] [address] Nov, 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 [facility] [id number] [place] [address] 15329- 1696 Nov, 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 [place] [address] [place] [address] 76677- 7410 October, 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 [facility] [address] [facility] [id number] [place] [address] Aug, Diabetic polyneuropathy associated with type 2 diabetes mellitus E11.42 IMMUNIZATIONS No Known Immunizations SOCIAL HISTORY Never Assessed REASON FOR VISIT RX for glucometer PLAN OF CARE VITAL SIGNS MEDICATIONS Medication Instructions Dosage Frequency Start Date End Date Duration Status Blood Glucose Monitor System w/Device DX- E11.42 3 times a day test 3 times per day 8h Apr, Active Blood Glucose Test Strip DX E11.42 and lancets 3 times a day test blood sugar 8h Apr, Active RESULTS No Results PROCEDURES No Known [...]
--- OUTSIDE RECORDS SUMMARY | 2018-06-12 19:37 | XMS REPORT ---
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 Active 58411448 Problem Primary insomnia F51.01 Active 0323460 Problem Controlled type 2 diabetes mellitus without complication, without long -term current use of insulin E11.9 Active 561897163 Problem Diabetic polyneuropathy associated with type 2 diabetes mellitus E11.42 Active 20370277 Problem Anxiety F41.9 Active 29863331 Problem Gastroesophageal reflux disease with esophagitis K21.0 Active 867433816 Problem Seasonal allergic rhinitis due to other allergic trigger J30.89 Active 281275325 Problem Type 2 diabetes mellitus with diabetic neuropathy, without long-term current use of insulin E11.40 Active 67770903 Problem Uncontrolled type 2 diabetes mellitus with hyperglycemia E11.65 Active 477876858 Problem Hypertension, benign I10 Active 60841420 ALLERGIES No Information ENCOUNTERS Encounter Location Date Diagnosis [place] [address] [place] [id number] [place] [address] 31181- 1952 Apr, [place] [address] 51118- 6991 29 Apr, 2018 Uncontrolled type 2 diabetes mellitus with hyperglycemia E11.65 [place] [address] [place] [id number] [place] [address] 39666- 9798 15 Apr, 2018 Viral illness B34.9 ; Bilious vomiting with nausea R11.14 and Diarrhea, unspecified type R19.7 [place] [address] [place] [id number] [place] [address] 28066- 6141 Apr, [place] [address] 68023- 7664 Apr, Diabetic polyneuropathy associated with type 2 diabetes mellitus E11.42 [place] [address] [place] [id number] [place] [address] 66557- 8698 Apr, [place] [address] [place] [id number] [place], [place] [address] 3510 05 Apr, 2018 Encounter for immunization Z23 ; Gastroesophageal reflux disease with esophagitis K21.0 and Anxiety F41.9 [place] [address] [place] [id number] [place] [address] 23066- 8722 Mar, Uncontrolled type 2 diabetes mellitus with hyperglycemia E11.[address] 69953- 5129 08 Mar, 2018 SOB (shortness of breath) R06.02 [place] [address] [place] [id number] [place] [address] 69561- 6340 Mar, [place] [address] [place] [id number] [place] [address] 04547- 8664 Feb, Type 2 diabetes mellitus with diabetic neuropathy, without long-term current use of insulin E11.40 and Diabetic polyneuropathy associated with type 2 diabetes mellitus E11.42 [place] [address] [place] [id number] [place] [address] 73625- 0763 Feb, Seborrheic keratoses L82.1 [place] [address] [place] [id number] [place] [address] 56127- 8494 Jan, Dysuria R30.0 [place] [address] [place] [id number] [place] [address] 37639- 3063 Jan, Bilious vomiting with nausea R11.14 [place] [id number] [place] [address] 03960- 5191 Jan, [place] [id number] [place] [address] 09911- 7920 Jan, Bilious vomiting with nausea R11.14 ; Chronic pruritic rash in adult L29.8 and Seborrheic keratoses L82.1 [facility] [address] [place] [address] 05211- 9358 Nov, Type 2 diabetes mellitus with diabetic neuropathy, without long-term current use of insulin E11.40 [facility] [address] [place] [id number] [place] [address] 83401- 2533 Nov, 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 [place] [address] [place] [id number] [place] [address] 49103- 0178 October, Type 2 diabetes mellitus with diabetic neuropathy, without long-term current use of insulin E11.40 ; Seasonal allergic rhinitis due to other allergic trigger J30.89 and Hypertension, benign I10 [place] [address] [place] [id number] [place] [address] 41547- 0625 October, Diabetic polyneuropathy associated with type 2 diabetes mellitus E11.42 [place] [address] [place] [id number] [place] [address] 98767- 4050 October, Diabetic polyneuropathy associated with type 2 diabetes mellitus E11.42 [place] [address] [place] [id number] [place] [address] 26997- 8750 Sep, Type 2 diabetes mellitus with diabetic neuropathy, without long-term current use of insulin E11.40 [place] [address] [place] [address] 53273- 7654 Sep, [place] [address] [place] [id number] [place] [address] 22517- 1650 Sep, [place] [address] [place] [id number] [place] [address] 96105- 1368 Sep, 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 [facility] [address] [place] [id number] [place] [address] 19948- 2620 Jul, [facility] [address] [place] [id number] [place] [address] 23046- 4125 Jul, Diabetic polyneuropathy associated with type 2 diabetes mellitus E11.42 and Primary insomnia F51.01 [place] [address] [place] [id number] [place] [address] 94421- 8981 2017 Diabetic polyneuropathy associated with type 2 diabetes mellitus E11.42 ; Viral URI J06.9 and Encounter for immunization Z23 [place] [address] [place] [id number] [place] [address] 56003- 7458 18 Feb, 2017 SOB (shortness of breath) R06.02 and Diabetic polyneuropathy associated with type 2 diabetes mellitus E11.42 [place] [address] [place] [id number] [place] [address] 32688- 5349 Jan, 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 [place] [id number] [place] [address] 78859- 7661 11 Jan, 2017 [place] [address] 00353- 9290 Jan, [place] [address] 63651- 3976 Jan, Diabetic polyneuropathy associated with type 2 diabetes mellitus E11.42 ; 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 ; Renal insufficiency N28.9 and Anemia due to other cause, not classified D64.89 [place] [address] [place] [id number] [place] [address] 44374- 3500 Dec, SOB (shortness of breath) R06.02 ; Localized edema R60.0 and Controlled type 2 diabetes mellitus without complication, without long-term current use of insulin E11.9 [place] [address] [place] [id number] [place] [address] 92394- 1402 Dec, SOB (shortness of breath) R06.02 ; Localized edema R60.0 and Controlled type 2 diabetes mellitus without complication, without long-term current use of insulin E11.9 [place] [address] [place] [address] 13676- 6015 Nov, Diabetic polyneuropathy associated with type 2 diabetes mellitus E11.42 [place] [address] [place] [address] [place] [address]- 2546 Nov, 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 [facility] [address] [facility] [id number] [address]- 5156 Nov, 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
--- OUTSIDE RECORDS SUMMARY | 2018-06-12 19:37 | XMS REPORT ---
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 Active 89370749 Problem Primary insomnia F51.01 Active 6814784 Problem Controlled type 2 diabetes mellitus without complication, without long -term current use of insulin E11.9 Active 008225222 Problem Diabetic polyneuropathy associated with type 2 diabetes mellitus E11.42 Active 98243200 Problem Anxiety F41.9 Active 58077731 Problem Gastroesophageal reflux disease with esophagitis K21.0 Active 227806604 Problem Seasonal allergic rhinitis due to other allergic trigger J30.89 Active 792992661 Problem Type 2 diabetes mellitus with diabetic neuropathy, without long-term current use of insulin E11.40 Active 39760924 Problem Uncontrolled type 2 diabetes mellitus with hyperglycemia E11.65 Active 152960691 Problem Hypertension, benign I10 Active 46681754 ALLERGIES No Information ENCOUNTERS Encounter Location Date Diagnosis [place] [address] [place] [id number] [place] [address] 96863- 7720 Apr, [place] [address] [place] [id number] [place] [address] 80847- 0188 Apr, Viral illness B34.9 ; Bilious vomiting with nausea R11.14 and Diarrhea, unspecified type R19.7 [place] [address] 78493- 2545 Apr, [place] [address] [place] [id number] [place] [address] 38723- 6530 Apr, Diabetic polyneuropathy associated with type 2 diabetes mellitus E11.42 [place] [address] [place] [address] [place] [address] 38277- 7985 Apr, [place] [address] [place] [address] [place] [address] 06654- 9557 05 Apr, 2018 Encounter for immunization Z23 ; Gastroesophageal reflux disease with esophagitis K21.0 and Anxiety F41.9 [place] [address] [place] [id number] [place] [address] 47593- 8042 11 Mar, 2018 Uncontrolled type 2 diabetes mellitus with hyperglycemia E11.65 [place] [address] 36870- 8547 Mar, SOB (shortness of breath) R06.02 [place] [address] 21565- 5623 Mar, [place] [address] [place] [address] [place] [address] 36873- 9007 13 Feb, 2018 Type 2 diabetes mellitus with diabetic neuropathy, without long-term current use of insulin E11.40 and Diabetic polyneuropathy associated with type 2 diabetes mellitus E11.42 [place] [address] [place] [id number] [place] [address] 60085- 3173 Feb, Seborrheic keratoses L82.1 [place] [address] [place] [id number] [place] [address] 51666- 9434 Jan, Dysuria R30.0 [place] [address] [place] [id number] [place] [address] 28998- 1606 Jan, Bilious vomiting with nausea R11.14 [place] [address] [place] [address] [place] [address] 66875- 3074 Jan, [place] [address] 98047- 4334 Jan, Bilious vomiting with nausea R11.14 ; Chronic pruritic rash in adult L29.8 and Seborrheic keratoses L82.1 [place] [address] [place] [address] [place] [address] 59628- 8508 Nov, Type 2 diabetes mellitus with diabetic neuropathy, without long-term current use of insulin E11.40 [facility] [address] [address]- 5237 Nov, 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 [facility] [address] [address]- 1099 October, Type 2 diabetes mellitus with diabetic neuropathy, without long-term current use of insulin E11.40 ; Seasonal allergic rhinitis due to other allergic trigger J30.89 and Hypertension, benign I10 [facility] [address] [place] [id number] [place] [address] 31129- 0275 October, Diabetic polyneuropathy associated with type 2 diabetes mellitus E11.42 [facility] [address] [place] [address] [place] [address] 94924- 6364 October, Diabetic polyneuropathy associated with type 2 diabetes mellitus E11.42 [facility] [address] [place] [id number] [place] [address] 61603- 5156 Sep, Type 2 diabetes mellitus with diabetic neuropathy, without long-term current use of insulin E11.40 [facility] [address] [place] [id number] [place] [address] 39808- 0274 Sep, [facility] [address] [place] [id number] [place] [address] 41826- 6875 Sep, [facility] [address] [place] [id number] [place] [address] 71059- 4468 Sep, 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 [facility] [address] [place] [address] 87980- 7912 Jul, [facility] [address] [place] [id number] [place] [address] 76254- 7905 Jul, Diabetic polyneuropathy associated with type 2 diabetes mellitus E11.42 and Primary insomnia F51.01 [facility] [address] [place] [address] [place] [address] 47205- 4186 05 Feb, 2018 Diabetic polyneuropathy associated with type 2 diabetes mellitus E11.42 ; Viral URI J06.9 and Encounter for immunization Z23 [place] [address] [place] [id number] [place] [address] 13000- 6167 Feb, SOB (shortness of breath) R06.02 and Diabetic polyneuropathy associated with type 2 diabetes mellitus E11.42 [place] [address] [place] [address] [place] [address] 38560- 7528 Jan, 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 [place] [address] [place] [address] [place] [address] 29200- 0240 Jan, [place] [address] 06566- 1746 Jan, [place] [address] 18512- 9918 Jan, Diabetic polyneuropathy associated with type 2 diabetes mellitus E11.42 ; 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 ; Renal insufficiency N28.9 and Anemia due to other cause, not classified D64.89 [place] [address] [place] [address] [place] [address] 37509- 1700 Dec, SOB (shortness of breath) R06.02 ; Localized edema R60.0 and Controlled type 2 diabetes mellitus without complication, without long-term current use of insulin E11.9 [place] [address] [place] [address] [place] [address] 67915- 6162 Dec, SOB (shortness of breath) R06.02 ; Localized edema R60.0 and Controlled type 2 diabetes mellitus without complication, without long-term current use of insulin E11.9 [place] [address] [place] [address] [place] [address] 45122- 2489 Nov, Diabetic polyneuropathy associated with type 2 diabetes mellitus E11.42 [place] [address] [place] [id number] [place] [address] 03747- 9082 Nov, 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 [place] [address] [facility] [id number] [place] [address]- 4825 Nov, 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 [facility] [address] [facility] [id number] [place] [address]- 9556 October, 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 [facility] [address] [facility] [id number] [place] [address]- 3392 Aug, Diabetic polyneuropathy associated with type 2 diabetes mellitus E11.42 IMMUNIZATIONS No Known Immunizations SOCIAL HISTORY Never Assessed REASON FOR VISIT Free [id number],rn PLAN OF CARE VITAL SIGNS MEDICATIONS Unknown Medications RESULTS Name Result Date Reference Range A1C (IN HOUSE) A1C IN HOUSE 7.1 4.3 - 5.6 % Previous A1c 9.2 Lot [id number] Exp date 08/2019 PROCEDURES Procedure Date Ordered Result Body Site GLYCATED HEMOGLOBIN TEST May 02, 2018 Billing Notes on claim May 02, 2018 INSTRUCTIONS MEDICATIONS ADMINISTERED No Known Medications [...]
--- OUTSIDE RECORDS SUMMARY | 2018-06-12 19:37 | XMS REPORT ---
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 Active 26161953 Problem Primary insomnia F51.01 Active 7054449 Problem Controlled type 2 diabetes mellitus without complication, without long -term current use of insulin E11.9 Active 953359890 Problem Diabetic polyneuropathy associated with type 2 diabetes mellitus E11.42 Active 51827329 Problem Anxiety F41.9 Active 56560532 Problem Gastroesophageal reflux disease with esophagitis K21.0 Active 307273133 Problem Seasonal allergic rhinitis due to other allergic trigger J30.89 Active 267584746 Problem Type 2 diabetes mellitus with diabetic neuropathy, without long-term current use of insulin E11.40 Active 46934265 Problem Uncontrolled type 2 diabetes mellitus with hyperglycemia E11.65 Active 326807057 Problem Hypertension, benign I10 Active 76336612 ALLERGIES No Information ENCOUNTERS Encounter Location Date Diagnosis [place] [address] [place] [id number] [place] [address] 46300- 4629 Apr, [place] [address] [place] [id number] [place] [address] 13407- 2790 Apr, [place] [address] [place] [id number] [place] [address] 99959- 1548 Apr, Diabetic polyneuropathy associated with type 2 diabetes mellitus E11.42 [facility] [place] [address] [place] [id number] [place] [address] 24929- 3036 Apr, [place] [address] [place] [id number] [place] [address] 99533- 5286 05 Apr, 2018 Encounter for immunization Z23 ; Gastroesophageal reflux disease with esophagitis K21.0 and Anxiety F41.9 [place] [address] [place] [id number] [place] [address] 84999- 1379 11 Mar, 2018 Uncontrolled type 2 diabetes mellitus with hyperglycemia E11.65 [place] [address] 84173- 1591 08 Mar, 2018 SOB (shortness of breath) R06.02 [place] [address] [place] 817452- 2334 Mar, [place] [address] 22718- 8274 13 Feb, 2018 Type 2 diabetes mellitus with diabetic neuropathy, without long-term current use of insulin E11.40 and Diabetic polyneuropathy associated with type 2 diabetes mellitus E11.42 [place] [address] 20120- 6597 Feb, Seborrheic keratoses L82.1 [place] [address] 56194- 7045 Jan, Dysuria R30.0 [place] [address] 25958- 7523 Jan, Bilious vomiting with nausea R11.14 [place] [address] [place] [id number] [place] [address] 21940- 7948 Jan, [place] [address] 18445- 6728 Jan, Bilious vomiting with nausea R11.14 ; Chronic pruritic rash in adult L29.8 and Seborrheic keratoses L82.1 [place] [address] 21926- 6164 Nov, Type 2 diabetes mellitus with diabetic neuropathy, without long-term current use of insulin E11.40 [place] [address] 64642- 4157 19 Nov, 2017 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 [place] [address] [place] [id number] [place] [address] 18440- 3284 October, Type 2 diabetes mellitus with diabetic neuropathy, without long-term current use of insulin E11.40 ; Seasonal allergic rhinitis due to other allergic trigger J30.89 and Hypertension, benign I10 [place] [address] [place] [id number] [place] [address] 66669- 7503 October, Diabetic polyneuropathy associated with type 2 diabetes mellitus E11.42 [place] [address] 50977- 5437 October, Diabetic polyneuropathy associated with type 2 diabetes mellitus E11.42 [place] [address] 35024- 6394 Sep, Type 2 diabetes mellitus with diabetic neuropathy, without long-term current use of insulin E11.40 [place] [address] 38670- 9997 Sep, [place] [address] 86227- 7917 Sep, [place] [address] 64545- 2240 Sep, 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 [place] [address] [place] [id number] [place] [address] 16156- 3890 Jul, [place] [address] 72581- 4608 Jul, Diabetic polyneuropathy associated with type 2 diabetes mellitus E11.42 and Primary insomnia F51.01 [place] [address] 28328- 1557 Jul, Diabetic polyneuropathy associated with type 2 diabetes mellitus E11.42 ; Viral URI J06.9 and Encounter for immunization Z23 [place] [address] [place] [id number] [place] [address] 97671- 9543 18 Feb, 2017 SOB (shortness of breath) R06.02 and Diabetic polyneuropathy associated with type 2 diabetes mellitus E11.42 [place] [address], [place] [address]- 8761 Jan, 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 [facility] [place] [address] [place] [address] 80725- 6972 Jan, [facility] [place] [address] [place] [id number] [place] [address] 93271- 2971 Jan, [place] [address] [place] [id number] [place] [address] 16048- 8084 Jan, Diabetic polyneuropathy associated with type 2 diabetes mellitus E11.42 ; 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 ; Renal insufficiency N28.9 and Anemia due to other cause, not classified D64.89 [place] [address] [place] [id number] [place] [address] 16962- 1436 Dec, SOB (shortness of breath) R06.02 ; Localized edema R60.0 and Controlled type 2 diabetes mellitus without complication, without long-term current use of insulin E11.9 [place] [address] [place] [id number] [place] [address] 18191- 8262 Dec, SOB (shortness of breath) R06.02 ; Localized edema R60.0 and Controlled type 2 diabetes mellitus without complication, without long-term current use of insulin E11.9 [place] [address] [place] [address] 27569- 1007 Nov, Diabetic polyneuropathy associated with type 2 diabetes mellitus E11.42 [place] [address], [place] [address]- 5312 Nov, 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 [facility] [place] [address] [place] [id number] [place] [address] 68360- 3594 Nov, 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 [place] [address] [place] [address] 82574- 7044 October, 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 [facility] [address] [facility] [id number] [place] [address]- 7328 Aug, Diabetic polyneuropathy associated with type 2 diabetes mellitus E11.42 IMMUNIZATIONS Vaccine Route Administration Date Status TORADOL (IM) 60 MG/2ML (UP TO 15 MG) IM Intramuscular May 02, 2018 Administered SOCIAL HISTORY Never Assessed REASON FOR VISIT Injection-IM Cshepherd DE PLAN OF CARE VITAL SIGNS MEDICATIONS Unknown Medications RESULTS No Results PROCEDURES Procedure Date Ordered Result Body Site TORADOL (IM) 60 MG/2ML (UP TO 15 MG) May 02, 2018 THER/PROPH/DIAG INJ, SC/IM May 02, 2018 INSTRUCTIONS MEDICATIONS ADMINISTERED No [...]
--- OUTSIDE RECORDS SUMMARY | 2018-06-12 19:37 | XMS REPORT ---
Author Author ARNEL MILES Organization [facility] Address [address] [place] [address] Care Team Providers Care Brooch Maker Novelty Name Role Phone ARNEL MILES Unavailable PROBLEMS Type Condition ICD9-CM Code IUS30-ZP Code Onset Dates Condition Status SNOMED Code Problem Controlled type 2 diabetes mellitus without complication, without long -term current use of insulin E11.9 Active 291273837 Problem Type 2 diabetes mellitus with diabetic neuropathy, without long-term current use of insulin E11.40 Active 19764377 Problem Primary insomnia F51.01 Active 2653619 Problem Diabetic polyneuropathy associated with type 2 diabetes mellitus E11.42 Active 46184503 Problem 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 Active 13279909 Problem Neuropathy G62.9 Active 891749676 Problem Anxiety F41.9 Active 51300753 Problem Seasonal allergic rhinitis due to other allergic trigger J30.89 Active 258793110 Problem Hypertension, benign I10 Active 41794135 Problem Gastroesophageal reflux disease with esophagitis K21.0 Active 748577908 Problem Uncontrolled type 2 diabetes mellitus with hyperglycemia E11.65 Active 865219624 ALLERGIES No Information ENCOUNTERS Encounter Location Date Diagnosis [place] [id number], [place] [address] May, [facility] [address] [id number] [place] [address]658[address] 1094 May, [facility] [id number] [place] [address] 60811- 8332 30 Apr, 2018 Neuropathy G62.9 [facility] [id number] [place] [address] 65153- 6750 29 Apr, 2018 Uncontrolled type 2 diabetes mellitus with hyperglycemia E11.65 [place] [address] [place] [address] 16081- 1400 15 Apr, 2018 Viral illness B34.9 ; Bilious vomiting with nausea R11.14 and Diarrhea, unspecified type R19.7 [place] [address] [address]- [address] Apr, [place] [address] 0[address]49- 8561 Apr, Diabetic polyneuropathy associated with type 2 diabetes mellitus E11.42 [place] [address] 09614- 5450 Apr, [place] [address] 16852- 9791 05 Apr, 2018 Encounter for immunization Z23 ; Gastroesophageal reflux disease with esophagitis K21.0 and Anxiety F41.[address] [address]- 2114 Mar, Uncontrolled type 2 diabetes mellitus with hyperglycemia E11.65 [place] [address] [address]- 1924 Mar, SOB (shortness of breath) R06.02 [place] [address] 88761- 4753 Mar, [place] [address] 05214- 5490 13 Feb, 2018 Type 2 diabetes mellitus with diabetic neuropathy, without long-term current use of insulin E11.40 and Diabetic polyneuropathy associated with type 2 diabetes mellitus E11.42 [place] [address] 06288- 3873 Feb, Seborrheic keratoses L82.1 [place] [address] 36310- 8040 Jan, Dysuria R30.0 [place] [address] 93933- 4619 Jan, Bilious vomiting with nausea R11.14 [place] [address] [place] [id number] [place] [address] 67010- 8483 Jan, [facility] [id number] [place] [address] 38144- 7819 Jan, Bilious vomiting with nausea R11.14 ; Chronic pruritic rash in adult L29.8 and Seborrheic keratoses L82.1 [place] [address] [id number] [place] [address] 91301- 7268 Nov, Type 2 diabetes mellitus with diabetic neuropathy, without long-term current use of insulin E11.40 [place] [address] [id number] [place] [address] 71527- 9436 Nov, 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 [place] [address] [id number] [place] [address] 99906- 2302 October, Type 2 diabetes mellitus with diabetic neuropathy, without long-term current use of insulin E11.40 ; Seasonal allergic rhinitis due to other allergic trigger J30.89 and Hypertension, benign I10 [place] [address] [id number] [place] [address] 11572- 7456 October, Diabetic polyneuropathy associated with type 2 diabetes mellitus E11.42 [facility] [id number] [place] [address] 44600- 8192 October, Diabetic polyneuropathy associated with type 2 diabetes mellitus E11.42 [place] [address] [id number] [place] [address] 75207- 5089 Sep, Type 2 diabetes mellitus with diabetic neuropathy, without long-term current use of insulin E11.40 [facility] [address] [id number] [place] [address] 06652- 4641 Sep, [facility] [id number] [place] [address] 83998- 9431 Sep, [facility] [id number] [place] [address] 92575- 5953 Sep, 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 [place] [address], [place] [address] Jul, [place] [address] [place] [id number] [place] [address] 73250- 1614 Jul, Diabetic polyneuropathy associated with type 2 diabetes mellitus E11.42 and Primary insomnia F51.01 [place] [address] [place] [id number] [place] [address] 97999- 5240 Jul, Diabetic polyneuropathy associated with type 2 diabetes mellitus E11.42 ; Viral URI J06.9 and Encounter for immunization Z23 [place] [address] [place] [id number] [place] [address] 21541- 6143 Feb, SOB (shortness of breath) R06.02 and Diabetic polyneuropathy associated with type 2 diabetes mellitus E11.42 [place] [address] [place] [id number] [place] [address] 94921- 9981 Jan, 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 [place] [address] [id number] [place] [address] 97312- 7751 Jan, [place] [address] [id number] [place] [address] 82196- 3856 Jan, [place] [address] [place] [id number] [place] [address] 77720- 2877 Jan, Diabetic polyneuropathy associated with type 2 diabetes mellitus E11.42 ; 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 ; Renal insufficiency N28.9 and Anemia due to other cause, not classified D64.89 [place] [address] [place] [id number] [place] [address] 17211- 0074 Dec, SOB (shortness of breath) R06.02 ; Localized edema R60.0 and Controlled type 2 diabetes mellitus without complication, without long-term current use of insulin E11.9 [place] [address], [place] [address] Dec, SOB (shortness of breath) R06.02 ; Localized edema R60.0 and Controlled type 2 diabetes mellitus without complication, without long-term current use of insulin E11.9 [facility] [address], [place] [address] Nov, Diabetic polyneuropathy associated with type 2 diabetes mellitus E11.42 [facility] [address], [place] [address] 9[address] Nov, 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
--- OUTSIDE RECORDS SUMMARY | 2018-06-12 19:37 | XMS REPORT ---
Author Author ARNEL MILES Organization [facility] Address [address] [place] [address] Care Team Providers Care Stacker Tender Name Role Phone ARNEL MILES Unavailable PROBLEMS Type Condition ICD9-CM Code UPU95-UA Code Onset Dates Condition Status SNOMED Code Problem Controlled type 2 diabetes mellitus without complication, without long -term current use of insulin E11.9 Active 639518286 Problem Type 2 diabetes mellitus with diabetic neuropathy, without long-term current use of insulin E11.40 Active 76903320 Problem Primary insomnia F51.01 Active 9712567 Problem Diabetic polyneuropathy associated with type 2 diabetes mellitus E11.42 Active 99855141 Problem 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 Active 27994328 Problem Neuropathy G62.9 Active 406887885 Problem Anxiety F41.9 Active 66319777 Problem Seasonal allergic rhinitis due to other allergic trigger J30.89 Active 094035584 Problem Hypertension, benign I10 Active 21668982 Problem Gastroesophageal reflux disease with esophagitis K21.0 Active 675092609 Problem Uncontrolled type 2 diabetes mellitus with hyperglycemia E11.65 Active 413827618 ALLERGIES No Known Allergies ENCOUNTERS Encounter Location Date Diagnosis [place] [address] [place] [address] 83987- 0888 May, Neuropathy G62.9 [facility] [address] [place] [address] 01213- 3544 07 May, 2018 [facility] [address] [place] [address] 40160- 1628 Apr, Neuropathy G62.9 [facility] [address] [place] [address] 91455- 2746 29 Apr, 2018 Uncontrolled type 2 diabetes mellitus with hyperglycemia E11.65 [place] [address] [place] [id number] [place] [address] 69140- 2811 Apr, Viral illness B34.9 ; Bilious vomiting with nausea R11.14 and Diarrhea, unspecified type R19.7 [place] [address] 43687- 1796 Apr, [place] [address] 42950- 3702 Apr, Diabetic polyneuropathy associated with type 2 diabetes mellitus E11.42 [place] [address] 74623- 3794 Apr, [place] [address] 83463- 5625 05 Apr, 2018 Encounter for immunization Z23 ; Gastroesophageal reflux disease with esophagitis K21.0 and Anxiety F41.[address] 60820- 8923 Mar, Uncontrolled type 2 diabetes mellitus with hyperglycemia E11.65 [place] [address] 45575- 9311 08 Mar, 2018 SOB (shortness of breath) R06.02 [place] [address] 52158- 2465 Mar, [place] [address] 18192- 0719 13 Feb, 2018 Type 2 diabetes mellitus with diabetic neuropathy, without long-term current use of insulin E11.40 and Diabetic polyneuropathy associated with type 2 diabetes mellitus E11.42 [place] [address] 37220- 2585 Feb, Seborrheic keratoses L82.1 [place] [address] 53492- 6780 Jan, Dysuria R30.0 [place] [address] 90713- 4115 Jan, Bilious vomiting with nausea R11.14 [place] [address] [place] [id number] [place] [address] 20233- 4159 Jan, [place] [address] [place] [id number] [place] [address] 68705- 4572 Jan, Bilious vomiting with nausea R11.14 ; Chronic pruritic rash in adult L29.8 and Seborrheic keratoses L82.1 [place] [address] [place] [id number] [place] [address] 00061- 2841 Nov, Type 2 diabetes mellitus with diabetic neuropathy, without long-term current use of insulin E11.40 [place] [address] [place] [id number] [place] [address] 24786- 8346 Nov, 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 [place] [address] [place] [id number] [place] [address] 23500- 9046 October, Type 2 diabetes mellitus with diabetic neuropathy, without long-term current use of insulin E11.40 ; Seasonal allergic rhinitis due to other allergic trigger J30.89 and Hypertension, benign I10 [place] [address] [place] [id number] [place] [address] 13779- 2100 October, Diabetic polyneuropathy associated with type 2 diabetes mellitus E11.42 [place] [address] [place] [id number] [place] [address] 94510- 4347 October, Diabetic polyneuropathy associated with type 2 diabetes mellitus E11.42 [place] [address] [place] [id number] [place] [address] 49472- 2729 Sep, Type 2 diabetes mellitus with diabetic neuropathy, without long-term current use of insulin E11.40 [place] [address] [place] [id number] [place] [address] 12491- 7019 Sep, [place] [address] [place] [id number] [place] [address] 56711- 3174 Sep, [place] [address] [place] [id number] [place] [address] 78006- 3382 Sep, 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 [place] [address] [place] [id number] [place] [address] 97123- 4369 Jul, [place] [address] [place] [id number] [place] [address] 86056- 8827 Jul, Diabetic polyneuropathy associated with type 2 diabetes mellitus E11.42 and Primary insomnia F51.01 [place] [address] 07382- 5465 Jul, Diabetic polyneuropathy associated with type 2 diabetes mellitus E11.42 ; Viral URI J06.9 and Encounter for immunization Z23 [place] [address] 12600- 9420 Feb, SOB (shortness of breath) R06.02 and Diabetic polyneuropathy associated with type 2 diabetes mellitus E11.42 [place] [address] [place] [id number] [place] [address] 90974- 6983 Jan, 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 [place] [address] [place] [id number] [place] [address] 63539- 1932 Jan, [place] [address] [place] [id number] [place] [address] 42620- 3945 Jan, [place] [address] [place] [id number] [place] [address] 27764- 5795 Jan, Diabetic polyneuropathy associated with type 2 diabetes mellitus E11.42 ; 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 ; Renal insufficiency N28.9 and Anemia due to other cause, not classified D64.89 [place] [address] [place] [id number] [place] [address] 61692- 9333 Dec, SOB (shortness of breath) R06.02 ; Localized edema R60.0 and Controlled type 2 diabetes mellitus without complication, without long-term current use of insulin E11.9 [facility] [address] [place] [address] 67566- 0952 Dec, SOB (shortness of breath) R06.02 ; Localized edema R60.0 and Controlled type 2 diabetes mellitus without complication, without long-term current use of insulin E11.9 [place] [address] [place] [address] 21901- 1590 Nov, Diabetic polyneuropathy associated with type 2 diabetes mellitus E11.42 [place] [address] [place] [id number] [place] [address] 75307- 3754 Nov, 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 [place] [address] [place] [address] 20561- 7280 Nov, 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 -Ricardo JJ PLAN OF CARE VITAL SIGNS Height 65 in 2018-05-31 Weight 183. lbs 2018-05-31 Temperature 98.5 degrees Fahrenheit 2018-05-31 Heart Rate 103 bpm 2018-05-31 Respiratory Rate 18 2018-05-31 Oximetry 96 % 2018-05-31 BMI 30.45 kg/m2 2018-05-31 Blood pressure systolic 128 mmHg 2018-05-31 Blood pressure diastolic 70 mmHg 2018-05-31 MEDICATIONS Medication Instructions Dosage Frequency Start Date End Date Duration Status Allopurinol 100 mg Orally 2 times a day 1 tablet 12h October, 30 day(s) Active BD Insulin Syringe 31G X 5/16 as directed Jan, Active Blood Glucose Monitor System w/Device DX- E11.42 3 times a day test 3 times per day 8h Apr, Active Esomeprazole Magnesium 20 mg Orally Once a day 1 capsule 24h Apr, 30 day(s) Active CloNIDine HCl ER 0.1 MG Orally 2 times a day 1 tablet 12h Active Metoprolol Tartrate 25 MG Orally Twice a day 1 tablet with food 12h Active Blood Glucose Test Strip DX E11.42 and lancets 3 times a day test blood sugar 8h 12 Apr, 2018 Active Tessalon Perles 100 mg Orally Three times a day 1 capsule as needed 8h 24 Oct, 2017 Active Furosemide 40 mg 1 tablet 24h 30 Active Lovastatin 20 mg Orally Once a day, at bed time 1 tablet Active Aspirin EC 81 MG Orally Once a day 1 tablet 24h Active Levemir 100 UNIT/ML Subcutaneous 2 times a day Inject 45 units 12h Feb, Active Amitriptyline HCl 100 mg Orally at bedtime 1 tablet 30 days Active Metformin HCl 850 MG Orally 2 times a day 1 tablet 12h Active Qvar 40 MCG/ACT Inhalation Twice a day 1 puff 12h October, Active Lyrica 150 MG Orally Once a day 1 capsule 24h 11 May, 2018 Active Nystatin 233522 UNIT/GM Externally Once a day 1 application to affected area 24h Feb, Active Albuterol Sulfate (2.5 MG/3ML) 0.083% Inhalation every 4 hrs 3 ml as needed 4h Active Albuterol Sulfate (2.5 MG/3ML) 0.083% Inhalation 4 times a day 3 ml as needed 6h 05 Apr, 2018 Active Diltiazem HCl 240 mg/24 hours Orally Once a day 1 capsule 24h Active Klor-Con M20 20 meq Orally Once a day 1 tablet with food 24h Active Lisinopril 20 mg Orally at bedtime 1 tablet Active Zofran 4 MG Orally 3 times a day 1 tablet 8h Apr, 5 days Active RESULTS No Results PROCEDURES No [...]
--- OUTSIDE RECORDS SUMMARY | 2018-06-12 19:38 | XMS REPORT ---
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 Active 55967904 Problem Primary insomnia F51.01 Active 0999420 Problem Controlled type 2 diabetes mellitus without complication, without long -term current use of insulin E11.9 Active 031744227 Problem Diabetic polyneuropathy associated with type 2 diabetes mellitus E11.42 Active 80414496 Problem Anxiety F41.9 Active 31943286 Problem Gastroesophageal reflux disease with esophagitis K21.0 Active 527660153 Problem Seasonal allergic rhinitis due to other allergic trigger J30.89 Active 687332658 Problem Type 2 diabetes mellitus with diabetic neuropathy, without long-term current use of insulin E11.40 Active 87788717 Problem Uncontrolled type 2 diabetes mellitus with hyperglycemia E11.65 Active 276600046 Problem Hypertension, benign I10 Active 84240677 ALLERGIES No Known Allergies ENCOUNTERS Encounter Location Date Diagnosis [place] [address] [address] Apr, Encounter for immunization Z23 ; Gastroesophageal reflux disease with esophagitis K21.0 and Anxiety F41.9 [place] [address] [place] [id number] [place] [address] Mar, Uncontrolled type 2 diabetes mellitus with hyperglycemia E11.65 [place] [address] [address] Mar, SOB (shortness of breath) R06.02 [place] [address] [address] [place] [id number] [place] [address]489 Mar, [address] [address] 13 Feb, 2018 Type 2 diabetes mellitus with diabetic neuropathy, without long-term current use of insulin E11.40 and Diabetic polyneuropathy associated with type 2 diabetes mellitus E11.42 [place] [address] [place] [id number] [place] [address] Feb, Seborrheic keratoses L82.1 [place] [address] [place] [id number] [place] [address] Jan, Dysuria R30.0 [place] [address] [address] Jan, Bilious vomiting with nausea R11.14 [place] [address] [place] [id number] [place] [address] Jan, [place] [address] [address] [place] [id number] [place] [address] Jan, Bilious vomiting with nausea R11.14 ; Chronic pruritic rash in adult L29.8 and Seborrheic keratoses L82.1 [place] [address] [place] [id number] [place] [address] Nov, Type 2 diabetes mellitus with diabetic neuropathy, without long-term current use of insulin E11.40 [place] [address] [place] [id number] [place] [address] Nov, 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 [place] [address] [place] [id number] [place] [address] October, Type 2 diabetes mellitus with diabetic neuropathy, without long-term current use of insulin E11.40 ; Seasonal allergic rhinitis due to other allergic trigger J30.89 and Hypertension, benign I10 [place] [address] [place] [id number] [place] [address] October, Diabetic polyneuropathy associated with type 2 diabetes mellitus E11.42 [place] [address] [place] [id number] [place] [address] October, Diabetic polyneuropathy associated with type 2 diabetes mellitus E11.42 [facility] [address] [place] [id number] [place] [address] Sep, Type 2 diabetes mellitus with diabetic neuropathy, without long-term current use of insulin E11.40 [facility] [address] [place] [id number] [place] [address]- [address] Sep, [facility] [address] [address] Sep, [facility] [address] [address] Sep, 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 [place] [address] [address] Jul, [place] [address] [address] Jul, Diabetic polyneuropathy associated with type 2 diabetes mellitus E11.42 and Primary insomnia F51.01 [place] [address] [address] Jul, Diabetic polyneuropathy associated with type 2 diabetes mellitus E11.42 ; Viral URI J06.9 and Encounter for immunization Z23 [facility] [address] [place] [id number] [place] [address] Feb, SOB (shortness of breath) R06.02 and Diabetic polyneuropathy associated with type 2 diabetes mellitus E11.42 [facility] [address] [place] [id number] [place] [address] Jan, 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 [facility] [address] [address] Jan, [facility] [address] [address] Jan, [facility] [address] [place] [address] Jan, Diabetic polyneuropathy associated with type 2 diabetes mellitus E11.42 ; 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 ; Renal insufficiency N28.9 and Anemia due to other cause, not classified D64.89 [place] [address] [place] [id number] [place] [address] Dec, SOB (shortness of breath) R06.02 ; Localized edema R60.0 and Controlled type 2 diabetes mellitus without complication, without long-term current use of insulin E11.9 [place] [address] [place] [id number] [place] [address] Dec, SOB (shortness of breath) R06.02 ; Localized edema R60.0 and Controlled type 2 diabetes mellitus without complication, without long-term current use of insulin E11.9 [place] [address] [place] [id number] [place] [address]- [address] Nov, Diabetic polyneuropathy associated with type 2 diabetes mellitus E11.42 [place] [address] [place] [id number] [place] [address] Nov, 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 [place] [address] [place] [id number] [place] [address]- [address] Nov, 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 [place] [address] [place] [id number] [place] [address] 47[address] October, 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 Could not talk when got to the ER. Was told her voice box and throat was swollen. [email or web address] PLAN OF CARE VITAL SIGNS Height 65 in 2018-04-25 Weight 188.2 lbs 2018-04-25 Temperature 98.9 degrees Fahrenheit 2018-04-25 Heart Rate 84 bpm 2018-04-25 Respiratory Rate 20 2018-04-25 Oximetry 97 % 2018-04-25 BMI 31.31 kg/m2 2018-04-25 Blood pressure systolic 124 mmHg 2018-04-25 Blood pressure diastolic 80 mmHg 2018-04-25 MEDICATIONS Medication Instructions Dosage Frequency Start Date End Date Duration Status Klor-Con M20 20 meq Orally Once a day 1 tablet with food 24h Active Aspirin EC 81 MG Orally Once a day 1 tablet 24h Active Metoprolol Tartrate 25 MG Orally Twice a day 1 tablet with food 12h Active Furosemide 40 mg 1 tablet 24h 30 Active Esomeprazole Magnesium 20 mg Orally Once a day 1 capsule 24h Apr, 30 day(s) Active Albuterol Sulfate (2.5 MG/3ML) 0.083% Inhalation every 4 hrs 3 ml as needed 4h Active Allopurinol 100 mg Orally 2 times a day 1 tablet 12h October, 30 day(s) Active Albuterol Sulfate (2.5 MG/3ML) 0.083% Inhalation 4 times a day 3 ml as needed 6h Apr, Active Dicyclomine HCl 20 mg Orally Four times a day 1 tablet 6h 11 Feb, 2018 May, 30 day(s) Active Levemir 100 UNIT/ML Subcutaneous 2 times a day Inject 45 units 12h Feb, Active CloNIDine HCl ER 0.1 MG Orally 2 times a day 1 tablet 12h Active Qvar 40 MCG/ACT Inhalation Twice a day 1 puff 12h October, Active Tessalon Perles 100 mg Orally Three times a day 1 capsule as needed 8h October, Active Amitriptyline HCl 100 mg Orally at bedtime 1 tablet 30 days Active Lyrica 150 MG Orally 3 times a day 1 capsule 8h Active Lovastatin 20 mg Orally Once a day, at bed time 1 tablet Active Lisinopril 20 mg Orally at bedtime 1 tablet Active BD Insulin Syringe 31G X 5/16 as directed Jan, Active Metformin HCl 850 MG Orally 2 times a day 1 tablet 12h Active Diltiazem HCl 240 mg/24 hours Orally Once a day 1 capsule 24h Active Nystatin 285114 UNIT/GM Externally Once a day 1 application to affected area 24h 13 Feb, 2018 Active RESULTS No Results PROCEDURES Procedure Date Ordered Result Body Site TDAP (BOOSTRIX) Apr 25, 2018 PCV 13 Apr 25, 2018 FLULAVAL QUAD 0.5ML (6 MO AND UP) 2017Apr 25, 2018 IMMUNIZATION ADMIN, EACH ADD (please include units) Apr 25, 2018 SINGLE IMMUNIZATION ADMIN Apr 25, 2018 INSTRUCTIONS MEDICATIONS ADMINISTERED No Known Medications [...]
--- OUTSIDE RECORDS SUMMARY | 2018-06-12 19:42 | XMS REPORT | Continuity of Care Document ---
Author Author [facility] Organization [facility] Address Unknown Phone Unavailable Allergies Active Description Code Type Severity Reaction Onset Reported/Identified Relationship to Patient Clinical Status Yes No Known Drug Allergies [id number] Drug Allergy Unknown N/A 06/11/2015 Medications There is no data. 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 06/12/2015 YAEL [...] LEFT UPPER QUADRANT PAIN 08/10/2016 MARK LUO PLANT GUARD Ot R16.0 HEPATOMEGALY, NOT ELSEWHERE CLASSIFIED 08/10/2016 MARK LUO PLANT GUARD Ot R63.5 ABNORMAL WEIGHT GAIN 08/10/2016 SUAREZEDUARDO MARCELOI L PLANT GUARD Ot R10.11 RIGHT UPPER QUADRANT PAIN 08/10/2016 SUAREZ, SYD L PLANT GUARD Ot R14.0 ABDOMINAL DISTENSION (GASEOUS) 08/10/2016 MARK LUO PLANT GUARD Ot R06.02 SHORTNESS OF BREATH 08/10/2016 MARK LUO PLANT GUARD Ot R10.11 RIGHT UPPER QUADRANT PAIN 08/10/2016 MARK LUO PLANT GUARD Ot R10.12 LEFT UPPER QUADRANT PAIN 08/10/2016 MARK LUO PLANT GUARD Ot R16.0 HEPATOMEGALY, NOT ELSEWHERE CLASSIFIED 08/10/2016 MARK LUO PLANT GUARD Ot R63.5 ABNORMAL WEIGHT GAIN 08/10/2016 SUAREZEDUARDO MARCELOI L PLANT GUARD Ot R10.11 RIGHT UPPER QUADRANT PAIN 08/10/2016 SUAREZ, SYD L PLANT GUARD Ot R14.0 ABDOMINAL DISTENSION (GASEOUS) 08/11/2016 YAEL [...] WITHOUT 08/11/2016 YAEL PEPPER MD Ot Z79.4 FDC (CURRENT) USE OF INSULIN 08/11/2016 YAEL PEPPER MD Ot 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.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 08/11/2016 YAEL PEPPER [...] WITHOUT 08/11/2016 YAEL PEPPER MD Ot 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 08/11/2016 YAEL PEPPER MD Ot Z79.899 OTHER FDC (CURRENT) DRUG THERAPY 08/11/2016 YAEL PEPPER MD [...] WITHOUT 08/11/2016 YAEL PEPPER MD Ot Z79.4 FDC (CURRENT) USE OF INSULIN 08/11/2016 YAEL PEPPER MD Ot Z79.899 OTHER FDC (CURRENT) DRUG THERAPY 08/11/2016 YAEL PEPPER MD Ot Z87.891 PERSONAL HISTORY OF NICOTINE DEPENDENCE 08/21/2016 MARK LUO PLANT GUARD Ot R06.02 SHORTNESS OF BREATH 08/21/2016 MARK LUO PLANT GUARD Ot R10.11 RIGHT UPPER QUADRANT PAIN 08/21/2016 MARK LUO PLANT GUARD Ot R10.12 LEFT UPPER QUADRANT PAIN 08/21/2016 MARK LUO PLANT GUARD Ot R16.0 HEPATOMEGALY, NOT ELSEWHERE CLASSIFIED 08/21/2016 MARK LUO M PLANT GUARD Ot R63.5 ABNORMAL WEIGHT GAIN 08/26/2016 SUAREZ, SYD L PLANT GUARD Ot R10.11 RIGHT UPPER QUADRANT PAIN 08/26/2016 SUAREZ, SYD L PLANT GUARD Ot R14.0 ABDOMINAL DISTENSION (GASEOUS) 09/07/2016 SUAREZ, SYD L PLANT GUARD Ot R10.11 RIGHT UPPER QUADRANT PAIN 09/07/2016 SUAREZ, SYD L PLANT GUARD Ot R14.0 ABDOMINAL DISTENSION (GASEOUS) 09/07/2016 PUJA MARK M PLANT GUARD Ot R06.02 SHORTNESS OF BREATH 09/07/2016 GUSTABO LUOA M PLANT GUARD Ot R10.11 RIGHT UPPER QUADRANT PAIN 09/07/2016 PUJA MARK M PLANT GUARD Ot R10.12 LEFT UPPER QUADRANT PAIN 09/07/2016 GUSTABO LUOA M PLANT GUARD Ot R16.0 HEPATOMEGALY, NOT ELSEWHERE CLASSIFIED 09/07/2016 PUJA MARK M PLANT GUARD Ot R63.5 ABNORMAL WEIGHT GAIN 09/07/2016 SUAREZ, SYD L PLANT GUARD Ot R10.11 RIGHT UPPER QUADRANT PAIN 09/07/2016 SUAREZ, SYD L PLANT GUARD Ot R14.0 ABDOMINAL DISTENSION (GASEOUS) 09/07/2016 GUSTABO LUOA M PLANT GUARD Ot R06.02 SHORTNESS OF BREATH 09/07/2016 PUJA MARK M PLANT GUARD Ot R10.11 RIGHT UPPER QUADRANT PAIN 09/07/2016 GUSTABO LUOA M PLANT GUARD Ot R10.12 LEFT UPPER QUADRANT PAIN 09/07/2016 GUSTABO LUOA M PLANT GUARD Ot R16.0 HEPATOMEGALY, NOT ELSEWHERE CLASSIFIED 09/07/2016 GUSTABO LUOA M PLANT GUARD Ot R63.5 ABNORMAL WEIGHT GAIN 09/11/2016 GUSTABO LUOA M PLANT GUARD Ot R06.02 SHORTNESS OF BREATH 09/11/2016 GUSTABO LUOA M PLANT GUARD Ot R10.11 RIGHT UPPER QUADRANT PAIN 09/11/2016 PUJA MARK M PLANT GUARD Ot R10.12 LEFT UPPER QUADRANT PAIN 09/11/2016 GUSTABO LUOA M PLANT GUARD Ot R16.0 HEPATOMEGALY, NOT ELSEWHERE CLASSIFIED 09/11/2016 MARK LUO M PLANT GUARD Ot R63.5 ABNORMAL WEIGHT GAIN 09/11/2016 GUSTABO LUOA M PLANT GUARD Ot R06.02 SHORTNESS OF BREATH 09/11/2016 PUJA, MARK M PLANT GUARD Ot R10.11 RIGHT UPPER QUADRANT PAIN 09/11/2016 GUSTABO LUOA M PLANT GUARD Ot R10.12 LEFT UPPER QUADRANT PAIN 09/11/2016 MARK LUO M PLANT GUARD Ot R16.0 HEPATOMEGALY, NOT ELSEWHERE CLASSIFIED 09/11/2016 MARK LUO M PLANT GUARD Ot R63.5 ABNORMAL WEIGHT GAIN 09/11/2016 SUAREZ, SYD L PLANT GUARD Ot R10.11 RIGHT UPPER QUADRANT PAIN 09/11/2016 SUAREZ, SYD L PLANT GUARD Ot R14.0 ABDOMINAL DISTENSION (GASEOUS) 09/22/2016 MARK LUO M PLANT GUARD Ot R06.02 SHORTNESS OF BREATH 09/22/2016 MARK LUO M PLANT GUARD Ot R10.11 RIGHT UPPER QUADRANT PAIN 09/22/2016 MARK LUO M PLANT GUARD Ot R10.12 LEFT UPPER QUADRANT PAIN 09/22/2016 MARK LUO M PLANT GUARD Ot R16.0 HEPATOMEGALY, NOT ELSEWHERE CLASSIFIED 09/22/2016 MARK LUO M PLANT GUARD Ot R63.5 ABNORMAL WEIGHT GAIN 09/22/2016 SUAREZ, SYD L PLANT GUARD Ot R10.11 RIGHT UPPER QUADRANT PAIN 09/22/2016 SUAREZ, SYD L PLANT GUARD Ot R14.0 ABDOMINAL DISTENSION (GASEOUS) 01/12/2017 MARK LUO Michelle PLANT GUARD Ot R06.02 SHORTNESS OF BREATH 01/12/2017 MARK LUO M PLANT GUARD Ot R10.11 RIGHT UPPER QUADRANT PAIN 01/12/2017 MARK LUO M PLANT GUARD Ot R10.12 LEFT UPPER QUADRANT PAIN 01/12/2017 MARK LUO M PLANT GUARD Ot R16.0 HEPATOMEGALY, NOT ELSEWHERE CLASSIFIED 01/12/2017 MARK LUO M PLANT GUARD Ot R63.5 ABNORMAL WEIGHT GAIN 01/12/2017 SUAREZ, SYD L PLANT GUARD Ot R10.11 RIGHT UPPER QUADRANT PAIN 01/12/2017 SUAREZ, SYD L PLANT GUARD Ot R14.0 ABDOMINAL DISTENSION (GASEOUS) 03/01/2017 NIKITA LEGGETT Ot I10 ESSENTIAL (PRIMARY) HYPERTENSION 03/01/2017 GUSTABO LUOLeanna Martinez PLANT GUARD Ot R06.02 SHORTNESS OF BREATH 03/01/2017 PUJAGUSTABOA M PLANT GUARD Ot R10.11 RIGHT UPPER QUADRANT PAIN 03/01/2017 MARK LUO Michelle PLANT GUARD Ot R10.12 LEFT UPPER QUADRANT PAIN 03/01/2017 MARK LUO PLANT GUARD Ot R16.0 HEPATOMEGALY, NOT ELSEWHERE CLASSIFIED 03/01/2017 MARK LUO PLANT GUARD Ot R63.5 ABNORMAL WEIGHT GAIN 03/01/2017 SYD SUAREZ PLANT GUARD Ot R10.11 RIGHT UPPER QUADRANT PAIN 03/01/2017 SYD SUAREZ PLANT GUARD Ot R14.0 ABDOMINAL DISTENSION (GASEOUS) 03/01/2017 ROBERTO PA, NIKITA K Ot I10 ESSENTIAL (PRIMARY) HYPERTENSION 03/02/2017 ROBERTO PA, NIKITA K Ot E11.9 TYPE 2 DIABETES MELLITUS WITHOUT COMPLIC 03/02/2017 ROBERTO GARY, NIKITA K Ot E66.9 OBESITY, UNSPECIFIED 03/02/2017 ROBERTO PA, NIKITA K Ot I10 ESSENTIAL (PRIMARY) HYPERTENSION 03/02/2017 ROBERTO PA, NIKITA K Ot R07.9 CHEST PAIN, UNSPECIFIED 03/02/2017 ROBERTO PA, NIKITA K Ot R22.42 LOCALIZED SWELLING, MASS AND LUMP, LEFT 03/30/2017 ROBERTO PA, NIKITA K Ot E11.9 TYPE 2 DIABETES MELLITUS WITHOUT COMPLIC 03/30/2017 ROBERTO GARY, NIKITA K Ot E66.9 OBESITY, UNSPECIFIED 03/30/2017 KHADRA-ZEKE PA, NIKITA K Ot I10 ESSENTIAL (PRIMARY) HYPERTENSION 03/30/2017 ROBERTO PA, NIKITA K Ot R07.9 CHEST PAIN, UNSPECIFIED 03/30/2017 KHADRA-ZEKE PA, NIKITA K Ot R22.42 LOCALIZED SWELLING, MASS AND LUMP, LEFT 04/20/2017 ROBERTO PA, NIKITA K Ot E11.9 TYPE 2 DIABETES MELLITUS WITHOUT COMPLIC 04/20/2017 ROBERTO GARY, NIKITA K Ot E66.9 OBESITY, UNSPECIFIED 04/20/2017 KHADRA-ZEKE PA, NIKITA K Ot I10 ESSENTIAL (PRIMARY) HYPERTENSION 04/20/2017 ROBERTO PA, NIKITA K Ot R07.9 CHEST PAIN, UNSPECIFIED 04/20/2017 KHADRA-ZEKE PA, NIKITA K Ot R22.42 LOCALIZED SWELLING, MASS AND LUMP, LEFT 06/07/2017 MARK LUO PLANT GUARD Ot R06.02 SHORTNESS OF BREATH 06/07/2017 MARK LUO PLANT GUARD Ot R10.11 RIGHT UPPER QUADRANT PAIN 06/07/2017 MARK LUO PLANT GUARD Ot R10.12 LEFT UPPER QUADRANT PAIN 06/07/2017 MARK LUO PLANT GUARD Ot R16.0 HEPATOMEGALY, NOT ELSEWHERE CLASSIFIED 06/07/2017 MARK LUO PLANT GUARD Ot R63.5 ABNORMAL WEIGHT GAIN 06/07/2017 SYD SUAREZ PLANT GUARD Ot R10.11 RIGHT UPPER QUADRANT PAIN 06/07/2017 SYD SUAREZ PLANT GUARD Ot R14.0 ABDOMINAL DISTENSION (GASEOUS) 06/07/2017 NIKITA [...] NOT INTRACTABLE, WITHOUT 10/04/2017 CK GARCIA MD R Ot H40.9 UNSPECIFIED GLAUCOMA 10/04/2017 CK GARCIA MD Ot I10 ESSENTIAL (PRIMARY) HYPERTENSION 10/04/2017 CK GARCIA MD R Ot K21.9 GASTRO-ESOPHAGEAL REFLUX DISEASE WITHOUT 10/04/2017 CK GARCIA MD Ot K59.03 DRUG INDUCED CONSTIPATION 10/04/2017 CK GARCIA MD Ot N17.9 ACUTE KIDNEY FAILURE, UNSPECIFIED 10/04/2017 CK GARCIA MD R Ot R11.2 NAUSEA WITH VOMITING, UNSPECIFIED 10/04/2017 CK GARCIA MD Ot R55 SYNCOPE AND COLLAPSE 10/04/2017 CK GARCIA MD Ot R65.20 SEVERE SEPSIS WITHOUT SEPTIC SHOCK 10/04/2017 CK GARCIA MD Ot Z79.4 FDC (CURRENT) USE OF INSULIN 10/04/2017 CK GARCIA MD Ot Z89.021 ACQUIRED ABSENCE OF RIGHT FINGER(S) 10/05/2017 CK GARCIA MD R Ot A41.9 SEPSIS, UNSPECIFIED ORGANISM 10/05/2017 CK [...] WITH VOMITING, UNSPECIFIED 10/05/2017 CK GARCIA MD R Ot R55 SYNCOPE AND COLLAPSE 10/05/2017 CK GARCIA MD Ot R65.20 SEVERE SEPSIS WITHOUT SEPTIC SHOCK 10/05/2017 CK GARCIA MD Ot 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 10/05/2017 CK GARCIA MD Ot Z89.021 ACQUIRED ABSENCE OF RIGHT FINGER(S) 10/06/2017 CK GARCIA MD Ot A41.9 SEPSIS, UNSPECIFIED ORGANISM 10/06/2017 CK GARCIA MD Ot E11.42 TYPE 2 DIABETES MELLITUS WITH DIABETIC P 10/06/2017 CK GARCIA MD Ot 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 10/06/2017 CK GARCIA MD Ot G43.909 MIGRAINE, UNSP, NOT INTRACTABLE, WITHOUT 10/06/2017 CK GARCIA MD Ot H40.9 UNSPECIFIED GLAUCOMA 10/06/2017 CK GARCIA MD Ot I10 ESSENTIAL (PRIMARY) HYPERTENSION 10/06/2017 CK GARCIA MD Ot K21.9 GASTRO-ESOPHAGEAL REFLUX DISEASE WITHOUT 10/06/2017 CK GARCIA MD Ot K59.03 DRUG INDUCED CONSTIPATION 10/06/2017 CK GARCIA MD Ot N17.9 ACUTE KIDNEY FAILURE, UNSPECIFIED 10/06/2017 CK GARCIA MD Ot R11.2 NAUSEA WITH VOMITING, UNSPECIFIED 10/06/2017 CK GARCIA MD Ot R55 SYNCOPE AND COLLAPSE 10/06/2017 CK GARCIA MD Ot R65.20 SEVERE SEPSIS WITHOUT SEPTIC SHOCK 10/06/2017 CK GARCIA MD Ot 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 10/06/2017 CK GARCIA MD Ot Z89.021 ACQUIRED ABSENCE OF RIGHT FINGER(S) 04/24/2018 MARK LUO PLANT GUARD Ot R06.02 SHORTNESS OF BREATH 04/24/2018 MARK LUO PLANT GUARD Ot R10.11 RIGHT UPPER QUADRANT PAIN 04/24/2018 MARK LUO PLANT GUARD Ot R10.12 LEFT UPPER QUADRANT PAIN 04/24/2018 MARK LUO PLANT GUARD Ot R16.0 HEPATOMEGALY, NOT ELSEWHERE CLASSIFIED 04/24/2018 MARK LUO PLANT GUARD Ot R63.5 ABNORMAL WEIGHT GAIN 04/24/2018 SYD SUAERZ PLANT GUARD Ot R10.11 RIGHT UPPER QUADRANT PAIN 04/24/2018 SYD SUAREZ PLANT GUARD Ot R14.0 ABDOMINAL DISTENSION (GASEOUS) 04/24/2018 NIKITA LEGGETT Ot E11.9 TYPE 2 DIABETES MELLITUS WITHOUT COMPLIC 04/24/2018 NIKITA LEGGETT Ot E66.9 OBESITY, UNSPECIFIED 04/24/2018 NIKITA LEGGETT Ot I10 ESSENTIAL (PRIMARY) HYPERTENSION 04/24/2018 NIKITA LEGGETT Ot R07.9 CHEST PAIN, UNSPECIFIED 04/24/2018 NIKITA LEGGETT Ot R22.42 LOCALIZED SWELLING, MASS AND LUMP, LEFT 04/24/2018 YAEL PEPPER MD, Ot E11.9 TYPE 2 DIABETES MELLITUS WITHOUT COMPLIC 04/24/2018 YAEL PEPPER MD, Ot F17.210 NICOTINE DEPENDENCE, CIGARETTES, UNCOMPL 04/24/2018 YAEL PEPPER MD, Ot G43.909 MIGRAINE, UNSP, NOT INTRACTABLE, WITHOUT 04/24/2018 YAEL PEPPER MD Ot I10 ESSENTIAL (PRIMARY) HYPERTENSION 04/24/2018 YAEL PEPPER MD Ot K21.9 GASTRO-ESOPHAGEAL REFLUX DISEASE WITHOUT 04/24/2018 YAEL PEPPER MD Ot R06.00 DYSPNEA, UNSPECIFIED 04/24/2018 YAEL PEPPER MD Ot R06.02 SHORTNESS OF BREATH 04/24/2018 YAEL PEPPER MD Ot Z79.4 FDC (CURRENT) USE OF INSULIN 04/24/2018 YAEL PEPPER MD Ot Z79.82 FDC (CURRENT) USE OF ASPIRIN 04/24/2018 YAEL PEPPER MD Ot Z87.440 PERSONAL HISTORY OF URINARY (TRACT) INFE 04/24/2018 YAEL PEPPER MD Ot Z89.021 ACQUIRED ABSENCE OF RIGHT FINGER(S) 04/24/2018 YAEL PEPPER MD Ot Z90.49 ACQUIRED ABSENCE OF OTHER SPECIFIED PART 04/24/2018 YAEL PEPPER MD Ot Z90.710 ACQUIRED ABSENCE OF BOTH CERVIX AND UTER 04/28/2018 YAEL PEPPER MD Ot E11.9 TYPE 2 DIABETES MELLITUS WITHOUT COMPLIC 04/28/2018 YAEL PEPPER MD Ot F17.210 NICOTINE DEPENDENCE, CIGARETTES, UNCOMPL 04/28/2018 YAEL PEPPER MD Ot G43.909 MIGRAINE, UNSP, NOT INTRACTABLE, WITHOUT 04/28/2018 YAEL PEPPER MD Ot I10 ESSENTIAL (PRIMARY) HYPERTENSION 04/28/2018 YAEL PEPPER MD Ot K21.9 GASTRO-ESOPHAGEAL REFLUX DISEASE WITHOUT 04/28/2018 YAEL PEPPER MD Ot R06.00 DYSPNEA, UNSPECIFIED 04/28/2018 YAEL PEPPER MD Ot R06.02 SHORTNESS OF BREATH 04/28/2018 YAEL PEPPER MD Ot 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 04/28/2018 YAEL PEPPER MD Ot Z79.82 FDC (CURRENT) USE OF ASPIRIN 04/28/2018 YAEL PEPPER MD, Ot Z87.440 PERSONAL HISTORY OF URINARY (TRACT) INFE 04/28/2018 YAEL PEPPER MD, Ot Z89.021 ACQUIRED ABSENCE OF RIGHT FINGER(S) 04/28/2018 YAEL PEPPER MD Ot Z90.49 ACQUIRED ABSENCE OF OTHER SPECIFIED PART 04/28/2018 YAEL PEPPER MD Ot Z90.710 ACQUIRED ABSENCE OF BOTH CERVIX AND UTER 05/02/2018 MARK LUO PLANT GUARD Ot R06.02 SHORTNESS OF BREATH 05/02/2018 MARK LUO PLANT GUARD Ot R10.11 RIGHT UPPER QUADRANT PAIN 05/02/2018 MARK LUO PLANT GUARD Ot R10.12 LEFT UPPER QUADRANT PAIN 05/02/2018 MARK LUO PLANT GUARD Ot R16.0 HEPATOMEGALY, NOT ELSEWHERE CLASSIFIED 05/02/2018 MARK LUO PLANT GUARD Ot R63.5 ABNORMAL WEIGHT GAIN 05/02/2018 SYD SUAREZ PLANT GUARD Ot R10.11 RIGHT UPPER QUADRANT PAIN 05/02/2018 SYD SUAREZ PLANT GUARD Ot R14.0 ABDOMINAL DISTENSION (GASEOUS) 05/02/2018 NIKITA LEGGETT Ot E11.9 TYPE 2 DIABETES MELLITUS WITHOUT COMPLIC 05/02/2018 NIKITA LEGGETT Ot E66.9 OBESITY, UNSPECIFIED 05/02/2018 NIKITA LEGGETT Ot I10 ESSENTIAL (PRIMARY) HYPERTENSION 05/02/2018 NIKITA LEGGETT Ot R07.9 CHEST PAIN, UNSPECIFIED 05/02/2018 GAVIRIA-ZEKE PA, NIKITA K Ot R22.42 LOCALIZED SWELLING, MASS AND LUMP, LEFT 05/03/2018 ROBERTO GARY NIKITA David Ot E11.9 TYPE 2 DIABETES MELLITUS WITHOUT COMPLIC 05/03/2018 ROBERTO GARY NIKITA K Ot E66.9 OBESITY, UNSPECIFIED 05/03/2018 ROBERTO GARY NIKITA David Ot I10 ESSENTIAL (PRIMARY) HYPERTENSION 05/03/2018 ROBERTO GARY NIKITA David Ot R07.9 CHEST PAIN, UNSPECIFIED 05/03/2018 ROBERTO GARY NIKITA Hernandez Ot R22.42 LOCALIZED SWELLING, MASS AND LUMP, [...] FOR INFLUENZA A AND B ANTIGENS BY [facility] PT panel in platelet poor [...] or plasma urea nitrogen/creatinine mass ratio 24 [facility] Serum or plasma creatinine measurement with calculation of estimated glomerular filtration rate 49 [facility] Serum or plasma glucose measurement (mass/volume) 198 [...] NEGATIVE ng/mL <25 medMATCH Phencyclidine CONSISTENT NRG Complete blood count (CBC) with automated white blood cell (WBC) differential - 04/24/18 08:30 Blood leukocytes automated count (number/volume) 5.6 10*3/uL 4.3-11.0 Blood erythrocytes automated count (number/volume) 4.14 10*6/uL 4.35-5.85 Venous blood hemoglobin measurement (mass/volume) 11.3 g/dL 11.5-16.0 Blood hematocrit (volume fraction) 37 % 35-52 Automated erythrocyte mean corpuscular volume 88 [foz_us] 80-99 Automated erythrocyte mean corpuscular hemoglobin (mass per erythrocyte) 27 pg 25-34 Automated erythrocyte mean corpuscular hemoglobin concentration measurement ( mass/volume) 31 g/dL 32-36 Automated erythrocyte distribution width ratio 16.0 % 10.0-14.5 Automated blood platelet count (count/volume) 146 10*3/uL 130-400 Automated blood platelet mean volume measurement 11.9 [foz_us] 7.4-10.4 Automated blood neutrophils/100 leukocytes 46 % 42-75 Automated blood lymphocytes/100 leukocytes 41 % 12-44 Blood monocytes/100 leukocytes 10 % 0-12 Automated blood eosinophils/100 leukocytes 3 % 0-10 Automated blood basophils/100 leukocytes 1 % 0-10 Blood neutrophils automated count (number/volume) 2.6 10*3 1.8-7.8 Blood lymphocytes automated count (number/volume) 2.3 10*3 1.0-4.0 Blood monocytes automated count (number/volume) 0.5 10*3 0.0-1.0 Automated eosinophil count 0.2 10*3/uL 0.0-0.3 Automated blood basophil count (count/volume) 0.0 10*3/uL 0.0-0.1 Comprehensive metabolic panel - 04/24/18 08:30 Serum or plasma sodium measurement (moles/volume) 144 mmol/L 135-145 Serum or plasma potassium measurement (moles/volume) 4.2 mmol/L 3.6-5.0 Serum or plasma chloride measurement (moles/volume) 110 mmol/L 98-107 Carbon dioxide 21 mmol/L 21-32 Serum or plasma anion gap determination (moles/volume) 13 mmol/L 5-14 Serum or plasma urea nitrogen measurement (mass/volume) 32 mg/dL 7-18 Serum or plasma creatinine measurement (mass/volume) 1.33 mg/dL 0.60-1.30 Serum or plasma urea nitrogen/creatinine mass ratio 24 NRG Serum or plasma creatinine measurement with calculation of estimated glomerular filtration rate 40 NRG Serum or plasma glucose measurement (mass/volume) 115 mg/dL 70-105 Serum or plasma calcium measurement (mass/volume) 9.6 mg/dL 8.5-10.1 Serum or plasma total bilirubin measurement (mass/volume) 0.3 mg/dL 0.1-1.0 Serum or plasma alkaline phosphatase measurement (enzymatic activity/volume) 108 U/L 40-136 Serum or plasma aspartate aminotransferase measurement (enzymatic activity/ volume) 17 U/L 5-34 Serum or plasma alanine aminotransferase measurement (enzymatic activity/volume ) 16 U/L 0-55 Serum or plasma protein measurement (mass/volume) 7.0 g/dL 6.4-8.2 Serum or plasma albumin measurement (mass/volume) 4.4 g/dL 3.2-4.5 CALCIUM CORRECTED 9.3 mg/dL 8.5-10.1 Serum or plasma troponin i.cardiac measurement (mass/volume) - 04/24/18 08:30 Serum or plasma troponin i.cardiac measurement (mass/volume) < ng/ mL <0.30 Capillary blood glucose measurement by glucometer (mass/volume) - 04/24/18 12: 38 Capillary blood glucose measurement by glucometer (mass/volume) 194 mg/dL 70-110 Encounters ACCT No. Visit Date/Time Discharge Status Pt. Type Provider Facility Loc./Unit Complaint [id number] 04/24/2018 08:22:00 04/24/2018 12:31:00 DIS Emergency SHANTELLE HAWK, YAEL Hernandez [facility] SOA [id number] 10/02/2017 17:40:00 10/06/2017 15:10:00 DIS Inpatient CK GARCIA MD [facility] 4TH SEVERE SEPSIS, CONSTIPATION,N/V. [id number] 03/01/2017 07:57:00 03/01/2017 23:59:59 CLS Outpatient NIKITA LEGGETT [facility] RAD I10 [id number] 08/10/2016 16:30:00 08/11/2016 15:05:00 DIS Inpatient YAEL PEPPER MD [facility] ICU SEVERE SEPSIS,BRONCHITIS- POSSIBLE PNEUMONIA,CHEST [id number] 08/06/2016 13:41:00 08/06/2016 23:59:59 CLS Outpatient SYD SUAREZ APRN [facility] RAD RUQ PAIN,LIVER TENDERNESS ,ABD DISTENTION,BLOATING [id number] 08/04/2016 08:07:00 08/04/2016 23:59:59 CLS Outpatient MARK LUO APRN [facility] RAD SEVERE RUQ/LUQ PAIN, SOB,WEIGHT LOSS UNINTENTIONAL [id number] 06/11/2015 20:08:00 06/12/2015 17:41:00 DIS Inpatient YAEL PEPPER MD [facility] 4TH CHEST PAIN [id number] 01/29/2017 09:11:00 Document Registration [id number] 05/31/2018 15:20:00 05/31/2018 23:59:59 CLS Outpatient ARNEL MILES APRN [facility] [id number] 03/03/2018 11:00:00 Document Registration [id number] 07/26/2017 09:20:00 Document Registration [id number] 12/26/2016 08:36:00 Document Registration [id number] 12/26/2016 14:08:00 Document Registration
[2018-06-12] MEDS ORDERED: 1/2 NS W/KCL 20 MEQ/L 1,000 ML IV SCH (21:00)
[2018-06-12] MEDS ORDERED: PROMETHAZINE INJ 25 MG/ML (PHENERGAN) AMP IV PRN (21:00)
[2018-06-12] MEDS: ONDANSETRON 4 MG/2 ML (SDV) Z0FRAN IV PRN (21:18)
[2018-06-12] MEDS: NOREPINEPHRINE 4 MG in NS (IVPB) 250 ML IV SCH (21:18)
[2018-06-12] MEDS: fentaNYL INJECTION 100 MCG/2 ML AMP IV PRN (21:18)
[2018-06-12] MEDS ORDERED: inSUlin ASPART (NovoLOG) 1 UNIT/0.01 ML (CHARGE PER UNIT) ONE (21:40)
[2018-06-12] MEDS ORDERED: LACTATED RINGERS 1,000 ML IV ONE (22:28)
[2018-06-12] MEDS: LACTATED RINGERS 1,000 ML IV SCH (22:46)
[2018-06-12] MEDS: PIPERACILLIN/TAZO 4.5 GM/NS 100 ML IV SCH ×2 (23:06)
[2018-06-13] VITALS (26 sets, daily range): BP systolic 87–157; BP diastolic 46–86
[2018-06-13] MEDS: fentaNYL INJECTION 100 MCG/2 ML AMP IV PRN ×6 (00:43→20:54)
[2018-06-13] MEDS: ACETAMINOPHEN 500 MG TAB (TYLENOL) PO PRN ×2 (00:43→20:58)
[2018-06-13] MEDS: inSUlin ASPART (NovoLOG) 1 UNIT/0.01 ML (CHARGE PER UNIT) SC SCH ×7 (01:01→23:51)
[2018-06-13] MEDS: LACTATED RINGERS 1,000 ML IV SCH ×5 (01:02→19:32)
[2018-06-13] MEDS ORDERED: meTOprolol TARTRATE 25 MG (LOPRESSOR) TABLET ONE (03:16)
[2018-06-13] MEDS ORDERED: meTOprolol TARTRATE 25 MG (LOPRESSOR) TABLET PO ONE (03:30)
[2018-06-13 03:35] LABS: BASOPHILS % (AUTO) 0 % (0-10); EOSINOPHILS % (AUTO) 0 % (0-10); HEMATOCRIT 34 % (35-52); HEMOGLOBIN 10.9 G/DL (11.5-16.0); LYMPHOCYTES # (AUTO) 1.6 X 10^3 (1.0-4.0); LYMPHOCYTES % (AUTO) 18 % (12-44); MEAN CORPUSCULAR HEMOGLOBIN 28 PG (25-34); MEAN CORPUSCULAR HGB CONC 32 G/DL (32-36); MEAN CORPUSCULAR VOLUME 86 FL (80-99); MEAN PLATELET VOLUME 12.3 FL (7.4-10.4); MONOCYTES # (AUTO) 0.9 X 10^3 (0.0-1.0); MONOCYTES % (AUTO) 10 % (0-12); NEUTROPHILS # (AUTO) 6.5 X 10^3 (1.8-7.8); NEUTROPHILS % (AUTO) 72 % (42-75); PLATELET COUNT 159 10^3/uL (130-400); RED BLOOD COUNT 3.94 10^6/uL (4.35-5.85)
[2018-06-13 03:59] LABS: CALCIUM 8.1 MG/DL (8.5-10.1); CREATININE SERUM 1.39 MG/DL (0.60-1.30); MAGNESIUM 1.9 MG/DL (1.8-2.4); PHOSPHORUS 2.4 MG/DL (2.3-4.7); POTASSIUM 4.5 MMOL/L (3.6-5.0)
[2018-06-13] MEDS: MAGNESIUM 1 GM/100 ML IVPB 100 ML IV SCH (04:51)
[2018-06-13] MEDS: POTASSIUM CL 10MEQ/50ML IVPB 50 ML IV SCH (04:51)
[2018-06-13] MEDS: KCL 20 MEQ TAB (K-DUR) PO SCH (04:51)
[2018-06-13] MEDS ORDERED: inSUlin ASPART (NovoLOG) 1 UNIT/0.01 ML (CHARGE PER UNIT) SC SCH ×2 (06:00→08:00)
[2018-06-13] MEDS: PIPERACILLIN/TAZO 4.5 GM/NS 100 ML IV SCH ×6 (06:28→23:50)
--- NOTE | 2018-06-13 08:24 | Diagnostic Imaging Report ---
INDICATION: Colitis, septic shock. TECHNIQUE: Single view chest 3:43 AM. CORRELATION STUDY: 06/12/2018 FINDINGS: The heart size, mediastinal configuration and pulmonary vascularity are within normal limits. The lungs are clear with no consolidating infiltrate. There is no significant effusion or pneumothorax. Old healed right clavicle fracture deformity. IMPRESSION: 1. Stable chest demonstrating no acute abnormality. Dictated by: Dictated on workstation # [id number]
[2018-06-13] MEDS: meTOprolol TARTRATE 25 MG (LOPRESSOR) TABLET PO SCH ×2 (08:37→20:47)
--- NOTE | 2018-06-13 09:05 | History & Physicial (CHS) ---
HPI History of Present Illness: 67-year-old female admitted through emergency department during the afternoon of June 12, 2018 after she apparently became extremely dizzy and diaphoretic. Patient was at [facility] apparently having a hamburger when she became nauseated and went to the bathroom. Apparently after 45 minutes her family checked on her and realized she was not feeling well. She was brought to the emergency room where she was noted to have weakness and felt very clammy. She denied ED chest pain, nausea or vomiting in the ED. Patient is a known diabetic and occasionally does become hypoglycemic. Source: patient Exam Limitations: clinical condition Date seen by provider: Jun 13, 2018 Time Seen by Provider: 06:40 Attending Physician Dorene Sauceda MD [facility] [place] Consult Date of Admission Jun 12, 2018 at 19:00 Home Medications Home Medications Reviewed patient Home Medication Reconciliation performed by pharmacy medication reconciliations network operations center technician and/or nursing. Patients Allergies have been reviewed. Allergies Coded Allergies: No Known Drug Allergies (Unverified , 06/11/15) DIW-Bnhpno-Usqnpb Hx Patient Social History Alcohol Use: Denies Use Recreational Drug Use: No Smoking Status: Former Smoker Recent Foreign Travel: No Contact w/other who traveled: No Recent Hopitalizations: No Recent Infectious Disease Expo: No Physical Abuse Screen: No Sexual Abuse: No Immunizations Up To Date Tetanus Booster (TDap): Unknown Date of Pneumonia Vaccine: Apr 21, 2018 Date of Influenza Vaccine: Mar 21, 2018 Past Medical History PMHx: DMII Diabetic peripheral neuropathy HTN Family Medical History Significant Family History: Heart Disease, Diabetes, Hypertension, Renal Disease, Vascular Disease Family History: Arthritis G8 BROTHER G8 BROTHER Cardiovascular disease 19 FATHER 19 MOTHER Dementia 19 FATHER Diabetes mellitus 19 FATHER 19 MOTHER G8 BROTHER FH: COPD (chronic obstructive pulmonary disease) G8 BROTHER FH: CVA (cerebrovascular accident) 19 FATHER FH: CVA (cerebrovascular accident) 19 FATHER FH: neuropathy G8 BROTHER Glaucoma 19 FATHER Hypertension G8 BROTHER Kidney disease G8 BROTHER Psychosocial problem G8 BROTHER TIAs 19 FATHER Vertigo G8 BROTHER Review of Systems (CHC) Constitutional: see HPI Reviewed Test Results Reviewed Test Results Lab Laboratory Tests Test 06/12/18 15:06 06/12/18 15:50 06/12/18 18:05 12/23/18 21:10 Range/Units Urine Color YELLOW Urine Clarity SLIGHTLY CLOUDY Urine pH 5 5-9 Urine Specific [place] 1.020 1.016-1.022 Urine Protein 3+ H NEGATIVE Urine Glucose (UA) NEGATIVE NEGATIVE Urine Ketones NEGATIVE NEGATIVE Urine Nitrite NEGATIVE NEGATIVE Urine Bilirubin NEGATIVE NEGATIVE Urine Urobilinogen NORMAL NORMAL MG/DL Urine Leukocyte Esterase 1+ H NEGATIVE Urine RBC (Auto) NEGATIVE NEGATIVE Urine RBC NONE /HPF Urine WBC NONE /HPF Urine Squamous Epithelial Cells 0-5 /HPF Urine Crystals PRESENT H /LPF Urine Amorphous Sediment MOD [place] URATES H /LPF Urine Bacteria NEGATIVE /HPF Urine Casts NONE /LPF Urine Mucus NEGATIVE /LPF Urine Culture Indicated NO White Blood Count 16.8 H 4.3-11.0 10^3/uL Red Blood Count 5.06 4.35-5.85 10^6/uL Hemoglobin 13.8 11.5-16.0 G/DL Hematocrit 43 35-52 % Mean Corpuscular Volume 85 80-99 FL Mean Corpuscular Hemoglobin 27 25-34 PG Mean Corpuscular Hemoglobin Concent 32 32-36 G/DL Red Cell Distribution Width 16.3 H 10.0-14.5 % Platelet Count 359 130-400 10^3/uL Mean Platelet Volume 12.1 H 7.4-10.4 FL Neutrophils (%) (Auto) 56 42-75 % Lymphocytes (%) (Auto) 34 12-44 % Monocytes (%) (Auto) 7 0-12 % Eosinophils (%) (Auto) 2 0-10 % Basophils (%) (Auto) 1 0-10 % Neutrophils # (Auto) 9.4 H 1.8-7.8 X 10^3 Lymphocytes # (Auto) 5.7 H 1.0-4.0 X 10^3 Monocytes # (Auto) 1.2 H 0.0-1.0 X 10^3 Eosinophils # (Auto) 0.4 H 0.0-0.3 10^3/uL Basophils # (Auto) 0.1 0.0-0.1 10^3/uL Neutrophils % (Manual) 57 % Lymphocytes % (Manual) 33 % Monocytes % (Manual) 8 % Eosinophils % (Manual) 2 % Blood Morphology Comment NORMAL Prothrombin Time 12.7 12.2-14.7 SEC INR Comment 1.0 0.8-1.4 Activated Partial Thromboplast Time 22 L 24-35 SEC Sodium Level 140 135-145 MMOL/L Potassium Level 4.6 3.6-5.0 MMOL/L Chloride Level 105 98-107 MMOL/L Carbon Dioxide Level 17 L 21-32 MMOL/L Anion Gap 18 H 5-14 MMOL/L Blood Urea Nitrogen 34 H 7-18 MG/DL Creatinine 1.73 H 0.60-1.30 MG/DL Estimat Glomerular Filtration Rate 29 BUN/Creatinine Ratio 20 Glucose Level 210 H 70-105 MG/DL Lactic Acid Level 3.23 *H 2.78 *H 0.50-2.00 MMOL/L Calcium Level 10.3 H 8.5-10.1 MG/DL Corrected Calcium 8.5-10.1 MG/DL Total Bilirubin 0.5 0.1-1.0 MG/DL Aspartate Amino Transf (AST/SGOT) 36 H 5-34 U/L Alanine Aminotransferase (ALT/SGPT) 29 0-55 U/L Alkaline Phosphatase 142 H 40-136 U/L Troponin I < 0.30 <0.30 NG/ML Total Protein 8.4 H 6.4-8.2 GM/DL Albumin 5.0 H 3.2-4.5 GM/DL Amylase Level 889 H 25-125 U/L Glucometer 370 H 70-110 MG/DL Test 06/13/18 00:45 06/13/18 00:48 06/13/18 00:50 06/13/18 03:25 Range/Units Stool Occult Blood Immunoassay POSITIVE H NEGATIVE Lactic Acid Level 2.42 *H 1.83 0.50-2.00 MMOL/L Glucometer 245 H 70-110 MG/DL White Blood Count 9.0 4.3-11.0 10^3/uL Red Blood Count 3.94 L 4.35-5.85 10^6/uL Hemoglobin 10.9 #L 11.5-16.0 G/DL Hematocrit 34 L 35-52 % Mean Corpuscular Volume 86 80-99 FL Mean Corpuscular Hemoglobin 28 25-34 PG Mean Corpuscular Hemoglobin Concent 32 32-36 G/DL Red Cell Distribution Width 16.0 H 10.0-14.5 % Platelet Count 159 130-400 10^3/uL Mean Platelet Volume 12.3 H 7.4-10.4 FL Neutrophils (%) (Auto) 72 42-75 % Lymphocytes (%) (Auto) 18 12-44 % Monocytes (%) (Auto) 10 0-12 % Eosinophils (%) (Auto) 0 0-10 % Basophils (%) (Auto) 0 0-10 % Neutrophils # (Auto) 6.5 1.8-7.8 X 10^3 Lymphocytes # (Auto) 1.6 1.0-4.0 X 10^3 Monocytes # (Auto) 0.9 0.0-1.0 X 10^3 Eosinophils # (Auto) 0.0 0.0-0.3 10^3/uL Basophils # (Auto) 0.0 0.0-0.1 10^3/uL Sodium Level 137 135-145 MMOL/L Potassium Level 4.5 3.6-5.0 MMOL/L Chloride Level 108 H 98-107 MMOL/L Carbon Dioxide Level 18 L 21-32 MMOL/L Anion Gap 11 5-14 MMOL/L Blood Urea Nitrogen 28 H 7-18 MG/DL Creatinine 1.39 H 0.60-1.30 MG/DL Estimat Glomerular Filtration Rate 38 BUN/Creatinine Ratio 20 Glucose Level 165 H 70-105 MG/DL Calcium Level 8.1 L 8.5-10.1 MG/DL Phosphorus Level 2.4 2.3-4.7 MG/DL Magnesium Level 1.9 1.8-2.4 MG/DL Amylase Level 244 H 25-125 U/L Test 06/13/18 08:07 06/13/18 08:15 Range/Units Lactic Acid Level 1.00 0.50-2.00 MMOL/L Glucometer 166 H 70-110 MG/DL Radiology NAME: DAVIDSON FLOOD [facility] REC#: [id number] PT STATUS: REG ER : 1950 PHYSICIAN: SHARRON SALMON MD ADMIT DATE: 06/12/18/ER Signed Date of Exam: 06/12/18 CHEST 1 VIEW, AP/PA ONLY INDICATION: Dizziness, diaphoresis. EXAMINATION: Single view of the chest was obtained. FINDINGS: The heart size and vascularity are normal. The lungs are clear. No failure, effusion or pneumothorax. 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 IMPRESSION: No acute abnormality. Dictated by: Dictated on workstation # [id number] Dict: 06/12/18 1603 Trans: 06/12/18 1624 Interpreted by: MIMA JAVIER Electronically signed by: MIMA JAVIER 06/12/184 NAME: DAVIDSON FLOOD [facility] REC#: [id number] PT STATUS: REG ER : 1950 PHYSICIAN: SHARRON SALMON MD ADMIT DATE: 06/12/18/ER Signed Date of Exam: 06/12/18 CT ABDOMEN/PELVIS WO PROCEDURE: CT abdomen and pelvis without contrast. TECHNIQUE: Multiple contiguous axial images were obtained through the abdomen and pelvis without the use of intravenous contrast. INDICATION: Explosive diarrhea COMPARISON: 10/02/2017. FINDINGS: Multiple calcified granuloma are noted throughout the bilateral lung bases. Cholecystectomy. The unenhanced liver, spleen, adrenal glands, pancreas, and kidneys are unremarkable. Mild scattered vascular calcifications. No aneurysmal dilatation of the abdominal aorta. The urinary bladder is unremarkable. The uterus is not visualized, likely surgically absent. No abnormal adnexal mass lesions. Fluid is identified throughout the colon with mild mural thickening of the colon. No dilated loops of large or small bowel. No pneumatosis. No evidence of acute appendicitis. No significant adenopathy, free air, or free fluid within the abdomen or pelvis. No acute osseous abnormality. IMPRESSION: Fluid throughout the colon, likely related to diarrhea. Mild mural thickening of the colon is also present, favored to relate to mild colitis. There is, however, no evidence of bowel obstruction or pneumatosis. Evidence of chronic granulomatous disease. Cholecystectomy. Additional findings as above. Dictated by: Dictated on workstation # [id number] Dict: 06/12/181824 Trans: 06/12/181849 Interpreted by: CATE WU MD Electronically signed by: CATE WU MD 06/12/181849 Physical Exam-(CHC) Physical Exam Vital Signs VS - Last 72 Hours, by Label 06/12/18 06/12/18 06/12/18 06/12/18 15:39 15:39 20:34 20:50 Temp 95.4 95.4 98.0 Pulse 98 98 96 111 Resp 21 21 26 B/P (MAP) 111/98 (102) 111/98 (102) 122/89 (100) Pulse Ox 98 98 97 06/12/18 06/12/18 06/12/18 06/12/18 20:57 21:00 21:15 21:30 Temp 97.7 Pulse 109 103 105 Resp 20 20 25 B/P (MAP) 136/66 (89) 136/66 (89) 141/72 (95) Pulse Ox 94 98 98 97 O2 Delivery Room Air Room Air Room Air Room Air 06/12/18 06/12/18 06/12/18 06/12/18 21:30 21:45 22:00 23:00 Pulse 112 107 111 109 Resp 16 19 15 16 B/P (MAP) 109/90 (96) 92/67 (75) 138/71 (93) 112/83 (93) Pulse Ox 95 97 97 98 O2 Delivery Room Air Room Air 06/13/18 06/13/18 06/13/18 06/13/18 00:00 00:00 00:00 00:43 Temp 101.0 101.1 Pulse 116 Resp 15 B/P (MAP) 157/61 (93) Pulse Ox 95 97 O2 Delivery Room Air Room Air 06/13/18 06/13/18 06/13/18 06/13/18 01:00 01:00 02:00 02:00 Temp 101.7 Pulse 129 129 133 Resp 16 18 B/P (MAP) 124/75 (91) 129/77 (94) Pulse Ox 95 94 O2 Delivery Room Air Room Air 06/13/18 06/13/18 06/13/18 06/13/18 03:00 03:29 04:00 04:00 Temp 100.8 Pulse 122 121 Resp 14 28 B/P (MAP) 125/63 (83) 96/64 (75) Pulse Ox 96 96 95 O2 Delivery Room Air Room Air Room Air 06/13/18 06/13/18 06/13/18 06/13/18 05:00 06:00 07:00 08:11 Temp 98.9 Pulse 114 123 113 Resp 18 17 B/P (MAP) 129/57 (81) 114/48 (70) Pulse Ox 97 97 O2 Delivery Room Air Room Air 06/13/18 08:37 Pulse 104 B/P (MAP) 112/61 (78) O2 Delivery Room Air Capillary Refill : Less Than 3 Seconds General Appearance: no apparent distress Eyes: Bilateral Eye Normal Inspection HEENT: pharynx normal Neck: supple Respiratory: lungs clear, normal breath sounds, no respiratory distress Cardiovascular: regular rate, rhythm Gastrointestinal: soft, other (No guarding apparent) Rectal: deferred Back: normal inspection Extremities: no pedal edema Neurologic/Psychiatric: alert, normal mood/affect, oriented x 3 Skin: normal color Assessment/Plan Assessment/Plan Admission Dx 1. Septic shock 2. Dehydration 3. Colitis 4. Acute renal injury suspect related to the sepsis Admission Status: Inpatient Order (span 2 midnights) Reason for Inpatient Admission: Continued IV fluid rehydration. Initiation of IV antibiotics Zosyn. Assessment & Plan 1. Septic shock -Aggressive IV fluid rehydration started in the ED and continued on floor -Monitoring of electrolytes -Initiation of IV antibiotic Zosyn 4.5 g every 8 hours 2. Dehydration -As per number 1 3. Colitis -Monitoring gastrointestinal status 4. Acute renal injury suspect related to the sepsis -Fluid rehydration -Monitor BUN/creatinine Clinical Quality Measures DVT/VTE Risk/Contraindication: Risk Factor Score Per Nursin RFS Level Per Nursing on Admit: 4+=Very High MABEL MADRIGAL MD Jun 13, 2018 09:05
[2018-06-13] MEDS: NOREPINEPHRINE 4 MG in NS (IVPB) 250 ML IV SCH (09:06)
[2018-06-13] MEDS: ONDANSETRON 4 MG/2 ML (SDV) Z0FRAN IV PRN ×2 (11:36→16:59)
[2018-06-13] MEDS ORDERED: AMIT100T2 PO (14:39)
[2018-06-13] MEDS ORDERED: LISI-556 PO (14:39)
[2018-06-13] MEDS ORDERED: ESOM20CA PO (14:39)
[2018-06-13] MEDS ORDERED: DICY20TA10 PO (14:39)
[2018-06-13] MEDS ORDERED: PREG150C PO (14:39)
[2018-06-13] MEDS ORDERED: METF-398 PO (14:39)
[2018-06-14] VITALS (13 sets, daily range): BP systolic 101–155; BP diastolic 34–91
[2018-06-14] MEDS: NOREPINEPHRINE 4 MG in NS (IVPB) 250 ML IV SCH (00:01)
[2018-06-14] MEDS: LACTATED RINGERS 1,000 ML IV SCH ×3 (02:06→18:41)
[2018-06-14 03:50] LABS: BASOPHILS % (AUTO) 0 % (0-10); EOSINOPHILS # (AUTO) 0.1 10^3/uL (0.0-0.3); EOSINOPHILS % (AUTO) 1 % (0-10); HEMATOCRIT 30 % (35-52); HEMOGLOBIN 9.4 G/DL (11.5-16.0); LYMPHOCYTES # (AUTO) 1.5 X 10^3 (1.0-4.0); LYMPHOCYTES % (AUTO) 21 % (12-44); MEAN CORPUSCULAR HEMOGLOBIN 27 PG (25-34); MEAN CORPUSCULAR HGB CONC 31 G/DL (32-36); MEAN CORPUSCULAR VOLUME 87 FL (80-99); MONOCYTES % (AUTO) 14 % (0-12); NEUTROPHILS # (AUTO) 4.5 X 10^3 (1.8-7.8); NEUTROPHILS % (AUTO) 64 % (42-75); PLATELET COUNT 97 10^3/uL (130-400); RED BLOOD COUNT 3.44 10^6/uL (4.35-5.85); RED CELL DISTRIBUTION WIDTH 15.8 % (10.0-14.5); WHITE BLOOD COUNT 7.1 10^3/uL (4.3-11.0)
[2018-06-14 04:14] LABS: BUN/CREATININE RATIO 15; CALCIUM 8.6 MG/DL (8.5-10.1); CARBON DIOXIDE 18 MMOL/L (21-32); CHLORIDE 108 MMOL/L (98-107); CREATININE SERUM 0.89 MG/DL (0.60-1.30); GFR ESTIMATED > 60; GLUCOSE 162 MG/DL (70-105); MAGNESIUM 1.5 MG/DL (1.8-2.4); PHOSPHORUS 1.9 MG/DL (2.3-4.7); POTASSIUM 4.4 MMOL/L (3.6-5.0); SODIUM 137 MMOL/L (135-145)
[2018-06-14] MEDS: inSUlin ASPART (NovoLOG) 1 UNIT/0.01 ML (CHARGE PER UNIT) SC SCH ×5 (04:46→20:24)
[2018-06-14] MEDS: POTASSIUM CL 10MEQ/50ML IVPB 50 ML IV SCH (04:47)
[2018-06-14] MEDS: KCL 20 MEQ TAB (K-DUR) PO SCH (04:48)
[2018-06-14] MEDS: MAGNESIUM 1 GM/100 ML IVPB 100 ML IV SCH ×3 (04:48→06:13)
[2018-06-14] MEDS: PIPERACILLIN/TAZO 4.5 GM/NS 100 ML IV SCH ×6 (06:12→22:58)
--- NOTE | 2018-06-14 07:14 | Diagnostic Imaging Report ---
INDICATION: Dyspnea. Comparison is made with prior examination from 06/13/2018. FINDINGS: The heart size, mediastinal configuration, and pulmonary vascularity are within normal limits. There is no pleural effusion, pneumothorax, or pneumonia. The osseous structures are unremarkable. IMPRESSION: No acute cardiopulmonary abnormality. Dictated by: Dictated on workstation # [id number]
--- NOTE | 2018-06-14 08:03 | Progress Note (SOAP) ---
Subjective Subjective/Events-last exam Patient overall reports she does feel better. She still has slight headache. She also reports her abdomen still is somewhat irritated. She has not had any vomiting. She is trying to take clear liquids. Review of Systems Date Seen by Provider: Jun 14, 2018 Time Seen by Provider: 06:50 Focused Exam Lactate Level 06/13/18 00:48: Lactic Acid Level 2.42*H 06/13/18 03:25: Lactic Acid Level 1.83 06/13/18 08:07: Lactic Acid Level 1.00 Objective Exam Last Set of Vital Signs Vital Signs Date Time Temp Pulse Resp B/P (MAP) Pulse Ox O2 Delivery O2 Flow Rate FiO2 06/14/18 07:00 105 20 106/72 (83) 06/14/18 05:00 98 Room Air 06/14/18 04:00 101.5 Capillary Refill : Less Than 3 Seconds I&O Intake and Output 06/14/18 00:00 Intake Total 4540 ml Output Total 2750 ml Balance 1790 ml Intake Oral 890 ml IV Total 3650 ml Output Urine Total 2750 ml # Bowel Movements 7 General: No Acute Distress HEENT: Mucous Memb Moist/[place] Neck: Supple Lungs: Clear to Auscultation Heart: Regular Rate Abdomen: Soft (And she is slightly tender with deep her pressure but no guarding) Skin: No Rashes Psych/Mental Status: Mental Status NL Results/Procedures Lab Laboratory Tests 06/13/18 08:07: Lactic Acid Level 1.00 06/13/18 08:15: Glucometer 166H 06/13/18 11:35: Glucometer 181H 06/13/18 15:06: Glucometer 175H 06/13/18 20:42: Glucometer 166H 06/13/18 23:47: Glucometer 175H 06/14/18 03:37: White Blood Count 7.1, Red Blood Count 3.44L, Hemoglobin 9.4L, Hematocrit 30L, Mean Corpuscular Volume 87, Mean Corpuscular Hemoglobin 27, Mean Corpuscular Hemoglobin Concent 31L, Red Cell Distribution Width 15.8H, Platelet Count 97L, Mean Platelet Volume 12.0H, Neutrophils (%) (Auto) 64, Lymphocytes (%) (Auto) 21 , Monocytes (%) (Auto) 14H, Eosinophils (%) (Auto) 1, Basophils (%) (Auto) 0, Neutrophils # (Auto) 4.5, Lymphocytes # (Auto) 1.5, Monocytes # (Auto) 1.0, Eosinophils # (Auto) 0.1, Basophils # (Auto) 0.0, Sodium Level 137, Potassium Level 4.4, Chloride Level 108H, Carbon Dioxide Level 18L, Anion Gap 11, Blood Urea Nitrogen 13, Creatinine 0.89, Estimat Glomerular Filtration Rate > 60, BUN/ Creatinine Ratio 15, Glucose Level 162H, Calcium Level 8.6, Phosphorus Level 1.9L, Magnesium Level 1.5L Microbiology 06/12/18 Blood Culture - Preliminary, Resulted No growth 06/13/18 C. difficile GDH Antigen & Toxins - Final, Complete Radiology NAME: DAVIDSON FLOOD [facility] REC#: [id number] PT STATUS: REG ER : 1950 PHYSICIAN: SHARRON SALMON MD ADMIT DATE: 06/12/18/ER Signed Date of Exam: 06/12/18 CHEST 1 VIEW, AP/PA ONLY INDICATION: Dizziness, diaphoresis. EXAMINATION: Single view of the chest was obtained. FINDINGS: The heart size and vascularity are normal. The lungs are clear. No failure, effusion or pneumothorax. 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 IMPRESSION: No acute abnormality. Dictated by: Dictated on workstation # [id number] Dict: 06/12/18 1603 Trans: 06/12/18 1624 Interpreted by: MIMA JAVIER Electronically signed by: MIMA JAVIER 06/12/18 1624 NAME: DAVIDSON FLOOD [facility] REC#: [id number] PT STATUS: REG ER : 1950 PHYSICIAN: SHARRON SALMON MD ADMIT DATE: 06/12/18/ER Signed Date of Exam: 06/12/18 CT ABDOMEN/PELVIS WO PROCEDURE: CT abdomen and pelvis without contrast. TECHNIQUE: Multiple contiguous axial images were obtained through the abdomen and pelvis without the use of intravenous contrast. INDICATION: Explosive diarrhea COMPARISON: 10/02/2017. FINDINGS: Multiple calcified granuloma are noted throughout the bilateral lung bases. Cholecystectomy. The unenhanced liver, spleen, adrenal glands, pancreas, and kidneys are unremarkable. Mild scattered vascular calcifications. No aneurysmal dilatation of the abdominal aorta. The urinary bladder is unremarkable. The uterus is not visualized, likely surgically absent. No abnormal adnexal mass lesions. Fluid is identified throughout the colon with mild mural thickening of the colon. No dilated loops of large or small bowel. No pneumatosis. No evidence of acute appendicitis. No significant adenopathy, free air, or free fluid within the abdomen or pelvis. No acute osseous abnormality. IMPRESSION: Fluid throughout the colon, likely related to diarrhea. Mild mural thickening of the colon is also present, favored to relate to mild colitis. There is, however, no evidence of bowel obstruction or pneumatosis. Evidence of chronic granulomatous disease. Cholecystectomy. Additional findings as above. Dictated by: Dictated on workstation # [id number] Dict: 06/12/181824 Trans: 06/12/181849 Interpreted by: CATE WU MD Electronically signed by: CATE WU MD 06/12/181849 Assessment/Plan Assessment/Plan Assessment & Plan 1. Septic shock -Aggressive IV fluid rehydration started in the ED and continued on floor -Monitoring of electrolytes -Initiation of IV antibiotic Zosyn 4.5 g every 8 hours 06/14 -We'll transfer patient to [facility]. Patient is now fluid rehydrated and is not requiring any pressor support. -She will be continued on IV antibiotics and this will be day number 3 2. Dehydration -As per number 1 06/14 -Continue with IV fluids at 100 mL/h 3. Colitis -Monitoring gastrointestinal status 06/14 -C. difficile was noted to be negative 4. Acute renal injury suspect related to the sepsis -Fluid rehydration -Monitor BUN/creatinine 06/14 -Creatinine is 0.8 Clinical Quality Measures DVT/VTE Risk/Contraindication: Risk Factor Score Per Nursin RFS Level Per Nursing on Admit: 4+=Very High MABEL MARDIGAL MD Jun 14, 2018 08:03
[2018-06-14] MEDS ORDERED: RT-ALBUTEROL SULF 2.5 MG/3 ML PRE-MIX VIAL IH PRN (08:15)
[2018-06-14] MEDS: meTOprolol TARTRATE 25 MG (LOPRESSOR) TABLET PO SCH ×2 (08:18→20:23)
[2018-06-14] MEDS: cloNIDine 0.1 MG (CATAPRES) TAB PO SCH ×2 (08:49→20:23)
[2018-06-14] MEDS: PANTOPRAZOLE 40 MG (PROTONIX) TAB PO SCH (08:49)
[2018-06-14] MEDS: ACETAMINOPHEN 500 MG TAB (TYLENOL) PO PRN (10:35)
[2018-06-14] MEDS: lisINopril 5 MG (PRINIVIL) TABLET PO SCH (20:23)
[2018-06-14] MEDS: ASPIRIN E.C. 81 MG (ECOTRIN) TAB PO SCH (20:23)
[2018-06-15] VITALS: BP 122/61
[2018-06-15] MEDS: inSUlin ASPART (NovoLOG) 1 UNIT/0.01 ML (CHARGE PER UNIT) SC SCH ×6 (00:23→20:49)
[2018-06-15] MEDS: HYDROcodone/APAP 5 MG/325 MG (LORTAB) TAB PO PRN ×4 (00:33→20:53)
[2018-06-15 04:00] VITALS: BP 142/73
[2018-06-15] MEDS: LACTATED RINGERS 1,000 ML IV SCH ×2 (04:50→17:55)
[2018-06-15] MEDS: PANTOPRAZOLE 40 MG (PROTONIX) TAB PO SCH (06:36)
[2018-06-15] MEDS: PIPERACILLIN/TAZO 4.5 GM/NS 100 ML IV SCH ×6 (06:36→22:57)
[2018-06-15 08:00] VITALS: BP 178/84
[2018-06-15] MEDS: meTOprolol TARTRATE 25 MG (LOPRESSOR) TABLET PO SCH ×2 (08:21→20:48)
[2018-06-15] MEDS: cloNIDine 0.1 MG (CATAPRES) TAB PO SCH ×2 (08:21→20:49)
[2018-06-15 12:00] VITALS: BP 127/63
[2018-06-15] MEDS ORDERED: INSU100I29 SQ ×2 (12:02)
--- NOTE | 2018-06-15 13:00 | Progress Note (SOAP) ---
Subjective Subjective/Events-last exam Pt reports improvement. Less diarrhea, continues to have some bloating and abdominal cramping. Taking clear liquids. Review of Systems Date Seen by Provider: Jun 15, 2018 Time Seen by Provider: 09:35 Focused Exam Lactate Level 06/13/18 00:48: Lactic Acid Level 2.42*H 06/13/18 03:25: Lactic Acid Level 1.83 06/13/18 08:07: Lactic Acid Level 1.00 Objective Exam Last Set of Vital Signs Vital Signs Date Time Temp Pulse Resp B/P (MAP) Pulse Ox O2 Delivery O2 Flow Rate FiO2 06/15/18 08:21 96 Room Air 06/15/18 08:00 98.5 96 20 178/84 (115) Capillary Refill : Less Than 3 SecondsLess Than 3 Seconds I&O Intake and Output 06/15/18 00:00 Intake Total 3620 ml Output Total 950 ml Balance 2670 ml Intake Oral 1220 ml IV Total 2400 ml Output Urine Total 950 ml # Voids 7 # Bowel Movements 5 General: Alert, Oriented X3, Cooperative Psych/Mental Status: Mood NL Results/Procedures Lab Laboratory Tests 06/14/18 16:01: Glucometer 156H 06/14/18 20:08: Glucometer 153H 06/15/18 00:22: Glucometer 129H 06/15/18 03:48: Glucometer 121H 06/15/18 07:52: Glucometer 117H Microbiology 06/12/18 Blood Culture - Preliminary, Resulted No growth 06/13/18 C. difficile GDH Antigen & Toxins - Final, Complete 06/12/18 MRSA Screen - Final, Complete MRSA not isolated 06/12/18 Urine Culture - Final, Complete NO GROWTH Radiology NAME: DAVIDSON FLOOD [facility] REC#: [id number] PT STATUS: REG ER : 1950 PHYSICIAN: SHARRON SALMON MD ADMIT DATE: 06/12/18/ER Signed Date of Exam: 06/12/18 CHEST 1 VIEW, AP/PA ONLY INDICATION: Dizziness, diaphoresis. EXAMINATION: Single view of the chest was obtained. FINDINGS: The heart size and vascularity are normal. The lungs are clear. No failure, effusion or pneumothorax. 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 IMPRESSION: No acute abnormality. Dictated by: Dictated on workstation # [id number] Dict: 06/12/18 1603 Trans: 06/12/18 1624 Interpreted by: MIMA JAVIER Electronically signed by: MIAM JAVIER 06/12/189 NAME: DAVIDSON FLOOD [facility] REC#: [id number] PT STATUS: REG ER : 1950 PHYSICIAN: SHARRON SALMON MD ADMIT DATE: 06/12/18/ER Signed Date of Exam: 06/12/18 CT ABDOMEN/PELVIS WO PROCEDURE: CT abdomen and pelvis without contrast. TECHNIQUE: Multiple contiguous axial images were obtained through the abdomen and pelvis without the use of intravenous contrast. INDICATION: Explosive diarrhea COMPARISON: 10/02/2017. FINDINGS: Multiple calcified granuloma are noted throughout the bilateral lung bases. Cholecystectomy. The unenhanced liver, spleen, adrenal glands, pancreas, and kidneys are unremarkable. Mild scattered vascular calcifications. No aneurysmal dilatation of the abdominal aorta. The urinary bladder is unremarkable. The uterus is not visualized, likely surgically absent. No abnormal adnexal mass lesions. Fluid is identified throughout the colon with mild mural thickening of the colon. No dilated loops of large or small bowel. No pneumatosis. No evidence of acute appendicitis. No significant adenopathy, free air, or free fluid within the abdomen or pelvis. No acute osseous abnormality. IMPRESSION: Fluid throughout the colon, likely related to diarrhea. Mild mural thickening of the colon is also present, favored to relate to mild colitis. There is, however, no evidence of bowel obstruction or pneumatosis. Evidence of chronic granulomatous disease. Cholecystectomy. Additional findings as above. Dictated by: Dictated on workstation # [id number] Dict: 06/12/18 182 Trans: 06/12/181849 Interpreted by: CATE WU MD Electronically signed by: CATE WU MD 06/12/181849 Assessment/Plan Assessment/Plan Assessment & Plan 1. Septic shock -Aggressive IV fluid rehydration started in the ED and continued on floor -Monitoring of electrolytes -Initiation of IV antibiotic Zosyn 4.5 g every 8 hours 06/14 -We'll transfer patient to [facility]. Patient is now fluid rehydrated and is not requiring any pressor support. -She will be continued on IV antibiotics and this will be day number 3 RESOLVED 2. Dehydration -As per number 1 06/14 -Continue with IV fluids at 100 mL/h RESOLVED 3. Colitis -Monitoring gastrointestinal status 06/14 -C. difficile was noted to be negative 06/15 - improving - will advance diet and DC IVF, if tolerates bland diet will plan for DC to home. 4. Acute renal injury suspect related to the sepsis -Fluid rehydration -Monitor BUN/creatinine 06/14 -Creatinine is 0.8 RESOLVED Clinical Quality Measures DVT/VTE Risk/Contraindication: Risk Factor Score Per Nursin RFS Level Per Nursing on Admit: 4+=Very High TAMRA PARIS DO Jun 15, 2018 13:00
[2018-06-15 16:00] VITALS: BP 140/69
[2018-06-15 20:00] VITALS: BP 162/90
[2018-06-15] MEDS: lisINopril 5 MG (PRINIVIL) TABLET PO SCH (20:48)
[2018-06-15] MEDS: ASPIRIN E.C. 81 MG (ECOTRIN) TAB PO SCH (20:49)
[2018-06-15] MEDS: CATHETER FLUSH 10 ML SYR IV SCH (20:49)
[2018-06-16 00:05] VITALS: BP 141/65
[2018-06-16 04:05] VITALS: BP 131/71
[2018-06-16] MEDS: inSUlin ASPART (NovoLOG) 1 UNIT/0.01 ML (CHARGE PER UNIT) SC SCH ×2 (05:59→11:14)
[2018-06-16] MEDS: CATHETER FLUSH 10 ML SYR IV SCH (06:18)
[2018-06-16] MEDS: PANTOPRAZOLE 40 MG (PROTONIX) TAB PO SCH (06:18)
[2018-06-16] MEDS: PIPERACILLIN/TAZO 4.5 GM/NS 100 ML IV SCH ×2 (06:18)
[2018-06-16 08:00] VITALS: BP 144/76
[2018-06-16] MEDS: meTOprolol TARTRATE 25 MG (LOPRESSOR) TABLET PO SCH (08:23)
[2018-06-16] MEDS: cloNIDine 0.1 MG (CATAPRES) TAB PO SCH (08:23)
[2018-06-16] MEDS ORDERED: CIPR-225 PO (10:13)
--- NOTE | 2018-06-16 10:18 | Discharge Summary ---
Diagnosis/Chief Complaint Date of Admission Jun 12, 2018 at 19:00 Date of Discharge Jun 16, 2018 Admission Diagnosis Admission Diagnosis 1. Septic shock 2. Dehydration 3. Colitis 4. Acute renal injury suspect related to the sepsis Discharge Diagnosis 1. Septic shock -Aggressive IV fluid rehydration started in the ED and continued on floor -Monitoring of electrolytes -Initiation of IV antibiotic Zosyn 4.5 g every 8 hours 06/14 -We'll transfer [facility]. Patient is now fluid rehydrated and is not requiring any pressor support. -She will be continued on IV antibiotics and this will be day number 3 RESOLVED 2. Dehydration -As per number 1 06/14 -Continue with IV fluids at 100 mL/h RESOLVED 3. Colitis -Monitoring gastrointestinal status 06/14 -C. difficile was noted to be negative 06/15 - improving - will advance diet and DC IVF, if tolerates bland diet will plan for DC to home. 06/16 - doing better this am with less diarrhea. 4. Acute renal injury suspect related to the sepsis -Fluid rehydration -Monitor BUN/creatinine 06/14 -Creatinine is 0.8 RESOLVED Disp: DC to home. Chief Complaint/HPI Chief Complaint/HPI 67-year-old female admitted through emergency department during the afternoon of June 12, 2018 after she apparently became extremely dizzy and diaphoretic. Patient was at [facility] apparently having a hamburger when she became nauseated and went to the bathroom. Apparently after 45 minutes her family checked on her and realized she was not feeling well. She was brought to the emergency room where she was noted to have weakness and felt very clammy. She denied ED chest pain, nausea or vomiting in the ED. Patient is a known diabetic and occasionally does become hypoglycemic. Discharge Summary-Simple/Stand Consultations Discharge Physical Examination Allergies: Coded Allergies: No Known Drug Allergies (Unverified , 06/11/15) Vitals & I&Os Vital Sign - Last 12Hours Date Time Temp Pulse Resp B/P (MAP) Pulse Ox O2 Delivery O2 Flow Rate FiO2 06/16/18 08:25 Room Air 06/16/18 08:00 98.7 85 20 144/76 (98) 96 Intake and Output 06/16/18 00:00 Intake Total 1360 ml Output Total 1100 ml Balance 260 ml General Appearance: Alert, Oriented X3, Cooperative Psych/Mental Status: Mood NL Hospital Course See final discharge diagnosis. Radiology Reviewed NAME: [facility] REC#: [id number] PT STATUS: REG ER : 1950 PHYSICIAN: SHARRON SALMON MD ADMIT DATE: 06/12/18/ER Signed Date of Exam: 06/12/18 CHEST 1 VIEW, AP/PA ONLY INDICATION: Dizziness, diaphoresis. EXAMINATION: Single view of the chest was obtained. FINDINGS: The heart size and vascularity are normal. The lungs are clear. No failure, effusion or pneumothorax. 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 IMPRESSION: No acute abnormality. Dictated by: Dictated on workstation # [id number] Dict: 06/12/18 160 Trans: 06/12/18 162 Interpreted by: MIMA JAVIER Electronically signed by: MIMA JAVIER 06/12/181623 NAME: [facility] REC#: [id number] PT STATUS: REG ER : 1950 PHYSICIAN: SHARRON SALMON MD ADMIT DATE: 06/12/18/ER Signed Date of Exam: 06/12/18 CT ABDOMEN/PELVIS WO PROCEDURE: CT abdomen and pelvis without contrast. TECHNIQUE: Multiple contiguous axial images were obtained through the abdomen and pelvis without the use of intravenous contrast. INDICATION: Explosive diarrhea COMPARISON: 10/02/2017. FINDINGS: Multiple calcified granuloma are noted throughout the bilateral lung bases. Cholecystectomy. The unenhanced liver, spleen, adrenal glands, pancreas, and kidneys are unremarkable. Mild scattered vascular calcifications. No aneurysmal dilatation of the abdominal aorta. The urinary bladder is unremarkable. The uterus is not visualized, likely surgically absent. No abnormal adnexal mass lesions. Fluid is identified throughout the colon with mild mural thickening of the colon. No dilated loops of large or small bowel. No pneumatosis. No evidence of acute appendicitis. No significant adenopathy, free air, or free fluid within the abdomen or pelvis. No acute osseous abnormality. IMPRESSION: Fluid throughout the colon, likely related to diarrhea. Mild mural thickening of the colon is also present, favored to relate to mild colitis. There is, however, no evidence of bowel obstruction or pneumatosis. Evidence of chronic granulomatous disease. Cholecystectomy. Additional findings as above. Dictated by: Dictated on workstation # [id number] Dict: 06/12/181824 Trans: 06/12/181849 Interpreted by: CATE WU MD Electronically signed by: CATE WU MD 06/12/181849 Discharge Instructions to patient/family Discharge [facility] Discharge Medications New, Converted or Re-Newed RX: Transmitted to Pharmacy ([facility]) New Medications: Ciprofloxacin HCl (Cipro) 500 Mg Tablet 500 MG PO BID for 5 Days, #10 TAB 0 Refills Continued Medications: Albuterol Sulfate (Albuterol Sulfate) 2.5 Mg/3 Ml Vial.neb 2.5 MG NEB Q4H PRN for SHORTNESS OF BREATH, EA Allopurinol (Allopurinol) 100 Mg Tablet 100 MG PO BID Amitriptyline HCl (Amitriptyline HCl) 100 Mg Tablet 100 MG PO HS Aspirin (Aspirin EC) 81 Mg Tablet.dr 81 MG PO Q48H, TAB Clonidine HCl (Clonidine HCl) 0.1 Mg Tablet 0.1 MG PO BID Dicyclomine HCl (Dicyclomine HCl) 20 Mg Tablet 20 MG PO QID Diltiazem HCl (Diltiazem 24Hr ER) 240 Mg Cap.er.24h 240 MG PO DAILY Esomeprazole Magnesium (Nexium) 20 Mg Capsule.dr 20 MG PO DAILY Furosemide (Furosemide) 40 Mg Tablet 40 MG PO DAILY Insulin Detemir (Levemir Flextouch) 100 Unit/1 Ml Insuln.pen 20 UNIT SQ DAILY PRN for BS<140, EA Insulin Detemir (Levemir Flextouch) 100 Unit/1 Ml Insuln.pen 45 UNIT SQ BID PRN for BS>140, EA Lisinopril (Lisinopril) 5 Mg Tablet 5 MG PO HS Lovastatin (Lovastatin) 20 Mg Tablet 20 MG PO HS Metformin HCl (Metformin HCl) 850 Mg Tablet 850 MG PO BID Metoprolol Tartrate (Metoprolol Tartrate) 25 Mg Tablet 25 MG PO BID Potassium Chloride (Potassium Chloride) 20 Meq Tab.er.prt 20 MEQ PO 1200, TAB Pregabalin (Lyrica) 150 Mg Capsule 150 MG PO TID Patient Instructions Goal/Follow Up Appt: Follow-up with Frederick Romero APRN 06/22/18 at 11:40 am Activity & Diet Discharge Diet: ADA Diet Discharge Medications Reviewed and agree with Discharge Medication list on patient's Discharge Instruction sheet Clinical Quality Measures DVT/VTE Risk/Contraindication: Risk Factor Score Per Nursin RFS Level Per Nursing on Admit: 4+=Very High TAMRA PARIS DO Jun 16, 2018 10:18
--- NOTE | 2018-06-16 17:18 | Discharge Instructions ---
Discharge [facility] Discharge Medications New, Converted or Re-Newed RX: Transmitted to Pharmacy ([facility]) New Medications: Ciprofloxacin HCl (Cipro) 500 Mg Tablet 500 MG PO BID for 5 Days, #10 TAB 0 Refills Continued Medications: Albuterol Sulfate (Albuterol Sulfate) 2.5 Mg/3 Ml Vial.neb 2.5 MG NEB Q4H PRN for SHORTNESS OF BREATH, EA Allopurinol (Allopurinol) 100 Mg Tablet 100 MG PO BID Amitriptyline HCl (Amitriptyline HCl) 100 Mg Tablet 100 MG PO HS Aspirin (Aspirin EC) 81 Mg Tablet.dr 81 MG PO Q48H, TAB Clonidine HCl (Clonidine HCl) 0.1 Mg Tablet 0.1 MG PO BID Dicyclomine HCl (Dicyclomine HCl) 20 Mg Tablet 20 MG PO QID Diltiazem HCl (Diltiazem 24Hr ER) 240 Mg Cap.er.24h 240 MG PO DAILY Esomeprazole Magnesium (Nexium) 20 Mg Capsule.dr 20 MG PO DAILY Furosemide (Furosemide) 40 Mg Tablet 40 MG PO DAILY Insulin Detemir (Levemir Flextouch) 100 Unit/1 Ml Insuln.pen 20 UNIT SQ DAILY PRN for BS<140, EA Insulin Detemir (Levemir Flextouch) 100 Unit/1 Ml Insuln.pen 45 UNIT SQ BID PRN for BS>140, EA Lisinopril (Lisinopril) 5 Mg Tablet 5 MG PO HS Lovastatin (Lovastatin) 20 Mg Tablet 20 MG PO HS Metformin HCl (Metformin HCl) 850 Mg Tablet 850 MG PO BID Metoprolol Tartrate (Metoprolol Tartrate) 25 Mg Tablet 25 MG PO BID Potassium Chloride (Potassium Chloride) 20 Meq Tab.er.prt 20 MEQ PO 1200, TAB Pregabalin (Lyrica) 150 Mg Capsule 150 MG PO TID Patient Instructions Goal/Follow Up Appt: Follow-up with Frederick Romero APRN 06/22/18 at 11:40 am Activity & Diet Discharge Diet: TAMRA Villeda DO Jun 16, 2018 10:16
== END 2018-06-16 11:45 | disposition home or self-care (01) | DRG 871 ==
LOC: EDUNIT# 15:39 → ER 15:40 → ICU 19:00 → 4TH 06-14 10:00
PROVIDERS: ADMIT Family Medicine; ATTEND Family Medicine
DX: A41.9 Sepsis, unspecified organism (principal); R65.21 Severe sepsis with septic shock; K52.9 Noninfective gastroenteritis and colitis, unspecified; N17.9 Acute kidney failure, unspecified; E86.0 Dehydration; I10 Essential (primary) hypertension; E11.42 Type 2 diabetes mellitus with diabetic polyneuropathy; K21.9 Gastro-esophageal reflux disease without esophagitis; K44.9 Diaphragmatic hernia without obstruction or gangrene; H40.9 Unspecified glaucoma; Z79.4 Long term (current) use of insulin; Z87.891 Personal history of nicotine dependence; Z89.021 Acquired absence of right finger(s)
CPT/HCPCS: 36415; 71045; 74176; 80048; 80053; 81000; 82150; 82274; 82962; 83605; 83735; 84100; 84484; 85007; 85025; 85027; 85610; 85730; 87040; 87081; 87088; 87324; 87449; 93005; 94640; 94760; 96365